=== PATIENT | male | born 1945 | race Caucasian/White ===

== ENCOUNTER 2016-11-06 11:40 | Inpatient (IN) | payer OTHER ==
[~2016-11-06] VITALS: Ht 185.4 cm; Wt 102.0 kg
[~2016-11-06 11:40] MED LIST: /IPRAINH IN; /MOXI40TA OR; /MOXI40TA PO; /QUET25TA PO; /TIOT18INH INH; /WARF25TA PO; ACET-654 PO; ACET500C PO; ALBU0.63 IN; ALBU83IN IN; ALBUTEROL INH; ASPI325T PO; ASPI81CH PO; ATEN50TA2 PO; ATIV0.5T3 PO; ATROPINE PO; ATROVENT0.02% INH; AUGM875T27 PO; BISA10SU30 PR; CILO50TA PO; DESYREL PO; DUONSOL INH; EFFEXOR PO; FLEEENE4 PR; FLON0.05; FLUC10TA PO; FLUN7IN IN; FOLI1TAB PO; GABA400C PO; GEMF600T PO; GLUC1000 PO; GLUC10TA3 PO; GUAISYP5 PO; IBUP200T2 PO; IBUP600T PO; KEFL250C6 PO; LASIX PO; LEVO500T PO; LIDO1DIS2 TD; LISI20TA5 PO; MIRT45TA PO; MUCU400T2 PO; MULTIVIT PO; NASALIDE; NEUR400C PO; NIAC500T PO; NICO21DI26 EXT; NICO21DI4 TD; NICO21PAT TOP; NORCOTAB PO; NORV5TAB OR; OMEP20TA7 PO; PERC7.5T12 PO; PERCOCET PO; PRED-454 PO; PRED10TA PO; PRED10TA2 OR; PRED1TAB32 PO; PRED50TA2 PO; PRED5TAB PO; PULMICORT; PULMICORT INH; REGULAR INSULIN SC; SENEKOT PO; SERO50TA PO; SIMV20TA2 PO; SYMB16INH INH; TAMS0.4C PO; TOPA100T PO; TOPI50TA PO; TRAZ100T PO; ULTR50TA PO; VENL100T PO; VENL25TA2 PO; VENTAER IN; VITA400T13 PO; [UNRECOGNIZED DRUG - CODE] PO; [UNRECOGNIZED DRUG - OTHER] PO
[2016-11-06] MEDS ORDERED: ACETAMINOPHEN 325 MG TAB As Ordered ONE (12:09)
[2016-11-06] MEDS ORDERED: IPRATROPIUM 0.5MG/ALBUTEROL 2.5MG INH SOL UD 3ML (DUONEB)(J7620) As Ordered ONE ×2 (12:18→16:21)
[2016-11-06] MEDS ORDERED: ALBUTEROL SULFATE 2.5 MG/0.5 ML INH NEB SOLN As Ordered ONE (12:20)
[2016-11-06 12:24] LABS: BASO % 0.6 % (0.0-1.0); EOS # 0.1 K/mm3 (0.0-0.50); EOS % 1.1 % (0.0-3.0); LARGE UNSTAINED CELL # 0.1 K/mm3 (0.0-0.4); LARGE UNSTAINED CELL % 1.3 % (0.0-4.0); LYMPH # 0.6 K/mm3 (1.5-4.5); LYMPH % 5.7 % (24.0-44.0); MEAN CORPUSCULAR HGB CONC 35.2 g/dl (32.0-36.5); MEAN CORPUSCULAR VOLUME 96.8 fl (80.0-96.0); MONO # 0.6 K/mm3 (0.0-0.8); NEUTROPHILS # 7.8 K/mm3 (1.8-7.7); NEUTROPHILS % 85.4 % (36.0-66.0); PLATELET COUNT, AUTOMATED 134 k/mm3 (150-450); RED CELL DISTRIBUTION WIDTH 13.7 % (11.5-14.5); WHITE BLOOD COUNT 9.2 K/mm3 (4.0-10.0)
[2016-11-06 12:27] LABS: ABG BASE EXCESS -4.8 (-2.0-2.0); ABG HCO3 19.5 MEQ/L (22.0-26.0); ABG PARTIAL PRESSURE CO2 34.3 mmHg (35.0-45.0); ABG PARTIAL PRESSURE O2 90.3 mmHg (75.0-100.0); ABG STANDARD HCO3 20.6 MEQ/L (22.0-26.0); ABG TOTAL CO2 20.6 MEQ/L (23.0-31.0); ABG pH (ARTERIAL) 7.373 UNITS (7.350-7.450)
[2016-11-06 12:38] LABS: ALBUMIN/GLOBULIN RATIO 1.05 (1.00-1.93); BILIRUBIN,DIRECT 0.1 MG/DL (0.0-0.2); BILIRUBIN,TOTAL 0.5 MG/DL (0.2-1.0); CALCIUM LEVEL 8.9 MG/DL (8.8-10.2); CREATININE FOR GFR 1.7 MG/DL (0.70-1.30); GLOMERULAR FILTRATION RATE 42.3 (>42); POTASSIUM SERUM 3.6 MEQ/L (3.5-5.1); TOTAL PROTEIN 7.8 GM/DL (6.4-8.2)
--- NOTE | 2016-11-06 13:23 | REP ---
Clinical: Cough and shortness of breath. Technique: PA and lateral. Comparison: 08/29/2014. Findings: Mediastinum and cardiac silhouette stable. Lung jarquin demonstrate chronic stable changes without acute consolidation, effusion, or pneumothorax. Skeletal structures intact. Degenerative changes to the thoracic spine with bridging osteophytes noted Impression: Chronic stable changes. No acute cardiopulmonary process. Signed by Alvarado Lucero MD 11/06/2016 01:13 P
[2016-11-06] MEDS ORDERED: MAGNESIUM SULFATE 1 GM/100 ML D5W BAG (10MG/ML) (J3475) As Ordered ONE (13:28)
[2016-11-06] MEDS ORDERED: methylPREDNISolone INJ 125 MG/2 ML VIAL (J2930) As Ordered ONE (13:28)
[2016-11-06] MEDS ORDERED: VITA20008 PO (14:21)
[2016-11-06] MEDS ORDERED: SYMB16INH INH (14:21)
[2016-11-06] MEDS ORDERED: ALBU17IN INH (14:21)
[2016-11-06] MEDS ORDERED: TOPI1TAB31 PO (14:21)
[2016-11-06] MEDS ORDERED: CETI10TA PO (14:21)
[2016-11-06] MEDS ORDERED: CILO50TA PO (14:21)
[2016-11-06] MEDS ORDERED: OXYC-517 PO (14:21)
[2016-11-06] MEDS ORDERED: TOPI50TA4 PO (14:21)
[2016-11-06] MEDS ORDERED: ATEN25TA PO (14:21)
[2016-11-06] MEDS ORDERED: TRAZ100T4 PO (14:21)
[2016-11-06] MEDS ORDERED: ASPI1TAB PO (14:21)
[2016-11-06] MEDS ORDERED: POTA10CA PO (14:21)
[2016-11-06] MEDS ORDERED: [UNRECOGNIZED DRUG - CODE] PO (14:21)
[2016-11-06] MEDS ORDERED: QUET1TAB10 PO (14:21)
[2016-11-06] MEDS ORDERED: SIMV20TA2 PO (14:21)
[2016-11-06] MEDS ORDERED: SPIR1CAP INH (14:21)
[2016-11-06] MEDS ORDERED: GABA-283 PO ×2 (14:25)
[2016-11-06] MEDS ORDERED: MIRT45TA PO (14:25)
[2016-11-06] MEDS ORDERED: GUAI400T6 PO (14:25)
[2016-11-06] MEDS ORDERED: FISH120012 PO (14:25)
[2016-11-06] MEDS ORDERED: OMEP20CA3 PO (14:25)
[2016-11-06] MEDS ORDERED: FLUTISP (14:25)
[2016-11-06] MEDS ORDERED: VITMTA PO (14:25)
[2016-11-06] MEDS ORDERED: IBUP60TA PO (14:25)
[2016-11-06] MEDS ORDERED: LISI-538 PO (14:25)
[2016-11-06] MEDS ORDERED: BACL10TA2 PO (14:27)
[2016-11-06] MEDS ORDERED: SERT-138 PO (14:28)
[2016-11-06] MEDS ORDERED: LevoFLOXacin/DEXTROSE 750 MG/150 ML BAG (J1956) As Ordered ONE (14:52)
[2016-11-06] MEDS ORDERED: OSELTAMIVIR PHOSPHATE 75 MG CAP (TAMIFLU) As Ordered ONE ×2 (14:53→20:16)
[2016-11-06 15:51] LABS: CALCIUM LEVEL 8.4 MG/DL (8.8-10.2); CREATININE FOR GFR 1.62 MG/DL (0.70-1.30); GLOMERULAR FILTRATION RATE 44.7 (>42); POTASSIUM SERUM 3.7 MEQ/L (3.5-5.1)
--- NOTE | 2016-11-06 17:11 | REP ---
Clinical: Bilateral pain and elevated D-dimer levels . Technique: Henry scale and color Doppler evaluation using linear high frequency transducer. Findings: Ultrasound examination of the right and left lower extremity deep venous structures from the common femoral vein to the popliteal vein demonstrates normal compressibility flow and wave patterns in response to respiration and augmentation. There is no evidence for deep venous thrombosis. Impression: No evidence for deep venous thrombosis of the right and left lower extremities . Signed by Alvarado Lucero MD 11/06/2016 05:03 P
[2016-11-06] MEDS: CILOSTAZOL 100 MG TAB (PLETAL) PO SCH (17:30)
[2016-11-06] MEDS ORDERED: guaiFENesin 200 MG TAB PO PRN (17:45)
[2016-11-06] MEDS ORDERED: PERCOCET 5MG/325MG TAB PO PRN (17:45)
[2016-11-06] MEDS ORDERED: FLUTICASONE PROP 0.05% NASAL SPRAY 16 GM (FLONASE) PRN (17:45)
[2016-11-06] MEDS ORDERED: ALBUTEROL 90 MCG/ACT 8GM HFA INHALER INH PRN (17:45)
[2016-11-06] MEDS ORDERED: BACLOFEN 10 MG TAB PO PRN (17:45)
[2016-11-06] MEDS ORDERED: ENOXAPARIN 100MG/1ML SYRINGE (J1650) SC SCH (18:00)
--- NOTE | 2016-11-06 18:13 | ECGEPIP ---
Stationary ECG Study [facility] - ED Test Date: 2016-11-06 Pat Name: MATA VERDUGO Department: Room: - Gender: M Summer Clerk: chase : 1945 Requested By: HUNTER GARCIA Order Number: [id number] Reading MD: Srinivasa Lepe Measurements Intervals [place] Rate: 122 P: CA: 0 QRS: 52 QRSD: 145 T: 34 QT: 322 QTc: 460 Interpretive Statements SINUS TACHYCARDIA WITH FIRST DEGREE AV BLOCK, OCCASIONLA PACs RAD RIGHT BUNDLE BRANCH BLOCK Electronically Signed On 11-06-2016 18:12:43 EST by Srinivasa Lepe
[2016-11-06 18:38] LABS: INR 1.02
[2016-11-06] MEDS ORDERED: HEPARIN DRIP 25,000 UNITS in APPROPRIATE DILUENT 1 EA IV SCH (19:00)
[2016-11-06] MEDS ORDERED: HEPARIN 25,000 UNITS/250 ML D5W BAG (100 UNITS/ML) As Ordered ONE (19:50)
[2016-11-06] MEDS: cefTRIAXone SOD 2 GM in D5W MINI-BAG PLUS 50 ML IV SCH (20:00)
[2016-11-06] MEDS: SYMBICORT 160/4.5MCG INHALER 6GM INH SCH (20:01)
[2016-11-06] MEDS ORDERED: cefTRIAXone SOD 1 GM VIAL (J0696) As Ordered ONE (20:15)
[2016-11-06] MEDS ORDERED: POTASSIUM CHLORIDE 10 MEQ SR TABLET As Ordered ONE (20:15)
[2016-11-06] MEDS ORDERED: OMEPRAZOLE 20 MG CAP As Ordered ONE (20:15)
[2016-11-06] MEDS ORDERED: IBUPROFEN 600 MG TAB As Ordered ONE (20:16)
[2016-11-06] MEDS ORDERED: SIMVASTATIN 20 MG TAB As Ordered ONE (20:16)
[2016-11-06] MEDS ORDERED: oxyCODONE 5MG TAB As Ordered ONE (20:16)
[2016-11-06] MEDS ORDERED: QUEtiapine FUMARATE 100 MG TAB As Ordered ONE (20:16)
[2016-11-06] MEDS ORDERED: traZODone 100 MG TAB As Ordered ONE (20:23)
[2016-11-06] MEDS ORDERED: TOPIRAMATE (TopAMAX) 100 MG TAB As Ordered ONE (20:24)
--- NOTE | 2016-11-06 20:47 | HPE ---
DATE OF ADMISSION: 11/06/2016 PRIMARY CARE PROVIDER: [facility] [place] [facility]. HISTORY OF PRESENT ILLNESS: This patient is a 71-year-old male with past medical history significant for chronic obstructive pulmonary disease (COPD), gastroesophageal reflux disease (GERD), hypercholesterolemia, hypertension, posttraumatic stress disorder (PTSD), who presented to [facility] on 11/06/2016, for acute respiratory distress. The patient stated he started having difficulty breathing for the past two days. His sputum became more yellowish. The patient has a worsening cough and temperature of 103. This morning, the patient started to have confusion observed by the family members; therefore, the patient was sent to [facility] for further evaluation. During encounter, the patient also complained about chest pain, received a dose of nitroglycerin. When patient was in the emergency room, the patient was found to have positive for influenza. Then the hospitalist team was called for admission. ALLERGIES: LIBRIUM. HOME MEDICATIONS: - Ventolin two puff inhalation every four hours as needed - aspirin 81 mg by mouth daily - atenolol 25 mg by mouth daily - baclofen 10 mg by mouth four times a day as needed for muscle spasm - Symbicort two puff inhalation twice a day - sertraline 10 mg by mouth daily - vitamin D 2000 units by mouth daily - fluticasone per nasal daily as needed for nasal congestion - gabapentin 400 mg by mouth every morning - gabapentin 800 mg by mouth at bedtime - guaifenesin 400 mg by mouth twice a day as needed for cough - ibuprofen 600 mg by mouth twice a day - lisinopril 20 mg by mouth daily - mirtazapine 45 mg by mouth at bedtime - multivitamin one tablet by mouth daily - omeprazole 20 mg by mouth twice a day - oxycodone 5 mg by mouth three times a day - potassium chloride 10 mEq by mouth three times a day - quetiapine 300 mg by mouth at bedtime - sertraline 100 mg by mouth daily - simvastatin 20 mg by mouth at bedtime - Spiriva inhalation daily - topiramate 50 mg by mouth daily - topiramate 100 mg by mouth at bedtime - trazodone 200 mg by mouth at bedtime - cilostazol 50 mg by mouth twice a day - theophylline 400 mg by mouth twice a day PAST MEDICAL HISTORY: 1. COPD. 2. GERD. 3. Hypercholesterolemia. 4. Hypertension. 5. PTSD. PAST SURGICAL HISTORY: 1. Coronary artery bypass graft (CABG). 2. Left leg vessel stents. SOCIAL HISTORY: The patient smokes two packs daily for 58 years. The patient denies alcohol use. Denies recreational drug use. The patient is full code. REVIEW OF SYSTEMS: GENERAL: Positive for fever, chills. Generalized muscle aches. HEENT: No vision changes, no auditory changes. CARDIAC: Positive chest pressure. Positive for palpitations. RESPIRATORY: Worsening shortness of breath with sputum color changes, increased cough in the past two days. GASTROINTESTINAL: No nausea, no vomiting. No abdominal pain. MUSCULOSKELETAL: Generalized muscle aches. No muscle or joint swelling. NEUROLOGIC: No numbness or tingling. OBJECTIVE: VITAL SIGNS: Blood pressure is 139/59, pulse is 114, respiratory rate is 35, temperature is 100.5. Pulse oximetry is 94% with oxygen support. Body weight is 99.79 kg. Body height is 185.4 cm. GENERAL: Moderate distress secondary to tachypnea and respiratory distress. HEENT: Normocephalic, atraumatic. Extraocular motor grossly intact. CARDIOVASCULAR: Tachycardic. Positive S1, S2. RESPIRATORY: Severe expiratory wheezes. Coarse lung sounds. No rhonchi appreciated. GASTROINTESTINAL: Morbidly obese, soft, nontender, nondistended. Bowel sounds present. No rebound, no guarding. EXTREMITIES: No lower extremity edema. No sign of cyanosis. NEUROLOGIC: Sensation to fine touch grossly intact. Muscle strength 5/5. LABORATORY DATA: WBC 9.2, hemoglobin 16.1, hematocrit 45.8, platelet count 134. Sodium 142, potassium 3.7, chloride 113, carbon dioxide 20, BUN 17, creatinine 1.62, GFR 44.7, fasting glucose 141, calcium 8.4. PH is 7.373, pCO3 is 34.3, pO2 is 90.3, HCO3 is 19.5. MICROBIOLOGY: Influenza positive. IMAGING: Chest x-ray showed chronic stable changes. No acute cardiopulmonary processes. Bilateral lower extremity ultrasound showed no evidence of DVT. ASSESSMENT AND PLAN: 1. Acute respiratory distress. The patient was admitted to the progressive care unit (PCU) under inpatient status. The patient was started on Tamiflu for positive influence AH-3. The patient did have a history of blood clot. The patient has a heart rate greater than 100, and patient noted two streaks of blood on the phlegm. The patient has a chronic smoking history. The patient also has an elevated D-dimer. We would really like to rule out pulmonary embolism. However, currently the patient is not able to tolerate a CT angiogram. Prophylactically we will start the patient on therapeutic dose Lovenox, and it will benefit for the patient to have a CT angiogram or ventilation perfusion (V/Q) scan tomorrow. At this moment, our facility does not have the capacity to perform those tests. 2. Atrial tachycardia possibly due to the patient's current severe influenza and chronic obstructive pulmonary disease (COPD) exacerbation. We are in the process to rule out pulmonary embolism (PE). The patient is on Tamiflu, COPD antibiotic regimen, and patient is on anticoagulation. 3. Chronic obstructive pulmonary disease exacerbation. 4. Gastroesophageal reflux disease. 5. Hypertension. 6. History of posttraumatic stress disorder (PTSD) on home medications. 7. Hypercholesterolemia. Continue simvastatin. 8. Chest pain. We will follow with troponins. 9. Deep venous thrombosis (DVT) prophylaxis. The patient is on heparin. 10. History of coronary artery bypass graft (CABG). The patient is on cilostazol.
[2016-11-06] MEDS: IBUPROFEN 600 MG TAB PO SCH (21:00)
[2016-11-06] MEDS: GABAPENTIN 400 MG CAP PO SCH (21:00)
[2016-11-06] MEDS: OSELTAMIVIR PHOSPHATE 75 MG CAP (TAMIFLU) PO SCH (21:00)
[2016-11-06] MEDS: POTASSIUM CHLORIDE 10 MEQ SR TABLET PO SCH (21:00)
[2016-11-06] MEDS: OMEPRAZOLE 20 MG CAP PO SCH (21:00)
[2016-11-06] MEDS: QUEtiapine FUMARATE 100 MG TAB PO SCH (21:00)
[2016-11-06] MEDS: SIMVASTATIN 20 MG TAB PO SCH (21:00)
[2016-11-06] MEDS: oxyCODONE 5MG TAB PO SCH (21:00)
[2016-11-06] MEDS: TOPIRAMATE (TopAMAX) 100 MG TAB PO SCH (21:00)
[2016-11-06] MEDS: traZODone 100 MG TAB PO SCH (21:00)
[2016-11-06] MEDS: MIRTAZAPINE 15 MG TAB PO SCH (21:00)
--- NOTE | 2016-11-06 22:15 | EDDOCDS ---
Nurse's Notes [facility] Name: Mata Gill Age: 71 yrs Sex: Male : 1945 Arrival Date: 11/06/2016 Time: 11:40 Bed 9 Private MD: [facility], [place] Diagnosis: Influenza due to identified novel influenza A virus;Shortness of breath;Tachycardia, unspecified Presentation: 11/06 11:57 Presenting complaint: Patient states: has had increasing SOB for last 2 days . loose bcj cough with thick yellow green sputum. + temp at home. becomes very SOB with any activity. not eating drinking at home. denies chest pain. Adult Sepsis Screening: The patient does not have new or worsening altered mentation. Patient has a respiratory rate of greater than or equal to 22 (1 point). Systolic blood pressure is greater than 100. Patient has a qSOFA score of 1- Negative Sepsis Screen. Suicide/Homicide risk assessment- the patient denies having any suicidal and/or homicidal ideations and does not present with any other emotional, behavioral or mental health complaints. Status: Patient is not a emergency service worker or dependent. Transition of care: patient was not received from another setting of care. Red Flag criteria, patient assessed and taken directly to a bed. 11:57 Acuity: NICOLE Level 2 [facility] 11:57 Method Of Arrival: Walkin/Carried/Asstd [facility] Triage Assessment: 12:07 General: Appears in no apparent distress, comfortable, Behavior is cooperative. Pain: bcj Denies pain. Cardiovascular: Rhythm is sinus tachycardia Chest pain is denied. Respiratory: Airway is patent Respiratory effort is labored, Respiratory pattern is tachypnea Sputum is thick, blood streaked, green yellow Breath sounds with wheezes bilaterally. Derm: Skin is dusky, pink. Historical: - Allergies: Librium; - Home Meds: 1. albuterol sulfate 90 mcg/actuation Inhl HFAA 2 puffs every 4 hours 2. aspirin 81 mg Oral chew 1 tab once daily 3. atenolol 25 mg Oral tab 1 tab once daily 4. budesonide/formoter 2 puff twice a day 5. cetirizine 10 mg oral tab 1 tab once daily 6. cholecalciferol (vitamin D3) 1,000 unit oral cap 7. cilostazol 50 mg oral tab 1 tab 2 times per day 8. Fish Oil 300-1,000 mg Oral cpDR daily 9. Flonase 50 mcg/actuation Nasal spsn 1 spray once daily 10. gabapentin 400 mg Oral cap 1 cap 1 cap in AM 2 caps in PM 11. guaifenesin 400 mg Oral tab 1 tab twice a day 12. Motrin Oral 600 mg twice a day 13. lisinopril 40 mg Oral tab 1 tab once daily 14. mirtazapine 45 mg Oral TbDL 1 tab once daily 15. multivitamin Oral cap 1 tab daily 16. omeprazole 40 mg Oral cpDR 1 cap 2 times per day 17. oxycodone 5 mg Oral tab three times a day 18. potassium chloride 10 mEq Oral cpER 1 cap 3 times per day 19. quetiapine 300 mg oral tab 1 tab nightly 20. sertraline 100 mg oral tab 1 tab once daily 21. simvastatin 20 mg Oral tab 1 tab once daily 22. theophylline 400 mg Oral TbER 1 tab twice a day 23. Spiriva with HandiHaler 18 mcg Inhl CpDv 1 cap once daily 24. topiramate 100 mg oral tab 1/2 tab in AM 1 tab in PM 25. trazodone 100 mg Oral tab 2 tabs nightly 26. nitroglycerin 0.4 mg SL subl 1 tab every 5 minutes 27. baclofen 20 mg Oral tab 1 tab daily - PMHx: Chronic Back pain; COPD; GERD; Hypercholesterolemia; Hypertension; PTSD; - PSHx: CABG; - Social history: Smoking status: Patient uses tobacco products, heavy tobacco smoker. No barriers to communication noted, The patient speaks fluent Japanese, Speaks appropriately for age. - Family history: Not pertinent. - : The pt / caregiver states he / she is not on anticoagulants. Home medication list is obtained from the patient. - Exposure Risk Screening:: None identified. Screenin:57 Screening information is obtained from the patient. Fall risk: No risks identified. jo3 Assistance ADL's: requires no assistance with activities of daily living. Abuse/DV Screen: The patient / caregiver reports he/she is: not in a situation that causes fear, pain or injury. Nutritional screening: No deficits noted. Advance Directives: There is no active DNR order. home support is adequate. Assessment: 13:20 General: Appears distressed, Behavior is appropriate for age, cooperative. Pain: Denies jo3 pain. Neurological: Level of Consciousness is awake, alert, Oriented to person, place, time. Cardiovascular: Rhythm is sinus tachycardia No ectopy. Chest pain is denied. Respiratory: Airway is patent Respiratory effort is labored, shallow. GI: No deficits noted. : No deficits noted. Derm: Skin is pink, warm & dry. 14:22 General: Appears in no apparent distress, comfortable, unkempt, well nourished, jo3 Behavior is appropriate for age, cooperative. Neurological: Level of Consciousness is awake, alert, Oriented to person, place, time. Respiratory: Airway is patent Respiratory effort is even, unlabored, Breath sounds with wheezes inspiratory expiratory bilaterally. Reports shortness of breath at rest. Derm: Skin is pink, warm & dry. 15:10 Reassessment: Patient appears in no apparent distress at this time. Patient states jo3 feeling better. Patient states symptoms have improved. Pt reports feeling improved since arrival. Family at bedside. awaiting results. Aware of plan of care . General:. 16:10 General: Appears in no apparent distress, comfortable, Behavior is appropriate for age, jo3 cooperative, pleasant. General: Resting on stretcher with family at bedside. Awaiting results for disposition. Aware of plan of care . Neurological: Level of Consciousness is awake, alert, Oriented to person, place, time. Respiratory: Airway is patent Respiratory effort is even, unlabored, audible wheezes noted. Pt appears to be moving more air. Derm: Skin is pink, warm & dry. 17:15 Reassessment: Patient appears in no apparent distress at this time. Patient states jo3 feeling better. Patient states symptoms have improved. Family remains at bedside. Pt awaiting admission at this time. reports that he feels improved since arrival. General: Appears. 18:20 General: Appears in no apparent distress, comfortable, Behavior is appropriate for age, jo3 cooperative. Neurological: Level of Consciousness is awake, alert, Oriented to person, place, time. Cardiovascular: Rhythm is sinus tachycardia No ectopy. Chest pain is denied. Respiratory: Airway is patent Respiratory effort is even, unlabored, Breath sounds with wheezes bilaterally. Derm: Skin is pink, warm & dry. 19:30 General: Appears in no apparent distress, comfortable, Behavior is appropriate for age, ko2 cooperative. Pain: Denies pain. Neurological: Level of Consciousness is awake, alert, Oriented to person, place, time. Respiratory: Airway is patent Respiratory effort is even, labored, Breath sounds with wheezes bilaterally. Derm: Skin is pale. 20:45 General: Appears in no apparent distress, comfortable, Behavior is appropriate for age, ko2 cooperative. Neurological: Level of Consciousness is awake, alert. Respiratory: Airway is patent Respiratory effort is even, labored. Derm: Skin is pale. 22:09 General: Appears in no apparent distress, comfortable, pt currently sleeping on ko2 stretcher. No concerns at this time, . Vital Signs: 11:42 BP 198 / 101; Pulse 128; Resp 35; Temp 102.5; Pulse Ox 94% ; Weight 99.79 kg; Height 6 jlm ft. 1 in. (185.42 cm); 12:29 BP 160 / 78 RA (man/); kr3 12:57 BP 167 / 87 (auto/); jo3 12:57 Pulse 126 MON; Pulse Ox 96% ; jo3 13:14 Pulse 138 MON; Pulse Ox 97% ; jo3 13:15 BP 190 / 101 (auto/); jo3 13:23 BP 188 / 85 (auto/); jo3 13:23 Pulse 156 MON; Pulse Ox 96% ; jo3 13:38 BP 162 / 81 (auto/); jo3 13:38 Pulse 142 MON; Pulse Ox 95% ; jo3 13:53 BP 158 / 72 (auto/); jo3 13:53 Pulse 128 MON; Pulse Ox 95% ; jo3 14:08 BP 166 / 72 (auto/); jo3 14:08 Pulse 130 MON; Pulse Ox 94% ; jo3 14:23 BP 175 / 84 (auto/); jo3 14:23 Pulse 136 MON; Pulse Ox 95% ; jo3 14:38 BP 122 / 70 (auto/); jo3 14:38 Pulse 138 MON; Pulse Ox 94% ; jo3 14:46 Temp 100.5; jlm 14:53 BP 151 / 101 (auto/); jo3 14:53 Pulse 128 MON; Pulse Ox 95% ; jo3 15:08 BP 149 / 75 (auto/); jo3 15:08 Pulse 116 MON; Pulse Ox 95% ; jo3 15:23 BP 132 / 68 (auto/); jo3 15:23 Pulse 116 MON; Pulse Ox 94% ; jo3 15:38 BP 138 / 74 (auto/); jo3 15:38 Pulse 122 MON; jo3 15:53 BP 131 / 68 (auto/); jo3 15:53 Pulse 114 MON; Pulse Ox 95% ; jo3 15:58 BP 139 / 59 (auto/); jo3 15:58 Pulse 114 MON; Pulse Ox 95% ; jo3 16:08 BP 143 / 72 (auto/); jo3 16:08 Pulse 112 MON; Pulse Ox 95% ; jo3 16:23 BP 145 / 75 (auto/); jo3 16:23 Pulse 108 MON; Pulse Ox 95% ; jo3 16:38 BP 154 / 79 (auto/); jo3 16:38 Pulse 124 MON; Pulse Ox 96% ; jo3 16:53 BP 141 / 66 (auto/); jo3 16:53 Pulse 118 MON; Pulse Ox 95% ; jo3 17:08 BP 129 / 62 (auto/); jo3 17:08 Pulse 112 MON; Pulse Ox 95% ; jo3 17:23 BP 142 / 69 (auto/); jo3 17:23 Pulse 112 MON; Pulse Ox 95% ; jo3 17:38 BP 135 / 63 (auto/); jo3 17:38 Pulse 112 MON; Pulse Ox 95% ; jo3 18:08 BP 108 / 67 (auto/); jo3 18:08 Pulse 106 MON; Resp 24; Pulse Ox 95% ; jo3 18:18 Temp 98.7(TE); jlm 18:23 BP 123 / 75 (auto/); jo3 18:23 Pulse 118 MON; Pulse Ox 98% ; jo3 18:38 BP 139 / 74 (auto/); jo3 18:38 Pulse 102 MON; Pulse Ox 96% ; jo3 18:53 BP 145 / 80 (auto/); jo3 18:53 Pulse 100 MON; Pulse Ox 96% ; jo3 19:08 BP 144 / 77 (auto/); jo3 19:08 Pulse 102 MON; Pulse Ox 96% ; jo3 20:08 BP 137 / 76 (auto/); ko2 20:08 Pulse 104 MON; Pulse Ox 94% ; ko2 20:22 Pulse 104 MON; Pulse Ox 95% ; ko2 20:23 BP 135 / 63 (auto/); ko2 20:38 BP 164 / 82 (auto/); ko2 20:38 Pulse 98 MON; Pulse Ox 96% ; ko2 20:53 BP 136 / 56 (auto/); ko2 20:53 Pulse 96 MON; Pulse Ox 95% ; ko2 21:07 Pulse 100 MON; Pulse Ox 96% ; ko2 21:08 BP 180 / 87 (auto/); ko2 21:23 BP 170 / 79 (auto/); ko2 21:23 Pulse 106 MON; Pulse Ox 95% ; ko2 21:38 BP 169 / 80 (auto/); ko2 21:38 Pulse 102 MON; Pulse Ox 95% ; ko2 21:52 Pulse 106 MON; Pulse Ox 94% ; ko2 21:53 BP 167 / 89 (auto/); ko2 11:42 Body Mass Index 29.03 (99.79 kg, 185.42 cm) [facility] Vitals: 11:42 Log In Time: November 06, 2016 at 11:42. RN notified that patient meets Red Flag [facility] criteria. ED Course: 11:42 Patient visited by Merced Singleton Unit Clerk. [facility] 11:42 [facility] is Private Physician. [facility] 11:42 Patient moved to Waiting jl 11:54 Patient moved to 9 ar3 11:59 Triage Initiated bcj 12:02 [facility] le 12:10 Patient visited by Pascale Soriano FNP. le 12:10 Patient visited by Pascale Soriano FNP. le 12:13 Inserted saline lock: 20 gauge in right forearm and blood collected. The patient kr3 tolerated the procedure well. 12:24 ARTERIAL BLOOD GAS Sent. lb 12:34 RESPIRATORY PANEL Sent. kr3 12:51 [facility] Payment Agreement was scanned into [employer] and attached to record. jp5 12:57 The patient / caregiver is instructed regarding the plan of care and ED course. jo3 12:57 No procedures done that require assistance. jo3 13:04 EKG done. (by ED staff). Reviewed by Pascale GARCIA. jlf 13:28 Patient visited by Joseph Floyd PCA. jlf 13:29 Patient visited by Joseph Floyd PCA. jlf 13:53 Chest, 2 View (pa\E\lat) Returned. EDMS 14:25 Patient visited by Nichole Smith,LACI. jo3 14:46 Patient visited by Merced Singleton, Saddle Stitching Machine Operator. jlm 14:50 Inserted saline lock: 20 gauge in left hand The patient tolerated the procedure well. dsf 15:52 Edna Whyte is Hospitalizing Provider. le 16:12 Patient visited by Nichole Smith RN. jo3 16:29 Patient moved to Ultrasound br3 17:02 Patient moved to 9 br3 17:49 Patient moved to Admit Hold js13 17:51 US Lower Extremities Bilateral R/O DVT Returned. EDMS 18:18 Patient visited by Merced Singleton, Saddle Stitching Machine Operator. jlm 18:33 ECG WITH READING ER PHYS Returned. EDMS 19:18 Sabina Cannon,LACI is Primary Nurse. ko2 20:53 Patient moved to 9 ml3 Administered Medications: 12:12 Drug: Acetaminophen 650 mg [acetaminophen 325 mg tablet (2 tabs)] Route: PO; js13 12:12 Drug: NS 0.9% 1000 ml [sodium chloride 0.9 % intravenous solution] Route: IV; Rate: js13 bolus; Site: right antecubital; 13:15 Follow up: IV Status: Completed infusion jo3 12:19 Drug: Albuterol-Ipratropium 3 ml [ipratropium-albuterol 0.5 mg-3 mg(2.5 mg base)/3 mL kt1 nebulization soln (3 mL)] Route: Inhalation; 12:23 Drug: Albuterol 5 mg [albuterol sulfate 2.5 mg/0.5 mL solution for nebulization (1 mL)] lb Route: Nebulizer; 13:30 Drug: Solu-MEDROL 125 mg [Solu-Medrol 500 mg intravenous solution (125 mg)] Route: IVP; kr3 Site: right forearm; 13:35 Drug: Magnesium Sulfate in D5W 2 grams [magnesium sulfate 1 gram/100 mL in dextrose 5 % kr3 intravenous piggyback] Route: IV; Rate: 2000 mg/hr; Site: right forearm; 15:45 Follow up: IV Status: Completed infusion jo3 15:08 Drug: levofloxacin 750 mg [levofloxacin 250 mg/50 mL in 5 % dextrose intravenous kc3 piggyback] Route: IVPB; Infused Over: 90 mins; Site: right hand; 16:10 Follow up: IV Status: Completed infusion jo3 15:09 Drug: Oseltamivir 75 mg [oseltamivir 75 mg capsule (1 caps)] Route: PO; kc3 15:53 Drug: NS 0.9% 1000 ml [sodium chloride 0.9 % intravenous solution] Route: IV; Rate: 250 jo3 mL/hr; Site: right antecubital; 16:30 Drug: Albuterol-Ipratropium 3 ml [ipratropium-albuterol 0.5 mg-3 mg(2.5 mg base)/3 mL lb nebulization soln (3 mL)] Route: Inhalation; 18:10 CANCELLED (Not on formulary ): Theophylline 400 mg PO once jo3 RT: 12:24 ABG's drawn from right radial artery allens test done and positive pressure held for 5 lb minutes no bleeding noted pressure bandage applied specimen sent pt. tolerated well. 12:24 Initial Med Neb Given as ordered Patient was instructed and evaluated on procedure lb Patient tolerated procedure well without adverse effect. Respiratory: Breath sounds are diminished Breath sounds with wheezes bilaterally. 16:41 Subsequent Med Neb Given as ordered Patient was reinforced on procedure Patient lb tolerated procedure well without adverse effect. Respiratory: Breath sounds with wheezes bilaterally. at expiration. Order Results: Lab Order: Theophylline Level; SPEC'M 11/06/16 12:11 Test: THEOPHYLLINE LEVEL; Value: 7.5; Range: 10.0-20.0; Abnormal: Below low normal; Units: UG/ML; Status: F Lab Order: ARTERIAL BLOOD GAS; SPEC'M 11/06/16 12:20 Test: ABG pH (ARTERIAL); Value: 7.373; Range: 7.350-7.450; Units: UNITS; Status: F Test: ABG PARTIAL PRESSURE CO2; Value: 34.3; Range: 35.0-45.0; Abnormal: Below low normal; Units: mmHg; Status: F Test: ABG PARTIAL PRESSURE O2; Value: 90.3; Range: 75.0-100.0; Units: mmHg; Status: F Test: ABG TOTAL CO2; Value: 20.6; Range: 23.0-31.0; Abnormal: Below low normal; Units: MEQ/L; Status: F Test: ABG HCO3; Value: 19.5; Range: 22.0-26.0; Abnormal: Below low normal; Units: MEQ/L; Status: F Test: ABG BASE EXCESS; Value: -4.8; Range: -2.0-2.0; Abnormal: Below low normal; Status: F Test: ABG STANDARD HCO3; Value: 20.6; Range: 22.0-26.0; Abnormal: Below low normal; Units: MEQ/L; Status: F Test: ABG O2 SATURATION; Value: 97.4; Range: 95.0-99.0; Units: %; Status: F Lab Order: C REACTIVE PROTEIN QUANTITATIV; SPEC' 11/06/16 12:11 Test: C REACTIVE PROTEIN QUANTITATIV; Value: 7.49; Range: 0.00-0.30; Abnormal: Above high normal; Units: MG/DL; Status: F Lab Order: CBC WITH DIFFERENTIAL; [facility]' 11/06/16 12:11 Test: WHITE BLOOD COUNT; Value: 9.2; Range: 4.0-10.0; Units: K/mm3; Status: F Test: RED BLOOD COUNT; Value: 4.73; Range: 4.30-6.10; Units: M/mm3; Status: F Test: HEMOGLOBIN; Value: 16.1; Range: 14.0-18.0; Units: g/dl; Status: F Test: HEMATOCRIT; Value: 45.8; Range: 42.0-52.0; Units: %; Status: F Test: MEAN CORPUSCULAR VOLUME; Value: 96.8; Range: 80.0-96.0; Abnormal: Above high normal; Units: fl; Status: F Test: MEAN CORPUSCULAR HEMOGLOBIN; Value: 34.0; Range: 27.0-33.0; Abnormal: Above high normal; Units: pg; Status: F Test: MEAN CORPUSCULAR HGB CONC; Value: 35.2; Range: 32.0-36.5; Units: g/dl; Status: F Test: RED CELL DISTRIBUTION WIDTH; Value: 13.7; Range: 11.5-14.5; Units: %; Status: F Test: PLATELET COUNT, AUTOMATED; Value: 134; Range: 150-450; Abnormal: Below low normal; Units: k/mm3; Status: F Test: NEUTROPHILS %; Value: 85.4; Range: 36.0-66.0; Abnormal: Above high normal; Units: %; Status: F Test: LYMPH %; Value: 5.7; Range: 24.0-44.0; Abnormal: Below low normal; Units: %; Status: F Test: MONO %; Value: 6.0; Range: 0.0-5.0; Abnormal: Above high normal; Units: %; Status: F Test: EOS %; Value: 1.1; Range: 0.0-3.0; Units: %; Status: F Test: BASO %; Value: 0.6; Range: 0.0-1.0; Units: %; Status: F Test: LARGE UNSTAINED CELL %; Value: 1.3; Range: 0.0-4.0; Units: %; Status: F Test: NEUTROPHILS #; Value: 7.8; Range: 1.8-7.7; Abnormal: Above high normal; Units: K/mm3; Status: F Test: LYMPH #; Value: 0.6; Range: 1.5-4.5; Abnormal: Below low normal; Units: K/mm3; Status: F Test: MONO #; Value: 0.6; Range: 0.0-0.8; Units: K/mm3; Status: F Test: EOS #; Value: 0.1; Range: 0.0-0.50; Units: K/mm3; Status: F Test: BASO #; Value: 0.0; Range: 0.0-0.2; Units: K/mm3; Status: F Test: LARGE UNSTAINED CELL #; Value: 0.1; Range: 0.0-0.4; Units: K/mm3; Status: F Lab Order: LACTIC ACID LEVEL, LACTATE; SPEC'M 11/06/16 12:11 Test: LACTIC ACID SEPSIS PROTOCOL; Value: 1.3; Range: 0.4-2.0; Units: MMOL/L; Status: F Lab Order: LIVER PROFILE; SPEC'M 11/06/16 12:11 Test: AST/SGOT; Value: 23; Range: 15-37; Units: U/L; Status: F Test: ALT/SGPT; Value: 23; Range: 12-78; Units: U/L; Status: F Test: ALKALINE PHOSPHATASE; Value: 73; Range: 45-117; Units: U/L; Status: F Test: BILIRUBIN,TOTAL; Value: 0.5; Range: 0.2-1.0; Units: MG/DL; Status: F Test: BILIRUBIN,DIRECT; Value: 0.1; Range: 0.0-0.2; Units: MG/DL; Status: F Test: TOTAL PROTEIN; Value: 7.8; Range: 6.4-8.2; Units: GM/DL; Status: F Test: ALBUMIN; Value: 4.0; Range: 3.2-5.2; Units: GM/DL; Status: F Test: ALBUMIN/GLOBULIN RATIO; Value: 1.05; Range: 1.00-1.93; Status: F Lab Order: BASIC METABOLIC PROFILE; [facility] 11/06/16 12:11 Test: GLUCOSE, FASTING; Value: 105; Range: 83-110; Units: MG/DL; Status: F Test: BLOOD UREA NITROGEN; Value: 16; Range: 7-18; Units: MG/DL; Status: F Test: CREATININE FOR GFR; Value: 1.70; Range: 0.70-1.30; Abnormal: Above high normal; Units: MG/DL; Status: F Test: GLOMERULAR FILTRATION RATE; Value: 42.3; Range: >42; Status: F Test: SODIUM LEVEL; Value: 143; Range: 136-145; Units: MEQ/L; Status: F Test: POTASSIUM SERUM; Value: 3.6; Range: 3.5-5.1; Units: MEQ/L; Status: F Test: CHLORIDE LEVEL; Value: 111; Range: 98-107; Abnormal: Above high normal; Units: MEQ/L; Status: F Test: CARBON DIOXIDE LEVEL; Value: 21; Range: 21-32; Units: MEQ/L; Status: F Test: ANION GAP; Value: 11; Range: 8-16; Units: MEQ/L; Status: F Test: CALCIUM LEVEL; Value: 8.9; Range: 8.8-10.2; Units: MG/DL; Status: F Test Note: ; Units are mL/min/1.73 m2 Chronic Kidney Disease Staging per NKF: Stage I & II GFR >=60 Normal to Mildly Decreased Stage III GFR 30-59 Moderately Decreased Stage IV GFR 15-29 Severely Decreased Stage V GFR <15 Very Little GFR Left ESRD GFR <15 on BOOK AUTHOR Lab Order: RESPIRATORY PANEL; SPEC'M 11/06/16 12:34 Test: RESPIRATORY PANEL; Value: RP PANEL RESULT POSITIVE by PCR; Abnormal: Abnormal; Status: F Test: RESPIRATORY PANEL; Value: Comments:; Status: F Test: RESPIRATORY PANEL; Value: ORGANISM 1: INFLUENZA A H3; Status: F Test: RESPIRATORY PANEL; Value: INFLUENZA A H3; Status: F Test: RESPIRATORY PANEL; Value: Influenza H3 1 Influenza causes upper respiratory tract infections; Status: F Test: RESPIRATORY PANEL; Value: Influenza H3 10 Influenza A1H3.; Status: F Test: RESPIRATORY PANEL; Value: Influenza H3 2 with rapid onset of fever. During annual Influenza; Status: F Test: RESPIRATORY PANEL; Value: Influenza H3 3 epidemics, 5-20% of the population is affected.; Status: F Test: RESPIRATORY PANEL; Value: Influenza H3 4 Complications with viral or bacterial pneumonia; Status: F Test: RESPIRATORY PANEL; Value: Influenza H3 5 increase mortality from Influenza infections. There; Status: F Test: RESPIRATORY PANEL; Value: Influenza H3 6 are currently at least four antiviral medications; Status: F Test: RESPIRATORY PANEL; Value: Influenza H3 7 available for Influenza treatment (amantadine,; Status: F Test: RESPIRATORY PANEL; Value: Influenza H3 8 rimantadine, zanamivir and oseltamivir). More severe; Status: F Test: RESPIRATORY PANEL; Value: Influenza H3 9 disease and increased mortality are associated with; Status: F Test Note: ; This respiratory PCR panel detects Influenza A H1, H3 and 2009 H1 viruses, Influenza B virus, Respiratory syncytial virus, Human metapneumovirus, Parainfluenza virus 1, 2, 3 and 4, Adenovirus, Rhinovirus/Enterovirus, Coronavirus HKU1, NL63, OC43 and 229E, Bordetella pertussis, Mycoplasma pneumoniae and Chlamydia pneumoniae. Lab Order: D-Dimer Quant; SPEC'M 11/06/16 12:11 Test: D-DIMER QUANT; Value: 1053.9; Range: <500; Abnormal: Above high normal; Units: ng/ml; Status: F Lab Order: BASIC METABOLIC PROFILE; SPEC'M 11/06/16 15:13 Test: GLUCOSE, FASTING; Value: 141; Range: 83-110; Abnormal: Above high normal; Units: MG/DL; Status: F Test: BLOOD UREA NITROGEN; Value: 17; Range: 7-18; Units: MG/DL; Status: F Test: CREATININE FOR GFR; Value: 1.62; Range: 0.70-1.30; Abnormal: Above high normal; Units: MG/DL; Status: F Test: GLOMERULAR FILTRATION RATE; Value: 44.7; Range: >42; Status: F Test: SODIUM LEVEL; Value: 142; Range: 136-145; Units: MEQ/L; Status: F Test: POTASSIUM SERUM; Value: 3.7; Range: 3.5-5.1; Units: MEQ/L; Status: F Test: CHLORIDE LEVEL; Value: 113; Range: 98-107; Abnormal: Above high normal; Units: MEQ/L; Status: F Test: CARBON DIOXIDE LEVEL; Value: 20; Range: 21-32; Abnormal: Below low normal; Units: MEQ/L; Status: F Test: ANION GAP; Value: 9; Range: 8-16; Units: MEQ/L; Status: F Test: CALCIUM LEVEL; Value: 8.4; Range: 8.8-10.2; Abnormal: Below low normal; Units: MG/DL; Status: F Test Note: ; Units are mL/min/1.73 m2 Chronic Kidney Disease Staging per NKF: Stage I & II GFR >=60 Normal to Mildly Decreased Stage III GFR 30-59 Moderately Decreased Stage IV GFR 15-29 Severely Decreased Stage V GFR <15 Very Little GFR Left ESRD GFR <15 on BOOK AUTHOR Lab Order: TROPONIN; SPEC'M 11/06/16 15:13 Test: TROPONIN I; Value: 0.14; Range: < 0.10; Abnormal: Above high normal; Units: NG/ML; Status: F Test Note: ; Troponin I Reference Interval for [employer] LOCI: 99th Percentile= 0.00-0.045 ng/ml Risk Stratification: <= 0.10 ng/ml Decreased Risk for Adverse Clinical Events. 0.10-1.50 ng/ml Increased Risk for Adverse Clinical Events. Evaluation of additional criterion and/or repeat testing in 2-6 hours is suggested to rule out myocardial damage. >= 1.50 ng/ml Indicative of Myocardial Injury. Lab Order: C REACTIVE PROTEIN QUANTITATIV; SPEC'M 11/06/16 15:13 Test: C REACTIVE PROTEIN QUANTITATIV; Value: 7.69; Range: 0.00-0.30; Abnormal: Above high normal; Units: MG/DL; Status: F Lab Order: PT & APTT; SPEC'M 11/06/16 12:11 Test: PROTHROMBIN TIME; Value: 13.5; Range: 12.3-14.5; Units: SECONDS; Status: F Test: INR; Value: 1.02; Status: F Test: PARTIAL THROMBOPLASTIN TIME; Value: 37.4; Range: 26.6-37.1; Abnormal: Above high normal; Units: SECONDS; Status: F Test Note: ; THERAPUTIC HUMAN INR VALUES INDICATIONS NORMAL RANGES PROPHYLAXIS/TREATMENT OF: VENOUS THROMBOSIS 2.0-3.0 PULMONARY EMBOLISM 2.0-3.0 PREVENTION OF SYSTEMIC EMBOLISM FROM: TISSUE HEART VALVES 2.0-3.0 ACUTE MYOCARDIAL INFARCTION 2.0-3.0 VALVULAR HEART DISEASE 2.0-3.0 ATRIAL FIBRILLATION 2.0-3.0 MECHANICAL VALVES(HIGH RISK) 2.5-3.5 RECURRENT MYOCARDIAL INFARCTION 2.5-3.5 Radiology Order: Chest, 2 View (pa\E\lat) Test: Chest, 2 View (pa\E\lat) REASON FOR EXAMINATION: Cough;Shortness of Breath; Clinical: Cough and shortness of breath.; ; Technique: PA and lateral.; ; Comparison: 08/29/2014.; ; Findings:; Mediastinum and cardiac silhouette stable. Lung jarquin demonstrate chronic; stable changes without acute consolidation, effusion, or pneumothorax. Skeletal; structures intact. Degenerative changes to the thoracic spine with bridging; osteophytes noted; ; Impression:; Chronic stable changes. 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; : 1945 Requested By: PASCALE GARCIA; Order Number: [id number] Reading MD: Srinivasa Lepe; Measurements; Intervals [place]; Rate: 122 P:; ND: 0 QRS: 52; QRSD: 145 T: 34; QT: 322; QTc: 460; Interpretive Statements; SINUS TACHYCARDIA WITH FIRST DEGREE AV BLOCK, OCCASIONLA PACs; RAD; RIGHT BUNDLE BRANCH BLOCK; ; Electronically Signed On 11-06-2016 18:12:43 EST by Srinivasa Lepe; Radiology Order: US Lower Extremities Bilateral R/O DVT Test: US Lower Extremities Bilateral R/O DVT REASON FOR EXAMINATION: elev d-dimer; Clinical: Bilateral pain and elevated D-dimer levels .; ; Technique: Henry scale and color Doppler evaluation using linear high frequency; transducer.; ; Findings:; Ultrasound examination of the right and left lower extremity deep venous; structures from the common femoral vein to the popliteal vein demonstrates normal; compressibility flow and wave patterns in response to respiration and; augmentation. There is no evidence for deep venous thrombosis.; ; Impression:; No evidence for deep venous thrombosis of the right and left lower extremities .; ; ; ; Signed by; Alvarado Lucero MD 11/06/2016 05:03 P; Outcome: 15:52 Decision to Hospitalize by Provider. le 21:59 Discharge Assessment: Patient awake, alert and oriented x 3. No cognitive and/or ko2 functional deficits noted. Patient verbalized understanding of disposition instructions. patient administered narcotics - yes. Patient was admitted to the hospital or transferred to another facility. The following High Risk Discharge criteria are identified: None. Admitted to PCU accompanied by nurse. Condition: stable. No special radiology studies were completed. Admission hand-off: Report called to [facility], ICU. Property :Personal belongings accompany Pt. 22:14 Patient left the ED. ko2 Signatures: Dispatcher [employer] EDMS Efe Coe, RN RN Monica Olmedo Kristin kt1 Mary Garner, Saddle Stitching Machine Operator Unit ml3 Joan Wilson RN RN kr3 Nichole Smith RN RN Pascale Corcoran FNP BATH STEWARD/STEWARDESS Kayla Zelaya br3 Tiffany Parker, FRUIT II FARMWORKER FRUIT II FARMWORKER ar3 Jessica Diaz,RN RN dsf Nichole Pacheco,RN RN js13 Mariel, oJseph, FRUIT II FARMWORKER FRUIT II FARMWORKER jlf Merced Singleton, Saddle Stitching Machine Operator Unit feng Sabina Cannon,RN RN yolie2 Mahin Butt jp5 Malu Cheung,RN RN kc3 RUBEN
--- NOTE | 2016-11-06 22:15 | EDDOCDS ---
Physician Documentation [facility] Name: Ji Gill Age: 71 yrs Sex: Male : 1945 Arrival Date: 11/06/2016 Time: 11:40 Bed 9 Private MD: [facility] Disposition: 11/06/16 15:52 Hospitalization ordered by Edna Whyte for Inpatient Admission. Preliminary diagnosis are Influenza due to identified novel influenza A virus, Shortness of breath, Tachycardia, unspecified. - Bed requested for M ICU. - Status is Inpatient Admission. ko2 - Condition is Stable. - Problem is new. - Symptoms are unchanged. Historical: - Allergies: Librium; - Home Meds: 1. albuterol sulfate 90 mcg/actuation Inhl HFAA 2 puffs every 4 hours 2. aspirin 81 mg Oral chew 1 tab once daily 3. atenolol 25 mg Oral tab 1 tab once daily 4. budesonide/formoter 2 puff twice a day 5. cetirizine 10 mg oral tab 1 tab once daily 6. cholecalciferol (vitamin D3) 1,000 unit oral cap 7. cilostazol 50 mg oral tab 1 tab 2 times per day 8. Fish Oil 300-1,000 mg Oral cpDR daily 9. Flonase 50 mcg/actuation Nasal spsn 1 spray once daily 10. gabapentin 400 mg Oral cap 1 cap 1 cap in AM 2 caps in PM 11. guaifenesin 400 mg Oral tab 1 tab twice a day 12. Motrin Oral 600 mg twice a day 13. lisinopril 40 mg Oral tab 1 tab once daily 14. mirtazapine 45 mg Oral TbDL 1 tab once daily 15. multivitamin Oral cap 1 tab daily 16. omeprazole 40 mg Oral cpDR 1 cap 2 times per day 17. oxycodone 5 mg Oral tab three times a day 18. potassium chloride 10 mEq Oral cpER 1 cap 3 times per day 19. quetiapine 300 mg oral tab 1 tab nightly 20. sertraline 100 mg oral tab 1 tab once daily 21. simvastatin 20 mg Oral tab 1 tab once daily 22. theophylline 400 mg Oral TbER 1 tab twice a day 23. Spiriva with HandiHaler 18 mcg Inhl CpDv 1 cap once daily 24. topiramate 100 mg oral tab 1/2 tab in AM 1 tab in PM 25. trazodone 100 mg Oral tab 2 tabs nightly 26. nitroglycerin 0.4 mg SL subl 1 tab every 5 minutes 27. baclofen 20 mg Oral tab 1 tab daily - PMHx: Chronic Back pain; COPD; GERD; Hypercholesterolemia; Hypertension; PTSD; - PSHx: CABG; - Social history: Smoking status: Patient uses tobacco products, heavy tobacco smoker. No barriers to communication noted, The patient speaks fluent Portuguese, Speaks appropriately for age. - Family history: Not pertinent. - : The pt / caregiver states he / she is not on anticoagulants. Home medication list is obtained from the patient. - Exposure Risk Screening:: None identified. Vital Signs: 11/06 11:42 BP 198 / 101; Pulse 128; Resp 35; Temp 102.5; Pulse Ox 94% ; Weight 99.79 kg / 220 lbs; jlm Height 6 ft. 1 in. (185.42 cm); 12:29 BP 160 / 78 RA (man/); kr3 12:57 BP 167 / 87 (auto/); jo3 12:57 Pulse 126 MON; Pulse Ox 96% ; jo3 13:14 Pulse 138 MON; Pulse Ox 97% ; jo3 13:15 BP 190 / 101 (auto/); jo3 13:23 BP 188 / 85 (auto/); jo3 13:23 Pulse 156 MON; Pulse Ox 96% ; jo3 13:38 BP 162 / 81 (auto/); jo3 13:38 Pulse 142 MON; Pulse Ox 95% ; jo3 13:53 BP 158 / 72 (auto/); jo3 13:53 Pulse 128 MON; Pulse Ox 95% ; jo3 14:08 BP 166 / 72 (auto/); jo3 14:08 Pulse 130 MON; Pulse Ox 94% ; jo3 14:23 BP 175 / 84 (auto/); jo3 14:23 Pulse 136 MON; Pulse Ox 95% ; jo3 14:38 BP 122 / 70 (auto/); jo3 14:38 Pulse 138 MON; Pulse Ox 94% ; jo3 14:46 Temp 100.5; jlm 14:53 BP 151 / 101 (auto/); jo3 14:53 Pulse 128 MON; Pulse Ox 95% ; jo3 15:08 BP 149 / 75 (auto/); jo3 15:08 Pulse 116 MON; Pulse Ox 95% ; jo3 15:23 BP 132 / 68 (auto/); jo3 15:23 Pulse 116 MON; Pulse Ox 94% ; jo3 15:38 BP 138 / 74 (auto/); jo3 15:38 Pulse 122 MON; jo3 15:53 BP 131 / 68 (auto/); jo3 15:53 Pulse 114 MON; Pulse Ox 95% ; jo3 15:58 BP 139 / 59 (auto/); jo3 15:58 Pulse 114 MON; Pulse Ox 95% ; jo3 16:08 BP 143 / 72 (auto/); jo3 16:08 Pulse 112 MON; Pulse Ox 95% ; jo3 16:23 BP 145 / 75 (auto/); jo3 16:23 Pulse 108 MON; Pulse Ox 95% ; jo3 16:38 BP 154 / 79 (auto/); jo3 16:38 Pulse 124 MON; Pulse Ox 96% ; jo3 16:53 BP 141 / 66 (auto/); jo3 16:53 Pulse 118 MON; Pulse Ox 95% ; jo3 17:08 BP 129 / 62 (auto/); jo3 17:08 Pulse 112 MON; Pulse Ox 95% ; jo3 17:23 BP 142 / 69 (auto/); jo3 17:23 Pulse 112 MON; Pulse Ox 95% ; jo3 17:38 BP 135 / 63 (auto/); jo3 17:38 Pulse 112 MON; Pulse Ox 95% ; jo3 18:08 BP 108 / 67 (auto/); jo3 18:08 Pulse 106 MON; Resp 24; Pulse Ox 95% ; jo3 18:18 Temp 98.7(TE); jlm 18:23 BP 123 / 75 (auto/); jo3 18:23 Pulse 118 MON; Pulse Ox 98% ; jo3 18:38 BP 139 / 74 (auto/); jo3 18:38 Pulse 102 MON; Pulse Ox 96% ; jo3 18:53 BP 145 / 80 (auto/); jo3 18:53 Pulse 100 MON; Pulse Ox 96% ; jo3 19:08 BP 144 / 77 (auto/); jo3 19:08 Pulse 102 MON; Pulse Ox 96% ; jo3 20:08 BP 137 / 76 (auto/); ko2 20:08 Pulse 104 MON; Pulse Ox 94% ; ko2 20:22 Pulse 104 MON; Pulse Ox 95% ; ko2 20:23 BP 135 / 63 (auto/); ko2 20:38 BP 164 / 82 (auto/); ko2 20:38 Pulse 98 MON; Pulse Ox 96% ; ko2 20:53 BP 136 / 56 (auto/); ko2 20:53 Pulse 96 MON; Pulse Ox 95% ; ko2 21:07 Pulse 100 MON; Pulse Ox 96% ; ko2 21:08 BP 180 / 87 (auto/); ko2 21:23 BP 170 / 79 (auto/); ko2 21:23 Pulse 106 MON; Pulse Ox 95% ; ko2 21:38 BP 169 / 80 (auto/); ko2 21:38 Pulse 102 MON; Pulse Ox 95% ; ko2 21:52 Pulse 106 MON; Pulse Ox 94% ; ko2 21:53 BP 167 / 89 (auto/); ko2 11:42 Body Mass Index 29.03 (99.79 kg, 185.42 cm) [facility] MDM: 12:04 -Blood Culture (Adults Only), peripheral from different site, or from device/port/PICC le etc. if present ordered. 12:04 Call Respiratory ordered. le 12:04 Electroplating Sales Representative/Pulse Ox/q 15 min VS ordered. le 12:04 Oxygen at 4L/Min NC or Home dosage ordered. le 12:04 Acetaminophen Tablet 650 mg PO once ordered. le 12:05 NS 0.9% 1000 ml IV at bolus once ordered. le 12:18 Call Respiratory complete. ar3 12:18 -Blood Culture (Adults Only), peripheral from different site, or from device/port/PICC ar3 etc. if present complete. 12:18 ECG WITH READING ER PHYS ordered. EDMS 12:18 ARTERIAL BLOOD GAS Ordered. EDMS 12:18 C REACTIVE PROTEIN QUANTITATIV Ordered. EDMS 12:18 CBC WITH DIFFERENTIAL Ordered. EDMS 12:18 LACTIC ACID LEVEL, LACTATE Ordered. EDMS 12:18 LIVER PROFILE Ordered. EDMS 12:18 BASIC METABOLIC PROFILE Ordered. EDMS 12:19 Albuterol 5 mg Nebulizer once ordered. le 12:19 Albuterol-Ipratropium 3 ml Inhalation once ordered. le 12:19 URINALYSIS Ordered. EDMS 12:19 BLOOD CULTURES Ordered. EDMS 12:19 URINE CULTURE Ordered. EDMS 12:21 Misc. Nursing Order ordered. le 12:24 Misc Knockdown Man Order ordered. le 12:30 RESPIRATORY PANEL Ordered. EDMS 12:34 [facility] [place] Knockdown Man Order complete. kr3 12:51 [facility] Payment Agreement was scanned into [employer] and attached to record. jp5 12:51 Financial registration complete. jp5 12:59 Theophylline Level Ordered. EDMS 13:02 Chest, 2 View (pa\E\lat) Ordered. EDMS 13:02 BED REQUEST+ADM ordered. EDMS 13:19 ARTERIAL BLOOD GAS Reviewed. le 13:19 C REACTIVE PROTEIN QUANTITATIV Reviewed. le 13:19 CBC WITH DIFFERENTIAL Reviewed. le 13:19 BASIC METABOLIC PROFILE Reviewed. le 13:19 LACTIC ACID LEVEL, LACTATE Reviewed. le 13:19 LIVER PROFILE Reviewed. le 13:21 Magnesium Sulfate in D5W 2 grams IV at 2000 mg/hr once ordered. le 13:22 D-Dimer Quant Ordered. EDMS 13:27 Solu-MEDROL 125 mg IVP once ordered. le 13:47 D-Dimer Quant Reviewed. le 13:49 CT Chest Angio R/O PE Ordered. EDMS 13:49 Theophylline Level Reviewed. le 14:32 RESPIRATORY PANEL Reviewed. le 14:33 Oseltamivir 75 mg PO once ordered. le 14:39 [facility]raw [facility] ordered. le 14:39 levofloxacin 750 mg IVPB once over 90 mins ordered. le 14:40 Repeat Temperature - Oral: Inform provider of result ordered. le 14:42 Misc. Nursing Order ordered. le 14:45 [facility] complete. ar3 14:47 BASIC METABOLIC PROFILE Ordered. EDMS 15:39 NS 0.9% 1000 ml IV at 250 mL/hr continuous ordered. le 15:50 Chest, 2 View (pa\E\lat) Reviewed. le 16:14 BASIC METABOLIC PROFILE Reviewed. le 16:17 US Lower Extremities Bilateral R/O DVT Ordered. EDMS 16:19 Albuterol-Ipratropium 3 ml Inhalation once ordered. le 16:19 Call Respiratory ordered. le 16:24 Call Respiratory complete. kc3 17:01 CONSISTENT CARBOHYDRATE+DIET ordered. EDMS 17:42 Admission / Observation Status ordered. EDMS 17:42 2 GRAM SODIUM DIET ordered. EDMS 18:28 TROPONIN Reviewed. le 18:28 BASIC METABOLIC PROFILE Reviewed. le 18:28 C REACTIVE PROTEIN QUANTITATIV Reviewed. le 18:28 US Lower Extremities Bilateral R/O DVT Reviewed. le 18:32 CARDIAC MARKER PANEL Ordered. EDMS 18:33 PT & APTT Ordered. EDMS 19:32 COMPLETE BLOOD COUNT Ordered. EDMS 19:33 BASIC METABOLIC PROFILE Ordered. EDMS 21:22 PARTIAL THROMBOPLASTIN TIME Ordered. EDMS Administered Medications: 12:12 Drug: Acetaminophen 650 mg [acetaminophen 325 mg tablet (2 tabs)] Route: PO; js13 12:12 Drug: NS 0.9% 1000 ml [sodium chloride 0.9 % intravenous solution] Route: IV; Rate: js13 bolus; Site: right antecubital; 13:15 Follow up: IV Status: Completed infusion jo3 12:19 Drug: Albuterol-Ipratropium 3 ml [ipratropium-albuterol 0.5 mg-3 mg(2.5 mg base)/3 mL kt1 nebulization soln (3 mL)] Route: Inhalation; 12:23 Drug: Albuterol 5 mg [albuterol sulfate 2.5 mg/0.5 mL solution for nebulization (1 mL)] lb Route: Nebulizer; 13:30 Drug: Solu-MEDROL 125 mg [Solu-Medrol 500 mg intravenous solution (125 mg)] Route: IVP; kr3 Site: right forearm; 13:35 Drug: Magnesium Sulfate in D5W 2 grams [magnesium sulfate 1 gram/100 mL in dextrose 5 % kr3 intravenous piggyback] Route: IV; Rate: 2000 mg/hr; Site: right forearm; 15:45 Follow up: IV Status: Completed infusion jo3 15:08 Drug: levofloxacin 750 mg [levofloxacin 250 mg/50 mL in 5 % dextrose intravenous kc3 piggyback] Route: IVPB; Infused Over: 90 mins; Site: right hand; 16:10 Follow up: IV Status: Completed infusion jo3 15:09 Drug: Oseltamivir 75 mg [oseltamivir 75 mg capsule (1 caps)] Route: PO; kc3 15:53 Drug: NS 0.9% 1000 ml [sodium chloride 0.9 % intravenous solution] Route: IV; Rate: 250 jo3 mL/hr; Site: right antecubital; 16:30 Drug: Albuterol-Ipratropium 3 ml [ipratropium-albuterol 0.5 mg-3 mg(2.5 mg base)/3 mL lb nebulization soln (3 mL)] Route: Inhalation; 18:10 CANCELLED (Not on formulary ): Theophylline 400 mg PO once jo3 Signatures: Dispatcher [employer] EDMS Efe Coe, RN RN Randall Ibrahimzabeth, Patient Service Technician Pst Unit ml3 Joan Wilson,RN RN kr3 Nichole SmithRN RN jo3 BoPascale carrasco, COLLOID MILL OPERATOR COLLOID MILL OPERATOR le Samra Parkera, METAL FABRICATION SUPERVISOR METAL FABRICATION SUPERVISOR ar3 Sabina CannonRN RN yolie2 Mahin Butt jp5 Malu Cheung RN RN cristian3 Monica Cardenas Kristin kt1 Nichole Pacheco RN js13 The chart was reviewed and I authenticate all verbal orders and agree with the evaluation and treatment provided.Corrections: (The following items were deleted from the chart) 13:19 12:59 ARTERIAL BLOOD GAS+LAB ordered. EDMS EDMS 13:22 12:19 BLOOD CULTURES ordered. EDMS EDMS 13:22 12:59 C REACTIVE PROTEIN QUANTITATIV+LAB ordered. EDMS EDMS 13:22 12:59 CBC WITH DIFFERENTIAL+LAB ordered. EDMS EDMS 13:22 12:59 LACTIC ACID LEVEL, LACTATE+LAB ordered. EDMS EDMS 13:22 12:59 LIVER PROFILE+LAB ordered. EDMS EDMS 13:22 12:59 BASIC METABOLIC PROFILE+LAB ordered. EDMS EDMS 13:22 12:59 URINALYSIS+LAB ordered. EDMS EDMS 13:22 13:00 -BLOOD CULTURES+CALEB ordered. EDMS EDMS 13:22 13:00 URINE CULTURE+CALEB ordered. EDMS EDMS 13:45 13:02 ECG WITH READING ER PHYS+CARDIAG ordered. EDMS EDMS 18:08 17:43 C REACTIVE PROTEIN QUANTITATIV ordered. EDMS EDMS 18:09 17:52 TROPONIN ordered. EDMS EDMS 18:10 16:51 Theophylline 400 mg PO once ordered. lashon [email or web address] 18:10 18:10 Theophylline 400 mg PO once ordered. jo3 jo3 18:33 18:28 PARTIAL THROMBOPLASTIN TIME+LAB ordered. EDMS EDMS 18:33 18:28 PROTHROMBIN TIME PROFILE\E\INR+LAB ordered. EDMS EDMS Attachments: 12:51 [facility] Payment Agreement jp5 MTDD
[2016-11-06 22:40] VITALS: BP 128/73
[2016-11-07] VITALS (9 sets, daily range): BP systolic 121–174; BP diastolic 57–86
[2016-11-07] MEDS: NS 1,000 ML IV SCH ×3 (00:05→22:57)
[2016-11-07] MEDS: NICOTINE 21MG/24HR 1 EA TRANSDERMAL TD SCH ×2 (00:05→08:36)
[2016-11-07 04:29] LABS: MEAN CORPUSCULAR HEMOGLOBIN 34.8 pg (27.0-33.0); MEAN CORPUSCULAR VOLUME 96.6 fl (80.0-96.0); RED CELL DISTRIBUTION WIDTH 13.7 % (11.5-14.5); WHITE BLOOD COUNT 8.7 K/mm3 (4.0-10.0)
[2016-11-07 04:48] LABS: CREATININE FOR GFR 1.5 MG/DL (0.70-1.30); GLOMERULAR FILTRATION RATE 48.8 (>42); POTASSIUM SERUM 3.9 MEQ/L (3.5-5.1)
[2016-11-07] MEDS: CILOSTAZOL 100 MG TAB (PLETAL) PO SCH ×2 (06:43→16:54)
[2016-11-07] MEDS: TIOTROPIUM INHALER/CAPSULE (SPIRIVA) INH SCH (08:26)
[2016-11-07] MEDS: SYMBICORT 160/4.5MCG INHALER 6GM INH SCH ×2 (08:26→21:24)
[2016-11-07] MEDS: cefTRIAXone SOD 2 GM in D5W MINI-BAG PLUS 50 ML IV SCH ×2 (08:36→19:53)
[2016-11-07] MEDS: GABAPENTIN 400 MG CAP PO SCH ×2 (08:36→21:05)
[2016-11-07] MEDS: VITAMIN D 1,000 INTERNATIONAL UNITS TABLET PO SCH (08:36)
[2016-11-07] MEDS: LISINOPRIL 20 MG TAB PO SCH (08:37)
[2016-11-07] MEDS: OSELTAMIVIR PHOSPHATE 75 MG CAP (TAMIFLU) PO SCH ×2 (08:37→21:03)
[2016-11-07] MEDS: oxyCODONE 5MG TAB PO SCH ×3 (08:37→21:08)
[2016-11-07] MEDS: CETIRIZINE (ZyrTEC) 10 MG TAB PO SCH (08:37)
[2016-11-07] MEDS: OMEPRAZOLE 20 MG CAP PO SCH ×2 (08:37→21:04)
[2016-11-07] MEDS: SERTRALINE 100 MG TAB PO SCH (08:38)
[2016-11-07] MEDS: TOPIRAMATE (TopAMAX) 25 MG TAB PO SCH (08:38)
[2016-11-07] MEDS: ASPIRIN 81 MG ENTERIC TAB PO SCH (08:38)
[2016-11-07] MEDS: MULTIVITAMINS/MINERALS THERAP 1 TAB PO SCH (08:38)
[2016-11-07] MEDS: POTASSIUM CHLORIDE 10 MEQ SR TABLET PO SCH ×3 (08:38→21:06)
[2016-11-07] MEDS: ATENOLOL 25 MG TAB PO SCH (08:38)
[2016-11-07] MEDS: IBUPROFEN 600 MG TAB PO SCH ×2 (08:38→21:05)
[2016-11-07] MEDS: AZITHROMYCIN INJ 500 MG, VIAL MATE ADAPTER 1 EACH in D5W 250 ML IV SCH (09:53)
[2016-11-07] MEDS: LEVALBUTEROL 1.25 MG/0.5 ML CONCENTRATE NEB INH PRN (10:30)
[2016-11-07] MEDS ORDERED: ISOVUE-370 76% 100ML VIAL (Q9967) As Ordered ONE (10:57)
--- NOTE | 2016-11-07 11:33 | REP ---
Clinical: Acute chest pain and elevated D-dimer levels. Technique: Axial contrast enhanced images from the thoracic inlet to the upper abdomen using 100 ml Isovue 370 intravenous contrast material with coronal and sagittal re-formations. Findings: Satisfactory enhancement of the pulmonary vasculature is achieved and no filling defects are identified to suggest pulmonary embolus. Lung jarquin demonstrate moderate diffuse emphysematous changes with bronchiectasis and scattered/bibasilar fibroatelectatic changes. No focal consolidation, nodule or mass lesion. No pleural effusion. No pneumothorax. Mediastinum demonstrates atherosclerotic changes to the thoracic aorta and coronary arteries without aortic aneurysm, cardiomegaly or pericardial effusion. No significant adenopathy. Musculoskeletal structures demonstrate degenerative changes without focal osseous abnormality. Impression: No evidence for pulmonary embolus. Diffuse chronic emphysematous changes with bronchiectasis and scattered fibroatelectatic changes. No significant acute mediastinal or pleuroparenchymal process appreciated. Signed by Alvarado Lucero MD 11/07/2016 11:24 A
[2016-11-07] MEDS ORDERED: SLF 3 ML SYR IV PRN (15:45)
[2016-11-07] MEDS: ACETAMINOPHEN TAB 650MG DOSE (2X325MG) PO PRN (16:55)
[2016-11-07] MEDS: HEPARIN SOD (PORCINE) 5000 UNITS/ML VIAL SQ SCH ×2 (18:29→21:17)
--- NOTE | 2016-11-07 18:50 | IPN ---
DATE: 11/07/2016 SUBJECTIVE: The patient is seen and examined in the room today. The patient stated his breathing shows significant improvement since admission. The patient is able gradually to wean off the oxygen now. The patient's respiratory symptoms show significant improvement. No temperature. No fever or chills reported. I discussed with the patient that due to his high risk for pulmonary embolism (PE), the patient will have a CT angiogram (CTA) scan today. All questions were answered. No overnight events were reported. OBJECTIVE: VITAL SIGNS: Temperature is 96.5, pulse is 74, respirations 20, blood pressure is 121/57, pulse oximetry is 95% with 2 liters nasal cannula. GENERAL: No signs of acute distress. Alert and oriented times three. HEENT: Normocephalic, atraumatic. Extraocular motor grossly intact. CARDIOVASCULAR: Positive S1, S2, regular rate. LUNGS: Still having intermittent expiratory wheezes, coarse lung sounds. ABDOMEN: Morbidly obese, soft, nontender, nondistended. Bowel sounds present. No rebound, no guarding. EXTREMITIES: No edema, no sign of cyanosis. NEUROLOGICAL: No focal deficit. LABORATORY DATA: WBC is 8.7, hemoglobin 13.5, hematocrit 37.5, platelet count is 125. Sodium is 143, potassium 3.9, chloride is 112, carbon dioxide 22, BUN 19, creatinine is 1.5, GFR is 48.8, fasting glucose 131, calcium is 8, total CK is 247, troponin I is 0.37. Sputum culture is pending. ASSESSMENT AND PLAN: 1. Acute respiratory distress secondary to influenza A H3 strain. The patient was started on Tamiflu. The patient has a high risk of pulmonary embolism and CT angiogram was performed, which came back negative. Will discontinue the heparin drip. 2. Atrial tachycardia secondary to severe respiratory distress. The patient has been on Tamiflu for influenza. The patient is also on antibiotics for his chronic obstructive pulmonary disease (COPD) exacerbation. The patient's heart rate has returned to sinus and in a regular range. 3. Elevated troponin. The patient had three sets of troponins trending; the numbers show a mild increase from 0.14 to 0.37. The patient does not have any complaints of any chest pain. No ST changes noted on the monitor. Patient has mild troponin I due to troponin leak. The patient is unlikely to have myocardial infarction ([place]). 4. Chronic obstructive pulmonary disease exacerbation. The patient is on breathing treatment and antibiotics; Rocephin and azithromycin. 5. Chronic tobacco abuse. The patient is on nicotine patch. 6. History of post-traumatic stress disorder (PTSD). Continue on home medications. 7. Hypercholesterolemia. On simvastatin. 8. History of coronary artery disease, status post coronary artery bypass graft (CABG). On cilostazol. 9. Gastroesophageal reflux disease. On omeprazole. 10. Deep vein thrombosis (DVT) prophylaxis. The patient is on heparin, initially on heparin drip due to concern for pulmonary embolism. Since the pulmonary embolism is ruled out, the patient will be on DVT prophylactic dose.
[2016-11-07] MEDS: SIMVASTATIN 20 MG TAB PO SCH (21:03)
[2016-11-07] MEDS: QUEtiapine FUMARATE 100 MG TAB PO SCH (21:04)
[2016-11-07] MEDS: MIRTAZAPINE 15 MG TAB PO SCH (21:05)
[2016-11-07] MEDS: traZODone 100 MG TAB PO SCH (21:05)
[2016-11-07] MEDS: TOPIRAMATE (TopAMAX) 100 MG TAB PO SCH (21:23)
[2016-11-07] MEDS: SLF 3 ML SYR IV SCH (22:00)
[2016-11-08] VITALS: BP 154/72
[2016-11-08 04:00] VITALS: BP 156/84
[2016-11-08] MEDS: ACETAMINOPHEN TAB 650MG DOSE (2X325MG) PO PRN (04:27)
[2016-11-08 05:11] LABS: MEAN CORPUSCULAR HEMOGLOBIN 34.3 pg (27.0-33.0); RED CELL DISTRIBUTION WIDTH 13.9 % (11.5-14.5); WHITE BLOOD COUNT 7.4 K/mm3 (4.0-10.0)
[2016-11-08] MEDS: SLF 3 ML SYR IV SCH ×3 (05:20→21:06)
[2016-11-08] MEDS: HEPARIN SOD (PORCINE) 5000 UNITS/ML VIAL SQ SCH ×3 (05:20→21:06)
[2016-11-08 05:40] LABS: CREATININE FOR GFR 1.61 MG/DL (0.70-1.30); POTASSIUM SERUM 4.3 MEQ/L (3.5-5.1)
[2016-11-08] MEDS: CILOSTAZOL 100 MG TAB (PLETAL) PO SCH ×2 (06:30→16:30)
[2016-11-08] MEDS: NS 1,000 ML IV SCH (07:07)
[2016-11-08] MEDS: cefTRIAXone SOD 2 GM in D5W MINI-BAG PLUS 50 ML IV SCH (08:16)
[2016-11-08] MEDS: SERTRALINE 100 MG TAB PO SCH (08:17)
[2016-11-08] MEDS: oxyCODONE 5MG TAB PO SCH ×3 (08:18→20:56)
[2016-11-08] MEDS: GABAPENTIN 400 MG CAP PO SCH ×2 (08:18→20:54)
[2016-11-08] MEDS: TOPIRAMATE (TopAMAX) 25 MG TAB PO SCH (08:18)
[2016-11-08] MEDS: OSELTAMIVIR PHOSPHATE 75 MG CAP (TAMIFLU) PO SCH ×2 (08:19→20:55)
[2016-11-08] MEDS: LISINOPRIL 20 MG TAB PO SCH (08:19)
[2016-11-08] MEDS: ATENOLOL 25 MG TAB PO SCH (08:19)
[2016-11-08] MEDS: POTASSIUM CHLORIDE 10 MEQ SR TABLET PO SCH ×3 (08:19→20:56)
[2016-11-08] MEDS: MULTIVITAMINS/MINERALS THERAP 1 TAB PO SCH (08:19)
[2016-11-08] MEDS: IBUPROFEN 600 MG TAB PO SCH ×2 (08:20→20:55)
[2016-11-08] MEDS: VITAMIN D 1,000 INTERNATIONAL UNITS TABLET PO SCH (08:20)
[2016-11-08] MEDS: ASPIRIN 81 MG ENTERIC TAB PO SCH (08:20)
[2016-11-08] MEDS: OMEPRAZOLE 20 MG CAP PO SCH ×2 (08:20→20:55)
[2016-11-08] MEDS: NICOTINE 21MG/24HR 1 EA TRANSDERMAL TD SCH (08:22)
[2016-11-08] MEDS: TIOTROPIUM INHALER/CAPSULE (SPIRIVA) INH SCH (08:29)
[2016-11-08] MEDS: SYMBICORT 160/4.5MCG INHALER 6GM INH SCH ×2 (08:29→20:19)
[2016-11-08] MEDS: AZITHROMYCIN INJ 500 MG, VIAL MATE ADAPTER 1 EACH in D5W 250 ML IV SCH (09:44)
[2016-11-08] MEDS: CETIRIZINE (ZyrTEC) 10 MG TAB PO SCH (09:44)
[2016-11-08] MEDS: amLODIPine 10 MG TAB PO SCH (10:58)
[2016-11-08 11:30] VITALS: BP 157/78
[2016-11-08 14:00] VITALS: BP 172/81
--- NOTE | 2016-11-08 14:28 | IPNPDOC ---
Subjective Date Seen The patient was seen on 11/08/16. Subjective Chief Complaint/HPI The patient is a 71-year-old male admitted with a reason for visit of Acute Respiratory Failure. General: Denies: Chills, Night Sweats Constitutional: Denies: Chills, Fever Eyes: Denies: Pain, Vision change ENT: Denies: Ear Pain, Head Aches Skin: Denies: Lesions, Rash Pulmonary: Reports: Cough, Dyspnea Cardiovascular: Denies: Chest Pain, Palpitations Gastrointestinal: Denies: Abdominal Pain, Nausea, Vomiting Hematologic: Denies: Bleeding Excessively, Bruising Neurological: Denies: Numbness, Weakness Objective Physical Examination General Exam: Positive: Alert, Cooperative ENT Exam: Positive: Atraumatic, Mucous membr. moist/pink Chest Exam: Positive: Wheezing (diffusely) Heart Exam: Positive: Normal S1, Normal S2, Rate Normal Abdomen Exam: Positive: Soft, Negative: Tenderness Extremity Exam: Negative: Swelling, Tenderness Assessment /Plan Plan/VTE VTE Prophylaxis Ordered?: Yes Plan 1. COPD Exacerbation to influenza A H3 strain. CTA Negative for PE On Tamiflu Antibiotics discontinued Cont Nebs On 3L of supplemental oxygen at this time 2. Atrial tachycardia secondary to severe respiratory distress. Heart Rate Better controlled at this time 3. Elevated troponin likely 2/2 Respiratory Distress, Demand Ischemia EKG with no acute ST Changes Troponin level peaked at 0.37, and has been downtrending since Cont ASA, Atenolol, Statin, SHRUTI-I 4. Chronic obstructive pulmonary disease Cont Nebs, Symbicort, Spiriva 5. Chronic tobacco abuse Nicotine patch. 6. History of post-traumatic stress disorder (PTSD). Continue on home medications. 7. Hypercholesterolemia On simvastatin. 8. History of coronary artery disease, status post coronary artery bypass graft (CABG). On cilostazol, ASA, Atenolol, Statin, SHRUTI-I 9. Gastroesophageal reflux disease On omeprazole. 10. Deep vein thrombosis (DVT) prophylaxis. Cont Heparin SC Disposition: We will continue to monitor the patient's respiratory status. Physical therapy ordered for further delineation of disposition. VS, I&O, 24H, Fishbone Vital Signs/I&O Vital Signs Date Time Temp Pulse Resp B/P Pulse Ox O2 Delivery O2 Flow Rate FiO2 11/08/16 11:30 Room Air 11/08/16 11:30 97.6 66 20 157/78 92 11/08/16 02:00 1.0 I&O- Last 24 Hours up to 6 AM 11/08/16 06:00 Intake Total 2926 ml Output Total 2225 ml Balance 701 ml Laboratory Data 24H LABS Laboratory Tests 2 11/08/16 04:44: Anion Gap 6L, C-Reactive Protein, Quantitative 6.71H, Blood Urea Nitrogen 19H, Creatinine 1.61H, Sodium Level 146H, Potassium Level 4.3, Chloride Level 117H, Carbon Dioxide Level 23, Calcium Level 8.0L, Total Creatine Kinase 241, Creatine Kinase MB 10.3H, Creatine Kinase MB Relative Index 4.27H, Glomerular Filtration Rate 45.0, Troponin I 0.29#H CBC/BMP Laboratory Tests 11/08/16 04:44 Calcium Level 8.0 L, Total Creatine Kinase 241, Red Blood Count 3.96 L, Mean Corpuscular Volume 98.0 H, Mean Corpuscular Hemoglobin 34.3 H, Mean Corpuscular Hemoglobin Concent 35.0, Red Cell Distribution Width 13.9 Microbiology Microbiology 11/06/16 Blood Culture - Preliminary, Resulted No Growth after 48 hours. All Specime... 11/07/16 Gram Stain - Final, Resulted 11/07/16 Sputum Culture, Resulted Pending 11/06/16 Respiratory Virus Panel (PCR) (CALEB) - Final, Complete Influenza A H3 11/07/16 Urine Culture, Received Pending SVITLANA BROWN MD Nov 08, 2016 14:28
[2016-11-08] MEDS: traZODone 100 MG TAB PO SCH (20:54)
[2016-11-08] MEDS: SIMVASTATIN 20 MG TAB PO SCH (20:54)
[2016-11-08] MEDS: MIRTAZAPINE 15 MG TAB PO SCH (20:54)
[2016-11-08] MEDS: TOPIRAMATE (TopAMAX) 100 MG TAB PO SCH (20:55)
[2016-11-08] MEDS: QUEtiapine FUMARATE 100 MG TAB PO SCH (20:55)
[2016-11-08 22:00] VITALS: BP 190/88
[2016-11-08 22:18] VITALS: BP 168/84
--- NOTE | 2016-11-08 23:15 | EDDOCDS ---
Physician Documentation [facility] Name: Ji Gill Age: 71 yrs Sex: Male : 1945 Arrival Date: 11/06/2016 Time: 11:40 Bed 9 Private MD: [facility] Disposition: 11/06/16 15:52 Hospitalization ordered by Edna Whyte for Inpatient Admission. Preliminary diagnosis are Influenza due to identified novel influenza A virus, Shortness of breath, Tachycardia, unspecified. - Bed requested for M ICU. - Status is Inpatient Admission. ko2 - Condition is Stable. - Problem is new. - Symptoms are unchanged. Historical: - Allergies: Librium; - Home Meds: 1. albuterol sulfate 90 mcg/actuation Inhl HFAA 2 puffs every 4 hours 2. aspirin 81 mg Oral chew 1 tab once daily 3. atenolol 25 mg Oral tab 1 tab once daily 4. budesonide/formoter 2 puff twice a day 5. cetirizine 10 mg oral tab 1 tab once daily 6. cholecalciferol (vitamin D3) 1,000 unit oral cap 7. cilostazol 50 mg oral tab 1 tab 2 times per day 8. Fish Oil 300-1,000 mg Oral cpDR daily 9. Flonase 50 mcg/actuation Nasal spsn 1 spray once daily 10. gabapentin 400 mg Oral cap 1 cap 1 cap in AM 2 caps in PM 11. guaifenesin 400 mg Oral tab 1 tab twice a day 12. Motrin Oral 600 mg twice a day 13. lisinopril 40 mg Oral tab 1 tab once daily 14. mirtazapine 45 mg Oral TbDL 1 tab once daily 15. multivitamin Oral cap 1 tab daily 16. omeprazole 40 mg Oral cpDR 1 cap 2 times per day 17. oxycodone 5 mg Oral tab three times a day 18. potassium chloride 10 mEq Oral cpER 1 cap 3 times per day 19. quetiapine 300 mg oral tab 1 tab nightly 20. sertraline 100 mg oral tab 1 tab once daily 21. simvastatin 20 mg Oral tab 1 tab once daily 22. theophylline 400 mg Oral TbER 1 tab twice a day 23. Spiriva with HandiHaler 18 mcg Inhl CpDv 1 cap once daily 24. topiramate 100 mg oral tab 1/2 tab in AM 1 tab in PM 25. trazodone 100 mg Oral tab 2 tabs nightly 26. nitroglycerin 0.4 mg SL subl 1 tab every 5 minutes 27. baclofen 20 mg Oral tab 1 tab daily - PMHx: Chronic Back pain; COPD; GERD; Hypercholesterolemia; Hypertension; PTSD; - PSHx: CABG; - Social history: Smoking status: Patient uses tobacco products, heavy tobacco smoker. No barriers to communication noted, The patient speaks fluent Sami, Speaks appropriately for age. - Family history: Not pertinent. - : The pt / caregiver states he / she is not on anticoagulants. Home medication list is obtained from the patient. - Exposure Risk Screening:: None identified. Vital Signs: 11/06 11:42 BP 198 / 101; Pulse 128; Resp 35; Temp 102.5; Pulse Ox 94% ; Weight 99.79 kg / 220 lbs; jlm Height 6 ft. 1 in. (185.42 cm); 12:29 BP 160 / 78 RA (man/); kr3 12:57 BP 167 / 87 (auto/); jo3 12:57 Pulse 126 MON; Pulse Ox 96% ; jo3 13:14 Pulse 138 MON; Pulse Ox 97% ; jo3 13:15 BP 190 / 101 (auto/); jo3 13:23 BP 188 / 85 (auto/); jo3 13:23 Pulse 156 MON; Pulse Ox 96% ; jo3 13:38 BP 162 / 81 (auto/); jo3 13:38 Pulse 142 MON; Pulse Ox 95% ; jo3 13:53 BP 158 / 72 (auto/); jo3 13:53 Pulse 128 MON; Pulse Ox 95% ; jo3 14:08 BP 166 / 72 (auto/); jo3 14:08 Pulse 130 MON; Pulse Ox 94% ; jo3 14:23 BP 175 / 84 (auto/); jo3 14:23 Pulse 136 MON; Pulse Ox 95% ; jo3 14:38 BP 122 / 70 (auto/); jo3 14:38 Pulse 138 MON; Pulse Ox 94% ; jo3 14:46 Temp 100.5; jlm 14:53 BP 151 / 101 (auto/); jo3 14:53 Pulse 128 MON; Pulse Ox 95% ; jo3 15:08 BP 149 / 75 (auto/); jo3 15:08 Pulse 116 MON; Pulse Ox 95% ; jo3 15:23 BP 132 / 68 (auto/); jo3 15:23 Pulse 116 MON; Pulse Ox 94% ; jo3 15:38 BP 138 / 74 (auto/); jo3 15:38 Pulse 122 MON; jo3 15:53 BP 131 / 68 (auto/); jo3 15:53 Pulse 114 MON; Pulse Ox 95% ; jo3 15:58 BP 139 / 59 (auto/); jo3 15:58 Pulse 114 MON; Pulse Ox 95% ; jo3 16:08 BP 143 / 72 (auto/); jo3 16:08 Pulse 112 MON; Pulse Ox 95% ; jo3 16:23 BP 145 / 75 (auto/); jo3 16:23 Pulse 108 MON; Pulse Ox 95% ; jo3 16:38 BP 154 / 79 (auto/); jo3 16:38 Pulse 124 MON; Pulse Ox 96% ; jo3 16:53 BP 141 / 66 (auto/); jo3 16:53 Pulse 118 MON; Pulse Ox 95% ; jo3 17:08 BP 129 / 62 (auto/); jo3 17:08 Pulse 112 MON; Pulse Ox 95% ; jo3 17:23 BP 142 / 69 (auto/); jo3 17:23 Pulse 112 MON; Pulse Ox 95% ; jo3 17:38 BP 135 / 63 (auto/); jo3 17:38 Pulse 112 MON; Pulse Ox 95% ; jo3 18:08 BP 108 / 67 (auto/); jo3 18:08 Pulse 106 MON; Resp 24; Pulse Ox 95% ; jo3 18:18 Temp 98.7(TE); jlm 18:23 BP 123 / 75 (auto/); jo3 18:23 Pulse 118 MON; Pulse Ox 98% ; jo3 18:38 BP 139 / 74 (auto/); jo3 18:38 Pulse 102 MON; Pulse Ox 96% ; jo3 18:53 BP 145 / 80 (auto/); jo3 18:53 Pulse 100 MON; Pulse Ox 96% ; jo3 19:08 BP 144 / 77 (auto/); jo3 19:08 Pulse 102 MON; Pulse Ox 96% ; jo3 20:08 BP 137 / 76 (auto/); ko2 20:08 Pulse 104 MON; Pulse Ox 94% ; ko2 20:22 Pulse 104 MON; Pulse Ox 95% ; ko2 20:23 BP 135 / 63 (auto/); ko2 20:38 BP 164 / 82 (auto/); ko2 20:38 Pulse 98 MON; Pulse Ox 96% ; ko2 20:53 BP 136 / 56 (auto/); ko2 20:53 Pulse 96 MON; Pulse Ox 95% ; ko2 21:07 Pulse 100 MON; Pulse Ox 96% ; ko2 21:08 BP 180 / 87 (auto/); ko2 21:23 BP 170 / 79 (auto/); ko2 21:23 Pulse 106 MON; Pulse Ox 95% ; ko2 21:38 BP 169 / 80 (auto/); ko2 21:38 Pulse 102 MON; Pulse Ox 95% ; ko2 21:52 Pulse 106 MON; Pulse Ox 94% ; ko2 21:53 BP 167 / 89 (auto/); ko2 11:42 Body Mass Index 29.03 (99.79 kg, 185.42 cm) [facility] MDM: 12:04 -Blood Culture (Adults Only), peripheral from different site, or from device/port/PICC le etc. if present ordered. 12:04 Call Respiratory ordered. le 12:04 Coil Strapper/Pulse Ox/q 15 min VS ordered. le 12:04 Oxygen at 4L/Min NC or Home dosage ordered. le 12:04 Acetaminophen Tablet 650 mg PO once ordered. le 12:05 NS 0.9% 1000 ml IV at bolus once ordered. le 12:18 Call Respiratory complete. ar3 12:18 -Blood Culture (Adults Only), peripheral from different site, or from device/port/PICC ar3 etc. if present complete. 12:18 ECG WITH READING ER PHYS ordered. EDMS 12:18 ARTERIAL BLOOD GAS Ordered. EDMS 12:18 C REACTIVE PROTEIN QUANTITATIV Ordered. EDMS 12:18 CBC WITH DIFFERENTIAL Ordered. EDMS 12:18 LACTIC ACID LEVEL, LACTATE Ordered. EDMS 12:18 LIVER PROFILE Ordered. EDMS 12:18 BASIC METABOLIC PROFILE Ordered. EDMS 12:19 Albuterol 5 mg Nebulizer once ordered. le 12:19 Albuterol-Ipratropium 3 ml Inhalation once ordered. le 12:19 URINALYSIS Ordered. EDMS 12:19 BLOOD CULTURES Ordered. EDMS 12:19 URINE CULTURE Ordered. EDMS 12:21 Misc. Nursing Order ordered. le 12:24 Misc Machine Stacker Order ordered. le 12:30 RESPIRATORY PANEL Ordered. EDMS 12:34 [facility] Machine Stacker Order complete. kr3 12:51 [facility] [place] Agreement was scanned into [employer] and attached to record. jp5 12:51 Financial registration complete. jp5 12:59 Theophylline Level Ordered. EDMS 13:02 Chest, 2 View (pa\E\lat) Ordered. EDMS 13:02 BED REQUEST+ADM ordered. EDMS 13:19 ARTERIAL BLOOD GAS Reviewed. le 13:19 C REACTIVE PROTEIN QUANTITATIV Reviewed. le 13:19 CBC WITH DIFFERENTIAL Reviewed. le 13:19 BASIC METABOLIC PROFILE Reviewed. le 13:19 LACTIC ACID LEVEL, LACTATE Reviewed. le 13:19 LIVER PROFILE Reviewed. le 13:21 Magnesium Sulfate in D5W 2 grams IV at 2000 mg/hr once ordered. le 13:22 D-Dimer Quant Ordered. EDMS 13:27 Solu-MEDROL 125 mg IVP once ordered. le 13:47 D-Dimer Quant Reviewed. le 13:49 CT Chest Angio R/O PE Ordered. EDMS 13:49 Theophylline Level Reviewed. le 14:32 RESPIRATORY PANEL Reviewed. le 14:33 Oseltamivir 75 mg PO once ordered. le 14:39 Redraw Labs ordered. le 14:39 levofloxacin 750 mg IVPB once over 90 mins ordered. le 14:40 Repeat Temperature - Oral: Inform provider of result ordered. le 14:42 Misc. Nursing Order ordered. le 14:45 Redraw Labs complete. ar3 14:47 BASIC METABOLIC PROFILE Ordered. EDMS 15:39 NS 0.9% 1000 ml IV at 250 mL/hr continuous ordered. le 15:50 Chest, 2 View (pa\E\lat) Reviewed. le 16:14 BASIC METABOLIC PROFILE Reviewed. le 16:17 US Lower Extremities Bilateral R/O DVT Ordered. EDMS 16:19 Albuterol-Ipratropium 3 ml Inhalation once ordered. le 16:19 Call Respiratory ordered. le 16:24 Call Respiratory complete. kc3 17:01 CONSISTENT CARBOHYDRATE+DIET ordered. EDMS 17:42 Admission / Observation Status ordered. EDMS 17:42 2 GRAM SODIUM DIET ordered. EDMS 18:28 TROPONIN Reviewed. le 18:28 BASIC METABOLIC PROFILE Reviewed. le 18:28 C REACTIVE PROTEIN QUANTITATIV Reviewed. le 18:28 US Lower Extremities Bilateral R/O DVT Reviewed. le 18:32 CARDIAC MARKER PANEL Ordered. EDMS 18:33 PT & APTT Ordered. EDMS 19:32 COMPLETE BLOOD COUNT Ordered. EDMS 19:33 BASIC METABOLIC PROFILE Ordered. EDMS 21:22 PARTIAL THROMBOPLASTIN TIME Ordered. EDMS 11/07 12:18 T-Sheet-- Draft Copy was scanned into [employer] and attached to record. gb 12:18 ECG/EKG was scanned into [employer] and attached to record. gb Administered Medications: 11/06 12:12 Drug: Acetaminophen 650 mg [acetaminophen 325 mg tablet (2 tabs)] Route: PO; js13 12:12 Drug: NS 0.9% 1000 ml [sodium chloride 0.9 % intravenous solution] Route: IV; Rate: js13 bolus; Site: right antecubital; 13:15 Follow up: IV Status: Completed infusion jo3 12:19 Drug: Albuterol-Ipratropium 3 ml [ipratropium-albuterol 0.5 mg-3 mg(2.5 mg base)/3 mL kt1 nebulization soln (3 mL)] Route: Inhalation; 12:23 Drug: Albuterol 5 mg [albuterol sulfate 2.5 mg/0.5 mL solution for nebulization (1 mL)] lb Route: Nebulizer; 13:30 Drug: Solu-MEDROL 125 mg [Solu-Medrol 500 mg intravenous solution (125 mg)] Route: IVP; kr3 Site: right forearm; 13:35 Drug: Magnesium Sulfate in D5W 2 grams [magnesium sulfate 1 gram/100 mL in dextrose 5 % kr3 intravenous piggyback] Route: IV; Rate: 2000 mg/hr; Site: right forearm; 15:45 Follow up: IV Status: Completed infusion jo3 15:08 Drug: levofloxacin 750 mg [levofloxacin 250 mg/50 mL in 5 % dextrose intravenous kc3 piggyback] Route: IVPB; Infused Over: 90 mins; Site: right hand; 16:10 Follow up: IV Status: Completed infusion jo3 15:09 Drug: Oseltamivir 75 mg [oseltamivir 75 mg capsule (1 caps)] Route: PO; kc3 15:53 Drug: NS 0.9% 1000 ml [sodium chloride 0.9 % intravenous solution] Route: IV; Rate: 250 jo3 mL/hr; Site: right antecubital; 16:30 Drug: Albuterol-Ipratropium 3 ml [ipratropium-albuterol 0.5 mg-3 mg(2.5 mg base)/3 mL lb nebulization soln (3 mL)] Route: Inhalation; 18:10 CANCELLED (Not on formulary ): Theophylline 400 mg PO once jo3 Signatures: Dispatcher [employer] EDMS Efe Coe, RN RN Holly Alvarado, Reg Reg gb Pascual, Mary, Boiling Off Winder Unit ml3 Joan Wilson,RN RN kr3 Nichole SmithRN LACI jo3 Pascale Soriano, SENIOR PHYSICAL THERAPIST SENIOR PHYSICAL THERAPIST Tiffany Cline, RESTORATION ECOLOGIST RESTORATION ECOLOGIST ar3 Sabina Cannon,RN RN yolie2 Mahin Butt jp5 Malu Cheung,RN RN kc3 Monica Cardenas Kristin kt1 Nichole Pacheco RN js13 The chart was reviewed and I authenticate all verbal orders and agree with the evaluation and treatment provided.Corrections: (The following items were deleted from the chart) 13:19 12:59 ARTERIAL BLOOD GAS+LAB ordered. EDMI EDMS 13:22 12:19 BLOOD CULTURES ordered. EDMI EDMS 13: 12:59 C REACTIVE PROTEIN QUANTITATIV+LAB ordered. EDMS EDMS 13:22 12:59 CBC WITH DIFFERENTIAL+LAB ordered. EDMI EDMS 13:22 12:59 LACTIC ACID LEVEL, LACTATE+LAB ordered. EDMI EDMS 13:22 12:59 LIVER PROFILE+LAB ordered. EDMI EDMS 13:22 12:59 BASIC METABOLIC PROFILE+LAB ordered. EDMI EDMS 13:22 12:59 URINALYSIS+LAB ordered. EDMI EDMS 13:22 13:00 -BLOOD CULTURES+CALEB ordered. EDMS EDMS 13:22 13:00 URINE CULTURE+CALEB ordered. EDMI EDMS 13:45 13:02 ECG WITH READING ER PHYS+CARDIAG ordered. EDMI EDMS 18:08 17:43 C REACTIVE PROTEIN QUANTITATIV ordered. EDMI EDMS 18:09 17:52 TROPONIN ordered. EDMI EDMS 18:10 16:51 Theophylline 400 mg PO once ordered. le jo3 18:10 18:10 Theophylline 400 mg PO once ordered. jo3 jo3 18:33 18:28 PARTIAL THROMBOPLASTIN TIME+LAB ordered. EDMS EDMS 18:33 18:28 PROTHROMBIN TIME PROFILE\E\INR+LAB ordered. EDMS EDMS Attachments: 12:51 [facility] Payment Agreement jp5 11/07 12:18 T-Sheet-- Draft Copy gb 12:18 ECG/EKG gb Chart Complete MTDD
--- NOTE | 2016-11-08 23:15 | EDDOCDS ---
Physician Documentation [facility] Name: Ji Gill Age: 71 yrs Sex: Male : 1945 Arrival Date: 11/06/2016 Time: 11:40 Bed 9 Private MD: [facility] Disposition: 11/06/16 15:52 Hospitalization ordered by Edna Whyte for Inpatient Admission. Preliminary diagnosis are Influenza due to identified novel influenza A virus, Shortness of breath, Tachycardia, unspecified. - Bed requested for M ICU. - Status is Inpatient Admission. ko2 - Condition is Stable. - Problem is new. - Symptoms are unchanged. Historical: - Allergies: Librium; - Home Meds: 1. albuterol sulfate 90 mcg/actuation Inhl HFAA 2 puffs every 4 hours 2. aspirin 81 mg Oral chew 1 tab once daily 3. atenolol 25 mg Oral tab 1 tab once daily 4. budesonide/formoter 2 puff twice a day 5. cetirizine 10 mg oral tab 1 tab once daily 6. cholecalciferol (vitamin D3) 1,000 unit oral cap 7. cilostazol 50 mg oral tab 1 tab 2 times per day 8. Fish Oil 300-1,000 mg Oral cpDR daily 9. Flonase 50 mcg/actuation Nasal spsn 1 spray once daily 10. gabapentin 400 mg Oral cap 1 cap 1 cap in AM 2 caps in PM 11. guaifenesin 400 mg Oral tab 1 tab twice a day 12. Motrin Oral 600 mg twice a day 13. lisinopril 40 mg Oral tab 1 tab once daily 14. mirtazapine 45 mg Oral TbDL 1 tab once daily 15. multivitamin Oral cap 1 tab daily 16. omeprazole 40 mg Oral cpDR 1 cap 2 times per day 17. oxycodone 5 mg Oral tab three times a day 18. potassium chloride 10 mEq Oral cpER 1 cap 3 times per day 19. quetiapine 300 mg oral tab 1 tab nightly 20. sertraline 100 mg oral tab 1 tab once daily 21. simvastatin 20 mg Oral tab 1 tab once daily 22. theophylline 400 mg Oral TbER 1 tab twice a day 23. Spiriva with HandiHaler 18 mcg Inhl CpDv 1 cap once daily 24. topiramate 100 mg oral tab 1/2 tab in AM 1 tab in PM 25. trazodone 100 mg Oral tab 2 tabs nightly 26. nitroglycerin 0.4 mg SL subl 1 tab every 5 minutes 27. baclofen 20 mg Oral tab 1 tab daily - PMHx: Chronic Back pain; COPD; GERD; Hypercholesterolemia; Hypertension; PTSD; - PSHx: CABG; - Social history: Smoking status: Patient uses tobacco products, heavy tobacco smoker. No barriers to communication noted, The patient speaks fluent Frisian, Speaks appropriately for age. - Family history: Not pertinent. - : The pt / caregiver states he / she is not on anticoagulants. Home medication list is obtained from the patient. - Exposure Risk Screening:: None identified. Vital Signs: 11/06 11:42 BP 198 / 101; Pulse 128; Resp 35; Temp 102.5; Pulse Ox 94% ; Weight 99.79 kg / 220 lbs; jlm Height 6 ft. 1 in. (185.42 cm); 12:29 BP 160 / 78 RA (man/); kr3 12:57 BP 167 / 87 (auto/); jo3 12:57 Pulse 126 MON; Pulse Ox 96% ; jo3 13:14 Pulse 138 MON; Pulse Ox 97% ; jo3 13:15 BP 190 / 101 (auto/); jo3 13:23 BP 188 / 85 (auto/); jo3 13:23 Pulse 156 MON; Pulse Ox 96% ; jo3 13:38 BP 162 / 81 (auto/); jo3 13:38 Pulse 142 MON; Pulse Ox 95% ; jo3 13:53 BP 158 / 72 (auto/); jo3 13:53 Pulse 128 MON; Pulse Ox 95% ; jo3 14:08 BP 166 / 72 (auto/); jo3 14:08 Pulse 130 MON; Pulse Ox 94% ; jo3 14:23 BP 175 / 84 (auto/); jo3 14:23 Pulse 136 MON; Pulse Ox 95% ; jo3 14:38 BP 122 / 70 (auto/); jo3 14:38 Pulse 138 MON; Pulse Ox 94% ; jo3 14:46 Temp 100.5; jlm 14:53 BP 151 / 101 (auto/); jo3 14:53 Pulse 128 MON; Pulse Ox 95% ; jo3 15:08 BP 149 / 75 (auto/); jo3 15:08 Pulse 116 MON; Pulse Ox 95% ; jo3 15:23 BP 132 / 68 (auto/); jo3 15:23 Pulse 116 MON; Pulse Ox 94% ; jo3 15:38 BP 138 / 74 (auto/); jo3 15:38 Pulse 122 MON; jo3 15:53 BP 131 / 68 (auto/); jo3 15:53 Pulse 114 MON; Pulse Ox 95% ; jo3 15:58 BP 139 / 59 (auto/); jo3 15:58 Pulse 114 MON; Pulse Ox 95% ; jo3 16:08 BP 143 / 72 (auto/); jo3 16:08 Pulse 112 MON; Pulse Ox 95% ; jo3 16:23 BP 145 / 75 (auto/); jo3 16:23 Pulse 108 MON; Pulse Ox 95% ; jo3 16:38 BP 154 / 79 (auto/); jo3 16:38 Pulse 124 MON; Pulse Ox 96% ; jo3 16:53 BP 141 / 66 (auto/); jo3 16:53 Pulse 118 MON; Pulse Ox 95% ; jo3 17:08 BP 129 / 62 (auto/); jo3 17:08 Pulse 112 MON; Pulse Ox 95% ; jo3 17:23 BP 142 / 69 (auto/); jo3 17:23 Pulse 112 MON; Pulse Ox 95% ; jo3 17:38 BP 135 / 63 (auto/); jo3 17:38 Pulse 112 MON; Pulse Ox 95% ; jo3 18:08 BP 108 / 67 (auto/); jo3 18:08 Pulse 106 MON; Resp 24; Pulse Ox 95% ; jo3 18:18 Temp 98.7(TE); jlm 18:23 BP 123 / 75 (auto/); jo3 18:23 Pulse 118 MON; Pulse Ox 98% ; jo3 18:38 BP 139 / 74 (auto/); jo3 18:38 Pulse 102 MON; Pulse Ox 96% ; jo3 18:53 BP 145 / 80 (auto/); jo3 18:53 Pulse 100 MON; Pulse Ox 96% ; jo3 19:08 BP 144 / 77 (auto/); jo3 19:08 Pulse 102 MON; Pulse Ox 96% ; jo3 20:08 BP 137 / 76 (auto/); ko2 20:08 Pulse 104 MON; Pulse Ox 94% ; ko2 20:22 Pulse 104 MON; Pulse Ox 95% ; ko2 20:23 BP 135 / 63 (auto/); ko2 20:38 BP 164 / 82 (auto/); ko2 20:38 Pulse 98 MON; Pulse Ox 96% ; ko2 20:53 BP 136 / 56 (auto/); ko2 20:53 Pulse 96 MON; Pulse Ox 95% ; ko2 21:07 Pulse 100 MON; Pulse Ox 96% ; ko2 21:08 BP 180 / 87 (auto/); ko2 21:23 BP 170 / 79 (auto/); ko2 21:23 Pulse 106 MON; Pulse Ox 95% ; ko2 21:38 BP 169 / 80 (auto/); ko2 21:38 Pulse 102 MON; Pulse Ox 95% ; ko2 21:52 Pulse 106 MON; Pulse Ox 94% ; ko2 21:53 BP 167 / 89 (auto/); ko2 11:42 Body Mass Index 29.03 (99.79 kg, 185.42 cm) [facility] MDM: 12:04 -Blood Culture (Adults Only), peripheral from different site, or from device/port/PICC le etc. if present ordered. 12:04 Call Respiratory ordered. le 12:04 Gear Tooth Lapping Machine Operator/Pulse Ox/q 15 min VS ordered. le 12:04 Oxygen at 4L/Min NC or Home dosage ordered. le 12:04 Acetaminophen Tablet 650 mg PO once ordered. le 12:05 NS 0.9% 1000 ml IV at bolus once ordered. le 12:18 Call Respiratory complete. ar3 12:18 -Blood Culture (Adults Only), peripheral from different site, or from device/port/PICC ar3 etc. if present complete. 12:18 ECG WITH READING ER PHYS ordered. EDMS 12:18 ARTERIAL BLOOD GAS Ordered. EDMS 12:18 C REACTIVE PROTEIN QUANTITATIV Ordered. EDMS 12:18 CBC WITH DIFFERENTIAL Ordered. EDMS 12:18 LACTIC ACID LEVEL, LACTATE Ordered. EDMS 12:18 LIVER PROFILE Ordered. EDMS 12:18 BASIC METABOLIC PROFILE Ordered. EDMS 12:19 Albuterol 5 mg Nebulizer once ordered. le 12:19 Albuterol-Ipratropium 3 ml Inhalation once ordered. le 12:19 URINALYSIS Ordered. EDMS 12:19 BLOOD CULTURES Ordered. EDMS 12:19 URINE CULTURE Ordered. EDMS 12:21 Misc. Nursing Order ordered. le 12:24 Misc Transportation Planning Engineer Order ordered. le 12:30 RESPIRATORY PANEL Ordered. EDMS 12:34 [facility] Transportation Planning Engineer Order complete. kr3 12:51 [facility] Payment Agreement was scanned into [employer] and attached to record. jp5 12:51 Financial registration complete. jp5 12:59 Theophylline Level Ordered. EDMS 13:02 Chest, 2 View (pa\E\lat) Ordered. EDMS 13:02 BED REQUEST+ADM ordered. EDMS 13:19 ARTERIAL BLOOD GAS Reviewed. le 13:19 C REACTIVE PROTEIN QUANTITATIV Reviewed. le 13:19 CBC WITH DIFFERENTIAL Reviewed. le 13:19 BASIC METABOLIC PROFILE Reviewed. le 13:19 LACTIC ACID LEVEL, LACTATE Reviewed. le 13:19 LIVER PROFILE Reviewed. le 13:21 Magnesium Sulfate in D5W 2 grams IV at 2000 mg/hr once ordered. le 13:22 D-Dimer Quant Ordered. EDMS 13:27 Solu-MEDROL 125 mg IVP once ordered. le 13:47 D-Dimer Quant Reviewed. le 13:49 CT Chest Angio R/O PE Ordered. EDMS 13:49 Theophylline Level Reviewed. le 14:32 RESPIRATORY PANEL Reviewed. le 14:33 Oseltamivir 75 mg PO once ordered. le 14:39 Redraw Labs ordered. le 14:39 levofloxacin 750 mg IVPB once over 90 mins ordered. le 14:40 Repeat Temperature - Oral: Inform provider of result ordered. le 14:42 Misc. Nursing Order ordered. le 14:45 Redraw Labs complete. ar3 14:47 BASIC METABOLIC PROFILE Ordered. EDMS 15:39 NS 0.9% 1000 ml IV at 250 mL/hr continuous ordered. le 15:50 Chest, 2 View (pa\E\lat) Reviewed. le 16:14 BASIC METABOLIC PROFILE Reviewed. le 16:17 US Lower Extremities Bilateral R/O DVT Ordered. EDMS 16:19 Albuterol-Ipratropium 3 ml Inhalation once ordered. le 16:19 Call Respiratory ordered. le 16:24 Call Respiratory complete. kc3 17:01 CONSISTENT CARBOHYDRATE+DIET ordered. EDMS 17:42 Admission / Observation Status ordered. EDMS 17:42 2 GRAM SODIUM DIET ordered. EDMS 18:28 TROPONIN Reviewed. le 18:28 BASIC METABOLIC PROFILE Reviewed. le 18:28 C REACTIVE PROTEIN QUANTITATIV Reviewed. le 18:28 US Lower Extremities Bilateral R/O DVT Reviewed. le 18:32 CARDIAC MARKER PANEL Ordered. EDMS 18:33 PT & APTT Ordered. EDMS 19:32 COMPLETE BLOOD COUNT Ordered. EDMS 19:33 BASIC METABOLIC PROFILE Ordered. EDMS 21:22 PARTIAL THROMBOPLASTIN TIME Ordered. EDMS 11/07 12:18 T-Sheet-- Draft Copy was scanned into [employer] and attached to record. gb 12:18 ECG/EKG was scanned into [employer] and attached to record. gb Administered Medications: 11/06 12:12 Drug: Acetaminophen 650 mg [acetaminophen 325 mg tablet (2 tabs)] Route: PO; js13 12:12 Drug: NS 0.9% 1000 ml [sodium chloride 0.9 % intravenous solution] Route: IV; Rate: js13 bolus; Site: right antecubital; 13:15 Follow up: IV Status: Completed infusion jo3 12:19 Drug: Albuterol-Ipratropium 3 ml [ipratropium-albuterol 0.5 mg-3 mg(2.5 mg base)/3 mL kt1 nebulization soln (3 mL)] Route: Inhalation; 12:23 Drug: Albuterol 5 mg [albuterol sulfate 2.5 mg/0.5 mL solution for nebulization (1 mL)] lb Route: Nebulizer; 13:30 Drug: Solu-MEDROL 125 mg [Solu-Medrol 500 mg intravenous solution (125 mg)] Route: IVP; kr3 Site: right forearm; 13:35 Drug: Magnesium Sulfate in D5W 2 grams [magnesium sulfate 1 gram/100 mL in dextrose 5 % kr3 intravenous piggyback] Route: IV; Rate: 2000 mg/hr; Site: right forearm; 15:45 Follow up: IV Status: Completed infusion jo3 15:08 Drug: levofloxacin 750 mg [levofloxacin 250 mg/50 mL in 5 % dextrose intravenous kc3 piggyback] Route: IVPB; Infused Over: 90 mins; Site: right hand; 16:10 Follow up: IV Status: Completed infusion jo3 15:09 Drug: Oseltamivir 75 mg [oseltamivir 75 mg capsule (1 caps)] Route: PO; kc3 15:53 Drug: NS 0.9% 1000 ml [sodium chloride 0.9 % intravenous solution] Route: IV; Rate: 250 jo3 mL/hr; Site: right antecubital; 16:30 Drug: Albuterol-Ipratropium 3 ml [ipratropium-albuterol 0.5 mg-3 mg(2.5 mg base)/3 mL lb nebulization soln (3 mL)] Route: Inhalation; 18:10 CANCELLED (Not on formulary ): Theophylline 400 mg PO once jo3 Signatures: Dispatcher [employer] EDMS Efe Coe, RN RN Holly Alvarado, Reg Reg gb Pascual, Mary, Animal Shelter Supervisor Unit ml3 Joan Wilson,RN RN kr3 Nichole SmithRN LACI jo3 Pascale Soriano, SUPERVISOR TRUST ACCOUNTS SUPERVISOR TRUST ACCOUNTS Tiffany Cline, RESTAURANT ATTENDANT RESTAURANT ATTENDANT ar3 Sabina Cannon,RN RN yolie2 Mahin Butt jp5 Malu Cheung,RN RN kc3 Monica Cardenas Kristin kt1 Nichole Pacheco RN js13 The chart was reviewed and I authenticate all verbal orders and agree with the evaluation and treatment provided.Corrections: (The following items were deleted from the chart) 13:19 12:59 ARTERIAL BLOOD GAS+LAB ordered. EDPA EDMS 13:22 12:19 BLOOD CULTURES ordered. EDPA EDMS 13: 12:59 C REACTIVE PROTEIN QUANTITATIV+LAB ordered. EDMS EDMS 13:22 12:59 CBC WITH DIFFERENTIAL+LAB ordered. EDPA EDMS 13:22 12:59 LACTIC ACID LEVEL, LACTATE+LAB ordered. EDPA EDMS 13:22 12:59 LIVER PROFILE+LAB ordered. EDPA EDMS 13:22 12:59 BASIC METABOLIC PROFILE+LAB ordered. EDPA EDMS 13:22 12:59 URINALYSIS+LAB ordered. EDPA EDMS 13:22 13:00 -BLOOD CULTURES+CALEB ordered. EDMS EDMS 13:22 13:00 URINE CULTURE+CALEB ordered. EDPA EDMS 13:45 13:02 ECG WITH READING ER PHYS+CARDIAG ordered. EDPA EDMS 18:08 17:43 C REACTIVE PROTEIN QUANTITATIV ordered. EDPA EDMS 18:09 17:52 TROPONIN ordered. EDPA EDMS 18:10 16:51 Theophylline 400 mg PO once ordered. le jo3 18:10 18:10 Theophylline 400 mg PO once ordered. jo3 jo3 18:33 18:28 PARTIAL THROMBOPLASTIN TIME+LAB ordered. EDMS EDMS 18:33 18:28 PROTHROMBIN TIME PROFILE\E\INR+LAB ordered. EDMS EDMS Attachments: 12:51 [facility] Payment Agreement jp5 11/07 12:18 T-Sheet-- Draft Copy gb 12:18 ECG/EKG gb Chart Complete MTDD
--- NOTE | 2016-11-08 23:15 | EDDOCDS ---
Nurse's Notes [facility] Name: Mata Gill Age: 71 yrs Sex: Male : 1945 Arrival Date: 11/06/2016 Time: 11:40 Bed 9 Private MD: [facility], [place] Diagnosis: Influenza due to identified novel influenza A virus;Shortness of breath;Tachycardia, unspecified Presentation: 11/06 11:57 Presenting complaint: Patient states: has had increasing SOB for last 2 days . loose bcj cough with thick yellow green sputum. + temp at home. becomes very SOB with any activity. not eating drinking at home. denies chest pain. Adult Sepsis Screening: The patient does not have new or worsening altered mentation. Patient has a respiratory rate of greater than or equal to 22 (1 point). Systolic blood pressure is greater than 100. Patient has a qSOFA score of 1- Negative Sepsis Screen. Suicide/Homicide risk assessment- the patient denies having any suicidal and/or homicidal ideations and does not present with any other emotional, behavioral or mental health complaints. Status: Patient is not a room service server or dependent. Transition of care: patient was not received from another setting of care. Red Flag criteria, patient assessed and taken directly to a bed. 11:57 Acuity: NICOLE Level 2 [facility] 11:57 Method Of Arrival: Walkin/Carried/Asstd [facility] Triage Assessment: 12:07 General: Appears in no apparent distress, comfortable, Behavior is cooperative. Pain: bcj Denies pain. Cardiovascular: Rhythm is sinus tachycardia Chest pain is denied. Respiratory: Airway is patent Respiratory effort is labored, Respiratory pattern is tachypnea Sputum is thick, blood streaked, green yellow Breath sounds with wheezes bilaterally. Derm: Skin is dusky, pink. Historical: - Allergies: Librium; - Home Meds: 1. albuterol sulfate 90 mcg/actuation Inhl HFAA 2 puffs every 4 hours 2. aspirin 81 mg Oral chew 1 tab once daily 3. atenolol 25 mg Oral tab 1 tab once daily 4. budesonide/formoter 2 puff twice a day 5. cetirizine 10 mg oral tab 1 tab once daily 6. cholecalciferol (vitamin D3) 1,000 unit oral cap 7. cilostazol 50 mg oral tab 1 tab 2 times per day 8. Fish Oil 300-1,000 mg Oral cpDR daily 9. Flonase 50 mcg/actuation Nasal spsn 1 spray once daily 10. gabapentin 400 mg Oral cap 1 cap 1 cap in AM 2 caps in PM 11. guaifenesin 400 mg Oral tab 1 tab twice a day 12. Motrin Oral 600 mg twice a day 13. lisinopril 40 mg Oral tab 1 tab once daily 14. mirtazapine 45 mg Oral TbDL 1 tab once daily 15. multivitamin Oral cap 1 tab daily 16. omeprazole 40 mg Oral cpDR 1 cap 2 times per day 17. oxycodone 5 mg Oral tab three times a day 18. potassium chloride 10 mEq Oral cpER 1 cap 3 times per day 19. quetiapine 300 mg oral tab 1 tab nightly 20. sertraline 100 mg oral tab 1 tab once daily 21. simvastatin 20 mg Oral tab 1 tab once daily 22. theophylline 400 mg Oral TbER 1 tab twice a day 23. Spiriva with HandiHaler 18 mcg Inhl CpDv 1 cap once daily 24. topiramate 100 mg oral tab 1/2 tab in AM 1 tab in PM 25. trazodone 100 mg Oral tab 2 tabs nightly 26. nitroglycerin 0.4 mg SL subl 1 tab every 5 minutes 27. baclofen 20 mg Oral tab 1 tab daily - PMHx: Chronic Back pain; COPD; GERD; Hypercholesterolemia; Hypertension; PTSD; - PSHx: CABG; - Social history: Smoking status: Patient uses tobacco products, heavy tobacco smoker. No barriers to communication noted, The patient speaks fluent Sami, Speaks appropriately for age. - Family history: Not pertinent. - : The pt / caregiver states he / she is not on anticoagulants. Home medication list is obtained from the patient. - Exposure Risk Screening:: None identified. Screenin:57 Screening information is obtained from the patient. Fall risk: No risks identified. jo3 Assistance ADL's: requires no assistance with activities of daily living. Abuse/DV Screen: The patient / caregiver reports he/she is: not in a situation that causes fear, pain or injury. Nutritional screening: No deficits noted. Advance Directives: There is no active DNR order. home support is adequate. Assessment: 13:20 General: Appears distressed, Behavior is appropriate for age, cooperative. Pain: Denies jo3 pain. Neurological: Level of Consciousness is awake, alert, Oriented to person, place, time. Cardiovascular: Rhythm is sinus tachycardia No ectopy. Chest pain is denied. Respiratory: Airway is patent Respiratory effort is labored, shallow. GI: No deficits noted. : No deficits noted. Derm: Skin is pink, warm & dry. 14:22 General: Appears in no apparent distress, comfortable, unkempt, well nourished, jo3 Behavior is appropriate for age, cooperative. Neurological: Level of Consciousness is awake, alert, Oriented to person, place, time. Respiratory: Airway is patent Respiratory effort is even, unlabored, Breath sounds with wheezes inspiratory expiratory bilaterally. Reports shortness of breath at rest. Derm: Skin is pink, warm & dry. 15:10 Reassessment: Patient appears in no apparent distress at this time. Patient states jo3 feeling better. Patient states symptoms have improved. Pt reports feeling improved since arrival. Family at bedside. awaiting results. Aware of plan of care . General:. 16:10 General: Appears in no apparent distress, comfortable, Behavior is appropriate for age, jo3 cooperative, pleasant. General: Resting on stretcher with family at bedside. Awaiting results for disposition. Aware of plan of care . Neurological: Level of Consciousness is awake, alert, Oriented to person, place, time. Respiratory: Airway is patent Respiratory effort is even, unlabored, audible wheezes noted. Pt appears to be moving more air. Derm: Skin is pink, warm & dry. 17:15 Reassessment: Patient appears in no apparent distress at this time. Patient states jo3 feeling better. Patient states symptoms have improved. Family remains at bedside. Pt awaiting admission at this time. reports that he feels improved since arrival. General: Appears. 18:20 General: Appears in no apparent distress, comfortable, Behavior is appropriate for age, jo3 cooperative. Neurological: Level of Consciousness is awake, alert, Oriented to person, place, time. Cardiovascular: Rhythm is sinus tachycardia No ectopy. Chest pain is denied. Respiratory: Airway is patent Respiratory effort is even, unlabored, Breath sounds with wheezes bilaterally. Derm: Skin is pink, warm & dry. 19:30 General: Appears in no apparent distress, comfortable, Behavior is appropriate for age, ko2 cooperative. Pain: Denies pain. Neurological: Level of Consciousness is awake, alert, Oriented to person, place, time. Respiratory: Airway is patent Respiratory effort is even, labored, Breath sounds with wheezes bilaterally. Derm: Skin is pale. 20:45 General: Appears in no apparent distress, comfortable, Behavior is appropriate for age, ko2 cooperative. Neurological: Level of Consciousness is awake, alert. Respiratory: Airway is patent Respiratory effort is even, labored. Derm: Skin is pale. 22:09 General: Appears in no apparent distress, comfortable, pt currently sleeping on ko2 stretcher. No concerns at this time, . Vital Signs: 11:42 BP 198 / 101; Pulse 128; Resp 35; Temp 102.5; Pulse Ox 94% ; Weight 99.79 kg; Height 6 jlm ft. 1 in. (185.42 cm); 12:29 BP 160 / 78 RA (man/); kr3 12:57 BP 167 / 87 (auto/); jo3 12:57 Pulse 126 MON; Pulse Ox 96% ; jo3 13:14 Pulse 138 MON; Pulse Ox 97% ; jo3 13:15 BP 190 / 101 (auto/); jo3 13:23 BP 188 / 85 (auto/); jo3 13:23 Pulse 156 MON; Pulse Ox 96% ; jo3 13:38 BP 162 / 81 (auto/); jo3 13:38 Pulse 142 MON; Pulse Ox 95% ; jo3 13:53 BP 158 / 72 (auto/); jo3 13:53 Pulse 128 MON; Pulse Ox 95% ; jo3 14:08 BP 166 / 72 (auto/); jo3 14:08 Pulse 130 MON; Pulse Ox 94% ; jo3 14:23 BP 175 / 84 (auto/); jo3 14:23 Pulse 136 MON; Pulse Ox 95% ; jo3 14:38 BP 122 / 70 (auto/); jo3 14:38 Pulse 138 MON; Pulse Ox 94% ; jo3 14:46 Temp 100.5; jlm 14:53 BP 151 / 101 (auto/); jo3 14:53 Pulse 128 MON; Pulse Ox 95% ; jo3 15:08 BP 149 / 75 (auto/); jo3 15:08 Pulse 116 MON; Pulse Ox 95% ; jo3 15:23 BP 132 / 68 (auto/); jo3 15:23 Pulse 116 MON; Pulse Ox 94% ; jo3 15:38 BP 138 / 74 (auto/); jo3 15:38 Pulse 122 MON; jo3 15:53 BP 131 / 68 (auto/); jo3 15:53 Pulse 114 MON; Pulse Ox 95% ; jo3 15:58 BP 139 / 59 (auto/); jo3 15:58 Pulse 114 MON; Pulse Ox 95% ; jo3 16:08 BP 143 / 72 (auto/); jo3 16:08 Pulse 112 MON; Pulse Ox 95% ; jo3 16:23 BP 145 / 75 (auto/); jo3 16:23 Pulse 108 MON; Pulse Ox 95% ; jo3 16:38 BP 154 / 79 (auto/); jo3 16:38 Pulse 124 MON; Pulse Ox 96% ; jo3 16:53 BP 141 / 66 (auto/); jo3 16:53 Pulse 118 MON; Pulse Ox 95% ; jo3 17:08 BP 129 / 62 (auto/); jo3 17:08 Pulse 112 MON; Pulse Ox 95% ; jo3 17:23 BP 142 / 69 (auto/); jo3 17:23 Pulse 112 MON; Pulse Ox 95% ; jo3 17:38 BP 135 / 63 (auto/); jo3 17:38 Pulse 112 MON; Pulse Ox 95% ; jo3 18:08 BP 108 / 67 (auto/); jo3 18:08 Pulse 106 MON; Resp 24; Pulse Ox 95% ; jo3 18:18 Temp 98.7(TE); jlm 18:23 BP 123 / 75 (auto/); jo3 18:23 Pulse 118 MON; Pulse Ox 98% ; jo3 18:38 BP 139 / 74 (auto/); jo3 18:38 Pulse 102 MON; Pulse Ox 96% ; jo3 18:53 BP 145 / 80 (auto/); jo3 18:53 Pulse 100 MON; Pulse Ox 96% ; jo3 19:08 BP 144 / 77 (auto/); jo3 19:08 Pulse 102 MON; Pulse Ox 96% ; jo3 20:08 BP 137 / 76 (auto/); ko2 20:08 Pulse 104 MON; Pulse Ox 94% ; ko2 20:22 Pulse 104 MON; Pulse Ox 95% ; ko2 20:23 BP 135 / 63 (auto/); ko2 20:38 BP 164 / 82 (auto/); ko2 20:38 Pulse 98 MON; Pulse Ox 96% ; ko2 20:53 BP 136 / 56 (auto/); ko2 20:53 Pulse 96 MON; Pulse Ox 95% ; ko2 21:07 Pulse 100 MON; Pulse Ox 96% ; ko2 21:08 BP 180 / 87 (auto/); ko2 21:23 BP 170 / 79 (auto/); ko2 21:23 Pulse 106 MON; Pulse Ox 95% ; ko2 21:38 BP 169 / 80 (auto/); ko2 21:38 Pulse 102 MON; Pulse Ox 95% ; ko2 21:52 Pulse 106 MON; Pulse Ox 94% ; ko2 21:53 BP 167 / 89 (auto/); ko2 11:42 Body Mass Index 29.03 (99.79 kg, 185.42 cm) [facility] Vitals: 11:42 Log In Time: November 06, 2016 at 11:42. RN notified that patient meets Red Flag [facility] criteria. ED Course: 11:42 Patient visited by Merced Singleton Unit Clerk. [facility] 11:42 [facility] is Private Physician. [facility] 11:42 Patient moved to Waiting jl 11:54 Patient moved to 9 ar3 11:59 Triage Initiated bcj 12:02 [facility] le 12:10 Patient visited by Pascale Soriano FNP. le 12:10 Patient visited by Pascale Soriano FNP. le 12:13 Inserted saline lock: 20 gauge in right forearm and blood collected. The patient kr3 tolerated the procedure well. 12:24 ARTERIAL BLOOD GAS Sent. lb 12:34 RESPIRATORY PANEL Sent. kr3 12:51 [facility] Payment Agreement was scanned into [employer] and attached to record. jp5 12:57 The patient / caregiver is instructed regarding the plan of care and ED course. jo3 12:57 No procedures done that require assistance. jo3 13:04 EKG done. (by ED staff). Reviewed by Pascale GARCIA. jlf 13:28 Patient visited by Joseph Floyd PCA. jlf 13:29 Patient visited by Joseph Floyd PCA. jlf 13:53 Chest, 2 View (pa\E\lat) Returned. EDMS 14:25 Patient visited by Nichole Smith,LACI. jo3 14:46 Patient visited by Merced Singleton, Planer Tailer. jlm 14:50 Inserted saline lock: 20 gauge in left hand The patient tolerated the procedure well. dsf 15:52 Edna Whyte is Hospitalizing Provider. le 16:12 Patient visited by Nichole Smith,LACI. jo3 16:29 Patient moved to Ultrasound br3 17:02 Patient moved to 9 br3 17:49 Patient moved to Admit Hold js13 17:51 US Lower Extremities Bilateral R/O DVT Returned. EDMS 18:18 Patient visited by Merced Singleton, Planer Tailer. jlm 18:33 ECG WITH READING ER PHYS Returned. EDMS 19:18 Sabina Cannon,LACI is Primary Nurse. ko2 20:53 Patient moved to 9 ml3 11/07 12:18 T-Sheet-- Draft Copy was scanned into [employer] and attached to record. gb 12:18 ECG/EKG was scanned into [employer] and attached to record. gb Administered Medications: 11/06 12:12 Drug: Acetaminophen 650 mg [acetaminophen 325 mg tablet (2 tabs)] Route: PO; js13 12:12 Drug: NS 0.9% 1000 ml [sodium chloride 0.9 % intravenous solution] Route: IV; Rate: js13 bolus; Site: right antecubital; 13:15 Follow up: IV Status: Completed infusion jo3 12:19 Drug: Albuterol-Ipratropium 3 ml [ipratropium-albuterol 0.5 mg-3 mg(2.5 mg base)/3 mL kt1 nebulization soln (3 mL)] Route: Inhalation; 12:23 Drug: Albuterol 5 mg [albuterol sulfate 2.5 mg/0.5 mL solution for nebulization (1 mL)] lb Route: Nebulizer; 13:30 Drug: Solu-MEDROL 125 mg [Solu-Medrol 500 mg intravenous solution (125 mg)] Route: IVP; kr3 Site: right forearm; 13:35 Drug: Magnesium Sulfate in D5W 2 grams [magnesium sulfate 1 gram/100 mL in dextrose 5 % kr3 intravenous piggyback] Route: IV; Rate: 2000 mg/hr; Site: right forearm; 15:45 Follow up: IV Status: Completed infusion jo3 15:08 Drug: levofloxacin 750 mg [levofloxacin 250 mg/50 mL in 5 % dextrose intravenous kc3 piggyback] Route: IVPB; Infused Over: 90 mins; Site: right hand; 16:10 Follow up: IV Status: Completed infusion jo3 15:09 Drug: Oseltamivir 75 mg [oseltamivir 75 mg capsule (1 caps)] Route: PO; kc3 15:53 Drug: NS 0.9% 1000 ml [sodium chloride 0.9 % intravenous solution] Route: IV; Rate: 250 jo3 mL/hr; Site: right antecubital; 16:30 Drug: Albuterol-Ipratropium 3 ml [ipratropium-albuterol 0.5 mg-3 mg(2.5 mg base)/3 mL lb nebulization soln (3 mL)] Route: Inhalation; 18:10 CANCELLED (Not on formulary ): Theophylline 400 mg PO once jo3 RT: 12:24 ABG's drawn from right radial artery allens test done and positive pressure held for 5 lb minutes no bleeding noted pressure bandage applied specimen sent pt. tolerated well. 12:24 Initial Med Neb Given as ordered Patient was instructed and evaluated on procedure lb Patient tolerated procedure well without adverse effect. Respiratory: Breath sounds are diminished Breath sounds with wheezes bilaterally. 16:41 Subsequent Med Neb Given as ordered Patient was reinforced on procedure Patient lb tolerated procedure well without adverse effect. Respiratory: Breath sounds with wheezes bilaterally. at expiration. Order Results: Lab Order: Theophylline Level; SPEC'M 11/06/16 12:11 Test: THEOPHYLLINE LEVEL; Value: 7.5; Range: 10.0-20.0; Abnormal: Below low normal; Units: UG/ML; Status: F Lab Order: ARTERIAL BLOOD GAS; SPEC'M 11/06/16 12:20 Test: ABG pH (ARTERIAL); Value: 7.373; Range: 7.350-7.450; Units: UNITS; Status: F Test: ABG PARTIAL PRESSURE CO2; Value: 34.3; Range: 35.0-45.0; Abnormal: Below low normal; Units: mmHg; Status: F Test: ABG PARTIAL PRESSURE O2; Value: 90.3; Range: 75.0-100.0; Units: mmHg; Status: F Test: ABG TOTAL CO2; Value: 20.6; Range: 23.0-31.0; Abnormal: Below low normal; Units: MEQ/L; Status: F Test: ABG HCO3; Value: 19.5; Range: 22.0-26.0; Abnormal: Below low normal; Units: MEQ/L; Status: F Test: ABG BASE EXCESS; Value: -4.8; Range: -2.0-2.0; Abnormal: Below low normal; Status: F Test: ABG STANDARD HCO3; Value: 20.6; Range: 22.0-26.0; Abnormal: Below low normal; Units: MEQ/L; Status: F Test: ABG O2 SATURATION; Value: 97.4; Range: 95.0-99.0; Units: %; Status: F Lab Order: C REACTIVE PROTEIN QUANTITATIV; [facility] 11/06/16 12:11 Test: C REACTIVE PROTEIN QUANTITATIV; Value: 7.49; Range: 0.00-0.30; Abnormal: Above high normal; Units: MG/DL; Status: F Lab Order: CBC WITH DIFFERENTIAL; [facility] 11/06/16 12:11 Test: WHITE BLOOD COUNT; Value: 9.2; Range: 4.0-10.0; Units: K/mm3; Status: F Test: RED BLOOD COUNT; Value: 4.73; Range: 4.30-6.10; Units: M/mm3; Status: F Test: HEMOGLOBIN; Value: 16.1; Range: 14.0-18.0; Units: g/dl; Status: F Test: HEMATOCRIT; Value: 45.8; Range: 42.0-52.0; Units: %; Status: F Test: MEAN CORPUSCULAR VOLUME; Value: 96.8; Range: 80.0-96.0; Abnormal: Above high normal; Units: fl; Status: F Test: MEAN CORPUSCULAR HEMOGLOBIN; Value: 34.0; Range: 27.0-33.0; Abnormal: Above high normal; Units: pg; Status: F Test: MEAN CORPUSCULAR HGB CONC; Value: 35.2; Range: 32.0-36.5; Units: g/dl; Status: F Test: RED CELL DISTRIBUTION WIDTH; Value: 13.7; Range: 11.5-14.5; Units: %; Status: F Test: PLATELET COUNT, AUTOMATED; Value: 134; Range: 150-450; Abnormal: Below low normal; Units: k/mm3; Status: F Test: NEUTROPHILS %; Value: 85.4; Range: 36.0-66.0; Abnormal: Above high normal; Units: %; Status: F Test: LYMPH %; Value: 5.7; Range: 24.0-44.0; Abnormal: Below low normal; Units: %; Status: F Test: MONO %; Value: 6.0; Range: 0.0-5.0; Abnormal: Above high normal; Units: %; Status: F Test: EOS %; Value: 1.1; Range: 0.0-3.0; Units: %; Status: F Test: BASO %; Value: 0.6; Range: 0.0-1.0; Units: %; Status: F Test: LARGE UNSTAINED CELL %; Value: 1.3; Range: 0.0-4.0; Units: %; Status: F Test: NEUTROPHILS #; Value: 7.8; Range: 1.8-7.7; Abnormal: Above high normal; Units: K/mm3; Status: F Test: LYMPH #; Value: 0.6; Range: 1.5-4.5; Abnormal: Below low normal; Units: K/mm3; Status: F Test: MONO #; Value: 0.6; Range: 0.0-0.8; Units: K/mm3; Status: F Test: EOS #; Value: 0.1; Range: 0.0-0.50; Units: K/mm3; Status: F Test: BASO #; Value: 0.0; Range: 0.0-0.2; Units: K/mm3; Status: F Test: LARGE UNSTAINED CELL #; Value: 0.1; Range: 0.0-0.4; Units: K/mm3; Status: F Lab Order: LACTIC ACID LEVEL, LACTATE; SPEC'M 11/06/16 12:11 Test: LACTIC ACID SEPSIS PROTOCOL; Value: 1.3; Range: 0.4-2.0; Units: MMOL/L; Status: F Lab Order: LIVER PROFILE; SPEC'M 11/06/16 12:11 Test: AST/SGOT; Value: 23; Range: 15-37; Units: U/L; Status: F Test: ALT/SGPT; Value: 23; Range: 12-78; Units: U/L; Status: F Test: ALKALINE PHOSPHATASE; Value: 73; Range: 45-117; Units: U/L; Status: F Test: BILIRUBIN,TOTAL; Value: 0.5; Range: 0.2-1.0; Units: MG/DL; Status: F Test: BILIRUBIN,DIRECT; Value: 0.1; Range: 0.0-0.2; Units: MG/DL; Status: F Test: TOTAL PROTEIN; Value: 7.8; Range: 6.4-8.2; Units: GM/DL; Status: F Test: ALBUMIN; Value: 4.0; Range: 3.2-5.2; Units: GM/DL; Status: F Test: ALBUMIN/GLOBULIN RATIO; Value: 1.05; Range: 1.00-1.93; Status: F Lab Order: BASIC METABOLIC PROFILE; [facility] 11/06/16 12:11 Test: GLUCOSE, FASTING; Value: 105; Range: 83-110; Units: MG/DL; Status: F Test: BLOOD UREA NITROGEN; Value: 16; Range: 7-18; Units: MG/DL; Status: F Test: CREATININE FOR GFR; Value: 1.70; Range: 0.70-1.30; Abnormal: Above high normal; Units: MG/DL; Status: F Test: GLOMERULAR FILTRATION RATE; Value: 42.3; Range: >42; Status: F Test: SODIUM LEVEL; Value: 143; Range: 136-145; Units: MEQ/L; Status: F Test: POTASSIUM SERUM; Value: 3.6; Range: 3.5-5.1; Units: MEQ/L; Status: F Test: CHLORIDE LEVEL; Value: 111; Range: 98-107; Abnormal: Above high normal; Units: MEQ/L; Status: F Test: CARBON DIOXIDE LEVEL; Value: 21; Range: 21-32; Units: MEQ/L; Status: F Test: ANION GAP; Value: 11; Range: 8-16; Units: MEQ/L; Status: F Test: CALCIUM LEVEL; Value: 8.9; Range: 8.8-10.2; Units: MG/DL; Status: F Test Note: ; Units are mL/min/1.73 m2 Chronic Kidney Disease Staging per NKF: Stage I & II GFR >=60 Normal to Mildly Decreased Stage III GFR 30-59 Moderately Decreased Stage IV GFR 15-29 Severely Decreased Stage V GFR <15 Very Little GFR Left ESRD GFR <15 on COUNT ROOM CLERK Lab Order: RESPIRATORY PANEL; SPEC'M 11/06/16 12:34 Test: RESPIRATORY PANEL; Value: RP PANEL RESULT POSITIVE by PCR; Abnormal: Abnormal; Status: F Test: RESPIRATORY PANEL; Value: Comments:; Status: F Test: RESPIRATORY PANEL; Value: ORGANISM 1: INFLUENZA A H3; Status: F Test: RESPIRATORY PANEL; Value: INFLUENZA A H3; Status: F Test: RESPIRATORY PANEL; Value: Influenza H3 1 Influenza causes upper respiratory tract infections; Status: F Test: RESPIRATORY PANEL; Value: Influenza H3 10 Influenza A1H3.; Status: F Test: RESPIRATORY PANEL; Value: Influenza H3 2 with rapid onset of fever. During annual Influenza; Status: F Test: RESPIRATORY PANEL; Value: Influenza H3 3 epidemics, 5-20% of the population is affected.; Status: F Test: RESPIRATORY PANEL; Value: Influenza H3 4 Complications with viral or bacterial pneumonia; Status: F Test: RESPIRATORY PANEL; Value: Influenza H3 5 increase mortality from Influenza infections. There; Status: F Test: RESPIRATORY PANEL; Value: Influenza H3 6 are currently at least four antiviral medications; Status: F Test: RESPIRATORY PANEL; Value: Influenza H3 7 available for Influenza treatment (amantadine,; Status: F Test: RESPIRATORY PANEL; Value: Influenza H3 8 rimantadine, zanamivir and oseltamivir). More severe; Status: F Test: RESPIRATORY PANEL; Value: Influenza H3 9 disease and increased mortality are associated with; Status: F Test Note: ; This respiratory PCR panel detects Influenza A H1, H3 and 2009 H1 viruses, Influenza B virus, Respiratory syncytial virus, Human metapneumovirus, Parainfluenza virus 1, 2, 3 and 4, Adenovirus, Rhinovirus/Enterovirus, Coronavirus HKU1, NL63, OC43 and 229E, Bordetella pertussis, Mycoplasma pneumoniae and Chlamydia pneumoniae. Lab Order: D-Dimer Quant; SPEC'M 11/06/16 12:11 Test: D-DIMER QUANT; Value: 1053.9; Range: <500; Abnormal: Above high normal; Units: ng/ml; Status: F Lab Order: BASIC METABOLIC PROFILE; SPEC'M 11/06/16 15:13 Test: GLUCOSE, FASTING; Value: 141; Range: 83-110; Abnormal: Above high normal; Units: MG/DL; Status: F Test: BLOOD UREA NITROGEN; Value: 17; Range: 7-18; Units: MG/DL; Status: F Test: CREATININE FOR GFR; Value: 1.62; Range: 0.70-1.30; Abnormal: Above high normal; Units: MG/DL; Status: F Test: GLOMERULAR FILTRATION RATE; Value: 44.7; Range: >42; Status: F Test: SODIUM LEVEL; Value: 142; Range: 136-145; Units: MEQ/L; Status: F Test: POTASSIUM SERUM; Value: 3.7; Range: 3.5-5.1; Units: MEQ/L; Status: F Test: CHLORIDE LEVEL; Value: 113; Range: 98-107; Abnormal: Above high normal; Units: MEQ/L; Status: F Test: CARBON DIOXIDE LEVEL; Value: 20; Range: 21-32; Abnormal: Below low normal; Units: MEQ/L; Status: F Test: ANION GAP; Value: 9; Range: 8-16; Units: MEQ/L; Status: F Test: CALCIUM LEVEL; Value: 8.4; Range: 8.8-10.2; Abnormal: Below low normal; Units: MG/DL; Status: F Test Note: ; Units are mL/min/1.73 m2 Chronic Kidney Disease Staging per NKF: Stage I & II GFR >=60 Normal to Mildly Decreased Stage III GFR 30-59 Moderately Decreased Stage IV GFR 15-29 Severely Decreased Stage V GFR <15 Very Little GFR Left ESRD GFR <15 on COUNT ROOM CLERK Lab Order: TROPONIN; SPEC'11/06/16 15:13 Test: TROPONIN I; Value: 0.14; Range: < 0.10; Abnormal: Above high normal; Units: NG/ML; Status: F Test Note: ; Troponin I Reference Interval for gamigo LOCI: 99th Percentile= 0.00-0.045 ng/ml Risk Stratification: <= 0.10 ng/ml Decreased Risk for Adverse Clinical Events. 0.10-1.50 ng/ml Increased Risk for Adverse Clinical Events. Evaluation of additional criterion and/or repeat testing in 2-6 hours is suggested to rule out myocardial damage. >= 1.50 ng/ml Indicative of Myocardial Injury. Lab Order: C REACTIVE PROTEIN QUANTITATIV; SPEC'M 11/06/16 15:13 Test: C REACTIVE PROTEIN QUANTITATIV; Value: 7.69; Range: 0.00-0.30; Abnormal: Above high normal; Units: MG/DL; Status: F Lab Order: PT & APTT; SPEC'M 11/06/16 12:11 Test: PROTHROMBIN TIME; Value: 13.5; Range: 12.3-14.5; Units: SECONDS; Status: F Test: INR; Value: 1.02; Status: F Test: PARTIAL THROMBOPLASTIN TIME; Value: 37.4; Range: 26.6-37.1; Abnormal: Above high normal; Units: SECONDS; Status: F Test Note: ; THERAPUTIC HUMAN INR VALUES INDICATIONS NORMAL RANGES PROPHYLAXIS/TREATMENT OF: VENOUS THROMBOSIS 2.0-3.0 PULMONARY EMBOLISM 2.0-3.0 PREVENTION OF SYSTEMIC EMBOLISM FROM: TISSUE HEART VALVES 2.0-3.0 ACUTE MYOCARDIAL INFARCTION 2.0-3.0 VALVULAR HEART DISEASE 2.0-3.0 ATRIAL FIBRILLATION 2.0-3.0 MECHANICAL VALVES(HIGH RISK) 2.5-3.5 RECURRENT MYOCARDIAL INFARCTION 2.5-3.5 Radiology Order: Chest, 2 View (pa\E\lat) Test: Chest, 2 View (pa\E\lat) REASON FOR EXAMINATION: Cough;Shortness of Breath; Clinical: Cough and shortness of breath.; ; Technique: PA and lateral.; ; Comparison: 08/29/2014.; ; Findings:; Mediastinum and cardiac silhouette stable. Lung jarquin demonstrate chronic; stable changes without acute consolidation, effusion, or pneumothorax. Skeletal; structures intact. Degenerative changes to the thoracic spine with bridging; osteophytes noted; ; Impression:; Chronic stable changes. 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: chase; : 1945 Requested By: PASCALE GARCIA; Order Number: [id number] Reading MD: Srinivasa Lepe; Measurements; Intervals [place]; Rate: 122 P:; RI: 0 QRS: 52; QRSD: 145 T: 34; QT: 322; QTc: 460; Interpretive Statements; SINUS TACHYCARDIA WITH FIRST DEGREE AV BLOCK, OCCASIONLA PACs; RAD; RIGHT BUNDLE BRANCH BLOCK; ; Electronically Signed On 11-06-2016 18:12:43 EST by Srinivasa Lepe; Radiology Order: US Lower Extremities Bilateral R/O DVT Test: US Lower Extremities Bilateral R/O DVT REASON FOR EXAMINATION: elev d-dimer; Clinical: Bilateral pain and elevated D-dimer levels .; ; Technique: Henry scale and color Doppler evaluation using linear high frequency; transducer.; ; Findings:; Ultrasound examination of the right and left lower extremity deep venous; structures from the common femoral vein to the popliteal vein demonstrates normal; compressibility flow and wave patterns in response to respiration and; augmentation. There is no evidence for deep venous thrombosis.; ; Impression:; No evidence for deep venous thrombosis of the right and left lower extremities .; ; ; ; Signed by; Alvarado Lucero MD 11/06/2016 05:03 P; Outcome: 15:52 Decision to Hospitalize by Provider. le 21:59 Discharge Assessment: Patient awake, alert and oriented x 3. No cognitive and/or ko2 functional deficits noted. Patient verbalized understanding of disposition instructions. patient administered narcotics - yes. Patient was admitted to the hospital or transferred to another facility. The following High Risk Discharge criteria are identified: None. Admitted to PCU accompanied by nurse. Condition: stable. No special radiology studies were completed. Admission hand-off: Report called to PAT Galvez. Property :Personal belongings accompany Pt. 22:14 Patient left the ED. ko2 Signatures: Dispatcher [employer] EDMS Efe Coe, LACI RN Holly Alvarado, Reg Reg gb Monica Cardenas Kristin kt1 Mary Garner, Planer Tailer Unit ml3 Joan Wilson,RN RN kr3 Nichole Smith,RN RN jo3 Pascale Soriano, COLOR REPAIRER COLOR REPAIRER Kayla Zelaya br3 Tiffany Parker, TRANSVERSE ABDOMINAL MUSCLE NURSE TRANSVERSE ABDOMINAL MUSCLE NURSE ar3 Jessica Diaz,RN RN dsf Nichole Pacheco,RN RN js13 Mariel, Joseph, TRANSVERSE ABDOMINAL MUSCLE NURSE TRANSVERSE ABDOMINAL MUSCLE NURSE jlf Merced Singleton, Planer Tailer Unit jlm Sabina Cannon,RN RN yolie2 Mahin Butt jp5 Malu Cheung,RN RN kc3 Chart Complete MTDD
[2016-11-09 02:00] VITALS: BP 155/73
[2016-11-09] MEDS: HEPARIN SOD (PORCINE) 5000 UNITS/ML VIAL SQ SCH ×3 (06:00→23:31)
[2016-11-09] MEDS: SLF 3 ML SYR IV SCH ×3 (06:00→23:32)
[2016-11-09 06:51] LABS: MEAN CORPUSCULAR HEMOGLOBIN 34.3 pg (27.0-33.0); MEAN CORPUSCULAR HGB CONC 35.2 g/dl (32.0-36.5); MEAN CORPUSCULAR VOLUME 97.4 fl (80.0-96.0); RED CELL DISTRIBUTION WIDTH 13.7 % (11.5-14.5); WHITE BLOOD COUNT 5.8 K/mm3 (4.0-10.0)
[2016-11-09 07:09] LABS: CALCIUM LEVEL 8.5 MG/DL (8.8-10.2); CREATININE FOR GFR 1.39 MG/DL (0.70-1.30); GLOMERULAR FILTRATION RATE 53.3 (>42)
[2016-11-09] MEDS: TIOTROPIUM INHALER/CAPSULE (SPIRIVA) INH SCH (07:32)
[2016-11-09] MEDS: SYMBICORT 160/4.5MCG INHALER 6GM INH SCH ×2 (07:32→21:50)
[2016-11-09 08:00] VITALS: BP 156/74
[2016-11-09] MEDS: POTASSIUM CHLORIDE 10 MEQ SR TABLET PO SCH ×3 (09:00→20:47)
[2016-11-09] MEDS: oxyCODONE 5MG TAB PO SCH ×3 (09:11→20:49)
[2016-11-09] MEDS: OSELTAMIVIR PHOSPHATE 75 MG CAP (TAMIFLU) PO SCH ×2 (09:12→20:50)
[2016-11-09] MEDS: OMEPRAZOLE 20 MG CAP PO SCH ×2 (09:12→20:48)
[2016-11-09] MEDS: GABAPENTIN 400 MG CAP PO SCH ×2 (09:13→20:48)
[2016-11-09] MEDS: IBUPROFEN 600 MG TAB PO SCH ×2 (09:13→20:46)
[2016-11-09] MEDS: ASPIRIN 81 MG ENTERIC TAB PO SCH (09:13)
[2016-11-09] MEDS: MULTIVITAMINS/MINERALS THERAP 1 TAB PO SCH (09:13)
[2016-11-09] MEDS: CILOSTAZOL 100 MG TAB (PLETAL) PO SCH ×2 (09:14→16:58)
[2016-11-09] MEDS: VITAMIN D 1,000 INTERNATIONAL UNITS TABLET PO SCH (09:14)
[2016-11-09] MEDS: amLODIPine 10 MG TAB PO SCH (09:19)
[2016-11-09] MEDS: LISINOPRIL 20 MG TAB PO SCH (09:20)
[2016-11-09] MEDS: ATENOLOL 25 MG TAB PO SCH (09:20)
[2016-11-09] MEDS: NICOTINE 21MG/24HR 1 EA TRANSDERMAL TD SCH (09:23)
[2016-11-09] MEDS: SERTRALINE 100 MG TAB PO SCH (09:23)
[2016-11-09] MEDS: CETIRIZINE (ZyrTEC) 10 MG TAB PO SCH (09:35)
[2016-11-09] MEDS: TOPIRAMATE (TopAMAX) 25 MG TAB PO SCH ×2 (09:36→20:51)
[2016-11-09] MEDS: LEVALBUTEROL 1.25 MG/0.5 ML CONCENTRATE NEB INH PRN (11:41)
[2016-11-09 12:00] VITALS: BP 145/67
[2016-11-09] MEDS: predniSONE 20 MG TAB PO SCH (12:52)
[2016-11-09 16:00] VITALS: BP 141/70
--- NOTE | 2016-11-09 16:55 | IPNPDOC ---
Subjective Date Seen The patient was seen on 11/09/16. Subjective Chief Complaint/HPI The patient is a 71-year-old male admitted with a reason for visit of Acute Respiratory Failure. General: Denies: Chills, Night Sweats Constitutional: Denies: Chills, Fever Eyes: Denies: Pain, Vision change ENT: Denies: Ear Pain, Head Aches Skin: Denies: Lesions, Rash Pulmonary: Reports: Cough, Dyspnea Cardiovascular: Denies: Chest Pain, Palpitations Gastrointestinal: Denies: Nausea, Vomiting Genitourinary: Denies: Dysuria, Frequency Hematologic: Denies: Bleeding Excessively, Bruising Objective Physical Examination General Exam: Positive: Alert, Cooperative ENT Exam: Positive: Atraumatic, Mucous membr. moist/pink Chest Exam: Positive: Diminished, Wheezing (diffusely) Heart Exam: Positive: Normal S1, Normal S2, Rate Normal Abdomen Exam: Positive: Soft, Negative: Tenderness Extremity Exam: Negative: Swelling, Tenderness Assessment /Plan Plan/VTE VTE Prophylaxis Ordered?: Yes Plan 1. COPD Exacerbation 2/2 Influenza A H3 strain. CTA Negative for PE On Tamiflu Antibiotics discontinued Patient currently requiring 3L of supplemental oxygen He is still wheezing moderately on his physican exam We will cont with nebs and steroids at this time 2. Atrial tachycardia secondary to severe respiratory distress. Heart Rate Better controlled at this time 3. Elevated troponin likely 2/2 Respiratory Distress, Demand Ischemia EKG with no acute ST Changes Troponin level peaked at 0.37, and has been downtrending since Cont ASA, Atenolol, Statin, SHRUTI-I 4. Chronic obstructive pulmonary disease Cont Nebs, Symbicort, Spiriva 5. Chronic tobacco abuse Nicotine patch. 6. History of post-traumatic stress disorder (PTSD). Continue on home medications. 7. Hypercholesterolemia On simvastatin. 8. History of coronary artery disease, status post coronary artery bypass graft (CABG). On cilostazol, ASA, Atenolol, Statin, SHRUTI-I 9. Gastroesophageal reflux disease On omeprazole. 10. Deep vein thrombosis (DVT) prophylaxis. Cont Heparin SC Disposition: Patient has been cleared by PT. Anticipated D/C in 24-48 hrs pending clinical improvement VS, I&O, 24H, Fishbone Vital Signs/I&O Vital Signs Date Time Temp Pulse Resp B/P Pulse Ox O2 Delivery O2 Flow Rate FiO2 11/09/16 16:00 99.3 68 20 141/70 92 Nasal Cannula 3.0 I&O- Last 24 Hours up to 6 AM 11/09/16 06:00 Intake Total 2400 ml Output Total 2275 ml Balance 125 ml Laboratory Data 24H LABS Laboratory Tests 2 11/09/16 06:22: Anion Gap 7L, Blood Urea Nitrogen 19H, Creatinine 1.39H, Sodium Level 145, Potassium Level 4.0, Chloride Level 113H, Carbon Dioxide Level 25, Calcium Level 8.5L, Glomerular Filtration Rate 53.3 CBC/BMP Laboratory Tests 11/09/16 06:22 Calcium Level 8.5 L, Red Blood Count 3.88 L, Mean Corpuscular Volume 97.4 H, Mean Corpuscular Hemoglobin 34.3 H, Mean Corpuscular Hemoglobin Concent 35.2, Red Cell Distribution Width 13.7 Microbiology Microbiology 11/06/16 Blood Culture - Preliminary, Resulted No Growth after 72 hours. All specime... 11/07/16 Gram Stain - Final, Resulted 11/07/16 Sputum Culture - Preliminary, Resulted Staphylococcus Aureus Yeast Like Organism 11/06/16 Respiratory Virus Panel (PCR) ([facility]) - Final, Complete Influenza A H3 11/07/16 Urine Culture - Final, Complete SVITLANA BROWN MD Nov 09, 2016 16:55
[2016-11-09 20:15] VITALS: BP 168/76
[2016-11-09] MEDS: traZODone 100 MG TAB PO SCH (20:47)
[2016-11-09] MEDS: MIRTAZAPINE 15 MG TAB PO SCH (20:49)
[2016-11-09] MEDS: QUEtiapine FUMARATE 100 MG TAB PO SCH (20:50)
[2016-11-09] MEDS: SIMVASTATIN 20 MG TAB PO SCH (20:53)
[2016-11-09] MEDS: TOPIRAMATE (TopAMAX) 100 MG TAB PO SCH (21:06)
[2016-11-10] VITALS: BP 174/83
[2016-11-10 04:00] VITALS: BP 179/69
[2016-11-10] MEDS: HEPARIN SOD (PORCINE) 5000 UNITS/ML VIAL SQ SCH ×3 (06:52→22:20)
[2016-11-10] MEDS: CILOSTAZOL 100 MG TAB (PLETAL) PO SCH ×2 (06:53→18:58)
[2016-11-10] MEDS: SLF 3 ML SYR IV SCH ×3 (06:53→22:20)
[2016-11-10 07:03] LABS: MEAN CORPUSCULAR HEMOGLOBIN 34.2 pg (27.0-33.0); MEAN CORPUSCULAR VOLUME 97.8 fl (80.0-96.0); RED CELL DISTRIBUTION WIDTH 13.3 % (11.5-14.5); WHITE BLOOD COUNT 6.8 K/mm3 (4.0-10.0)
[2016-11-10 07:19] LABS: CALCIUM LEVEL 9.2 MG/DL (8.8-10.2); CREATININE FOR GFR 1.3 MG/DL (0.70-1.30); GLOMERULAR FILTRATION RATE 57.6 (>42); POTASSIUM SERUM 4.1 MEQ/L (3.5-5.1)
[2016-11-10] MEDS: TIOTROPIUM INHALER/CAPSULE (SPIRIVA) INH SCH (07:54)
[2016-11-10] MEDS: SYMBICORT 160/4.5MCG INHALER 6GM INH SCH ×2 (07:54→20:27)
[2016-11-10 08:09] VITALS: BP 179/95
[2016-11-10] MEDS: IBUPROFEN 600 MG TAB PO SCH ×2 (08:11→21:55)
[2016-11-10] MEDS: predniSONE 20 MG TAB PO SCH (08:11)
[2016-11-10] MEDS: ASPIRIN 81 MG ENTERIC TAB PO SCH (08:11)
[2016-11-10] MEDS: GABAPENTIN 400 MG CAP PO SCH ×2 (08:12→21:56)
[2016-11-10] MEDS: POTASSIUM CHLORIDE 10 MEQ SR TABLET PO SCH ×3 (08:12→21:56)
[2016-11-10] MEDS: OMEPRAZOLE 20 MG CAP PO SCH ×2 (08:13→21:56)
[2016-11-10] MEDS: LISINOPRIL 20 MG TAB PO SCH (08:13)
[2016-11-10] MEDS: amLODIPine 10 MG TAB PO SCH (08:13)
[2016-11-10] MEDS: MULTIVITAMINS/MINERALS THERAP 1 TAB PO SCH (08:14)
[2016-11-10] MEDS: OSELTAMIVIR PHOSPHATE 75 MG CAP (TAMIFLU) PO SCH ×2 (08:14→21:58)
[2016-11-10] MEDS: oxyCODONE 5MG TAB PO SCH ×3 (08:14→21:57)
[2016-11-10] MEDS: CETIRIZINE (ZyrTEC) 10 MG TAB PO SCH (08:15)
[2016-11-10] MEDS: SERTRALINE 100 MG TAB PO SCH (08:15)
[2016-11-10] MEDS: TOPIRAMATE (TopAMAX) 25 MG TAB PO SCH (08:15)
[2016-11-10] MEDS: VITAMIN D 1,000 INTERNATIONAL UNITS TABLET PO SCH (08:15)
[2016-11-10] MEDS: ATENOLOL 25 MG TAB PO SCH (08:16)
[2016-11-10] MEDS: NICOTINE 21MG/24HR 1 EA TRANSDERMAL TD SCH (08:17)
--- NOTE | 2016-11-10 10:56 | IPNPDOC ---
Subjective Date Seen The patient was seen on 11/10/16. Subjective Chief Complaint/HPI The patient is a 71-year-old male admitted with a reason for visit of Acute Respiratory Failure. General: Denies: Chills, Night Sweats Constitutional: Denies: Chills, Fever Eyes: Denies: Pain, Vision change ENT: Denies: Ear Pain, Head Aches Skin: Denies: Lesions, Rash Pulmonary: Reports: Cough, Dyspnea Cardiovascular: Denies: Chest Pain, Palpitations Gastrointestinal: Denies: Abdominal Pain, Nausea, Vomiting Genitourinary: Denies: Dysuria, Frequency, Incontinence Hematologic: Denies: Bleeding Excessively, Bruising Objective Physical Examination General Exam: Positive: Alert, Cooperative ENT Exam: Positive: Atraumatic, Mucous membr. moist/pink Chest Exam: Positive: Wheezing (Improving compared to yesterday), Negative: Rales, Rhonchi Heart Exam: Positive: Normal S1, Normal S2, Rate Normal Abdomen Exam: Positive: Soft, Negative: Tenderness Extremity Exam: Negative: Swelling, Tenderness Assessment /Plan Plan/VTE VTE Prophylaxis Ordered?: Yes Plan 1. COPD Exacerbation 2/2 Influenza A H3 strain. CTA Negative for PE On Tamiflu Antibiotics discontinued Patient currently downtitrated to 1.5L of Oxygen--does not use oxygen at baseline We will continue to down-titrate supplemental oxygen Wheezing improved on PE We will cont with symbicort, nebs and steroids Cont to monitor respiratory status 2. Atrial tachycardia secondary to severe respiratory distress. Heart Rate Better controlled at this time 3. Elevated troponin likely 2/2 Respiratory Distress, Demand Ischemia EKG with no acute ST Changes Troponin level peaked at 0.37, and has been downtrending since Cont ASA, Atenolol, Statin, SHRUTI-I 4. Chronic obstructive pulmonary disease Cont Nebs, Symbicort, Spiriva 5. Chronic tobacco abuse Nicotine patch. 6. History of post-traumatic stress disorder (PTSD). Continue on home medications. 7. Hypercholesterolemia On simvastatin. 8. History of coronary artery disease, status post coronary artery bypass graft (CABG). On cilostazol, ASA, Atenolol, Statin, SHRUTI-I 9. Gastroesophageal reflux disease On omeprazole. 10. Deep vein thrombosis (DVT) prophylaxis. Cont Heparin SC Disposition: Patient has been cleared by PT. Anticipate D/C in 24 pending continued clinical improvement VS, I&O, 24H, Fishbone Vital Signs/I&O Vital Signs Date Time Temp Pulse Resp B/P Pulse Ox O2 Delivery O2 Flow Rate FiO2 11/10/16 09:00 18 11/10/16 08:16 79 179/95 11/10/16 08:09 97.2 90 Nasal Cannula 1.5 I&O- Last 24 Hours up to 6 AM 11/10/16 06:00 Intake Total 2160 ml Output Total 3400 ml Balance -1240 ml Laboratory Data 24H LABS Laboratory Tests 2 11/10/16 06:31: Anion Gap 9, Blood Urea Nitrogen 20H, Creatinine 1.30, Sodium Level 145, Potassium Level 4.1, Chloride Level 112H, Carbon Dioxide Level 24, Calcium Level 9.2, Glomerular Filtration Rate 57.6 CBC/BMP Laboratory Tests 11/10/16 06:31 Calcium Level 9.2, Red Blood Count 3.92 L, Mean Corpuscular Volume 97.8 H, Mean Corpuscular Hemoglobin 34.2 H, Mean Corpuscular Hemoglobin Concent 35.0, Red Cell Distribution Width 13.3 Microbiology Microbiology 11/06/16 Blood Culture - Preliminary, Resulted No Growth after 72 hours. All specime... 11/07/16 Gram Stain - Final, Resulted 11/07/16 Sputum Culture - Preliminary, Resulted Staphylococcus Aureus Yeast Like Organism 11/06/16 Respiratory Virus Panel (PCR) ([facility]) - Final, Complete Influenza A H3 11/07/16 Urine Culture - Final, Complete SVITLANA BROWN MD Nov 10, 2016 10:56
[2016-11-10 11:41] VITALS: BP 178/80
[2016-11-10 15:40] VITALS: BP 169/72
[2016-11-10 20:18] VITALS: BP 173/81
[2016-11-10] MEDS: traZODone 100 MG TAB PO SCH (21:55)
[2016-11-10] MEDS: MIRTAZAPINE 15 MG TAB PO SCH (21:56)
[2016-11-10] MEDS: QUEtiapine FUMARATE 100 MG TAB PO SCH (21:57)
[2016-11-10] MEDS: TOPIRAMATE (TopAMAX) 100 MG TAB PO SCH (21:58)
[2016-11-10] MEDS: SIMVASTATIN 20 MG TAB PO SCH (21:58)
[2016-11-11] VITALS: BP 169/77
[2016-11-11] MEDS: SLF 3 ML SYR IV SCH (06:00)
[2016-11-11] MEDS: HEPARIN SOD (PORCINE) 5000 UNITS/ML VIAL SQ SCH (06:37)
[2016-11-11] MEDS: SYMBICORT 160/4.5MCG INHALER 6GM INH SCH (07:25)
[2016-11-11] MEDS: TIOTROPIUM INHALER/CAPSULE (SPIRIVA) INH SCH (07:25)
[2016-11-11 07:36] LABS: MEAN CORPUSCULAR HEMOGLOBIN 32.9 pg (27.0-33.0); MEAN CORPUSCULAR HGB CONC 34.6 g/dl (32.0-36.5); MEAN CORPUSCULAR VOLUME 95.1 fl (80.0-96.0); WHITE BLOOD COUNT 11.5 K/mm3 (4.0-10.0)
[2016-11-11 07:52] LABS: CREATININE FOR GFR 1.38 MG/DL (0.70-1.30); GLOMERULAR FILTRATION RATE 53.8 (>42); POTASSIUM SERUM 3.7 MEQ/L (3.5-5.1)
[2016-11-11] MEDS: CILOSTAZOL 100 MG TAB (PLETAL) PO SCH (07:57)
[2016-11-11 08:00] VITALS: BP 165/79
[2016-11-11] MEDS: predniSONE 20 MG TAB PO SCH (10:18)
[2016-11-11] MEDS: ASPIRIN 81 MG ENTERIC TAB PO SCH (10:18)
[2016-11-11] MEDS: IBUPROFEN 600 MG TAB PO SCH (10:18)
[2016-11-11] MEDS: POTASSIUM CHLORIDE 10 MEQ SR TABLET PO SCH (10:19)
[2016-11-11] MEDS: amLODIPine 10 MG TAB PO SCH (10:19)
[2016-11-11] MEDS: GABAPENTIN 400 MG CAP PO SCH (10:19)
[2016-11-11] MEDS: oxyCODONE 5MG TAB PO SCH (10:20)
[2016-11-11] MEDS: OMEPRAZOLE 20 MG CAP PO SCH (10:20)
[2016-11-11] MEDS: LISINOPRIL 20 MG TAB PO SCH (10:20)
[2016-11-11 10:21] VITALS: BP 165/79
[2016-11-11] MEDS: ATENOLOL 25 MG TAB PO SCH (10:21)
[2016-11-11] MEDS: OSELTAMIVIR PHOSPHATE 75 MG CAP (TAMIFLU) PO SCH (10:21)
[2016-11-11] MEDS: CETIRIZINE (ZyrTEC) 10 MG TAB PO SCH (10:22)
[2016-11-11] MEDS: VITAMIN D 1,000 INTERNATIONAL UNITS TABLET PO SCH (10:22)
[2016-11-11] MEDS: MULTIVITAMINS/MINERALS THERAP 1 TAB PO SCH (10:22)
[2016-11-11] MEDS: SERTRALINE 100 MG TAB PO SCH (10:22)
[2016-11-11] MEDS: TOPIRAMATE (TopAMAX) 25 MG TAB PO SCH (10:22)
[2016-11-11] MEDS: NICOTINE 21MG/24HR 1 EA TRANSDERMAL TD SCH (10:22)
[2016-11-11] MEDS ORDERED: OSEL75CA2 PO (10:29)
[2016-11-11] MEDS ORDERED: PRED10TA PO (10:29)
--- NOTE | 2016-11-11 17:00 | DS.PDOC ---
Discharge Summary General Date of Admission Nov 06, 2016 at 17:37 Date of Discharge Nov 11, 2016 at 14:30 Discharge Summary PROCEDURES PERFORMED DURING STAY: None. COMPLICATIONS/CHIEF COMPLAINT: Acute Respiratory Failure ADMISSION DIAGNOSES: 1. .Influenza Positive 2. .COPD Exacerbation 3. . DISCHARGE DIAGNOSES: 1. .Influenza Positive 2. .COPD Exacerbation 3. . HISTORY OF PRESENT ILLNESS: 71-year-old male with past medical history significant for COPD, GERD, dyslipidemia, hypertension, PTSD presented to [facility] on 2016 for respiratory distress. The patient states that he started to have difficulty breathing with a cough productive of some yellowish sputum, and fevers of 103 over the past few days prior to him proceeding to the ER. In the ER, the patient was found to be influenza positive. The patient was noted to be hypoxic requiring 3 L of oxygen via nasal cannula. He does not require any oxygen at baseline. The hospitalist team was called for admission for further evaluation and management of the same. During the patient's stay in the hospital here he was started on Tamiflu, and steroids as well as [id number] nebulizer treatments. During this time, the patient's respiratory status markedly improved. He has been weaned off all supplemental oxygen therapy. In addition, the patient has cleared physical therapy. At this time, the patient states that he's feeling well, and he is ready to go home. He will be discharged on 1 more day of Tamiflu therapy, and by mouth steroids to be tapered off over the next few days. DISCHARGE MEDICATIONS: Please see below. ALLERGIES: Please see below. PHYSICAL EXAMINATION ON DISCHARGE: VITAL SIGNS: Please see below. General Exam: Positive: Alert, Cooperative ENT Exam: Positive: Atraumatic, Mucous membr. moist/pink Chest Exam: Wheezing cleared Negative: Rales, Rhonchi Heart Exam: Positive: Normal S1, Normal S2, Rate Normal Abdomen Exam: Positive: Soft, Negative: Tenderness Extremity Exam: Negative: Swelling, Tenderness LABORATORY DATA: Please see below. IMAGING: Clinical: Acute chest pain and elevated D-dimer levels. Technique: Axial contrast enhanced images from the thoracic inlet to the upper abdomen using 100 ml Isovue 370 intravenous contrast material with coronal and sagittal re-formations. Findings: Satisfactory enhancement of the pulmonary vasculature is achieved and no filling defects are identified to suggest pulmonary embolus. Lung jarquin demonstrate moderate diffuse emphysematous changes with bronchiectasis and scattered/bibasilar fibroatelectatic changes. No focal consolidation, nodule or mass lesion. No pleural effusion. No pneumothorax. Mediastinum demonstrates atherosclerotic changes to the thoracic aorta and coronary arteries without aortic aneurysm, cardiomegaly or pericardial effusion. No significant adenopathy. Musculoskeletal structures demonstrate degenerative changes without focal osseous abnormality. Impression: No evidence for pulmonary embolus. Diffuse chronic emphysematous changes with bronchiectasis and scattered fibroatelectatic changes. No significant acute mediastinal or pleuroparenchymal process appreciated. VTE Prophylaxis ordered?: Yes DISCHARGE CONDITION: Stable. DISPOSITION: .Home ACTIVITY: .As Tolerated DIET: . 2 g low sodium diet DISCHARGE PLAN AND INSTRUCTIONS: 1. . Follow-up with primary care physician within one to 2 weeks 2. . 3. . TIME SPENT ON DISCHARGE: Greater than 30 minutes. Vital Signs/I&Os Vital Signs Date Time Temp Pulse Resp B/P Pulse Ox O2 Delivery O2 Flow Rate FiO2 11/11/16 11:20 18 11/11/16 10:21 69 165/79 11/11/16 08:04 Room Air 11/11/16 08:00 98.0 90 11/10/16 11:41 1.0 I&O- Last 24 Hours up to 6 AM 11/11/16 06:00 Intake Total 1920 ml Output Total 4475 ml Balance -2555 ml Laboratory Data Labs 24H Laboratory Tests 2 11/11/16 07:06: Anion Gap 8, Blood Urea Nitrogen 20H, Creatinine 1.38H, Sodium Level 147H, Potassium Level 3.7, Chloride Level 115H, Carbon Dioxide Level 24, Calcium Level 9.0, Glomerular Filtration Rate 53.8 CBC/BMP Laboratory Tests 11/11/16 07:06 Calcium Level 9.0, Red Blood Count 4.04 L, Mean Corpuscular Volume 95.1, Mean Corpuscular Hemoglobin 32.9, Mean Corpuscular Hemoglobin Concent 34.6, Red Cell Distribution Width 13.0 Microbiology Microbiology 11/06/16 Blood Culture - Final, Complete NO GROWTH AFTER 5 DAYS 11/07/16 Gram Stain - Final, Complete 11/07/16 Sputum Culture - Final, Complete Staphylococcus Aureus Yeast Like Organism 11/06/16 Respiratory Virus Panel (PCR) ([facility]) - Final, Complete Influenza A H3 11/07/16 Urine Culture - Final, Complete Medications Scheduled Aspirin (Aspirin 81) 81 Mg Tab 81 MG PO DAILY (Reported) Atenolol (Atenolol) 25 Mg Tab 25 MG PO DAILY (Reported) Budesonide/Formoterol (Symbicort 160-4.5 Mcg/Act) 60 Puff/Inhaler Aers 2 PUFF INH BID (Reported) Cetirizine HCl (Cetirizine HCl) 10 Mg Tab 10 MG PO DAILY (Reported) Cholecalciferol (Vitamin D3) 2,000 Unit Tab 2,000 UNIT PO DAILY (Reported) Cilostazol (Cilostazol) 50 Mg Tab 50 MG PO BID (Reported) Fish Oil (Fish Oil) 1,200 Mg Cap 1,200 MG PO DAILY (Reported) Gabapentin (Gabapentin) 400 Mg Cap 400 MG PO DAILY (Reported) Gabapentin (Gabapentin) 400 Mg Cap 800 MG PO QHS (Reported) Ibuprofen (Ibuprofen) 600 Mg Tab 600 MG PO BID (Reported) Lisinopril (Lisinopril) 20 Mg Tab 20 MG PO DAILY (Reported) Mirtazapine (Mirtazapine) 45 Mg Tab 45 MG PO QHS (Reported) Multivitamins *[facility] STOCKED* (Thera M Plus *[facility] STOCKED*) 1 Tab Tab 1 TAB PO DAILY (Reported) Omeprazole (Omeprazole) 20 Mg Cap 20 MG PO BID (Reported) Oseltamivir Phosphate (Oseltamivir Phosphate) 75 Mg Cap 75 MG PO BID Oxycodone HCl (Oxycodone HCl) 5 Mg Tab 5 MG PO TID (Reported) Potassium Chloride (Klor-Con M10) 10 Meq Tabcr 10 MEQ PO TID (Reported) Prednisone (Prednisone) 10 Mg Tab 10 MG PO ASDIRECTED Quetiapine Fumerate (Quetiapine Fumarate) 300 Mg Tab 200 MG PO QHS (Reported) Sertraline HCl (Sertraline HCl) 100 Mg Tab 100 MG PO DAILY (Reported) Simvastatin (Simvastatin) 20 Mg Tab 20 MG PO QHS (Reported) Theophylline (Theophylline ER) 400 Mg Tabcr 400 MG PO BID (Reported) Tiotropium [place] Monohydrate (Spiriva Handihaler) 18 Mcg Cap 1 INHALATION INH DAILY (Reported) Topiramate (Topiramate) 50 Mg Tab 50 MG PO DAILY (Reported) Topiramate (Topiramate) 100 Mg Tab 100 MG PO QHS (Reported) Trazodone HCl (Trazodone HCl) 100 Mg Tab 200 MG PO QHS (Reported) Scheduled PRN Albuterol Sulfate (Ventolin Hfa) 200 Puff/8 Gm Aers 2 PUFF INH Q4H PRN PRN SHORTNESS OF BREATH (Reported) Baclofen (Baclofen) 10 Mg Tab 10 MG PO QID PRN PRN MUSCLE SPASMS (Reported) Fluticasone Propionate (Fluticasone Propionate) 50 Mcg/Act Spr 2 SPRAY NA DAILY PRN PRN CONGESTION (Reported) Guaifenesin (Guaifenesin) 400 Mg Tab 400 MG PO BID PRN PRN COUGH (Reported) Allergies Coded Allergies: Chlordiazepoxide (Unverified Allergy, Unknown, 11/06/16) SVITLANA BROWN MD Nov 11, 2016 17:00
== END 2016-11-11 14:30 | disposition home or self-care (01) | DRG 191 ==
LOC: M ED 11:40 → M ED INP 17:37 → M ICU 22:21 → M MSPAV 11-08 11:20 → M PED 11-09 00:45
PROVIDERS: ADMIT Internal Medicine; ATTEND Internal Medicine
DX: J44.1 Chronic obstructive pulmonary disease with (acute) exacerbation (principal); I47.1 Supraventricular tachycardia; J11.1 Influenza due to unidentified influenza virus with other respiratory manifestations; R06.00 Dyspnea, unspecified; K21.9 Gastro-esophageal reflux disease without esophagitis; E78.5 Hyperlipidemia, unspecified; F17.210 Nicotine dependence, cigarettes, uncomplicated; R09.02 Hypoxemia; R79.89 Other specified abnormal findings of blood chemistry; I10 Essential (primary) hypertension; E78.00 Pure hypercholesterolemia, unspecified; F43.10 Post-traumatic stress disorder, unspecified; Z79.82 Long term (current) use of aspirin; Z79.899 Other long term (current) drug therapy; Z79.52 Long term (current) use of systemic steroids; Z88.8 Allergy status to other drugs, medicaments and biological substances; Z98.61 Coronary angioplasty status; Z95.9 Presence of cardiac and vascular implant and graft, unspecified

== ENCOUNTER 2017-04-02 00:10 | Emergency (ER) | payer OTHER ==
[~2017-04-02] VITALS: Ht 188 cm; Wt 114.0 kg
[~2017-04-02 00:10] MED LIST changes: +ALBU17IN INH; +ASPI1TAB PO; +ATEN25TA PO; +BACL10TA2 PO; +CETI10TA PO; +FISH120012 PO; +FLUTISP; +GABA-283 PO; +GUAI400T6 PO; +IBUP1TAB6 PO; +LISI-538 PO; +OMEP20CA3 PO; +OSEL75CA2 PO; +OXYC-517 PO; +POTA10CA PO; +PRED10TA2 PO; +QUET1TAB10 PO; +SERT-138 PO; +SPIR1CAP INH; +THEO400T4 PO; +TOPI100T9 PO; +TOPI50TA9 PO; +TRAZ-136 PO; +VITA20008 PO; +VITMTA PO
[2017-04-02] MEDS ORDERED: ASPIRIN 325 MG TAB As Ordered ONE (00:52)
[2017-04-02] MEDS ORDERED: HEPARIN SOD (PORCINE) 5000 UNITS/ML VIAL IV ONE (01:00)
[2017-04-02] MEDS ORDERED: NS 500 ML IV ONE (01:00)
[2017-04-02] MEDS ORDERED: TENECTEPLASE 50 MG KIT (TNKase)(J3101) IV ONE (01:00)
[2017-04-02 01:06] LABS: BASO % 0.6 % (0.0-1.0); EOS # 0.5 K/mm3 (0.0-0.50); EOS % 5.5 % (0.0-3.0); LARGE UNSTAINED CELL # 0.2 K/mm3 (0.0-0.4); LARGE UNSTAINED CELL % 2.1 % (0.0-4.0); LYMPH # 1.8 K/mm3 (1.5-4.5); LYMPH % 21.2 % (24.0-44.0); MEAN CORPUSCULAR HEMOGLOBIN 34.5 pg (27.0-33.0); MEAN CORPUSCULAR HGB CONC 35.3 g/dl (32.0-36.5); MEAN CORPUSCULAR VOLUME 97.5 fl (80.0-96.0); MONO # 0.7 K/mm3 (0.0-0.8); MONO % 7.6 % (0.0-5.0); NEUTROPHILS # 5.5 K/mm3 (1.8-7.7); NEUTROPHILS % 63.1 % (36.0-66.0); PLATELET COUNT, AUTOMATED 169 k/mm3 (150-450); RED CELL DISTRIBUTION WIDTH 13.5 % (11.5-14.5); WHITE BLOOD COUNT 8.7 K/mm3 (4.0-10.0)
[2017-04-02 01:13] LABS: INR 1.02
[2017-04-02 01:18] LABS: CALCIUM LEVEL 8.8 MG/DL (8.8-10.2); CREATININE FOR GFR 1.65 MG/DL (0.70-1.30); GLOMERULAR FILTRATION RATE 43.8 (>42); POTASSIUM SERUM 3.8 MEQ/L (3.5-5.1)
[2017-04-02] MEDS ORDERED: CLOPIDOGREL 300 MG TAB (PLAVIX) PO ONE (02:00)
[2017-04-02] MEDS ORDERED: HEPARIN DRIP 25,000 UNITS in APPROPRIATE DILUENT 1 EA IV SCH (02:00)
[2017-04-02 02:41] VITALS: BP 130/68
--- NOTE | 2017-04-02 06:48 | ECGEPIP ---
Stationary ECG Study [facility] - ED Test Date: 2017-04-02 Pat Name: MATA VERDUGO Department: Room: - Gender: M Hide Shaker: amauri : 1945 Requested By: KRISHNA YOUNG Order Number: [id number] Reading MD: Bianka Corona Measurements Intervals [place] Rate: 62 P: -38 OK: 191 QRS: 88 QRSD: 161 T: -21 QT: 428 QTc: 437 Interpretive Statements SINUS RHYTHM RBBB MARKED ST ELEVATION, CONSIDER INFERIOR INJURY ACUTE VA CLINICALLY CORRELATE 11/06/16 - RATE DECREASED NEW ACUTE INFERIOR MYOCARDIAL INFARCTION Electronically Signed On 04-02-2017 6:48:42 EDT by Bianka Corona
--- NOTE | 2017-04-02 07:40 | REP ---
Portable chest, single AP view, 04/02/2017, 01:09 a.m.: Comparison is 2016. The lung jarquin are clear. Cardiac size is borderline enlarged. There are sternotomy wires, unchanged. The jv, mediastinum, bony thorax are otherwise unremarkable. Impression: There are no acute cardiopulmonary findings. Signed by Baldev Parr MD 04/02/2017 07:31 A
== END 2017-04-02 02:52 | disposition short-term general hospital (02) ==
LOC: M ED 00:10
DX: I21.3 ST elevation (STEMI) myocardial infarction of unspecified site (principal); I10 Essential (primary) hypertension; E78.5 Hyperlipidemia, unspecified; J44.9 Chronic obstructive pulmonary disease, unspecified; K21.9 Gastro-esophageal reflux disease without esophagitis; F17.200 Nicotine dependence, unspecified, uncomplicated; Z79.82 Long term (current) use of aspirin; Z79.899 Other long term (current) drug therapy; Z88.8 Allergy status to other drugs, medicaments and biological substances
CPT/HCPCS: 71010; 80048; 82550; 82553; 84484; 85025; 85610; 85730; 93005; 96374; 96375; 99284; J3101

== ENCOUNTER 2018-04-03 19:02 | Emergency (ER) | payer OTHER, MEDICARE ==
[2018-04-03 19:37] LABS: BASO # 0.1 10^3/uL (0.0-0.2); BASO % 0.8 % (0.0-1.0); EOS # 0.4 10^3/uL (0.0-0.50); EOS % 5.4 % (0.0-3.0); HEMATOCRIT 41.1 % (42.0-52.0); HEMOGLOBIN 14.8 g/dl (13.5-17.5); IMMATURE GRANULOCYTE % 0.8 % (0-3.0); LYMPH % 24.6 % (24.0-44.0); MEAN CORPUSCULAR HEMOGLOBIN 33.9 pg (27.0-33.0); MEAN CORPUSCULAR VOLUME 94.3 fl (80.0-96.0); MONO # 0.9 10^3/uL (0.0-0.8); NEUTROPHILS # 4.6 10^3/uL (1.8-7.7); NEUTROPHILS % 57.4 % (36.0-66.0); PLATELET COUNT, AUTOMATED 153 10^3/uL (150-450); RED BLOOD COUNT 4.36 10^6/uL (4.30-6.10); WHITE BLOOD COUNT 7.9 10^3/uL (4.0-10.0)
[2018-04-03 19:48] LABS: INR 1.07; PROTHROMBIN TIME 14.1 SECONDS (12.1-14.4)
[2018-04-03 19:49] LABS: PARTIAL THROMBOPLASTIN TIME 36.7 SECONDS (25.4-37.6)
[2018-04-03 20:07] LABS: ANION GAP 9 MEQ/L (8-16); BLOOD UREA NITROGEN 15 MG/DL (7-18); CALCIUM LEVEL 8.4 MG/DL (8.8-10.2); CARBON DIOXIDE LEVEL 23 MEQ/L (21-32); CHLORIDE LEVEL 111 MEQ/L (98-107); CPK CREATINE PHOSPHOKINASE 75 U/L (39-308); GLOMERULAR FILTRATION RATE 39.5 (>42); GLUCOSE, FASTING 79 MG/DL (70-100); MB/CK RELATIVE INDEX 2.66 (< OR =4); POTASSIUM SERUM 3.7 MEQ/L (3.5-5.1); SODIUM LEVEL 143 MEQ/L (136-145); TROPONIN I < 0.02 NG/ML (< 0.10)
[2018-04-04 00:31] LABS: CK-MB VALUE MASS 2.1 NG/ML (<3.6); CPK CREATINE PHOSPHOKINASE 80 U/L (39-308); MB/CK RELATIVE INDEX 2.62 (< OR =4); TROPONIN I 0.02 NG/ML (< 0.10)
== END 2018-04-04 03:36 | disposition home or self-care (01) ==
LOC: M ED 04-04 03:36
DX: R07.89 Other chest pain (principal); I25.10 Atherosclerotic heart disease of native coronary artery without angina pectoris; I11.9 Hypertensive heart disease without heart failure; I25.2 Old myocardial infarction; F44.9 Dissociative and conversion disorder, unspecified; K21.9 Gastro-esophageal reflux disease without esophagitis; F43.10 Post-traumatic stress disorder, unspecified; Z79.899 Other long term (current) drug therapy; Z79.82 Long term (current) use of aspirin; Z79.02 Long term (current) use of antithrombotics/antiplatelets; Z79.891 Long term (current) use of opiate analgesic; Z79.51 Long term (current) use of inhaled steroids; F17.210 Nicotine dependence, cigarettes, uncomplicated
CPT/HCPCS: 71046

== ENCOUNTER 2018-04-25 09:21 | Day surgery (SDC) | payer OTHER ==
[2018-04-25] MEDS ORDERED: NS 1,000 ML IV (09:30)
[2018-04-25] MEDS ORDERED: LEVALBUTEROL 1.25 MG/0.5 ML CONCENTRATE NEB As Ordered (10:04)
[2018-04-25] MEDS ORDERED: PROPOFOL 500 MG/50 ML VIAL As Ordered (10:28)
[2018-04-25] MEDS ORDERED: LIDOCAINE 2% INJ 100 MG/5 ML SDV (FOR ANES.) As Ordered (10:28)
[2018-04-25] MEDS ORDERED: LEVALBUTEROL 1.25 MG/0.5 ML CONCENTRATE NEB INH (10:30)
== END 2018-04-25 11:18 | disposition home or self-care (01) ==
LOC: M OPP 09:21
DX: R19.7 Diarrhea, unspecified (principal); R19.4 Change in bowel habit; R10.31 Right lower quadrant pain; K62.1 Rectal polyp; D12.5 Benign neoplasm of sigmoid colon; D12.3 Benign neoplasm of transverse colon; D12.0 Benign neoplasm of cecum; K64.1 Second degree hemorrhoids; I10 Essential (primary) hypertension; I25.10 Atherosclerotic heart disease of native coronary artery without angina pectoris; I25.2 Old myocardial infarction; Z95.5 Presence of coronary angioplasty implant and graft; Z95.1 Presence of aortocoronary bypass graft; E78.5 Hyperlipidemia, unspecified; E11.9 Type 2 diabetes mellitus without complications; K21.9 Gastro-esophageal reflux disease without esophagitis; R12 Heartburn; R06.02 Shortness of breath; M19.90 Unspecified osteoarthritis, unspecified site; M54.9 Dorsalgia, unspecified; F41.9 Anxiety disorder, unspecified; F03.90 Unspecified dementia, unspecified severity, without behavioral disturbance, psychotic disturbance, mood disturbance, and anxiety; F32.9 Major depressive disorder, single episode, unspecified; F43.10 Post-traumatic stress disorder, unspecified; Z86.69 Personal history of other diseases of the nervous system and sense organs; J44.9 Chronic obstructive pulmonary disease, unspecified; R06.83 Snoring; F17.210 Nicotine dependence, cigarettes, uncomplicated; Z88.8 Allergy status to other drugs, medicaments and biological substances; Z79.82 Long term (current) use of aspirin; Z79.899 Other long term (current) drug therapy; Z80.0 Family history of malignant neoplasm of digestive organs; Z80.8 Family history of malignant neoplasm of other organs or systems
CPT/HCPCS: 45380

== ENCOUNTER 2018-08-10 12:18 | Inpatient (IN) | payer OTHER ==
[2018-08-10 12:54] LABS: BASO # 0.1 10^3/uL (0.0-0.2); BASO % 0.6 % (0.0-1.0); EOS # 0.6 10^3/uL (0.0-0.50); EOS % 6.5 % (0.0-3.0); HEMATOCRIT 43.7 % (42.0-52.0); HEMOGLOBIN 15.4 g/dl (13.5-17.5); IMMATURE GRANULOCYTE % 0.6 % (0-3.0); LYMPH # 2.1 10^3/uL (1.5-4.5); MEAN CORPUSCULAR HEMOGLOBIN 33.8 pg (27.0-33.0); MEAN CORPUSCULAR HGB CONC 35.2 g/dl (32.0-36.5); MONO # 0.6 10^3/uL (0.0-0.8); MONO % 7.4 % (0.0-5.0); NEUTROPHILS # 5.1 10^3/uL (1.8-7.7); NEUTROPHILS % 59.9 % (36.0-66.0); PLATELET COUNT, AUTOMATED 156 10^3/uL (150-450); RED BLOOD COUNT 4.55 10^6/uL (4.30-6.10); RED CELL DISTRIBUTION WIDTH 14.3 % (11.5-14.5); WHITE BLOOD COUNT 8.5 10^3/uL (4.0-10.0)
[2018-08-10] MEDS: methylPREDNISolone INJ 125 MG/2 ML VIAL (J2930) IV (12:56)
[2018-08-10] MEDS: IPRATROPIUM 0.5MG/ALBUTEROL 2.5MG INH SOL UD 3ML (DUONEB)(J7620) NEB (13:05)
[2018-08-10] MEDS: ALBUTEROL SULFATE 2.5 MG/0.5 ML INH NEB SOLN INH (13:05)
[2018-08-10 13:08] LABS: INR 1.02; PROTHROMBIN TIME 13.5 SECONDS (12.1-14.4)
[2018-08-10 13:22] LABS: LACTIC ACID SEPSIS PROTOCOL 1.9 MMOL/L (0.4-2.0)
[2018-08-10 13:28] LABS: ALBUMIN 3.3 GM/DL (3.2-5.2); ALBUMIN/GLOBULIN RATIO 1.03 (1.00-1.93); ALKALINE PHOSPHATASE 71 U/L (45-117); ALT/SGPT 20 U/L (12-78); ANION GAP 8 MEQ/L (8-16); AST/SGOT 16 U/L (7-37); BILIRUBIN,DIRECT 0.1 MG/DL (0.0-0.2); BILIRUBIN,TOTAL 0.5 MG/DL (0.2-1.0); BLOOD UREA NITROGEN 16 MG/DL (7-18); CALCIUM LEVEL 8.3 MG/DL (8.8-10.2); CARBON DIOXIDE LEVEL 23 MEQ/L (21-32); CHLORIDE LEVEL 113 MEQ/L (98-107); CPK CREATINE PHOSPHOKINASE 57 U/L (39-308); CREATININE FOR GFR 2.02 MG/DL (0.70-1.30); GLOMERULAR FILTRATION RATE 34.5 (>42); GLUCOSE, FASTING 102 MG/DL (70-100); LIPASE 1180 U/L (73-393); MB/CK RELATIVE INDEX 2.81 (< OR =4); NT-PRO BNP 266 PG/ML (<125); POTASSIUM SERUM 3.7 MEQ/L (3.5-5.1); SODIUM LEVEL 144 MEQ/L (136-145); THYROXINE (T4) 3.7 UG/DL (4.5-12.0); TOTAL PROTEIN 6.5 GM/DL (6.4-8.2); TROPONIN I < 0.02 NG/ML (< 0.10)
[2018-08-10 13:35] LABS: INFLUENZA A AMPLIFICATION NEGATIVE (NEGATIVE); INFLUENZA B AMPLIFICATION NEGATIVE (NEGATIVE)
[2018-08-10 14:00] LABS: KETONE, URINE AUTO RFX NEGATIVE (NEGATIVE); LEUKOCYTE ESTERASE UR AUTO RFX NEGATIVE (NEGATIVE); NITRITE, URINE AUTO RFX NEGATIVE (NEGATIVE); RBC, URINE AUTO RFX 37 /HPF (0-3); SQUAM EPITHELIAL CELL UR AURFX 0 /HPF (0-6); WBC, URINE AUTO RFX 5 /HPF (0-3)
[2018-08-10] MEDS: NS 1,000 ML IV ×2 (14:42→18:30)
[2018-08-10 14:45] LABS: D-DIMER QUANT 689.89 ng/ml (<500)
[2018-08-10] MEDS ORDERED: MORPHINE 4 MG/ML 1ML VIAL/SYRINGE (J2270) IV (16:30)
[2018-08-10] MEDS ORDERED: ONDANSETRON 4MG/2ML VIAL (J2405) IV (16:30)
[2018-08-10 19:45] LABS: CHOLESTEROL LEVEL 99 MG/DL (<200); CHOLESTEROL RISK RATIO 3.193 (<5); HDL CHOLESTEROL 31 MG/DL (>40); LDL CHOLESTEROL 31 MG/DL (<100); NON-HDL-C 68 MG/DL; TRIGLYCERIDES LEVEL 186 MG/DL (<150)
[2018-08-10 20:20] LABS: BEDSIDE GLUCOSE 140 MG/DL (83-110)
[2018-08-10] MEDS: ATORVASTATIN 20 MG TAB PO (21:18)
[2018-08-10] MEDS: ATENOLOL 25 MG TAB PO (21:18)
[2018-08-10] MEDS: TOPIRAMATE (TopAMAX) 100 MG TAB PO (21:18)
[2018-08-10] MEDS: MIRTAZAPINE 15 MG TAB PO (21:18)
[2018-08-10] MEDS: QUEtiapine FUMARATE 50 MG TAB PO (21:19)
[2018-08-10] MEDS: GABAPENTIN 400 MG CAP PO (21:19)
[2018-08-10] MEDS: TAMSULOSIN 0.4 MG CAP PO (21:22)
[2018-08-10] MEDS: PANTOPRAZOLE 40MG TAB (PROTONIX) PO (21:23)
[2018-08-11] MEDS: NS 1,000 ML IV ×2 (02:24→12:31)
[2018-08-11 06:35] LABS: HEMATOCRIT 40.4 % (42.0-52.0); HEMOGLOBIN 14.6 g/dl (13.5-17.5); MEAN CORPUSCULAR HEMOGLOBIN 34.1 pg (27.0-33.0); MEAN CORPUSCULAR HGB CONC 36.1 g/dl (32.0-36.5); MEAN CORPUSCULAR VOLUME 94.4 fl (80.0-96.0); PLATELET COUNT, AUTOMATED 152 10^3/uL (150-450); RED BLOOD COUNT 4.28 10^6/uL (4.30-6.10); RED CELL DISTRIBUTION WIDTH 13.9 % (11.5-14.5); WHITE BLOOD COUNT 12.7 10^3/uL (4.0-10.0)
[2018-08-11 06:52] LABS: ANION GAP 6 MEQ/L (8-16); BLOOD UREA NITROGEN 15 MG/DL (7-18); CALCIUM LEVEL 8.1 MG/DL (8.8-10.2); CARBON DIOXIDE LEVEL 22 MEQ/L (21-32); CHLORIDE LEVEL 117 MEQ/L (98-107); CREATININE FOR GFR 1.58 MG/DL (0.70-1.30); GLOMERULAR FILTRATION RATE 45.9 (>42); GLUCOSE, FASTING 100 MG/DL (70-100); POTASSIUM SERUM 3.8 MEQ/L (3.5-5.1); SODIUM LEVEL 145 MEQ/L (136-145)
[2018-08-11 07:44] LABS: LIPASE 277 U/L (73-393)
[2018-08-11] MEDS: TOPIRAMATE (TopAMAX) 25 MG TAB PO (07:53)
[2018-08-11] MEDS: CLOPIDOGREL 75 MG TAB PO (07:53)
[2018-08-11] MEDS: SERTRALINE 100 MG TAB PO (07:54)
[2018-08-11] MEDS: VITAMIN D 1,000 INTERNATIONAL UNITS TABLET PO (07:54)
[2018-08-11] MEDS: LISINOPRIL 40 MG TAB PO (07:54)
[2018-08-11] MEDS: ASPIRIN 81 MG ENTERIC TAB PO (07:54)
[2018-08-11] MEDS: OMEGA-3 1000MG CAPSULE PO (07:54)
[2018-08-11] MEDS: TAMSULOSIN 0.4 MG CAP PO (07:54)
[2018-08-11] MEDS: PANTOPRAZOLE 40MG TAB (PROTONIX) PO (07:54)
[2018-08-11] MEDS: ACETAMINOPHEN TAB 650MG DOSE (2X325MG) PO (08:10)
[2018-08-11] MEDS: IPRATROPIUM 0.5MG/ALBUTEROL 2.5MG INH SOL UD 3ML (DUONEB)(J7620) NEB (08:12)
[2018-08-11 11:06] LABS: REASON FOR REVIEW WBC/LEUKEMIA/BLAST; SLIDE REVIEW Report; SOURCE PERIPHERAL SMEAR
[2018-08-11 11:42] LABS: ESTIMATED AVERAGE GLUCOSE 97 MG/DL (60-110)
[2018-08-11 11:47] LABS: BEDSIDE GLUCOSE 151 MG/DL (83-110)
[2018-08-11 11:50] LABS: C REACTIVE PROTEIN QUANTITATIV < 0.30 MG/DL (0.00-0.30)
[2018-08-11 11:56] LABS: ERYTHROCYTE SEDIMENTATION RATE 12 mm/hr (0-20)
== END 2018-08-11 15:06 | disposition home or self-care (01) | DRG 439 ==
LOC: M ED 12:18 → M ED INP 16:20 → M MSPAV 17:56
DX: K85.90 Acute pancreatitis without necrosis or infection, unspecified (principal); N17.9 Acute kidney failure, unspecified; E78.5 Hyperlipidemia, unspecified; I25.10 Atherosclerotic heart disease of native coronary artery without angina pectoris; Z95.2 Presence of prosthetic heart valve; Z95.1 Presence of aortocoronary bypass graft; E11.9 Type 2 diabetes mellitus without complications; F41.9 Anxiety disorder, unspecified; F32.9 Major depressive disorder, single episode, unspecified; F43.10 Post-traumatic stress disorder, unspecified; Z79.899 Other long term (current) drug therapy; Z79.82 Long term (current) use of aspirin; Z88.8 Allergy status to other drugs, medicaments and biological substances

== ENCOUNTER 2018-09-09 11:48 | Emergency (ER) | payer MEDICARE, OTHER ==
[~2018-09-09] VITALS: Ht 188 cm; Wt 96.4 kg
[~2018-09-09 11:48] MED LIST changes: +ACET1TAB55 PO; +ALB2.5NEB INH; +ARTI99.0 OU; +ASPI81TA24 PO; +ATOR80TA59 PO; +BACL1TAB8 PO; +CLOP75TA2 PO; +FISH7.5C PO; -GABA-283 PO; +GABA-845 PO; -GUAI400T6 PO; +GUAI400T9 PO; +ISOS20TA PO; +ISOS30TA4 PO; +KLOR10TA76 PO; +LISI40TAB PO; +MIRT45TA4 PO; +NITR0.4S14 SL; +NITR4TASL SL; -POTA10CA PO; +POTA10TA16 PO; +TAMS1CAP17 PO; +THEO400T PO; +TIOT18INH INH; -TRAZ-136 PO; +TRAZ-163 PO; +VENTAER INH; +VITA200038 PO
[2018-09-09] MEDS ORDERED: hydrALAZINE INJ 20 MG/ML VIAL IV STA (12:07)
--- NOTE | 2018-09-09 12:13 | REP ---
Clinical: Altered mental status. Technique: Axial noncontrast images from the skull base to the vertex. Findings: There is a 15 mm hemorrhagic focus in the left occipital lobe with surrounding vasogenic edema most compatible with acute hemorrhagic infarction. Remainder examination appears relatively normal for age. No extra-axial fluid collection. Henry white differentiation maintained. Ventricles are symmetric and normal. Calvarium is intact. Sinuses are clear. Impression: Hemorrhagic infarction in the left occipital lobe. Less likely underlying mass lesion. Electronically Signed by Alvarado Lucero MD 09/09/2018 12:04 P
--- NOTE | 2018-09-09 12:28 | REP ---
Clinical: Acute cerebrovascular accident . Comparison: 08/10/2018 . Findings: The mediastinum and cardiac silhouette are stable and within normal limits for portable technique. Evidence of prior sternotomy and CABG noted. The lung jarquin demonstrate chronic interstitial changes including subtle opacity at the left base. No effusion. No pneumothorax. Skeletal structures are intact. Impression: No acute cardiopulmonary process appreciated. Electronically Signed by Alvarado Lucero MD 09/09/2018 12:19 P
[2018-09-09] MEDS ORDERED: hydrALAZINE INJ 20 MG/ML VIAL IV ONE (12:30)
[2018-09-09] MEDS ORDERED: niCARdipine IV 40 MG in APPROPRIATE DILUENT 1 EA IV SCH (12:30)
[2018-09-09 12:35] LABS: BASO # 0.1 10^3/uL (0.0-0.2); BASO % 0.9 % (0.0-1.0); EOS # 0.7 10^3/uL (0.0-0.50); EOS % 6.5 % (0.0-3.0); HEMATOCRIT 45.3 % (42.0-52.0); LYMPH # 2.3 10^3/uL (1.5-4.5); LYMPH % 21.4 % (24.0-44.0); MEAN CORPUSCULAR HGB CONC 35.3 g/dl (32.0-36.5); MEAN CORPUSCULAR VOLUME 96.2 fl (80.0-96.0); MONO # 0.7 10^3/uL (0.0-0.8); MONO % 6.6 % (0.0-5.0); NEUTROPHILS # 6.8 10^3/uL (1.8-7.7); NEUTROPHILS % 64.2 % (36.0-66.0); PLATELET COUNT, AUTOMATED 158 10^3/uL (150-450); RED BLOOD COUNT 4.71 10^6/uL (4.30-6.10); WHITE BLOOD COUNT 10.5 10^3/uL (4.0-10.0)
[2018-09-09 12:50] LABS: INR 1.03; PROTHROMBIN TIME 13.7 SECONDS (12.1-14.4)
[2018-09-09 12:51] LABS: PARTIAL THROMBOPLASTIN TIME 37.1 SECONDS (25.4-37.6)
[2018-09-09 13:05] LABS: BLOOD UREA NITROGEN 20 MG/DL (7-18); CALCIUM LEVEL 8.5 MG/DL (8.8-10.2); CARBON DIOXIDE LEVEL 26 MEQ/L (21-32); CHLORIDE LEVEL 111 MEQ/L (98-107); CPK CREATINE PHOSPHOKINASE 68 U/L (39-308); CREATININE FOR GFR 1.74 MG/DL (0.70-1.30); GLOMERULAR FILTRATION RATE 40.9 (>42); GLUCOSE, FASTING 125 MG/DL (70-100); MB/CK RELATIVE INDEX 2.79 (< OR =4); POTASSIUM SERUM 3.9 MEQ/L (3.5-5.1); SODIUM LEVEL 143 MEQ/L (136-145); TROPONIN I < 0.02 NG/ML (< 0.10)
[2018-09-09 13:10] VITALS: BP 144/70
--- NOTE | 2018-09-09 19:32 | ECGEPIP ---
Stationary ECG Study [facility] - ED Test Date: 2018-09-09 Pat Name: MATA VERDUGO Department: Room: - Gender: M Hemmer Chainstitch: cesilia : 1945 Requested By: Bianka Corona Order Number: [id number] Reading MD: Bianka Corona Measurements Intervals [place] Rate: 58 P: 30 LA: 226 QRS: -6 QRSD: 158 T: -1 QT: 446 QTc: 438 Interpretive Statements SINUS BRADYCARDIA WITH FIRST DEGREE AV BLOCK RIGHT BUNDLE BRANCH BLOCK CW 08/10/[address] T WAVE CHANGES Electronically Signed On 09-09-2018 19:31:38 EST by Bianka Corona
== END 2018-09-09 13:15 | disposition short-term general hospital (02) ==
LOC: M ED 11:48
DX: I61.9 Nontraumatic intracerebral hemorrhage, unspecified (principal); I11.0 Hypertensive heart disease with heart failure; E11.9 Type 2 diabetes mellitus without complications; I50.9 Heart failure, unspecified; K21.9 Gastro-esophageal reflux disease without esophagitis; F33.9 Major depressive disorder, recurrent, unspecified; F41.9 Anxiety disorder, unspecified; F10.11 Alcohol abuse, in remission; Z95.1 Presence of aortocoronary bypass graft; Z95.5 Presence of coronary angioplasty implant and graft; Z79.899 Other long term (current) drug therapy; Z79.82 Long term (current) use of aspirin; Z79.02 Long term (current) use of antithrombotics/antiplatelets; Z88.8 Allergy status to other drugs, medicaments and biological substances; F17.210 Nicotine dependence, cigarettes, uncomplicated

== ENCOUNTER 2018-09-14 13:08 | Inpatient (IN) | payer MEDICARE, OTHER ==
[~2018-09-14] VITALS: Ht 182.9 cm; Wt 90.8 kg
[~2018-09-14 13:08] MED LIST changes: +LISI40TA PO; -LISI40TAB PO
[2018-09-14 15:26] VITALS: BP 141/73
[2018-09-14] MEDS ORDERED: BACLOFEN 5MG PER 1/2 TABLET PO PRN (15:30)
[2018-09-14] MEDS ORDERED: NITROGLYCERIN 0.4 MG SUBL TABLET SL PRN ×2 (15:30→18:00)
[2018-09-14] MEDS ORDERED: oxyCODONE 5MG TAB PO PRN (15:30)
[2018-09-14] MEDS ORDERED: POLYVINYL ALCOHOL OPHTH SOLN 15 ML(LIQUITEARS) OU PRN ×2 (15:30→18:00)
[2018-09-14] MEDS ORDERED: ALBUTEROL 90 MCG/ACT 8GM HFA INHALER INH PRN ×2 (15:30→18:00)
[2018-09-14] MEDS ORDERED: DOXA1TAB67 PO (17:15)
[2018-09-14] MEDS ORDERED: ATOR40TA75 PO (17:15)
[2018-09-14] MEDS ORDERED: COLA100C5 PO (17:15)
[2018-09-14] MEDS ORDERED: INDA125TA PO (17:17)
[2018-09-14] MEDS ORDERED: KETO0.02 OU (17:21)
[2018-09-14] MEDS ORDERED: NICO7PA TOP (17:21)
[2018-09-14] MEDS ORDERED: MIRA3350 PO (17:21)
[2018-09-14] MEDS ORDERED: GABA-845 PO (17:36)
[2018-09-14] MEDS ORDERED: HEPA10004 SC (17:36)
[2018-09-14] MEDS ORDERED: POTA10TA67 PO (17:36)
[2018-09-14] MEDS ORDERED: SOTA80TA2 PO (17:36)
[2018-09-14] MEDS ORDERED: TOPA50TA8 PO (17:46)
[2018-09-14] MEDS ORDERED: SOTALOL HCL 80 MG TAB PO SCH (18:00)
[2018-09-14] MEDS ORDERED: ACETAMINOPHEN 325 MG TAB PO PRN (18:00)
[2018-09-14] MEDS ORDERED: ALBUTEROL SULFATE 2.5 MG/0.5 ML INH NEB SOLN INH PRN (18:00)
[2018-09-14] MEDS ORDERED: BACLOFEN 10 MG TAB PO PRN (18:00)
--- NOTE | 2018-09-14 18:32 | CR ---
DATE OF CONSULTATION: 09/14/2018 73-year-old male with a past medical history of hypertension, diabetes, hyperlipidemia, history of coronary artery disease status post coronary artery bypass graft (CABG) in 1994, history of stent placement in 2016, presents to the rehabilitation center at [facility] after sustaining a left POLICE AIDE hemorrhagic stroke. REASON FOR MEDICAL CONSULTATION: Medical management. At this time, the patient is doing well. He is awake, alert, oriented times three. He does have temporal headache. Otherwise, he has no chest pain, shortness of breath, abdominal pain, nausea, vomiting, or vertigo. He was initially heliported out to [facility], after sustaining a left occipital lobe hemorrhagic stroke on 09/09/2018 where he sustained a new onset atrial fibrillation in the stroke unit. He was switched from atenolol to Sotalol and of course he was not given any anticoagulation for his atrial fibrillation and his rate has been controlled. No neurosurgical intervention was necessary and the patient was transported back to [facility] rehabilitation center for rehabilitation. PAST MEDICAL HISTORY: 1. Coronary artery disease, status post CABG in 1994. 2. History of stent placement in 2016. 3. History of atrial fibrillation. 4. Diabetes. 5. Hypertension. 6. Hyperlipidemia. 7. Non oxygen dependent chronic obstructive pulmonary disease (COPD). ALLERGIES: CHLORDIAZEPOXIDE. FAMILY HISTORY: Noncontributory. SOCIAL HISTORY: The patient is a two pack a day smoker for many years, quit about 2 weeks ago. Denies alcohol or illicit drugs. MEDICATIONS: - Tylenol 650 mg by mouth every 6 hours as needed - albuterol as needed - artificial tears one drop to both eyes as needed - aspirin 81 mg orally daily - atorvastatin 40 mg orally in the evening - Baclofen 10 mg orally four times a day as needed - Symbicort 160/4.5 mg two puffs twice a day - cetirizine 10 mg orally daily - cholecalciferol 2000 units orally daily - cephoxazole 50 mg orally twice a day - Colace 100 mg orally twice a day - doxazosin 4 mg orally daily - gabapentin 400 mg orally twice a day - indapamide 1.25 mg orally daily - Lisinopril 40 mg by mouth daily - mirtazapine 45 mg orally at bedtime - multivitamin one tablet orally daily - nicotine patch one patch applied to the left arm daily at 7 mg - nitroglycerin 0.4 mg sublingually every 5 minutes times three as needed - omeprazole 20 mg orally twice a day - oxycodone 5 mg orally three times a day as needed - potassium chloride 10 mEq orally three times a day - Seroquel 150 mg orally at bedtime - sertraline 200 mg orally daily - sotalol 40 mg orally every 12 hours - tamsulosin 0.4 mg orally daily - theophylline 400 mg orally twice a day - tiotropium one inhalation daily - topiramate 100 mg orally at bedtime and 50 mg orally in the morning REVIEW OF SYSTEMS: Negative for all 10 major systems other than what is mentioned in the history of present illness. VITAL SIGNS: Blood pressure 141/73, heart rate 71 and regular, respiratory rate is 21, temperature is 96.1, oxygen saturation 92% on room air. HEAD: Atraumatic, normocephalic. NECK: Supple with no jugular venous distention (JVD). LUNGS: Clear to auscultation. CARDIAC: S1, S2 audible. No murmurs appreciated. ABDOMEN: Soft. Positive bowel sounds. EXTREMITIES: No pedal edema. SKIN: Intact. NEUROLOGIC: No focal deficits noted. He is awake, alert and oriented times three. LABORATORIES: Have not been ordered yet. IMPRESSION: 1. Left POLICE AIDE hemorrhagic stroke. 2. Atrial fibrillation. 3. Coronary artery disease. 4. Diabetes. PLAN: The patient at this time should resume all of his transferred medications. Recommend complete blood count (CBC) and basic metabolic panel (BMP) in the morning. Rehabilitation will be deferred to the rehab physician, superintendent drilling. At this time, the patient is clinically stable and we will continue following his care alongside physiatry. RUBEN
[2018-09-14] MEDS ORDERED: PILL CRUSHER/CUTTER 1 EACH XX PRN (19:00)
[2018-09-14 20:00] VITALS: BP 122/62
[2018-09-14] MEDS ORDERED: SYMBICORT 160/4.5MCG INHALER 6GM INH SCH (21:00)
[2018-09-14] MEDS ORDERED: guaiFENesin 200 MG TAB PO SCH (21:00)
[2018-09-14] MEDS ORDERED: POTASSIUM CHLORIDE 10 MEQ SR TABLET PO SCH (21:00)
[2018-09-14] MEDS ORDERED: DOCUSATE SODIUM 100 MG CAP PO SCH (21:00)
[2018-09-14] MEDS ORDERED: OMEPRAZOLE 20 MG CAP PO SCH (21:00)
[2018-09-14] MEDS ORDERED: TOPIRAMATE (TopAMAX) 100 MG TAB PO SCH (21:00)
[2018-09-14] MEDS ORDERED: MIRTAZAPINE 15 MG TAB PO SCH (21:00)
[2018-09-14] MEDS ORDERED: QUEtiapine FUMARATE 100 MG TAB PO SCH (21:00)
[2018-09-14] MEDS ORDERED: ATORVASTATIN 20 MG TAB PO SCH (21:00)
[2018-09-14] MEDS ORDERED: GABAPENTIN 400 MG CAP PO SCH (21:00)
[2018-09-14] MEDS: DOCUSATE SODIUM 100 MG CAP PO SCH (21:00)
[2018-09-14] MEDS: THEOPHYLLINE (THEO-24) 100MG SR **CAPSULE PO SCH (21:53)
[2018-09-14] MEDS: QUEtiapine FUMARATE 50 MG TAB PO SCH (21:54)
[2018-09-14] MEDS: OMEPRAZOLE 20 MG CAP PO SCH (21:54)
[2018-09-14] MEDS: TOPIRAMATE (TopAMAX) 100 MG TAB PO SCH (21:54)
[2018-09-14] MEDS: SOTALOL HCL 80 MG TAB PO SCH (21:55)
[2018-09-14] MEDS: MIRTAZAPINE 15 MG TAB PO SCH (21:56)
[2018-09-14] MEDS: guaiFENesin ER 600 MG TAB PO SCH (21:56)
[2018-09-14] MEDS: POTASSIUM CHLORIDE 10 MEQ SR TABLET PO SCH (21:57)
[2018-09-14] MEDS: ATORVASTATIN 20 MG TAB PO SCH (21:57)
[2018-09-14] MEDS: GABAPENTIN 400 MG CAP PO SCH (21:57)
[2018-09-14] MEDS: CILOSTAZOL 100 MG TAB (PLETAL) PO SCH (22:12)
[2018-09-14] MEDS: SYMBICORT 160/4.5MCG INHALER 6GM INH SCH (23:28)
[2018-09-15 06:00] VITALS: BP 114/65
[2018-09-15 06:53] LABS: BASO % 0.3 % (0.0-1.0); EOS # 0.5 10^3/uL (0.0-0.50); EOS % 5.5 % (0.0-3.0); HEMATOCRIT 36.8 % (42.0-52.0); HEMOGLOBIN 13.3 g/dl (13.5-17.5); LYMPH # 1.5 10^3/uL (1.5-4.5); LYMPH % 17.3 % (24.0-44.0); MEAN CORPUSCULAR HEMOGLOBIN 33.6 pg (27.0-33.0); MEAN CORPUSCULAR HGB CONC 36.1 g/dl (32.0-36.5); MEAN CORPUSCULAR VOLUME 92.9 fl (80.0-96.0); MONO % 11.5 % (0.0-5.0); NEUTROPHILS # 5.8 10^3/uL (1.8-7.7); NEUTROPHILS % 65.1 % (36.0-66.0); PLATELET COUNT, AUTOMATED 148 10^3/uL (150-450); RED BLOOD COUNT 3.96 10^6/uL (4.30-6.10); WHITE BLOOD COUNT 8.9 10^3/uL (4.0-10.0)
[2018-09-15 07:14] LABS: CALCIUM LEVEL 8.8 MG/DL (8.8-10.2); CREATININE FOR GFR 1.58 MG/DL (0.70-1.30); GLOMERULAR FILTRATION RATE 45.7 (>42); POTASSIUM SERUM 3.1 MEQ/L (3.5-5.1); TOTAL PROTEIN 6.7 GM/DL (6.4-8.2)
[2018-09-15] MEDS ORDERED: CILOSTAZOL 100 MG TAB (PLETAL) PO SCH (07:30)
[2018-09-15] MEDS: MIRALAX *UNIT DOSE* 17GM PACKET PO SCH (07:46)
[2018-09-15] MEDS: SOTALOL HCL 80 MG TAB PO SCH ×2 (07:46→21:00)
[2018-09-15] MEDS: OMEGA-3 1000MG CAPSULE PO SCH (07:46)
[2018-09-15] MEDS: DOCUSATE SODIUM 100 MG CAP PO SCH ×2 (07:47→21:00)
[2018-09-15] MEDS: TOPIRAMATE (TopAMAX) 100 MG TAB PO SCH (07:47)
[2018-09-15] MEDS: INDAPAMIDE 1.25MG TABLET PO SCH (07:47)
[2018-09-15] MEDS: SERTRALINE 100 MG TAB PO SCH (07:47)
[2018-09-15] MEDS: THEOPHYLLINE (THEO-24) 100MG SR **CAPSULE PO SCH ×2 (07:47→21:33)
[2018-09-15] MEDS: MULTIVITAMINS/MINERALS THERAP 1 TAB PO SCH (07:47)
[2018-09-15] MEDS: OMEPRAZOLE 20 MG CAP PO SCH ×2 (07:48→21:33)
[2018-09-15] MEDS: LISINOPRIL 40 MG TAB PO SCH (07:48)
[2018-09-15] MEDS: POTASSIUM CHLORIDE 10 MEQ SR TABLET PO SCH ×3 (07:48→21:32)
[2018-09-15] MEDS: CILOSTAZOL 100 MG TAB (PLETAL) PO SCH ×2 (07:48→16:46)
[2018-09-15] MEDS: VITAMIN D 1,000 INTERNATIONAL UNITS TABLET PO SCH (07:48)
[2018-09-15] MEDS: guaiFENesin ER 600 MG TAB PO SCH ×2 (07:48→21:32)
[2018-09-15] MEDS: NICOTINE 7 MG/24 HR TRANSDERMAL TD SCH (07:49)
[2018-09-15] MEDS: DOXAZOSIN MESYLATE 4 MG TAB PO SCH (07:49)
[2018-09-15] MEDS: ASPIRIN 81 MG ENTERIC TAB PO SCH (07:49)
[2018-09-15] MEDS: TAMSULOSIN 0.4 MG CAP PO SCH (07:49)
[2018-09-15] MEDS: CETIRIZINE (ZyrTEC) 10 MG TAB PO SCH (07:49)
[2018-09-15] MEDS: GABAPENTIN 400 MG CAP PO SCH ×2 (07:49→21:31)
[2018-09-15] MEDS: SYMBICORT 160/4.5MCG INHALER 6GM INH SCH ×2 (08:02→18:29)
[2018-09-15] MEDS: TIOTROPIUM INHALER/CAPSULE (SPIRIVA) INH SCH (08:02)
[2018-09-15] MEDS ORDERED: INDAPAMIDE 1.25MG TABLET PO SCH (09:00)
[2018-09-15] MEDS ORDERED: OMEGA-3 1000MG CAPSULE PO SCH (09:00)
[2018-09-15] MEDS ORDERED: TIOTROPIUM INHALER/CAPSULE (SPIRIVA) INH SCH (09:00)
[2018-09-15] MEDS ORDERED: CETIRIZINE (ZyrTEC) 10 MG TAB PO SCH (09:00)
[2018-09-15] MEDS ORDERED: ASPIRIN 81 MG ENTERIC TAB PO SCH (09:00)
[2018-09-15] MEDS ORDERED: TAMSULOSIN 0.4 MG CAP PO SCH (09:00)
[2018-09-15] MEDS ORDERED: SERTRALINE 100 MG TAB PO SCH (09:00)
[2018-09-15] MEDS ORDERED: TOPIRAMATE (TopAMAX) 25 MG TAB PO SCH (09:00)
[2018-09-15] MEDS ORDERED: NICOTINE 7 MG/24 HR TRANSDERMAL TOP SCH (09:00)
[2018-09-15] MEDS ORDERED: ISOSORBIDE MON. (IMDUR) 30 MG XR TAB PO SCH (09:00)
[2018-09-15] MEDS ORDERED: LISINOPRIL 40 MG TAB PO SCH (09:00)
[2018-09-15] MEDS ORDERED: VITAMIN D 1,000 INTERNATIONAL UNITS TABLET PO SCH (09:00)
[2018-09-15] MEDS ORDERED: DOXAZOSIN MESYLATE 4 MG TAB PO SCH (09:00)
[2018-09-15 09:45] VITALS: BP 120/60
[2018-09-15] MEDS: ISOSORBIDE MON. (IMDUR) 30 MG XR TAB PO SCH (09:46)
[2018-09-15] MEDS: ACETAMINOPHEN TAB 650MG DOSE (2X325MG) PO PRN ×2 (09:46→16:07)
[2018-09-15] MEDS: TOPIRAMATE (TopAMAX) 25 MG TAB PO SCH (09:46)
[2018-09-15] MEDS ORDERED: POTASSIUM CHLORIDE 10 MEQ SR TABLET PO ONE (11:00)
--- NOTE | 2018-09-15 11:38 | NUR ---
Bedside dypshagia eval completed. Resident edentulous, causing prolonged mastication with solids; however, no overt s/s of aspiration/penetration. Adequate ROM/strength/coordination of oral motor structures. Strong volitional cough/throat clear. Very rare wet cough noted, with past notes attributing this to significant hx of smoking. Recommend mechanical soft diet with thin liquids with further trials of more advanced solids to ensure max safety and tolerance. Recommend upright position for all PO intake, oral care 3x day, and informing pt of location of times on tray table to ensure attention to all items in R visual field. Addendum: 09/15/18 at 1141 by DC WICK SSV SP Amended: Links added.
--- NOTE | 2018-09-15 11:48 | NUR ---
Speech/language assessment completed. Delayed response time noted, need for increased wait time when following commands/answering questions. Follows functional 2 step commands. 3 step commands difficult to follow in accurate order and in timely manner. Oriented to self, location, situation, and month. However, unable to express where he lives. Anomias and paraphasias noted with object naming and in functional conversation. Adequate verbal repetition and sentence completion. Difficulty fully expressing self, so recommend support to ensure wants/needs are being met. Addendum: 09/15/18 at 1153 by DC PEARSON SP SSV SP Amended: Links added.
[2018-09-15 14:00] VITALS: BP 92/53
[2018-09-15 16:05] VITALS: BP 133/64
--- NOTE | 2018-09-15 16:26 | HPEPDOC ---
[employer] Technician Note DATE OF ADMISSION: Sep 14, 2018 at 14:45 SOURCE OF ADMISSION INFORMATION: patient and [facility] records CHIEF COMPLAINT: stroke HISTORY OF PRESENT ILLNESS: 73M pmh Dementia, CAD s/p CABG on dual-antiplatelet therapy, HTN, seizures, COPD, DM who presented to OSH on 09-09-18 with headache and visual changes. CT at the time revealed a 15mm hemorrhagic lesion in the left occipital lobe so both his Asa and Plvaix were held and he was transferred to in [place] for neuro ICU monitoring. He was found to be emergently hypertensive with sBP>200 and was started on IV antihypertensive. EKG showed 1st degree AV block and sinus bradycardia with a right bundle branch block. MR brain on 09-10-18 showed, acute left DUTY OFFICER distribution infarct with hemorrhagic transformation and CTA head and neck showed the left DUTY OFFICER territory stroke without significant stenosis in the major cervical or intracranial arteries. No aneurysms or AVMs. ECHO on 09-12-18 showed an LVEF of 55-60% with no interatrial shunt visualized by color Doppler and bubble CTH on 09-11-18 showed, no significant interval change in the previously noted left occipital hemorrhagic infarct with surrounding vasogenic edema and mass effect on the adjacent structuresno new intracranial hemorrhage. On 09-12-18 he was restarted on Aspirin. He was found to have right homonymous hemianopsia and significant dysphagia. He was started on Sotalol by [facility] for Afib with RVR captured on telemetry during his hospital course. He was deemed to be medically appropriate for discharge to ARU on 09-14-18. REVIEW OF SYSTEMS: The following is a completed review of systems and has been reviewed. Review of systems otherwise unremarkable. PAIN: [Patient self reports no pain]. EYES: [Negative]. EARS, NOSE, & THROAT: . CARDIOVASCULAR: . PULMONARY: [Negative. Denies shortness of breath]. GASTROINTESTINAL: [Negative]. GENITOURINARY: [Negative]. MUSCULOSKELETAL: . NEUROLOGICAL: . HEMATOLOGICAL: [Negative]. SKIN: . PSYCHIATRIC: [Unremarkable]. All other review of systems found to be negative. PAST MEDICAL HISTORY: Dementia, CAD s/p CABG on dual-antiplatelet therapy, HTN, ETOH abuse, seizures, COPD, DM PAST SURGICAL HISTORY: CABG with stents ALLERGIES: Please see below. MEDICATIONS: Please see below. FAMILY HISTORY: Positive for DM and HTN SOCIAL HISTORY: Smokes 2ppd, no ETOH or drug abuse, lives with granddaughter DIET: mechanical soft and thins PHYSICAL EXAMINATION: VITAL SIGNS: Please see below. GENERAL: Pleasant and cooperative. No acute distress. HEENT: PERRL. Extraocular movements intact. Clear conjunctiva. +right side visual field cut CARDIOVASCULAR: Regular rate and rhythm. No murmurs, rubs, or gallops. LUNGS: Mostly clear to auscultation +expiratory wheezes at bases. No rhonchi. ABDOMEN: Soft, nontender, nondistended. Positive bowel sounds. Normal active bowel sounds NEUROLOGICAL: Alert and oriented to self, not time or place. Cranial nerves II through XII grossly intact. Sensation grossly intact EXTREMITIES: 5\5 strength bilateral upper extremities. 5\5 strength right lower extremity. 5/5 strength in left lower extremity. SKIN: intact IMAGING: Imaging documentation personally reviewed by record FUNCTIONAL STATUS: Premorbid: Prior: Independent with RW needs with assistance with ADLs On Admission: Total assist for functional transfers, GOALS: Modified Independent with RW, Supervision with dressing, bathing, toileting, advance diet, medical optimization, assess for DME needs, family training. ASSESSMENT:73-year-old M with past medical history of HTN, CAD, Seizures who presents status post hemorrhagic Left DUTY OFFICER stroke. PLAN: 1. 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 Cardio: CAD s/p CABG and stents, newly diagnosed Paroxysmal Afib with RVR- Plavix on hold, continue ASA 81 until 09-23-18, will need AC per Vascular surgery recs- start COumadin on 09-23-17 and d/c all ASA, continue Sotalol -pmh HTN continue Doxazosin, Indapamide, Isosorbide mononitrate, lisinopril- will monitor and adjust prn, medicine consulted -pmh PAD continue Cilostazol 4.Resp: pmh COPD, monitor for signs of pneumonia, Duonebs, Spiriva, and Symbicort, Incentive Spirometry 5. Psych: pmh PTSD/Depression: continue Remeron, Seroquel 6. : pmh BPH continue Flomax and f/u admission UA and Ucx, monitor PVRs 7. GI ppx: start Protonix 8. DVT ppx: TEDs and dopplers to r/o DVT 9. Pain: Tylenol prn 10. Dispo: TBD POST ADMISSION PHYSICIAN EVALUATION: Medical and functional status: Description of medical status, medical assessment: As above. Rehabilitation diagnosis and current and prior cold morbid medical conditions as above. Risk of complications and plans to mitigate them as above. Description of functional status current status is as above. Prior status as above. Status compared to preadmission: There are no clinically significant differences between the patient's current status and the information described on the preadmission screening document. Treatment plan anticipated: Treatment plan is as described above. Required disciplines including physical therapy, occupational therapy, others as noted above. Intensity of services: 3 hours a day, 6 days a week. Special considerations: There are no specific special or safety considerations that would likely preclude immediate implementation of an intensive rehabilit ation program or subsequently influence the plan of care. ATTESTATION: Considering all the information above, it is my best judgment that this patient requires intensive rehabilitation therapy as described above and an inpatient hospital environment due to the complexity of nursing, medical, and rehabilitation needs required by the patient. Furthermore, this patient can reasonably be expected to participate in an benefit from an inpatient rehabilitation stay with an interdisciplinary team approach to the delivery of rehabilitation care under the direction and supervision of rehabilitation physician PROGNOSIS: Excellent ESTIMATED LENGTH OF STAY:18-21 days days. PROJECTED DISCHARGE DESTINATION: Home with family support and any durable medical equipment required to increase functional safety and mobility TIME SPENT COUNSELING AND COORDINATING INITIAL CARE: Greater than 70 minutes. Vital Signs Vital Signs Date Time Temp Pulse Resp B/P (MAP) Pulse Ox O2 Delivery O2 Flow Rate FiO2 09/14/18 15:26 96.1 71 21 141/73 (95) 93 Room Air Home Medications Scheduled (Tamsulosin Hydrochloride) 0.4 Mg Cap, 0.4 MG PO DAILY, (Reported) (Ketotifen Fumarate) 0.025 % Brad, 1 DROP OU QAM, (Reported) (Sotalol HCl) 80 Mg Tab, 40 MG PO Q12H, (Reported) Aspirin (Aspirin EC) 81 Mg Tab, 81 MG PO DAILY, (Reported) Atorvastatin Calcium (Atorvastatin Calcium) 40 Mg Tab, 40 MG PO QPM, (Reported) Budesonide/Formoterol (Symbicort 160-4.5 Mcg/Act) 60 Puff/Inhaler Aers, 2 PUFF INH BID, (Reported) Cetirizine HCl (Cetirizine HCl) 10 Mg Tab, 10 MG PO DAILY, (Reported) Cholecalciferol (Vitamin D-3) 2,000 Unit Tab, 2,000 UNIT PO DAILY, (Reported) Cilostazol (Cilostazol) 50 Mg Tab, 50 MG PO BID, (Reported) Docusate Sodium (Colace) 100 Mg Cap, 100 MG PO BID, (Reported) Doxazosin Mesylate (Doxazosin) 4 Mg Tab, 4 MG PO DAILY, (Reported) Gabapentin (Gabapentin) 400 Mg Cap, 400 MG PO BID, (Reported) Guaifenesin (Guaifenesin) 400 Mg Tab, 400 MG PO BID, (Reported) Heparin Sodium (Porcine) (Heparin Sodium) 5,000 Unit/0.5 Ml Inj, 5,000 UNIT SC BID, (Reported) Indapamide (Indapamide) 1.25 Mg Tab, 1.25 MG PO DAILY, (Reported) Isosorbide Mononitrate (Isosorbide Mononitrate ER) 30 Mg Tab, 30 MG PO DAILY, (Reported) Lisinopril (Lisinopril) 40 Mg Tab, 40 MG PO DAILY, (Reported) Mirtazapine (Mirtazapine) 45 Mg Tab, 45 MG PO QHS, (Reported) Multivitamins *[facility] STOCKED* (Thera M Plus *[facility] STOCKED*) 1 Tab Tab, 1 TAB PO DAILY, (Reported) Nicotine (Nicotine Transdermal Syst) 7 Mg/24 Hr Dis, 1 PATCH TOP DAILY, (Reported) APPLY TO LEFT ARM. [place] 3 Polyunsat Fatty Acids (Fish Oil 1000 mg) 1 Cap Cap, 1 CAP PO DAILY, ( Reported) Omeprazole (Omeprazole) 20 Mg Cap, 20 MG PO BID, (Reported) Polyethylene Glycol (Miralax) 1 Pow Pow, 17 GM PO DAILY, (Reported) Potassium Chloride (Potassium Chloride Cr) 10 Meq Tab, 10 MEQ PO TID, (Reported) Quetiapine Fumerate (Quetiapine Fumarate) 300 Mg Tab, 150 MG PO QHS, (Reported) Sertraline HCl (Sertraline HCl) 100 Mg Tab, 200 MG PO DAILY, (Reported) Theophylline (Theophylline ER) 400 Mg Tab, 400 MG PO BID, (Reported) Tiotropium [place] Monohydrate (Spiriva Handihaler) 5 Inhalation/Inhaler Powd, 1 INHALATION INH DAILY, (Reported) Topiramate (Topiramate) 100 Mg Tab, 100 MG PO QHS, (Reported) Topiramate (Topamax) 50 Mg Tab, 50 MG PO QAM, (Reported) Scheduled PRN Acetaminophen (Acetaminophen) 325 Mg Tab, 650 MG PO Q6H PRN for PAIN, (Reported) Albuterol Sulfate (Ventolin Hfa) 108 Mcg/Act Aer, 2 PUFFS INH Q4H PRN for SHORTNESS OF BREATH, (Reported) Albuterol Sulfate (Albuterol Sulfate) 2.5 Mg/0.5 Ml Neb, 2.5 MG INH Q4H PRN for SHORTNESS OF BREATH, (Reported) Artificial Tears (Artificial Tears) 1.4 % Shamika, 1 DROP OU Q1H PRN for DRY EYES, (Reported) Baclofen (Baclofen) 10 Mg Tab, 10 MG PO QID PRN for MUSCLE SPASMS, (Reported) Nitroglycerin (Nitrostat) 0.4 Mg Subl, 0.4 MG SL Q5MP PRN for CHEST PAIN, (Reported) Oxycodone HCl (Oxycodone HCl) 5 Mg Tab, 5 MG PO TID PRN for PAIN, (Reported) Allergies Coded Allergies: Chlordiazepoxide (Unverified Allergy, Unknown, 08/10/18) SEIZURES DOROTA PACHECO MD Sep 14, 2018 15:18
[2018-09-15 20:00] VITALS: BP 106/51
[2018-09-15] MEDS: MIRTAZAPINE 15 MG TAB PO SCH (21:31)
[2018-09-15] MEDS: ATORVASTATIN 20 MG TAB PO SCH (21:33)
[2018-09-15] MEDS: QUEtiapine FUMARATE 50 MG TAB PO SCH (21:33)
[2018-09-16] MEDS: ACETAMINOPHEN TAB 650MG DOSE (2X325MG) PO PRN ×2 (01:55→10:18)
[2018-09-16 06:00] VITALS: BP 135/60
[2018-09-16 06:18] LABS: AMORPHOUS SEDIMENT SMALL (NEGATIVE); APPEARANCE, URINE CLEAR (CLEAR); BACTERIA, URINE AUTO NEGATIVE (NEGATIVE); BILIRUBIN, URINE AUTO NEGATIVE (NEGATIVE); BLOOD, URINE BLOOD NEGATIVE (NEGATIVE); COLOR, URINE YELLOW (YELLOW); GLUCOSE, URINE (UA) AUTO NEGATIVE (NEGATIVE); KETONE, URINE AUTO NEGATIVE (NEGATIVE); LEUKOCYTE ESTERASE, URINE AUTO NEGATIVE (NEGATIVE); MUCUS, URINE SMALL (NEGATIVE); NITRITE, URINE AUTO NEGATIVE (NEGATIVE); PROTEIN, URINE AUTO NEGATIVE (NEGATIVE); RBC, URINE AUTO 1 /HPF (0-3); SPECIFIC GRAVITY URINE AUTO 1.011 (1.002-1.035); SQUAMOUS EPITHELIAL CELL UR AU 0 /HPF (0-6); UROBILINOGEN, URINE AUTO 0.2 mg/dL (0.0-2.0); WBC, URINE AUTO 1 /HPF (0-3)
[2018-09-16 06:19] LABS: HEMATOCRIT 36.3 % (42.0-52.0); HEMOGLOBIN 12.8 g/dl (13.5-17.5); MEAN CORPUSCULAR HGB CONC 35.3 g/dl (32.0-36.5); MEAN CORPUSCULAR VOLUME 96.5 fl (80.0-96.0); PLATELET COUNT, AUTOMATED 162 10^3/uL (150-450); RED BLOOD COUNT 3.76 10^6/uL (4.30-6.10); WHITE BLOOD COUNT 8.8 10^3/uL (4.0-10.0)
[2018-09-16 06:45] LABS: CALCIUM LEVEL 9.3 MG/DL (8.8-10.2); CREATININE FOR GFR 1.97 MG/DL (0.70-1.30); GLOMERULAR FILTRATION RATE 35.5 (>42); POTASSIUM SERUM 3.6 MEQ/L (3.5-5.1)
[2018-09-16] MEDS: SYMBICORT 160/4.5MCG INHALER 6GM INH SCH ×2 (07:11→21:00)
[2018-09-16] MEDS: TIOTROPIUM INHALER/CAPSULE (SPIRIVA) INH SCH (07:11)
[2018-09-16] MEDS: CETIRIZINE (ZyrTEC) 10 MG TAB PO SCH (08:09)
[2018-09-16] MEDS: CILOSTAZOL 100 MG TAB (PLETAL) PO SCH ×2 (08:09→16:54)
[2018-09-16] MEDS: INDAPAMIDE 1.25MG TABLET PO SCH (08:09)
[2018-09-16] MEDS: THEOPHYLLINE (THEO-24) 100MG SR **CAPSULE PO SCH ×2 (08:09→20:20)
[2018-09-16] MEDS: guaiFENesin ER 600 MG TAB PO SCH ×2 (08:09→20:19)
[2018-09-16] MEDS: ASPIRIN 81 MG ENTERIC TAB PO SCH (08:09)
[2018-09-16] MEDS: DOXAZOSIN MESYLATE 4 MG TAB PO SCH (08:09)
[2018-09-16] MEDS: TAMSULOSIN 0.4 MG CAP PO SCH (08:10)
[2018-09-16] MEDS: MULTIVITAMINS/MINERALS THERAP 1 TAB PO SCH (08:10)
[2018-09-16] MEDS: GABAPENTIN 400 MG CAP PO SCH ×2 (08:10→20:19)
[2018-09-16] MEDS: VITAMIN D 1,000 INTERNATIONAL UNITS TABLET PO SCH (08:10)
[2018-09-16] MEDS: OMEGA-3 1000MG CAPSULE PO SCH (08:10)
[2018-09-16] MEDS: SERTRALINE 100 MG TAB PO SCH (08:10)
[2018-09-16] MEDS: OMEPRAZOLE 20 MG CAP PO SCH ×2 (08:10→20:19)
[2018-09-16] MEDS: SOTALOL HCL 80 MG TAB PO SCH ×2 (08:10→20:18)
[2018-09-16] MEDS: POTASSIUM CHLORIDE 10 MEQ SR TABLET PO SCH ×3 (08:10→20:19)
[2018-09-16] MEDS: TOPIRAMATE (TopAMAX) 25 MG TAB PO SCH (08:10)
[2018-09-16] MEDS: DOCUSATE SODIUM 100 MG CAP PO SCH ×2 (08:11→20:18)
[2018-09-16] MEDS: LISINOPRIL 40 MG TAB PO SCH (08:11)
[2018-09-16] MEDS: NICOTINE 7 MG/24 HR TRANSDERMAL TD SCH (08:11)
[2018-09-16] MEDS: MIRALAX *UNIT DOSE* 17GM PACKET PO SCH (08:11)
[2018-09-16 09:45] VITALS: BP 118/62
[2018-09-16] MEDS: ISOSORBIDE MON. (IMDUR) 30 MG XR TAB PO SCH (09:46)
--- NOTE | 2018-09-16 10:08 | NUR ---
Cognitive linguistic eval completed. Reduced temporal orientation, oriented only to self and situation. Adequate immediate verbal recall but very poor delayed and short term recall. Great difficulty with alternating and divided attention, with pt commenting "I guess I wasn't pay attention" and "It's hard to do two things at once". Adequate abstraction, but difficulty with problem solving, likely due to factors of poor recall and comprehension when provided with more than simple units of info. Adequate safety and judgement in regards to functional scenarios and dangers. Reduced initiation of functional tasks and sequencing at start of task. Also, greatly distracted by too many items in visual field. Requires extended response and processing time. Vague explanations noted due to language deficits. Addendum: 09/16/18 at 1012 by DC WICK SSV SP Amended: Links added.
[2018-09-16 14:00] VITALS: BP 113/53
[2018-09-16 20:00] VITALS: BP 147/78
[2018-09-16] MEDS: ATORVASTATIN 20 MG TAB PO SCH (20:19)
[2018-09-16] MEDS: MIRTAZAPINE 15 MG TAB PO SCH (20:20)
[2018-09-16] MEDS: TOPIRAMATE (TopAMAX) 100 MG TAB PO SCH (20:20)
[2018-09-16] MEDS: QUEtiapine FUMARATE 50 MG TAB PO SCH (20:20)
[2018-09-17 06:00] VITALS: BP 140/71
[2018-09-17] MEDS: ACETAMINOPHEN TAB 650MG DOSE (2X325MG) PO PRN (06:24)
[2018-09-17 07:22] LABS: CALCIUM LEVEL 9.5 MG/DL (8.8-10.2); CREATININE FOR GFR 1.77 MG/DL (0.70-1.30); GLOMERULAR FILTRATION RATE 40.1 (>42); POTASSIUM SERUM 3.9 MEQ/L (3.5-5.1)
[2018-09-17] MEDS: NICOTINE 7 MG/24 HR TRANSDERMAL TD SCH (08:59)
[2018-09-17] MEDS: guaiFENesin ER 600 MG TAB PO SCH ×2 (08:59→20:28)
[2018-09-17] MEDS: GABAPENTIN 400 MG CAP PO SCH ×2 (08:59→20:28)
[2018-09-17] MEDS: OMEPRAZOLE 20 MG CAP PO SCH ×2 (08:59→20:28)
[2018-09-17] MEDS: THEOPHYLLINE (THEO-24) 100MG SR **CAPSULE PO SCH ×2 (09:00→20:26)
[2018-09-17] MEDS: LISINOPRIL 40 MG TAB PO SCH (09:00)
[2018-09-17] MEDS: DOXAZOSIN MESYLATE 4 MG TAB PO SCH (09:00)
[2018-09-17] MEDS: VITAMIN D 1,000 INTERNATIONAL UNITS TABLET PO SCH (09:00)
[2018-09-17] MEDS: CETIRIZINE (ZyrTEC) 10 MG TAB PO SCH (09:00)
[2018-09-17] MEDS: POTASSIUM CHLORIDE 10 MEQ SR TABLET PO SCH ×3 (09:01→20:27)
[2018-09-17] MEDS: ASPIRIN 81 MG ENTERIC TAB PO SCH (09:01)
[2018-09-17] MEDS: OMEGA-3 1000MG CAPSULE PO SCH (09:01)
[2018-09-17] MEDS: INDAPAMIDE 1.25MG TABLET PO SCH (09:01)
[2018-09-17] MEDS: MULTIVITAMINS/MINERALS THERAP 1 TAB PO SCH (09:01)
[2018-09-17] MEDS: TAMSULOSIN 0.4 MG CAP PO SCH (09:01)
[2018-09-17] MEDS: SOTALOL HCL 80 MG TAB PO SCH ×2 (09:01→20:27)
[2018-09-17] MEDS: TOPIRAMATE (TopAMAX) 25 MG TAB PO SCH (09:02)
[2018-09-17] MEDS: CILOSTAZOL 100 MG TAB (PLETAL) PO SCH ×2 (09:02→16:33)
[2018-09-17] MEDS: DOCUSATE SODIUM 100 MG CAP PO SCH ×2 (09:02→21:00)
[2018-09-17] MEDS: SERTRALINE 100 MG TAB PO SCH (09:02)
[2018-09-17] MEDS: MIRALAX *UNIT DOSE* 17GM PACKET PO SCH (09:03)
[2018-09-17] MEDS: ISOSORBIDE MON. (IMDUR) 30 MG XR TAB PO SCH (09:53)
[2018-09-17] MEDS: TIOTROPIUM INHALER/CAPSULE (SPIRIVA) INH SCH (11:31)
[2018-09-17] MEDS: SYMBICORT 160/4.5MCG INHALER 6GM INH SCH ×2 (11:31→21:00)
[2018-09-17 14:00] VITALS: BP 153/58
[2018-09-17 20:00] VITALS: BP 160/73
[2018-09-17] MEDS: MIRTAZAPINE 15 MG TAB PO SCH (20:26)
[2018-09-17] MEDS: QUEtiapine FUMARATE 50 MG TAB PO SCH (20:27)
[2018-09-17] MEDS: ATORVASTATIN 20 MG TAB PO SCH (20:28)
[2018-09-17] MEDS: TOPIRAMATE (TopAMAX) 100 MG TAB PO SCH (20:28)
[2018-09-18 06:00] VITALS: BP 136/72
[2018-09-18] MEDS: SYMBICORT 160/4.5MCG INHALER 6GM INH SCH ×2 (07:33→21:00)
[2018-09-18] MEDS: TIOTROPIUM INHALER/CAPSULE (SPIRIVA) INH SCH (07:33)
[2018-09-18] MEDS: DOXAZOSIN MESYLATE 4 MG TAB PO SCH (08:37)
[2018-09-18] MEDS: CETIRIZINE (ZyrTEC) 10 MG TAB PO SCH (08:37)
[2018-09-18] MEDS: GABAPENTIN 400 MG CAP PO SCH ×2 (08:37→20:21)
[2018-09-18] MEDS: THEOPHYLLINE (THEO-24) 100MG SR **CAPSULE PO SCH ×2 (08:37→20:20)
[2018-09-18] MEDS: NICOTINE 7 MG/24 HR TRANSDERMAL TD SCH (08:37)
[2018-09-18] MEDS: SERTRALINE 100 MG TAB PO SCH (08:38)
[2018-09-18] MEDS: INDAPAMIDE 1.25MG TABLET PO SCH (08:38)
[2018-09-18] MEDS: ASPIRIN 81 MG ENTERIC TAB PO SCH (08:38)
[2018-09-18] MEDS: SOTALOL HCL 80 MG TAB PO SCH ×2 (08:38→20:22)
[2018-09-18] MEDS: CILOSTAZOL 100 MG TAB (PLETAL) PO SCH ×2 (08:38→17:07)
[2018-09-18] MEDS: guaiFENesin ER 600 MG TAB PO SCH ×2 (08:39→20:21)
[2018-09-18] MEDS: TOPIRAMATE (TopAMAX) 25 MG TAB PO SCH (08:39)
[2018-09-18] MEDS: TAMSULOSIN 0.4 MG CAP PO SCH (08:39)
[2018-09-18] MEDS: MULTIVITAMINS/MINERALS THERAP 1 TAB PO SCH (08:39)
[2018-09-18] MEDS: OMEGA-3 1000MG CAPSULE PO SCH (08:39)
[2018-09-18] MEDS: OMEPRAZOLE 20 MG CAP PO SCH ×2 (08:39→20:21)
[2018-09-18] MEDS: LISINOPRIL 40 MG TAB PO SCH (08:39)
[2018-09-18] MEDS: POTASSIUM CHLORIDE 10 MEQ SR TABLET PO SCH ×3 (08:39→20:21)
[2018-09-18] MEDS: DOCUSATE SODIUM 100 MG CAP PO SCH ×2 (08:40→20:20)
[2018-09-18] MEDS: MIRALAX *UNIT DOSE* 17GM PACKET PO SCH (08:40)
[2018-09-18] MEDS: VITAMIN D 1,000 INTERNATIONAL UNITS TABLET PO SCH (08:40)
[2018-09-18] MEDS: ISOSORBIDE MON. (IMDUR) 30 MG XR TAB PO SCH (10:11)
[2018-09-18 14:00] VITALS: BP 115/62
--- NOTE | 2018-09-18 18:51 | IPNPDOC ---
PM&R Progress Note DATE OF SERVICE: Sep 17, 2018 Data Engineer Progress Note Subjective: Patient report walking well in therapy but has difficulty seeing the right side and wants to know if this will improve. REVIEW OF SYSTEMS: The following is a completed review of systems and has been reviewed. Review of systems otherwise unremarkable. PAIN: Patient self reports no pain EYES: right visual field cut EARS, NOSE, & THROAT:denies dysarthria or rhinorrhea or dysphagia CARDIOVASCULAR: denies chest pain or palpitations PULMONARY: Negative. Denies shortness of breath GASTROINTESTINAL: Negative for diarrhea/constipation GENITOURINARY: Negative for dysuria NEUROLOGICAL: +left IT INTEGRATION ARCHITECT stroke PSYCHIATRIC: confused All other review of systems found to be negative. PHYSICAL EXAMINATION: VITAL SIGNS: Please see below. GENERAL: Pleasant and cooperative. No acute distress. HEENT: PERRL. Extraocular movements intact. Clear conjunctiva. +right side visual field cut CARDIOVASCULAR: Regular rate and rhythm. No murmurs, rubs, or gallops. LUNGS: Mostly clear to auscultation +expiratory wheezes at bases. No rhonchi. ABDOMEN: Soft, nontender, nondistended. Positive bowel sounds. Normal active bowel sounds NEUROLOGICAL: Alert and oriented to self, not time or place. Cranial nerves II through XII grossly intact. Sensation grossly intact EXTREMITIES: 5\5 strength bilateral upper extremities. 5\5 strength right lower extremity. 5/5 strength in left lower extremity. SKIN: intact ASSESSMENT:73-year-old M with past medical history of HTN, CAD, Seizures who presents status post hemorrhagic Left IT INTEGRATION ARCHITECT stroke. PLAN: 1. 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 Neuro: recent left IT INTEGRATION ARCHITECT hemorrhagic stroke in setting of PAVR with RVR- continue ASA 81mg daily until 09-23-18 then will need to switch to full AC for his Afib- decision to be made by Vascular Surgery at [facility], Plavix currently on hold, however has pmh of coronary and leg stents, per [facility] cardiology will start Coumadin on 09-23-17 and d/c all antiplatelet therapy at that time -monitor and manage BPs, continue secondary statin therapy -has stroke clinic f/u 10-12-18 for genetic testing, family Hx of Factor V Leiden -pmh Seizure disorder, continue Topomax, Gabapentin -start Prozac for possible pseudodementia and obtain thyroid studies 3. Cardio: CAD s/p CABG and stents, newly diagnosed Paroxysmal Afib with RVR- Plavix on hold, continue ASA 81 until 09-23-18, will need AC per Vascular surgery recs- start COumadin on 09-23-17 and d/c all ASA, continue Sotalol -pmh HTN continue Doxazosin, Indapamide, Isosorbide mononitrate, lisinopril- will monitor and adjust prn, medicine consulted -pmh PAD continue Cilostazol 4.Resp: pmh COPD, monitor for signs of pneumonia, Duonebs, Spiriva, and Symbicort, Incentive Spirometry 5. Psych: pmh PTSD/Depression: continue Remeron, Seroquel 6. : pmh BPH continue Flomax and f/u admission UA and Ucx, monitor PVRs 7. GI ppx: start Protonix 8. DVT ppx: TEDs and dopplers to r/o DVT 9. Pain: Tylenol prn 10. Dispo: TBD Allergies Coded Allergies: Chlordiazepoxide (Unverified Allergy, Unknown, 08/10/18) SEIZURES Vital Signs Vital Signs Date Time Temp Pulse Resp B/P (MAP) Pulse Ox O2 Delivery O2 Flow Rate FiO2 09/18/18 14:00 98.1 71 20 115/62 (79) 95 Room Air Microbiology Microbiology 09/14/18 Urine Culture - Final, Complete Current Medications Current Medications Current Medications Acetaminophen (Tylenol Tab) 650 mg Q4HP PRN PO MILD PAIN (PS 1-4) Last administered on 09/17/18at 06:24; Start 09/14/18 at 15:30 Acetaminophen (Tylenol Tab) 650 mg Q6H PRN PO PAIN; Start 09/14/18 at 18:00; Status UNV Albuterol Sulfate (Proventil Neb) 2.5 mg Q4H PRN INH SHORTNESS OF BREATH; Start 09/14/18 at 18:00; Status UNV Albuterol Sulfate (Proventil, Ventolin Hfa) 2 puff Q4H PRN INH SHORTNESS OF BREATH; Start 09/14/18 at 18:00; Status UNV Albuterol Sulfate (Proventil, Ventolin Hfa) 2 puff Q4HP PRN INH SHORTNESS OF BREATH; Start 09/14/18 at 15:30 Artificial Tears (Akwa Tears) 1 drop Q1H PRN OU DRY EYES; Start 09/14/18 at 18:00; Status UNV Artificial Tears (Akwa Tears) 2 drop QIDP PRN OU DRY EYES; Start 09/14/18 at 15:30 Aspirin (Ecotrin) 81 mg DAILY PO Last administered on 09/18/18 08:38; Start 09/15/18 at 09:00; Stop 09/23/18 at 08:59 Aspirin (Ecotrin) 81 mg DAILY PO ; Start 09/15/18 at 09:00; Status UNV Atorvastatin Calcium (Lipitor) 40 mg QHS PO Last administered on 09/17/18at 20:28; Start 09/14/18 at 21:00 Atorvastatin Calcium (Lipitor) 40 mg QPM PO ; Start 09/14/18 at 21:00; Status UNV Baclofen (Lioresal) 5 mg TID PRN PO spasm; Start 09/14/18 at 15:30 Baclofen (Lioresal) 10 mg QID PRN PO MUSCLE SPASMS; Start 09/14/18 at 18:00; Status UNV Budesonide/ Formoterol Fumarate (Symbicort 160/ 4.5mcg) 2 puff BID INH Last administered on 09/18/18 07:33; Start 09/14/18 at 21:00 Budesonide/ Formoterol Fumarate (Symbicort 160/ 4.5mcg) 2 puff BID INH ; Start 09/14/18 at 21:00; Status UNV Cetirizine HCl (ZyrTEC) 10 mg DAILY PO Last administered on 09/18/18 08:37; Start 09/15/18 at 09:00 Cetirizine HCl (ZyrTEC) 10 mg DAILY PO ; Start 09/15/18 at 09:00; Status UNV Cilostazol (Pletal) 50 mg BID@0730,1730 PO Last administered on 09/18/18at 17:07; Start 09/14/18 at 17:30 Cilostazol (Pletal) 50 mg BID@0730,1730 PO ; Start 09/15/18 at 07:30; Status UNV Docusate Sodium (Colace) 100 mg BID PO Last administered on 09/15/18at 07:47; Start 09/14/18 at 21:00 Docusate Sodium (Colace) 100 mg BID PO ; Start 09/14/18 at 21:00; Status UNV Doxazosin Mesylate (Cardura) 4 mg DAILY PO Last administered on 09/18/18 08:37; Start 09/15/18 at 09:00 Doxazosin Mesylate (Cardura) 4 mg DAILY PO ; Start 09/15/18 at 09:00; Status UNV Fish Oil (Ruby-3 (1000mg)) 1 cap DAILY PO Last administered on 09/18/18 08:39; Start 09/15/18 at 09:00 Fish Oil (Ruby-3 (1000mg)) 1 cap DAILY PO ; Start 09/15/18 at 09:00; Status UNV Gabapentin (Neurontin) 400 mg BID PO Last administered on 09/18/18 08:37; Start 09/14/18 at 21:00 Gabapentin (Neurontin) 400 mg BID PO ; Start 09/14/18 at 21:00; Status UNV Guaifenesin (Mucinex Tab Er) 600 mg BID PO Last administered on 09/18/18 08:39; Start 09/14/18 at 21:00 Guaifenesin (Robitussin Tab) 400 mg BID PO ; Start 09/14/18 at 21:00; Status UNV Home Med (Med Rec Complete!) ASDIRECTED XX ; Start 09/14/18 at 18:00; Stop 09/14/18 at 18:18; Status DC Indapamide (Lozol) 1.25 mg DAILY PO Last administered on 09/18/18 08:38; Start 09/15/18 at 09:00 Indapamide (Lozol) 1.25 mg DAILY PO ; Start 09/15/18 at 09:00; Status UNV Isosorbide Mononitrate (Imdur) 30 mg DAILY PO ; Start 09/15/18 at 09:00; Status UNV Isosorbide Mononitrate (Imdur) 30 mg DAILY@1000 PO Last administered on 09/18/18 10:11; Start 09/15/18 at 10:00 Lisinopril (Prinivil) 40 mg DAILY PO Last administered on 09/18/18 08:39; Start 09/15/18 at 09:00 Lisinopril (Prinivil) 40 mg DAILY PO ; Start 09/15/18 at 09:00; Status UNV Mirtazapine (Remeron) 45 mg QHS PO Last administered on 09/17/18at 20:26; Start 09/14/18 at 21:00 Mirtazapine (Remeron) 45 mg QHS PO ; Start 09/14/18 at 21:00; Status UNV Miscellaneous (Unresolved Patient Own Med Order) SEE LABEL COMMENTS DAILY XX ; Start 09/14/18 at 09:00 Multivitamins (Theragram-M) 1 tab DAILY PO Last administered on 09/18/18 08:39; Start 09/15/18 at 09:00 Nicotine (Nicoderm Cq 7 Mg) 1 patch DAILY TD Last administered on 09/18/18 08:37; Start 09/15/18 at 09:00 Nicotine (Nicoderm Cq 7 Mg) 1 patch DAILY TOP ; Start 09/15/18 at 09:00; Status UNV Nitroglycerin (Nitrostat (1/ 150)) 0.4 mg Q5MP PRN SL CHEST PAIN; Start 09/14/18 at 15:30 Nitroglycerin (Nitrostat (1/ 150)) 0.4 mg Q5MP PRN SL CHEST PAIN; Start 09/14/18 at 18:00; Status UNV Omeprazole (PriLOSEC) 20 mg BID PO Last administered on 09/18/18 08:39; Start 09/14/18 at 21:00 Omeprazole (PriLOSEC) 20 mg BID PO ; Start 09/14/18 at 21:00; Status UNV Oxycodone HCl (Roxicodone, Oxyir) 5 mg Q8H PRN PO PAIN 7-10 Last administered on 09/14/18at 17:59; Start 09/14/18 at 15:30 Patient Own Medication (Patient'S Own Med) Ketotifen 0.025% (Zadit... DAILY OU ; Start 09/15/18 at 09:00; Status UNV Polyethylene Glycol (Miralax) 1 pkt DAILY PO Last administered on 09/15/18at 07:46; Start 09/15/18 at 09:00 Potassium Chloride (Micro-K Extencaps) 10 meq TID PO Last administered on 09/15/18at 07:48; Start 09/14/18 at 21:00; Stop 09/15/18 at 10:09; Status DC Potassium Chloride (Micro-K Extencaps) 10 meq TID PO ; Start 09/14/18 at 21:00; Status UNV Potassium Chloride (Micro-K Extencaps) 20 meq TID PO Last administered on 09/18/18 17:07; Start 09/15/18 at 16:00 Quetiapine Fumarate (SEROquel) 150 mg QHS PO Last administered on 09/17/18at 20:27; Start 09/14/18 at 21:00 Quetiapine Fumarate (SEROquel) 150 mg QHS PO ; Start 09/14/18 at 21:00; Status UNV Sertraline HCl (Zoloft) 200 mg DAILY PO Last administered on 09/18/18 08:38; Start 09/15/18 at 09:00 Sertraline HCl (Zoloft) 200 mg DAILY PO ; Start 09/15/18 at 09:00; Status UNV Sotalol HCl (Betapace) 40 mg BID PO Last administered on 09/18/18 08:38; Start 09/14/18 at 21:00 Sotalol HCl (Betapace) 80 mg Q12H PO ; Start 09/14/18 at 18:00; Status UNV Tamsulosin HCl (Flomax) 0.4 mg DAILY PO Last administered on 09/18/18 08:39; Start 09/15/18 at 09:00 Tamsulosin HCl (Flomax) 0.4 mg DAILY PO ; Start 09/15/18 at 09:00; Status UNV Theophylline (Henrik-24) 400 mg BID PO Last administered on 09/18/18 08:37; Start 09/14/18 at 21:00 Tiotropium [place] (Spiriva Handihaler) 1 inhalation DAILY INH ; Start 09/15/18 at 09:00; Status UNV Tiotropium [place] (Spiriva Handihaler) 1 inhalation DAILY@08 INH Last administered on 09/18/18 07:33; Start 09/15/18 at 08:00 Topiramate (TopAMAX) 50 mg DAILY PO Last administered on 1/1/19at 08:39; Start 09/15/18 at 09:00 Topiramate (TopAMAX) 50 mg QAM PO ; Start 09/15/18 at 09:00; Status UNV Topiramate (TopAMAX) 100 mg QHS PO Last administered on 09/17/18at 20:28; Start 09/14/18 at 21:00 Topiramate (TopAMAX) 100 mg QHS PO ; Start 09/14/18 at 21:00; Status UNV Vitamin D (Vitamin D) 2,000 units DAILY PO Last administered on 09/18/18at 08:40; Start 09/15/18 at 09:00 Vitamin D (Vitamin D) 2,000 units DAILY PO ; Start 09/15/18 at 09:00; Status UNV Warfarin Sodium (Coumadin) 2.5 mg DAILY@17 PO ; Start 09/23/18 at 17:00 DOROTA PACHECO MD Sep 18, 2018 18:51
[2018-09-18 20:00] VITALS: BP 104/55
[2018-09-18] MEDS: ATORVASTATIN 20 MG TAB PO SCH (20:21)
[2018-09-18] MEDS: QUEtiapine FUMARATE 50 MG TAB PO SCH (20:21)
[2018-09-18] MEDS: TOPIRAMATE (TopAMAX) 100 MG TAB PO SCH (20:21)
[2018-09-18] MEDS: MIRTAZAPINE 15 MG TAB PO SCH (20:21)
[2018-09-19 06:00] VITALS: BP 131/68
[2018-09-19] MEDS: MIRALAX *UNIT DOSE* 17GM PACKET PO SCH (08:55)
[2018-09-19] MEDS: SERTRALINE 100 MG TAB PO SCH (08:56)
[2018-09-19] MEDS: OMEPRAZOLE 20 MG CAP PO SCH ×2 (08:56→20:42)
[2018-09-19] MEDS: VITAMIN D 1,000 INTERNATIONAL UNITS TABLET PO SCH (08:56)
[2018-09-19] MEDS: DOXAZOSIN MESYLATE 4 MG TAB PO SCH (08:57)
[2018-09-19] MEDS: THEOPHYLLINE (THEO-24) 100MG SR **CAPSULE PO SCH ×2 (08:57→20:48)
[2018-09-19] MEDS: GABAPENTIN 400 MG CAP PO SCH (08:57)
[2018-09-19] MEDS: TOPIRAMATE (TopAMAX) 25 MG TAB PO SCH (08:57)
[2018-09-19] MEDS: DOCUSATE SODIUM 100 MG CAP PO SCH ×2 (08:57→21:00)
[2018-09-19] MEDS: ASPIRIN 81 MG ENTERIC TAB PO SCH (08:58)
[2018-09-19] MEDS: DONEPEZIL 5 MG TAB PO SCH (08:58)
[2018-09-19] MEDS: LISINOPRIL 40 MG TAB PO SCH (08:58)
[2018-09-19] MEDS: TAMSULOSIN 0.4 MG CAP PO SCH (08:58)
[2018-09-19] MEDS: INDAPAMIDE 1.25MG TABLET PO SCH (08:58)
[2018-09-19] MEDS: CETIRIZINE (ZyrTEC) 10 MG TAB PO SCH (08:58)
[2018-09-19] MEDS: POTASSIUM CHLORIDE 10 MEQ SR TABLET PO SCH ×3 (08:58→20:43)
[2018-09-19] MEDS: FLUoxetine 20 MG CAP PO SCH (08:58)
[2018-09-19] MEDS: OMEGA-3 1000MG CAPSULE PO SCH (08:58)
[2018-09-19] MEDS: NICOTINE 7 MG/24 HR TRANSDERMAL TD SCH (08:59)
[2018-09-19] MEDS: SOTALOL HCL 80 MG TAB PO SCH ×2 (08:59→21:00)
[2018-09-19] MEDS ORDERED: KETOTIFEN 0.025% OU SCH (09:00)
[2018-09-19] MEDS: CILOSTAZOL 100 MG TAB (PLETAL) PO SCH ×2 (09:00→17:11)
[2018-09-19] MEDS: MULTIVITAMINS/MINERALS THERAP 1 TAB PO SCH (09:00)
[2018-09-19] MEDS: guaiFENesin ER 600 MG TAB PO SCH ×2 (09:00→20:44)
[2018-09-19] MEDS: ISOSORBIDE MON. (IMDUR) 30 MG XR TAB PO SCH (10:46)
[2018-09-19 14:00] VITALS: BP 134/72
[2018-09-19] MEDS: TIOTROPIUM INHALER/CAPSULE (SPIRIVA) INH SCH (14:51)
[2018-09-19] MEDS: SYMBICORT 160/4.5MCG INHALER 6GM INH SCH (14:51)
--- NOTE | 2018-09-19 15:08 | IPNPDOC ---
PM&R Progress Note DATE OF SERVICE: Sep 19, 2018 Neonatal Surgeon Progress Note Subjective: Patient reports he is feeling well overall and would like ot go home with his granddaughter when he is ready for discharge. REVIEW OF SYSTEMS: The following is a completed review of systems and has been reviewed. Review of systems otherwise unremarkable. PAIN: Patient self reports no pain EYES: right visual field cut EARS, NOSE, & THROAT:denies dysarthria or rhinorrhea or dysphagia CARDIOVASCULAR: denies chest pain or palpitations PULMONARY: Negative. 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 PHYSICAL EXAMINATION: VITAL SIGNS: Please see below. GENERAL: Pleasant and cooperative. No acute distress. HEENT: PERRL. Extraocular movements intact. Clear conjunctiva. +right side visual field cut CARDIOVASCULAR: Regular rate and rhythm. No murmurs, rubs, or gallops. LUNGS: Mostly clear to auscultation +expiratory wheezes at bases. No rhonchi. ABDOMEN: Soft, nontender, nondistended. Positive bowel sounds. Normal active bowel sounds NEUROLOGICAL: Alert and oriented to self, not time or place. Cranial nerves II through XII grossly intact. Sensation grossly intact EXTREMITIES: 5\5 strength bilateral upper extremities. 5\5 strength right lower extremity. 5/5 strength in left lower extremity. 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 PLAN: 1. 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- continue ASA 81mg daily until 09-23-18 then will need to switch to full AC for his Afib- decision to be made by Vascular Surgery at [facility], Plavix currently on hold, however has pmh of coronary and leg stents, per [facility] cardiology will start Coumadin on 09-23-17 and d/c all antiplatelet therapy at that time -monitor and manage BPs, continue secondary statin therapy -has stroke clinic f/u 10-12-18 for genetic testing, family Hx of Factor V Leiden -pmh Seizure disorder, continue Topomax, Gabapentin -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 Cardio: CAD s/p CABG and stents, newly diagnosed Paroxysmal Afib with RVR- Plavix on hold, continue ASA 81 until 09-23-18, will need AC per Vascular surgery recs- start COumadin on 09-23-17 and d/c all ASA, continue Sotalol -pmh HTN continue Doxazosin, Indapamide, Isosorbide mononitrate, lisinopril- will monitor and adjust prn, medicine consulted -pmh PAD continue Cilostazol 4.Resp: pmh COPD, monitor for signs of pneumonia, Duonebs, Spiriva, and Symbicort, Incentive Spirometry 5. Psych: pmh PTSD/Depression: continue Remeron, Seroquel 6. : pmh BPH continue Flomax and f/u admission UA and Ucx, monitor PVRs 7. GI ppx: start Protonix 8. DVT ppx: TEDs and dopplers to r/o DVT 9. Pain: Tylenol prn 10. Dispo: TBD Allergies Coded Allergies: Chlordiazepoxide (Unverified Allergy, Unknown, 08/10/18) SEIZURES Vital Signs Vital Signs Date Time Temp Pulse Resp B/P (MAP) Pulse Ox O2 Delivery O2 Flow Rate FiO2 09/19/18 10:46 138/68 09/19/18 08:59 70 09/19/18 06:00 97.4 18 93 Room Air Laboratory Data Labs 24H Laboratory Tests 2 09/18/18 19:01: Thyroid Stimulating Hormone (TSH) 1.880 Microbiology Microbiology 09/14/18 Urine Culture - Final, Complete Current Medications Current Medications Current Medications Acetaminophen (Tylenol Tab) 650 mg Q4HP PRN PO MILD PAIN (PS 1-4) Last administered on 09/17/18at 06:24; Start 09/14/18 at 15:30 Acetaminophen (Tylenol Tab) 650 mg Q6H PRN PO PAIN; Start 09/14/18 at 18:00; Status UNV Albuterol Sulfate (Proventil Neb) 2.5 mg Q4H PRN INH SHORTNESS OF BREATH; Start 09/14/18 at 18:00; Status UNV Albuterol Sulfate (Proventil, Ventolin Hfa) 2 puff Q4H PRN INH SHORTNESS OF BREATH; Start 09/14/18 at 18:00; Status UNV Albuterol Sulfate (Proventil, Ventolin Hfa) 2 puff Q4HP PRN INH SHORTNESS OF BREATH; Start 09/14/18 at 15:30 Artificial Tears (Akwa Tears) 1 drop Q1H PRN OU DRY EYES; Start 09/14/18 at 18:00; Status UNV Artificial Tears (Akwa Tears) 2 drop QIDP PRN OU DRY EYES; Start 09/14/18 at 15:30 Aspirin (Ecotrin) 81 mg DAILY PO Last administered on 09/19/18 08:58; Start 09/15/18 at 09:00; Stop 09/23/18 at 08:59 Aspirin (Ecotrin) 81 mg DAILY PO ; Start 09/15/18 at 09:00; Status UNV Atorvastatin Calcium (Lipitor) 40 mg QHS PO Last administered on 09/18/18 20:21; Start 09/14/18 at 21:00 Atorvastatin Calcium (Lipitor) 40 mg QPM PO ; Start 09/14/18 at 21:00; Status UNV Baclofen (Lioresal) 5 mg TID PRN PO spasm; Start 09/14/18 at 15:30 Baclofen (Lioresal) 10 mg QID PRN PO MUSCLE SPASMS; Start 09/14/18 at 18:00; Status UNV Budesonide/ Formoterol Fumarate (Symbicort 160/ 4.5mcg) 2 puff BID INH Last administered on 09/18/18 07:33; Start 09/14/18 at 21:00 Budesonide/ Formoterol Fumarate (Symbicort 160/ 4.5mcg) 2 puff BID INH ; Start 09/14/18 at 21:00; Status UNV Cetirizine HCl (ZyrTEC) 10 mg DAILY PO Last administered on 09/19/18 08:58; Start 09/15/18 at 09:00 Cetirizine HCl (ZyrTEC) 10 mg DAILY PO ; Start 09/15/18 at 09:00; Status UNV Cilostazol (Pletal) 50 mg BID@0730,0190 PO Last administered on 09/19/18 09:00; Start 09/14/18 at 17:30 Cilostazol (Pletal) 50 mg BID@0730,1730 PO ; Start 09/15/18 at 07:30; Status UNV Docusate Sodium (Colace) 100 mg BID PO Last administered on 09/19/18 08:57; Start 09/14/18 at 21:00 Docusate Sodium (Colace) 100 mg BID PO ; Start 09/14/18 at 21:00; Status UNV Donepezil HCl (AriCEPT) 5 mg DAILY PO Last administered on 09/19/18 08:58; Start 09/19/18 at 09:00 Doxazosin Mesylate (Cardura) 4 mg DAILY PO Last administered on 09/19/18 08:57; Start 09/15/18 at 09:00 Doxazosin Mesylate (Cardura) 4 mg DAILY PO ; Start 09/15/18 at 09:00; Status UNV Fish Oil (Buras-3 (1000mg)) 1 cap DAILY PO Last administered on 09/19/18 08:58; Start 09/15/18 at 09:00 Fish Oil (Buras-3 (1000mg)) 1 cap DAILY PO ; Start 09/15/18 at 09:00; Status UNV Fluoxetine HCl (PROzac) 20 mg DAILY PO Last administered on 09/19/18 08:58; Start 09/19/18 at 09:00 Gabapentin (Neurontin) 400 mg BID PO Last administered on 09/19/18 08:57; Start 09/14/18 at 21:00 Gabapentin (Neurontin) 400 mg BID PO ; Start 09/14/18 at 21:00; Status UNV Guaifenesin (Mucinex Tab Er) 600 mg BID PO Last administered on 09/19/18 09:00; Start 09/14/18 at 21:00 Guaifenesin (Robitussin Tab) 400 mg BID PO ; Start 09/14/18 at 21:00; Status UNV Home Med (Med Rec Complete!) ASDIRECTED XX ; Start 09/14/18 at 18:00; Stop 09/14/18 at 18:18; Status DC Indapamide (Lozol) 1.25 mg DAILY PO Last administered on 09/19/18 08:58; Start 09/15/18 at 09:00 Indapamide (Lozol) 1.25 mg DAILY PO ; Start 09/15/18 at 09:00; Status UNV Isosorbide Mononitrate (Imdur) 30 mg DAILY PO ; Start 09/15/18 at 09:00; Status UNV Isosorbide Mononitrate (Imdur) 30 mg DAILY@1000 PO Last administered on 09/19/18 10:46; Start 09/15/18 at 10:00 Lisinopril (Prinivil) 40 mg DAILY PO Last administered on 09/19/18 08:58; Start 09/15/18 at 09:00 Lisinopril (Prinivil) 40 mg DAILY PO ; Start 09/15/18 at 09:00; Status UNV Mirtazapine (Remeron) 45 mg QHS PO Last administered on 09/18/18 20:21; Start 09/14/18 at 21:00 Mirtazapine (Remeron) 45 mg QHS PO ; Start 09/14/18 at 21:00; Status UNV Miscellaneous (Unresolved Patient Own Med Order) SEE LABEL COMMENTS DAILY XX ; Start 09/14/18 at 09:00 Multivitamins (Theragram-M) 1 tab DAILY PO Last administered on 09/19/18 09:00; Start 09/15/18 at 09:00 Nicotine (Nicoderm Cq 7 Mg) 1 patch DAILY TD Last administered on 09/19/18 08:59; Start 09/15/18 at 09:00 Nicotine (Nicoderm Cq 7 Mg) 1 patch DAILY TOP ; Start 09/15/18 at 09:00; Status UNV Nitroglycerin (Nitrostat (1/ 150)) 0.4 mg Q5MP PRN SL CHEST PAIN; Start 09/14/18 at 15:30 Nitroglycerin (Nitrostat (1/ 150)) 0.4 mg Q5MP PRN SL CHEST PAIN; Start 09/14/18 at 18:00; Status UNV Omeprazole (PriLOSEC) 20 mg BID PO Last administered on 09/19/18 08:56; Start 09/14/18 at 21:00 Omeprazole (PriLOSEC) 20 mg BID PO ; Start 09/14/18 at 21:00; Status UNV Oxycodone HCl (Roxicodone, Oxyir) 5 mg Q8H PRN PO PAIN 7-10 Last administered on 09/14/18at 17:59; Start 09/14/18 at 15:30 Patient Own Medication (Patient'S Own Med) Ketotifen 0.025% (Zadit... DAILY OU ; Start 09/19/18 at 09:00; Status Future Hold Polyethylene Glycol (Miralax) 1 pkt DAILY PO Last administered on 09/19/18 08:55; Start 09/15/18 at 09:00 Potassium Chloride (Micro-K Extencaps) 10 meq TID PO Last administered on 09/15/18at 07:48; Start 09/14/18 at 21:00; Stop 09/15/18 at 10:09; Status DC Potassium Chloride (Micro-K Extencaps) 10 meq TID PO ; Start 09/14/18 at 21:00; Status UNV Potassium Chloride (Micro-K Extencaps) 20 meq TID PO Last administered on 09/19/18 08:58; Start 09/15/18 at 16:00 Quetiapine Fumarate (SEROquel) 150 mg QHS PO Last administered on 09/18/18 20:21; Start 09/14/18 at 21:00 Quetiapine Fumarate (SEROquel) 150 mg QHS PO ; Start 09/14/18 at 21:00; Status UNV Sertraline HCl (Zoloft) 200 mg DAILY PO Last administered on 09/19/18 08:56; Start 09/15/18 at 09:00 Sertraline HCl (Zoloft) 200 mg DAILY PO ; Start 09/15/18 at 09:00; Status UNV Sotalol HCl (Betapace) 40 mg BID PO Last administered on 09/19/18 08:59; Start 09/14/18 at 21:00 Sotalol HCl (Betapace) 80 mg Q12H PO ; Start 09/14/18 at 18:00; Status UNV Tamsulosin HCl (Flomax) 0.4 mg DAILY PO Last administered on 09/19/18 08:58; Start 09/15/18 at 09:00 Tamsulosin HCl (Flomax) 0.4 mg DAILY PO ; Start 09/15/18 at 09:00; Status UNV Theophylline (Henrik-24) 400 mg BID PO Last administered on 09/19/18 08:57; Start 09/14/18 at 21:00 Tiotropium [place] (Spiriva Handihaler) 1 inhalation DAILY INH ; Start 09/15/18 at 09:00; Status UNV Tiotropium [place] (Spiriva Handihaler) 1 inhalation DAILY@08 INH Last administered on 09/18/18 07:33; Start 09/15/18 at 08:00 Topiramate (TopAMAX) 50 mg DAILY PO Last administered on 09/19/18 08:57; Start 09/15/18 at 09:00 Topiramate (TopAMAX) 50 mg QAM PO ; Start 09/15/18 at 09:00; Status UNV Topiramate (TopAMAX) 100 mg QHS PO Last administered on 09/18/18 20:21; Start 09/14/18 at 21:00 Topiramate (TopAMAX) 100 mg QHS PO ; Start 09/14/18 at 21:00; Status UNV Vitamin D (Vitamin D) 2,000 units DAILY PO Last administered on 09/19/18 08:56; Start 09/15/18 at 09:00 Vitamin D (Vitamin D) 2,000 units DAILY PO ; Start 09/15/18 at 09:00; Status UNV Warfarin Sodium (Coumadin) 2.5 mg DAILY@17 PO ; Start 09/23/18 at 17:00 DOROTA PACHECO MD Sep 19, 2018 15:08
--- NOTE | 2018-09-19 15:45 | IPNPDOC ---
Date Seen The patient was seen on 09/19/18. Progress Note HPI: 73-year-old male with a past medical history of hypertension, diabetes, hyperlipidemia, history of coronary artery disease, CABG in 1994, history of stent placement in 2016, transferred from 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 He was switched from atenolol to Sotalol related to episode of Afib. No neurosurgical intervention was necessary and the patient was transported back to [facility] for rehabilitation. The pt has no complaints at this time today. he is OOB to chair. Denies chest pain, shortness of breath, abdominal pain, nausea, vomiting, or vertigo. PAST MEDICAL HISTORY: 1. Coronary artery disease, status post CABG in 1994. 2. History of stent placement in 2016. 3. History of atrial fibrillation. 4. Diabetes. 5. Hypertension. 6. Hyperlipidemia. 7. Non oxygen dependent chronic obstructive pulmonary disease (COPD). PE: GEN: 73yoM, appears stated age. No acute distress. HEENT: Normocephalic, atraumatic. Sclera are nonicteric. Conjunctiva without injection. Moist mucous membranes. CHEST: Regular rate and rhythm, +S1, +S2 LUNGS: Clear to auscultation bilaterally. No wheezes, rales, or rhonchi. Breathing appears symmetric and easy. ABD: Round, soft, non-tender, non-distended. +Bowel sounds throughout. No rebound or guarding. No costovertebral angle tenderness. EXT: No lower extremity edema appreciated. SKIN: Cyrus, dry, warm. No rashes. NEURO: Alert and oriented x 3. Rt visual field deficits noted. A&P: 73-year-old male with a past medical history of hypertension, diabetes, hyperlipidemia, history of coronary artery disease, CABG in 1994, history of stent placement in 2017, transferred from 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 He was switched from atenolol to Sotalol related to episode of Afib. No neurosurgical intervention was necessary and the patient was transported back to [facility] for rehabilitation. 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 PT/OT/ST as per ARU. Plan as per Vascular surgery, continue ASA 81mg daily until 09-23-18 then will need to switch to full AC for his Afib. decision to be made by Vascular Surgery at [facility], Plavix currently on hold, however has pmh of coronary and leg stents, per [facility] cardiology will start Coumadin on 09-23-17 and d/c all antiplatelet therapy at that time. Dr Thornton D/W [facility] re plan. Stroke clinic f/u 10-12-18 for genetic testing, family Hx of Factor V Leiden. DVT px SCD/TEDS. Seizure disorder, Continue Topomax, Gabapentin. CAD s/p CABG and stents. ASA. Paroxysmal Afib with RVR- Plavix on hold. Continue ASA 81 until 09-23-18, will need AC per Vascular surgery recs- start Coumadin on 09-23-17 and d/c ASA,Plavix Continue Sotalol HTN continue Doxazosin, Indapamide, Isosorbide mononitrate, lisinopril. Monitor BP trend. PAD continue Cilostazol COPD Duonebs, Spiriva, and Symbicort, Incentive Spirometry PTSD/Depression: continue Remeron, Seroquel BPH Continue Flomax UC 09/14 neg. VS, I&O, 24H, Fishbone Vital Signs/I&O Vital Signs Date Time Temp Pulse Resp B/P (MAP) Pulse Ox O2 Delivery O2 Flow Rate FiO2 09/19/18 14:00 97.7 73 18 134/72 (92) 95 Room Air I&O- Last 24 Hours up to 6 AM 09/19/18 06:00 Intake Total 1660 ml Output Total 0 ml Balance 1660 ml Laboratory Data 24H LABS Laboratory Tests 2 09/18/18 19:01: Thyroid Stimulating Hormone (TSH) 1.880 Microbiology Microbiology 09/14/18 Urine Culture - Final, Complete Shivani Carney Sep 19, 2018 15:45
[2018-09-19 20:00] VITALS: BP 105/55
[2018-09-19] MEDS: TOPIRAMATE (TopAMAX) 100 MG TAB PO SCH (20:42)
[2018-09-19] MEDS: ATORVASTATIN 20 MG TAB PO SCH (20:43)
[2018-09-19] MEDS: QUEtiapine FUMARATE 50 MG TAB PO SCH (20:43)
[2018-09-19] MEDS: MIRTAZAPINE 15 MG TAB PO SCH (20:44)
[2018-09-19] MEDS: GABAPENTIN 100 MG CAP PO SCH (20:44)
[2018-09-20 06:00] VITALS: BP 136/60
[2018-09-20] MEDS: CILOSTAZOL 100 MG TAB (PLETAL) PO SCH ×2 (07:31→16:54)
[2018-09-20] MEDS: SYMBICORT 160/4.5MCG INHALER 6GM INH SCH ×2 (08:02→18:59)
[2018-09-20] MEDS: TIOTROPIUM INHALER/CAPSULE (SPIRIVA) INH SCH (08:02)
[2018-09-20] MEDS: VITAMIN D 1,000 INTERNATIONAL UNITS TABLET PO SCH (08:50)
[2018-09-20] MEDS: SERTRALINE 100 MG TAB PO SCH (08:50)
[2018-09-20] MEDS: THEOPHYLLINE (THEO-24) 100MG SR **CAPSULE PO SCH ×2 (08:50→21:34)
[2018-09-20] MEDS: LISINOPRIL 40 MG TAB PO SCH (08:50)
[2018-09-20] MEDS: TAMSULOSIN 0.4 MG CAP PO SCH (08:51)
[2018-09-20] MEDS: DONEPEZIL 5 MG TAB PO SCH (08:51)
[2018-09-20] MEDS: INDAPAMIDE 1.25MG TABLET PO SCH (08:51)
[2018-09-20] MEDS: POTASSIUM CHLORIDE 10 MEQ SR TABLET PO SCH ×3 (08:51→21:35)
[2018-09-20] MEDS: OMEGA-3 1000MG CAPSULE PO SCH (08:51)
[2018-09-20] MEDS: OMEPRAZOLE 20 MG CAP PO SCH ×2 (08:51→21:35)
[2018-09-20] MEDS: GABAPENTIN 100 MG CAP PO SCH ×2 (08:51→21:35)
[2018-09-20] MEDS: ASPIRIN 81 MG ENTERIC TAB PO SCH (08:51)
[2018-09-20] MEDS: SOTALOL HCL 80 MG TAB PO SCH ×2 (08:52→21:00)
[2018-09-20] MEDS: DOCUSATE SODIUM 100 MG CAP PO SCH ×2 (08:53→21:00)
[2018-09-20] MEDS: MULTIVITAMINS/MINERALS THERAP 1 TAB PO SCH (08:53)
[2018-09-20] MEDS: FLUoxetine 20 MG CAP PO SCH (08:53)
[2018-09-20] MEDS: NICOTINE 7 MG/24 HR TRANSDERMAL TD SCH (08:53)
[2018-09-20] MEDS: TOPIRAMATE (TopAMAX) 25 MG TAB PO SCH (09:02)
[2018-09-20] MEDS: MIRALAX *UNIT DOSE* 17GM PACKET PO SCH (09:02)
[2018-09-20] MEDS: guaiFENesin ER 600 MG TAB PO SCH ×2 (09:03→21:34)
--- NOTE | 2018-09-20 11:57 | IPNPDOC ---
Date Seen The patient was seen on 09/20/18. 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 He was switched from atenolol to Sotalol related to episode of Afib. No neurosurgical intervention was necessary and the patient was transported back to [facility] for rehabilitation. The pt has no complaints at this time today. he is in bed and states he is tired. Denies chest pain, shortness of breath, abdominal pain, nausea, vomiting, or vertigo. PAST MEDICAL HISTORY: 1. Coronary artery disease, status post CABG in 1994. 2. History of stent placement in 2017. 3. History of atrial fibrillation. 4. Diabetes. 5. Hypertension. 6. Hyperlipidemia. 7. Non oxygen dependent chronic obstructive pulmonary disease (COPD). PE: GEN: 73yoM, appears stated age. No acute distress. HEENT: Normocephalic, atraumatic. Sclera are nonicteric. Conjunctiva without injection. Moist mucous membranes. CHEST: Regular rate and rhythm, +S1, +S2 LUNGS: Clear to auscultation bilaterally. No wheezes, rales, or rhonchi. Breathing appears symmetric and easy. ABD: Round, soft, non-tender, non-distended. +Bowel sounds throughout. No rebound or guarding. No costovertebral angle tenderness. EXT: No lower extremity edema appreciated. SKIN: Donna, dry, warm. No rashes. NEURO: Alert and oriented x 3. Rt visual field deficits, no change. 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 He was switched from atenolol to Sotalol related to episode of Afib. No neurosurgical intervention was necessary and the patient was transported back to [facility] for rehabilitation. 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 PT/OT/ST as per ARU. Plan as per Vascular surgery, continue ASA 81mg daily until 09-23-18 then will need to switch to full AC for his Afib. decision to be made by Vascular Surgery at [facility], Plavix currently on hold, however has pmh of coronary and leg stents, per [facility] Cardiology will start Coumadin on 09-23-17 and d/c all antiplatelet therapy at that time. Dr Thornton D/W [facility] re plan. Stroke clinic f/u 10-12-18 for genetic testing, family Hx of Factor V Leiden. DVT px SCD/TEDS. Seizure disorder, Continue Topamax, Gabapentin. CAD s/p CABG and stents. ASA. Paroxysmal Afib with RVR. Plavix on hold. Continue ASA 81 until 09-23-18, will need AC per Vascular surgery recs- start Coumadin on 09-23-17 and d/c ASA,Plavix. Plan discussed as per Dr Thornton with [facility]. Continue Sotalol HTN continue Doxazosin, Indapamide, Isosorbide mononitrate, lisinopril. Monitor BP trend. PAD continue Cilostazol COPD Duonebs, Spiriva, and Symbicort, Incentive Spirometry PTSD/Depression: continue Remeron, Seroquel BPH Continue Flomax UC 09/14 neg. VS, I&O, 24H, Fishbone Vital Signs/I&O Vital Signs Date Time Temp Pulse Resp B/P (MAP) Pulse Ox O2 Delivery O2 Flow Rate FiO2 09/20/18 08:52 73 136/60 09/20/18 06:00 98.1 20 91 Room Air I&O- Last 24 Hours up to 6 AM 09/20/18 06:00 Intake Total 1680 ml Balance 1680 ml Laboratory Data Microbiology Microbiology 09/14/18 Urine Culture - Final, Complete Shivani Carney Sep 20, 2018 11:57
[2018-09-20 14:00] VITALS: BP 120/62
[2018-09-20] MEDS: THIAMINE HCL 200 MG/2 ML VIAL (J3411) IM SCH (16:53)
[2018-09-20 20:00] VITALS: BP 120/66
--- NOTE | 2018-09-20 20:26 | IPNPDOC ---
PM&R Progress Note DATE OF SERVICE: Sep 20, 2018 [employer] Progress Note Subjective: Patient reports he is feeling well and does not have any specific complaints today. He reports he has a history of ETOH heavy use. REVIEW OF SYSTEMS: The following is a completed review of systems and has been reviewed. Review of systems otherwise unremarkable. PAIN: Patient self reports no pain EYES: right visual field cut EARS, NOSE, & THROAT:denies dysarthria or rhinorrhea or dysphagia CARDIOVASCULAR: denies chest pain or palpitations PULMONARY: Negative. 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 PHYSICAL EXAMINATION: VITAL SIGNS: Please see below. GENERAL: Pleasant and cooperative. No acute distress. HEENT: PERRL. Extraocular movements intact. Clear conjunctiva. +right side visual field cut CARDIOVASCULAR: Regular rate and rhythm. No murmurs, rubs, or gallops. LUNGS: Mostly clear to auscultation +expiratory wheezes at bases. No rhonchi. ABDOMEN: Soft, nontender, nondistended. Positive bowel sounds. Normal active bowel sounds NEUROLOGICAL: Alert and oriented to self, not time or place. + ANomia, Cranial nerves II through XII grossly intact. Sensation grossly intact EXTREMITIES: 5\5 strength bilateral upper extremities. 5\5 strength right lower extremity. 5/5 strength in left lower extremity. 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- continue ASA 81mg daily until 09-23-18 then will need to switch to full AC for his Afib- decision to be made by Vascular Surgery at [facility], Plavix currently on hold, however has pmh of coronary and leg stents, per [facility] cardiology will start Coumadin on 09-23-17 and d/c all antiplatelet therapy at that time -monitor and manage BPs, continue secondary statin therapy -has stroke clinic f/u 10-12-18 for genetic testing, family Hx of Factor V Leiden -pmh Seizure disorder, continue Topomax, Gabapentin -already on Sertraline, will d/c additional SSRI, TSH within normal limits -contine donepezil for dementia 3. Cardio: CAD s/p CABG and stents, newly diagnosed Paroxysmal Afib with RVR- Plavix on hold, continue ASA 81 until 09-23-18, will need AC per Vascular surgery recs- start COumadin on 09-23-17 and d/c all ASA, continue Sotalol -pmh HTN continue home meds, will monitor off Doxazosin and Isosorbide mononitrate as polypharmacy can be contributing to dementia, continue Indapamide and lisinopril- will monitor and adjust prn, medicine consulted -pmh PAD continue Cilostazol 4.Resp: pmh COPD, monitor for signs of pneumonia, Duonebs, Spiriva, and Symbicort, Incentive Spirometry 5. Psych: pmh PTSD/Depression: continue Remeron, decrease Seroquel, continue ZOloft -will start IM thiamine for hx of ETOH abuse 6. : pmh BPH continue Flomax , admission UA and Ucx negative, monitor PVRs 7. GI ppx: start Protonix 8. DVT ppx: TEDs and Dopplers to r/o DVT 9. Pain: Tylenol prn 10. Dispo: TBD, progressing towards goals Allergies Coded Allergies: Chlordiazepoxide (Unverified Allergy, Unknown, 08/10/18) SEIZURES Vital Signs Vital Signs Date Time Temp Pulse Resp B/P (MAP) Pulse Ox O2 Delivery O2 Flow Rate FiO2 09/20/18 14:00 98.8 70 20 120/62 (81) 93 Room Air Microbiology Microbiology 09/14/18 Urine Culture - Final, Complete Current Medications Current Medications Current Medications Acetaminophen (Tylenol Tab) 650 mg Q4HP PRN PO MILD PAIN (PS 1-4) Last administered on 09/17/18at 06:24; Start 09/14/18 at 15:30 Acetaminophen (Tylenol Tab) 650 mg Q6H PRN PO PAIN; Start 09/14/18 at 18:00; Status UNV Albuterol Sulfate (Proventil Neb) 2.5 mg Q4H PRN INH SHORTNESS OF BREATH; Start 09/14/18 at 18:00; Status UNV Albuterol Sulfate (Proventil, Ventolin Hfa) 2 puff Q4H PRN INH SHORTNESS OF BREATH; Start 09/14/18 at 18:00; Status UNV Albuterol Sulfate (Proventil, Ventolin Hfa) 2 puff Q4HP PRN INH SHORTNESS OF BREATH; Start 09/14/18 at 15:30 Artificial Tears (Akwa Tears) 1 drop Q1H PRN OU DRY EYES; Start 09/14/18 at 18:00; Status UNV Artificial Tears (Akwa Tears) 2 drop QIDP PRN OU DRY EYES; Start 09/14/18 at 15:30 Aspirin (Ecotrin) 81 mg DAILY PO Last administered on 09/20/18 08:51; Start 09/15/18 at 09:00; Stop 09/23/18 at 08:59 Aspirin (Ecotrin) 81 mg DAILY PO ; Start 09/15/18 at 09:00; Status UNV Atorvastatin Calcium (Lipitor) 40 mg QHS PO Last administered on 09/19/18at 20:43; Start 09/14/18 at 21:00 Atorvastatin Calcium (Lipitor) 40 mg QPM PO ; Start 09/14/18 at 21:00; Status UNV Baclofen (Lioresal) 5 mg TID PRN PO spasm; Start 09/14/18 at 15:30; Stop 09/19/18 at 17:18; Status DC Baclofen (Lioresal) 10 mg QID PRN PO MUSCLE SPASMS; Start 09/14/18 at 18:00; Status UNV Budesonide/ Formoterol Fumarate (Symbicort 160/ 4.5mcg) 2 puff BID INH Last administered on 09/20/18 18:59; Start 09/14/18 at 21:00 Budesonide/ Formoterol Fumarate (Symbicort 160/ 4.5mcg) 2 puff BID INH ; Start 09/14/18 at 21:00; Status UNV Cetirizine HCl (ZyrTEC) 10 mg DAILY PO Last administered on 09/19/18 08:58; Start 09/15/18 at 09:00; Stop 09/19/18 at 17:18; Status DC Cetirizine HCl (ZyrTEC) 10 mg DAILY PO ; Start 09/15/18 at 09:00; Status UNV Cilostazol (Pletal) 50 mg BID@0730,1730 PO Last administered on 09/20/18 16:54; Start 09/14/18 at 17:30 Cilostazol (Pletal) 50 mg BID@0730,1730 PO ; Start 09/15/18 at 07:30; Status UNV Docusate Sodium (Colace) 100 mg BID PO Last administered on 09/20/18 08:53; Start 09/14/18 at 21:00 Docusate Sodium (Colace) 100 mg BID PO ; Start 09/14/18 at 21:00; Status UNV Donepezil HCl (AriCEPT) 5 mg DAILY PO Last administered on 09/20/18 08:51; Start 09/19/18 at 09:00 Doxazosin Mesylate (Cardura) 4 mg DAILY PO Last administered on 09/19/18 08:57; Start 09/15/18 at 09:00; Stop 09/19/18 at 17:18; Status DC Doxazosin Mesylate (Cardura) 4 mg DAILY PO ; Start 09/15/18 at 09:00; Status UNV Fish Oil ([place]-3 (1000mg)) 1 cap DAILY PO Last administered on 09/20/18 08:51; Start 09/15/18 at 09:00 Fish Oil ([place]-3 (1000mg)) 1 cap DAILY PO ; Start 09/15/18 at 09:00; Status UNV Fluoxetine HCl (PROzac) 20 mg DAILY PO Last administered on 09/20/18 08:53; Start 09/19/18 at 09:00; Stop 09/20/18 at 10:28; Status DC Gabapentin (Neurontin) 200 mg BID PO Last administered on 09/20/18 08:51; Start 09/19/18 at 21:00 Gabapentin (Neurontin) 400 mg BID PO Last administered on 09/19/18 08:57; Start 09/14/18 at 21:00; Stop 09/19/18 at 17:18; Status DC Gabapentin (Neurontin) 400 mg BID PO ; Start 09/14/18 at 21:00; Status UNV Guaifenesin (Mucinex Tab Er) 600 mg BID PO Last administered on 09/20/18 09:03; Start 09/14/18 at 21:00 Guaifenesin (Robitussin Tab) 400 mg BID PO ; Start 09/14/18 at 21:00; Status UNV Home Med (Med Rec Complete!) ASDIRECTED XX ; Start 09/14/18 at 18:00; Stop 09/14/18 at 18:18; Status DC Indapamide (Lozol) 1.25 mg DAILY PO Last administered on 09/20/18 08:51; Start 09/15/18 at 09:00 Indapamide (Lozol) 1.25 mg DAILY PO ; Start 09/15/18 at 09:00; Status UNV Isosorbide Mononitrate (Imdur) 30 mg DAILY PO ; Start 09/15/18 at 09:00; Status UNV Isosorbide Mononitrate (Imdur) 30 mg DAILY@1000 PO Last administered on 09/19/18 10:46; Start 09/15/18 at 10:00; Stop 09/20/18 at 10:28; Status DC Lisinopril (Prinivil) 40 mg DAILY PO Last administered on 09/20/18 08:50; Start 09/15/18 at 09:00 Lisinopril (Prinivil) 40 mg DAILY PO ; Start 09/15/18 at 09:00; Status UNV Mirtazapine (Remeron) 45 mg QHS PO Last administered on 09/19/18 20:44; Start 09/14/18 at 21:00 Mirtazapine (Remeron) 45 mg QHS PO ; Start 09/14/18 at 21:00; Status UNV Miscellaneous (Unresolved Patient Own Med Order) SEE LABEL COMMENTS DAILY XX ; Start 09/14/18 at 09:00; Stop 09/20/18 at 10:31; Status DC Multivitamins (Theragram-M) 1 tab DAILY PO Last administered on 09/20/18 08:53; Start 09/15/18 at 09:00 Nicotine (Nicoderm Cq 7 Mg) 1 patch DAILY TD Last administered on 09/20/18 08:53; Start 09/15/18 at 09:00 Nicotine (Nicoderm Cq 7 Mg) 1 patch DAILY TOP ; Start 09/15/18 at 09:00; Status UNV Nitroglycerin (Nitrostat (1/ 150)) 0.4 mg Q5MP PRN SL CHEST PAIN; Start 09/14/18 at 15:30 Nitroglycerin (Nitrostat (1/ 150)) 0.4 mg Q5MP PRN SL CHEST PAIN; Start 09/14/18 at 18:00; Status UNV Omeprazole (PriLOSEC) 20 mg BID PO Last administered on 09/20/18at 08:51; Start 09/14/18 at 21:00 Omeprazole (PriLOSEC) 20 mg BID PO ; Start 09/14/18 at 21:00; Status UNV Oxycodone HCl (Roxicodone, Oxyir) 5 mg Q8H PRN PO PAIN 7-10 Last administered on 09/14/18at 17:59; Start 09/14/18 at 15:30; Stop 09/19/18 at 17:18; Status DC Patient Own Medication (Patient'S Own Med) Ketotifen 0.025% (Zadit... DAILY OU ; Start 09/19/18 at 09:00; Stop 09/20/18 at 10:31; Status DC Polyethylene Glycol (Miralax) 1 pkt DAILY PO Last administered on 09/20/18at 09:02; Start 09/15/18 at 09:00 Potassium Chloride (Micro-K Extencaps) 10 meq TID PO Last administered on 09/15/18at 07:48; Start 09/14/18 at 21:00; Stop 09/15/18 at 10:09; Status DC Potassium Chloride (Micro-K Extencaps) 10 meq TID PO ; Start 09/14/18 at 21:00; Status UNV Potassium Chloride (Micro-K Extencaps) 20 meq TID PO Last administered on 09/20/18at 16:54; Start 09/15/18 at 16:00 Quetiapine Fumarate (SEROquel) 100 mg QHS PO Last administered on 09/19/18at 20:43; Start 09/19/18 at 21:00 Quetiapine Fumarate (SEROquel) 150 mg QHS PO Last administered on 09/18/18at 20:21; Start 09/14/18 at 21:00; Stop 09/19/18 at 17:20; Status DC Quetiapine Fumarate (SEROquel) 150 mg QHS PO ; Start 09/14/18 at 21:00; Status UNV Sertraline HCl (Zoloft) 200 mg DAILY PO Last administered on 09/20/18 08:50; Start 09/15/18 at 09:00 Sertraline HCl (Zoloft) 200 mg DAILY PO ; Start 09/15/18 at 09:00; Status UNV Sotalol HCl (Betapace) 40 mg BID PO Last administered on 09/20/18 08:52; Start 09/14/18 at 21:00 Sotalol HCl (Betapace) 80 mg Q12H PO ; Start 09/14/18 at 18:00; Status UNV Tamsulosin HCl (Flomax) 0.4 mg DAILY PO Last administered on 09/20/18 08:51; Start 09/15/18 at 09:00 Tamsulosin HCl (Flomax) 0.4 mg DAILY PO ; Start 09/15/18 at 09:00; Status UNV Theophylline (Henrik-24) 400 mg BID PO Last administered on 09/20/18 08:50; Start 09/14/18 at 21:00 Thiamine HCl (VITAMIN B1 INJection) 100 mg DAILY IM Last administered on 09/20/18 16:53; Start 09/20/18 at 15:45 Tiotropium [place] (Spiriva Handihaler) 1 inhalation DAILY INH ; Start 09/15/18 at 09:00; Status UNV Tiotropium [place] (Spiriva Handihaler) 1 inhalation DAILY@08 INH Last administered on 09/20/18 08:02; Start 09/15/18 at 08:00 Topiramate (TopAMAX) 50 mg DAILY PO Last administered on 09/20/18 09:02; Start 09/15/18 at 09:00 Topiramate (TopAMAX) 50 mg QAM PO ; Start 09/15/18 at 09:00; Status UNV Topiramate (TopAMAX) 100 mg QHS PO Last administered on 09/19/18 20:42; Start 09/14/18 at 21:00 Topiramate (TopAMAX) 100 mg QHS PO ; Start 09/14/18 at 21:00; Status UNV Vitamin D (Vitamin D) 2,000 units DAILY PO Last administered on 09/20/18at 08:50; Start 09/15/18 at 09:00 Vitamin D (Vitamin D) 2,000 units DAILY PO ; Start 09/15/18 at 09:00; Status UNV Warfarin Sodium (Coumadin) 2.5 mg DAILY@17 PO ; Start 09/23/18 at 17:00 DOROTA PACHECO MD Sep 20, 2018 20:26
[2018-09-20] MEDS: ATORVASTATIN 20 MG TAB PO SCH (21:35)
[2018-09-20] MEDS: QUEtiapine FUMARATE 50 MG TAB PO SCH (21:35)
[2018-09-20] MEDS: TOPIRAMATE (TopAMAX) 100 MG TAB PO SCH (21:35)
[2018-09-20] MEDS: MIRTAZAPINE 15 MG TAB PO SCH (21:36)
[2018-09-21 06:00] VITALS: BP 135/73
[2018-09-21 06:29] LABS: HEMATOCRIT 37.6 % (42.0-52.0); HEMOGLOBIN 13.1 g/dl (13.5-17.5); MEAN CORPUSCULAR HEMOGLOBIN 33.9 pg (27.0-33.0); MEAN CORPUSCULAR HGB CONC 34.8 g/dl (32.0-36.5); MEAN CORPUSCULAR VOLUME 97.2 fl (80.0-96.0); PLATELET COUNT, AUTOMATED 230 10^3/uL (150-450); RED BLOOD COUNT 3.87 10^6/uL (4.30-6.10); WHITE BLOOD COUNT 9.4 10^3/uL (4.0-10.0)
[2018-09-21 06:49] LABS: CALCIUM LEVEL 8.8 MG/DL (8.8-10.2); CREATININE FOR GFR 1.83 MG/DL (0.70-1.30); GLOMERULAR FILTRATION RATE 38.6 (>42); POTASSIUM SERUM 3.9 MEQ/L (3.5-5.1)
[2018-09-21] MEDS: TIOTROPIUM INHALER/CAPSULE (SPIRIVA) INH SCH (08:17)
[2018-09-21] MEDS: SYMBICORT 160/4.5MCG INHALER 6GM INH SCH ×2 (08:17→20:03)
[2018-09-21] MEDS: guaiFENesin ER 600 MG TAB PO SCH ×2 (08:42→20:36)
[2018-09-21] MEDS: ASPIRIN 81 MG ENTERIC TAB PO SCH (08:42)
[2018-09-21] MEDS: POTASSIUM CHLORIDE 10 MEQ SR TABLET PO SCH ×3 (08:43→20:34)
[2018-09-21] MEDS: THIAMINE HCL 200 MG/2 ML VIAL (J3411) IM SCH (08:43)
[2018-09-21] MEDS: THEOPHYLLINE (THEO-24) 100MG SR **CAPSULE PO SCH ×2 (08:43→20:34)
[2018-09-21] MEDS: OMEPRAZOLE 20 MG CAP PO SCH ×2 (08:44→20:36)
[2018-09-21] MEDS: DOCUSATE SODIUM 100 MG CAP PO SCH ×2 (08:44→20:34)
[2018-09-21] MEDS: DONEPEZIL 5 MG TAB PO SCH (08:44)
[2018-09-21] MEDS: MULTIVITAMINS/MINERALS THERAP 1 TAB PO SCH (08:44)
[2018-09-21] MEDS: OMEGA-3 1000MG CAPSULE PO SCH (08:44)
[2018-09-21] MEDS: TAMSULOSIN 0.4 MG CAP PO SCH (08:44)
[2018-09-21] MEDS: CILOSTAZOL 100 MG TAB (PLETAL) PO SCH ×2 (08:44→17:11)
[2018-09-21] MEDS: INDAPAMIDE 1.25MG TABLET PO SCH (08:45)
[2018-09-21] MEDS: SERTRALINE 100 MG TAB PO SCH (08:46)
[2018-09-21] MEDS: TOPIRAMATE (TopAMAX) 25 MG TAB PO SCH (08:46)
[2018-09-21] MEDS: SOTALOL HCL 80 MG TAB PO SCH ×2 (08:46→20:36)
[2018-09-21] MEDS: GABAPENTIN 100 MG CAP PO SCH ×2 (08:46→20:35)
[2018-09-21] MEDS: VITAMIN D 1,000 INTERNATIONAL UNITS TABLET PO SCH (08:46)
[2018-09-21] MEDS: NICOTINE 7 MG/24 HR TRANSDERMAL TD SCH (08:47)
[2018-09-21] MEDS: MIRALAX *UNIT DOSE* 17GM PACKET PO SCH (09:00)
[2018-09-21] MEDS ORDERED: amLODIPine 5 MG TAB PO SCH (09:00)
[2018-09-21 14:00] VITALS: BP 148/67
--- NOTE | 2018-09-21 15:27 | IPNPDOC ---
PM&R Progress Note DATE OF SERVICE: Sep 21, 2018 [employer] Progress Note Subjective: Patient seen in gym, still having difficult with word finding and reasoning, however appeared to be enjoying therapy and had no complaints or concerns. REVIEW OF SYSTEMS: The following is a completed review of systems and has been reviewed. Review of systems otherwise unremarkable. PAIN: Patient self reports no pain EYES: right visual field cut EARS, NOSE, & THROAT:denies dysarthria or rhinorrhea or dysphagia CARDIOVASCULAR: denies chest pain or palpitations PULMONARY: Negative. 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 PHYSICAL EXAMINATION: VITAL SIGNS: Please see below. GENERAL: Pleasant and cooperative. No acute distress. HEENT: PERRL. Extraocular movements intact. Clear conjunctiva. +right side visual field cut CARDIOVASCULAR: Regular rate and rhythm. No murmurs, rubs, or gallops. LUNGS: Mostly clear to auscultation +expiratory wheezes at bases. No rhonchi. ABDOMEN: Soft, nontender, nondistended. Positive bowel sounds. Normal active bowel sounds NEUROLOGICAL: Alert and oriented to self, not time or place. + ANomia, Cranial nerves II through XII grossly intact. Sensation grossly intact EXTREMITIES: 5\5 strength bilateral upper extremities. 5\5 strength right lower extremity. 5/5 strength in left lower extremity. 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- continue ASA 81mg daily until 09-23-18 then will need to switch to full AC for his Afib- decision to be made by Vascular Surgery at [facility], Plavix currently on hold, however has pmh of coronary and leg stents, per [facility] cardiology will start Coumadin on 09-23-17 and d/c all antiplatelet therapy at that time -monitor and manage BPs, continue secondary statin therapy -has stroke clinic f/u 10-12-18 for genetic testing, family Hx of Factor V Leiden -pmh Seizure disorder, continue Topomax, Gabapentin -already on Sertraline, will d/c additional SSRI, TSH within normal limits -contine donepezil for dementia 3. Cardio: CAD s/p CABG and stents, newly diagnosed Paroxysmal Afib with RVR- Plavix on hold, continue ASA 81 until 09-23-18, will need AC per Vascular surgery recs- start COumadin on 09-23-17 and d/c all ASA, continue Sotalol -pmh HTN continue home meds, will monitor off Doxazosin and Isosorbide mononitrate as polypharmacy can be contributing to dementia, continue Indapam donald and lisinopril- will monitor and adjust prn, medicine consulted -pmh PAD continue Cilostazol 4.Resp: pmh COPD, monitor for signs of pneumonia, Duonebs, Spiriva, and Symbicort, Incentive Spirometry 5. Psych: pmh PTSD/Depression: continue Remeron, contineu to decrease Seroquel, continue ZOloft -will start IM thiamine for hx of ETOH abuse 6. : pmh BPH continue Flomax , admission UA and Ucx negative, monitor PVRs 7. GI ppx: start Protonix 8. DVT ppx: TEDs and Dopplers to r/o DVT 9. Pain: Tylenol prn 10. Dispo: TBD, progressing towards goals Allergies Coded Allergies: Chlordiazepoxide (Unverified Allergy, Unknown, 08/10/18) SEIZURES Vital Signs Vital Signs Date Time Temp Pulse Resp B/P (MAP) Pulse Ox O2 Delivery O2 Flow Rate FiO2 09/21/18 08:45 75 145/79 09/21/18 06:00 98.2 18 90 Room Air Laboratory Data CBC/BMP Laboratory Tests 09/21/18 06:03 Red Blood Count 3.87 L, Mean Corpuscular Volume 97.2 H, Mean Corpuscular Hemoglobin 33.9 H, Mean Corpuscular Hemoglobin Concent 34.8, Red Cell Distribution Width 13.2, Calcium Level 8.8 Labs 24H Laboratory Tests 2 09/21/18 06:03: Nucleated Red Blood Cells % (auto) 0.0, Anion Gap 7L, Glomerular Filtration Rate 38.6L, Blood Urea Nitrogen 26H, Creatinine 1.83H, Sodium Level 143, Potassium Level 3.9, Chloride Level 111H, Carbon Dioxide Level 25, Calcium Level 8.8, Magnesium Level 2.0 Microbiology Microbiology 09/14/18 Urine Culture - Final, Complete Current Medications Current Medications Current Medications Acetaminophen (Tylenol Tab) 650 mg Q4HP PRN PO MILD PAIN (PS 1-4) Last administered on 09/17/18at 06:24; Start 09/14/18 at 15:30 Acetaminophen (Tylenol Tab) 650 mg Q6H PRN PO PAIN; Start 09/14/18 at 18:00; Status UNV Albuterol Sulfate (Proventil Neb) 2.5 mg Q4H PRN INH SHORTNESS OF BREATH; Start 09/14/18 at 18:00; Status UNV Albuterol Sulfate (Proventil, Ventolin Hfa) 2 puff Q4H PRN INH SHORTNESS OF BREATH; Start 09/14/18 at 18:00; Status UNV Albuterol Sulfate (Proventil, Ventolin Hfa) 2 puff Q4HP PRN INH SHORTNESS OF BREATH; Start 09/14/18 at 15:30 Amlodipine Besylate (Norvasc) 5 mg DAILY PO Last administered on 09/21/18at 08:45; Start 09/21/18 at 09:00 Artificial Tears (Akwa Tears) 1 drop Q1H PRN OU DRY EYES; Start 09/14/18 at 1 8:00; Status UNV Artificial Tears (Akwa Tears) 2 drop QIDP PRN OU DRY EYES; Start 09/14/18 at 15:30 Aspirin (Ecotrin) 81 mg DAILY PO Last administered on 09/21/18at 08:42; Start 09/15/18 at 09:00; Stop 09/23/18 at 08:59 Aspirin (Ecotrin) 81 mg DAILY PO ; Start 09/15/18 at 09:00; Status UNV Atorvastatin Calcium (Lipitor) 40 mg QHS PO Last administered on 09/20/18at 21:35; Start 09/14/18 at 21:00 Atorvastatin Calcium (Lipitor) 40 mg QPM PO ; Start 09/14/18 at 21:00; Status UNV Baclofen (Lioresal) 5 mg TID PRN PO spasm; Start 09/14/18 at 15:30; Stop 09/19/18 at 17:18; Status DC Baclofen (Lioresal) 10 mg QID PRN PO MUSCLE SPASMS; Start 09/14/18 at 18:00; Status UNV Budesonide/ Formoterol Fumarate (Symbicort 160/ 4.5mcg) 2 puff BID INH Last administered on 09/21/18 08:17; Start 09/14/18 at 21:00 Budesonide/ Formoterol Fumarate (Symbicort 160/ 4.5mcg) 2 puff BID INH ; Start 09/14/18 at 21:00; Status UNV Cetirizine HCl (ZyrTEC) 10 mg DAILY PO Last administered on 09/19/18 08:58; Start 09/15/18 at 09:00; Stop 09/19/18 at 17:18; Status DC Cetirizine HCl (ZyrTEC) 10 mg DAILY PO ; Start 09/15/18 at 09:00; Status UNV Cilostazol (Pletal) 50 mg BID@0730,1730 PO Last administered on 09/21/18 08:44; Start 09/14/18 at 17:30 Cilostazol (Pletal) 50 mg BID@0730,1730 PO ; Start 09/15/18 at 07:30; Status UNV Docusate Sodium (Colace) 100 mg BID PO Last administered on 09/21/18 08:44; Start 09/14/18 at 21:00 Docusate Sodium (Colace) 100 mg BID PO ; Start 09/14/18 at 21:00; Status UNV Donepezil HCl (AriCEPT) 5 mg DAILY PO Last administered on 09/21/18 08:44; Start 09/19/18 at 09:00 Doxazosin Mesylate (Cardura) 4 mg DAILY PO Last administered on 09/19/18 08:57; Start 09/15/18 at 09:00; Stop 09/19/18 at 17:18; Status DC Doxazosin Mesylate (Cardura) 4 mg DAILY PO ; Start 09/15/18 at 09:00; Status UNV Fish Oil ([place]-3 (1000mg)) 1 cap DAILY PO Last administered on 09/21/18 08:44; Start 09/15/18 at 09:00 Fish Oil ([place]-3 (1000mg)) 1 cap DAILY PO ; Start 09/15/18 at 09:00; Status UNV Fluoxetine HCl (PROzac) 20 mg DAILY PO Last administered on 09/20/18 08:53; Start 09/19/18 at 09:00; Stop 09/20/18 at 10:28; Status DC Gabapentin (Neurontin) 200 mg BID PO Last administered on 09/21/18 08:46; Start 09/19/18 at 21:00 Gabapentin (Neurontin) 400 mg BID PO Last administered on 09/19/18 08:57; Start 09/14/18 at 21:00; Stop 09/19/18 at 17:18; Status DC Gabapentin (Neurontin) 400 mg BID PO ; Start 09/14/18 at 21:00; Status UNV Guaifenesin (Mucinex Tab Er) 600 mg BID PO Last administered on 09/21/18 08:42; Start 09/14/18 at 21:00 Guaifenesin (Robitussin Tab) 400 mg BID PO ; Start 09/14/18 at 21:00; Status UNV Home Med (Med Rec Complete!) ASDIRECTED XX ; Start 09/14/18 at 18:00; Stop 09/14/18 at 18:18; Status DC Indapamide (Lozol) 1.25 mg DAILY PO Last administered on 09/21/18 08:45; Start 09/15/18 at 09:00 Indapamide (Lozol) 1.25 mg DAILY PO ; Start 09/15/18 at 09:00; Status UNV Isosorbide Mononitrate (Imdur) 30 mg DAILY PO ; Start 09/15/18 at 09:00; Status UNV Isosorbide Mononitrate (Imdur) 30 mg DAILY@1000 PO Last administered on 09/19/18 10:46; Start 09/15/18 at 10:00; Stop 09/20/18 at 10:28; Status DC Lisinopril (Prinivil) 40 mg DAILY PO Last administered on 09/20/18 08:50; Start 09/15/18 at 09:00; Stop 09/21/18 at 07:12; Status DC Lisinopril (Prinivil) 40 mg DAILY PO ; Start 09/15/18 at 09:00; Status UNV Mirtazapine (Remeron) 45 mg QHS PO Last administered on 09/20/18 21:36; Start 09/14/18 at 21:00 Mirtazapine (Remeron) 45 mg QHS PO ; Start 09/14/18 at 21:00; Status UNV Miscellaneous (Unresolved Patient Own Med Order) SEE LABEL COMMENTS DAILY XX ; Start 09/14/18 at 09:00; Stop 09/20/18 at 10:31; Status DC Multivitamins (Theragram-M) 1 tab DAILY PO Last administered on 09/21/18 08:44; Start 09/15/18 at 09:00 Nicotine (Nicoderm Cq 7 Mg) 1 patch DAILY TD Last administered on 09/21/18 08:47; Start 09/15/18 at 09:00 Nicotine (Nicoderm Cq 7 Mg) 1 patch DAILY TOP ; Start 09/15/18 at 09:00; Status UNV Nitroglycerin (Nitrostat (1/ 150)) 0.4 mg Q5MP PRN SL CHEST PAIN; Start 09/14/18 at 15:30 Nitroglycerin (Nitrostat (1/ 150)) 0.4 mg Q5MP PRN SL CHEST PAIN; Start 09/14/18 at 18:00; Status UNV Omeprazole (PriLOSEC) 20 mg BID PO Last administered on 09/21/18 08:44; Start 09/14/18 at 21:00 Omeprazole (PriLOSEC) 20 mg BID PO ; Start 09/14/18 at 21:00; Status UNV Oxycodone HCl (Roxicodone, Oxyir) 5 mg Q8H PRN PO PAIN 7-10 Last administered on 09/14/18at 17:59; Start 09/14/18 at 15:30; Stop 09/19/18 at 17:18; Status DC Patient Own Medication (Patient'S Own Med) Ketotifen 0.025% (Zadit... DAILY OU ; Start 09/19/18 at 09:00; Stop 09/20/18 at 10:31; Status DC Polyethylene Glycol (Miralax) 1 pkt DAILY PO Last administered on 09/20/18 09:02; Start 09/15/18 at 09:00 Potassium Chloride (Micro-K Extencaps) 10 meq TID PO Last administered on 09/15/18at 07:48; Start 09/14/18 at 21:00; Stop 09/15/18 at 10:09; Status DC Potassium Chloride (Micro-K Extencaps) 10 meq TID PO ; Start 09/14/18 at 21:00; Status UNV Potassium Chloride (Micro-K Extencaps) 20 meq TID PO Last administered on 09/21/18 08:43; Start 09/15/18 at 16:00 Quetiapine Fumarate (SEROquel) 100 mg QHS PO Last administered on 09/20/18 21:35; Start 09/19/18 at 21:00 Quetiapine Fumarate (SEROquel) 150 mg QHS PO Last administered on 09/18/18 20:21; Start 09/14/18 at 21:00; Stop 09/19/18 at 17:20; Status DC Quetiapine Fumarate (SEROquel) 150 mg QHS PO ; Start 09/14/18 at 21:00; Status UNV Sertraline HCl (Zoloft) 200 mg DAILY PO Last administered on 09/21/18 08:46; Start 09/15/18 at 09:00 Sertraline HCl (Zoloft) 200 mg DAILY PO ; Start 09/15/18 at 09:00; Status UNV Sotalol HCl (Betapace) 40 mg BID PO Last administered on 09/21/18 08:46; Start 09/14/18 at 21:00 Sotalol HCl (Betapace) 80 mg Q12H PO ; Start 09/14/18 at 18:00; Status UNV Tamsulosin HCl (Flomax) 0.4 mg DAILY PO Last administered on 09/21/18 08:44; Start 09/15/18 at 09:00 Tamsulosin HCl (Flomax) 0.4 mg DAILY PO ; Start 09/15/18 at 09:00; Status UNV Theophylline (Henrik-24) 400 mg BID PO Last administered on 09/21/18 08:43; Start 09/14/18 at 21:00 Thiamine HCl (VITAMIN B1 INJection) 100 mg DAILY IM Last administered on 09/21/18 08:43; Start 09/20/18 at 15:45 Tiotropium [place] (Spiriva Handihaler) 1 inhalation DAILY INH ; Start 09/15/18 at 09:00; Status UNV Tiotropium [place] (Spiriva Handihaler) 1 inhalation DAILY@08 INH Last administered on 09/21/18 08:17; Start 09/15/18 at 08:00 Topiramate (TopAMAX) 50 mg DAILY PO Last administered on 09/21/18 08:46; Start 09/15/18 at 09:00 Topiramate (TopAMAX) 50 mg QAM PO ; Start 09/15/18 at 09:00; Status UNV Topiramate (TopAMAX) 100 mg QHS PO Last administered on 09/20/18 21:35; Start 09/14/18 at 21:00 Topiramate (TopAMAX) 100 mg QHS PO ; Start 09/14/18 at 21:00; Status UNV Vitamin D (Vitamin D) 2,000 units DAILY PO Last administered on 09/21/18 08:46; Start 09/15/18 at 09:00 Vitamin D (Vitamin D) 2,000 units DAILY PO ; Start 09/15/18 at 09:00; Status UNV Warfarin Sodium (Coumadin) 2.5 mg DAILY@17 PO ; Start 09/23/18 at 17:00 DOROTA PACHECO MD Sep 21, 2018 15:27
--- NOTE | 2018-09-21 19:03 | IPN ---
DATE: 09/21/2018 Patient seen and examined. No acute events overnight. Is trying to get out of chair. Is slightly unsteady. Denies any chest pain, pressure, or discomfort. VITAL SIGNS: Temperature 97.5, pulse 71, respirations 18, blood pressure 148/67, pulse oximetry 97% on room air. LABORATORY DATA: WBC 9.4, hemoglobin and hematocrit 13.1/37.6, platelets 230. Chemistry: Sodium 143, potassium 3.9, chloride 111, bicarbonate 25, BUN 26, creatinine 1.83. PHYSICAL EXAMINATION: GENERAL: Patient alert, comfortable in no acute distress. HEENT: Normocephalic, atraumatic. CARDIAC: Regular, S1, S2. PULMONARY: Bilaterally clear. ABDOMEN: Soft, nontender. Positive bowel sounds. EXTREMITIES: No clubbing, cyanosis, or edema. NEUROLOGIC: Alert and oriented times three. Right-sided visual field deficit. ASSESSMENT AND PLAN: This is a 73-year-old male patient with underlying medical history of hypertension, diabetes, dyslipidemia, history of coronary artery disease with coronary artery bypass graft (CABG) in 1994, history of stent placement in 2016, transferred to [facility] after sustaining left-sided occipital lobe hemorrhagic stroke 09/09/2018. Patient was brought to acute rehabilitation for further care. 1. Left-sided posterior cerebral artery hemorrhage stroke. Management is as per acute rehabilitation provider. Physical therapy (PT)/occupational therapy (OT), speech and swallow. Patient was managed by vascular surgery at [facility]. Patient is on 81 of aspirin daily until 09/23/2018, then will switch to Coumadin for atrial fibrillation, as per vascular surgery at [facility]. Plavix currently on hold. 2. History of coronary artery disease. Per [facility] parachute mender, will start Coumadin on 09/23/2018 and discontinue all antiplatelet agents at that time. Followup with stroke clinic at [facility] 10/12/2018 for genetic testing and family history of factor V Leiden deficiency. 3. Deep vein thrombosis (DVT) prophylaxis. Currently on thromboembolic deterrents (TEDs) and sequentials. Will be starting Coumadin for atrial fibrillation. Further management as per vascular and parachute mender at [facility] and as per acute rehabilitation provider. 4. Seizure disorder. Continue Topamax and gabapentin. 5. Coronary artery disease, status post CABG and stents. Currently on aspirin. Will be switched to full-dose Coumadin as per [facility] vascular surgery and cardiology recommendations. 6. Paroxysmal atrial fibrillation with rapid ventricular response. Holding Plavix. On 81 of aspirin until 09/23/2018and then will be switching to anticoagulation with Coumadin on 09/23/2018. Followup INR. Continue sotalol. Further recommendations as per Dr. Perez and also vascular surgery at [facility]. 7. Hypertension. Continue sotalol and indapamide. Continue statin. Lisinopril on hold given elevated creatinine. Norvasc started. Monitor blood pressure. 8. Coronary artery disease, currently on aspirin 81 and statin. Continue beta sendy. Angiotensin-converting enzyme (SHRUTI) on hold. Continue Norvasc. Continue indapamide. Monitor blood pressure. Aspirin will be discontinued, and patient will be started on Coumadin as per vascular surgery and cardiology at [facility]. 9. Posttraumatic stress disorder and depression. Continue current medication. 10. Chronic obstructive pulmonary disease (COPD). Spiriva, Symbicort, nebulizer treatment, incentive spirometry. 11. Peripheral arterial disease. Continue current medication. 12. BPH. Continue current medication. 13. Deep vein thrombosis (DVT) prophylaxis. TEDs and sequentials until 09/23/2018, when patient started on Coumadin. Will monitor patient closely.
[2018-09-21 20:00] VITALS: BP 123/60
[2018-09-21] MEDS: ATORVASTATIN 20 MG TAB PO SCH (20:34)
[2018-09-21] MEDS: QUEtiapine FUMARATE 50 MG TAB PO SCH (20:35)
[2018-09-21] MEDS: MIRTAZAPINE 15 MG TAB PO SCH (20:35)
[2018-09-21] MEDS: TOPIRAMATE (TopAMAX) 100 MG TAB PO SCH (20:35)
[2018-09-22 06:00] VITALS: BP 134/63
[2018-09-22] MEDS: SOTALOL HCL 80 MG TAB PO SCH ×2 (08:04→21:38)
[2018-09-22] MEDS: SYMBICORT 160/4.5MCG INHALER 6GM INH SCH ×2 (08:15→21:00)
[2018-09-22] MEDS: TIOTROPIUM INHALER/CAPSULE (SPIRIVA) INH SCH (08:16)
[2018-09-22] MEDS: TOPIRAMATE (TopAMAX) 25 MG TAB PO SCH (09:00)
[2018-09-22] MEDS: MIRALAX *UNIT DOSE* 17GM PACKET PO SCH (09:00)
[2018-09-22] MEDS: amLODIPine 10 MG TAB PO SCH (09:32)
[2018-09-22] MEDS: THIAMINE HCL 200 MG/2 ML VIAL (J3411) IM SCH (09:33)
[2018-09-22] MEDS: NICOTINE 7 MG/24 HR TRANSDERMAL TD SCH (09:33)
[2018-09-22] MEDS: DOCUSATE SODIUM 100 MG CAP PO SCH ×2 (09:33→21:38)
[2018-09-22] MEDS: CILOSTAZOL 100 MG TAB (PLETAL) PO SCH ×2 (09:34→17:06)
[2018-09-22] MEDS: VITAMIN D 1,000 INTERNATIONAL UNITS TABLET PO SCH (09:34)
[2018-09-22] MEDS: OMEGA-3 1000MG CAPSULE PO SCH (09:34)
[2018-09-22] MEDS: MULTIVITAMINS/MINERALS THERAP 1 TAB PO SCH (09:34)
[2018-09-22] MEDS: OMEPRAZOLE 20 MG CAP PO SCH ×2 (09:34→21:38)
[2018-09-22] MEDS: guaiFENesin ER 600 MG TAB PO SCH ×2 (09:34→21:38)
[2018-09-22] MEDS: DONEPEZIL 5 MG TAB PO SCH (09:34)
[2018-09-22] MEDS: ASPIRIN 81 MG ENTERIC TAB PO SCH (09:34)
[2018-09-22] MEDS: GABAPENTIN 100 MG CAP PO SCH ×2 (09:35→21:37)
[2018-09-22] MEDS: INDAPAMIDE 1.25MG TABLET PO SCH (09:35)
[2018-09-22] MEDS: SERTRALINE 100 MG TAB PO SCH (09:35)
[2018-09-22] MEDS: THEOPHYLLINE (THEO-24) 100MG SR **CAPSULE PO SCH ×2 (09:35→21:37)
[2018-09-22] MEDS: TAMSULOSIN 0.4 MG CAP PO SCH (09:36)
[2018-09-22] MEDS: POTASSIUM CHLORIDE 10 MEQ SR TABLET PO SCH ×3 (09:36→21:37)
[2018-09-22 14:00] VITALS: BP 160/75
--- NOTE | 2018-09-22 16:21 | IPNPDOC ---
Text Note Date of Service The patient was seen on 09/22/18. NOTE Patient seen and examined. No acute events overnight. working with PT. Denies any chest pain, pressure, or discomfort. PHYSICAL EXAMINATION: GENERAL: Patient alert, comfortable in no acute distress. HEENT: Normocephalic, atraumatic. CARDIAC: Regular, S1, S2. PULMONARY: Bilaterally clear. ABDOMEN: Soft, nontender. Positive bowel sounds. EXTREMITIES: No clubbing, cyanosis, or edema. NEUROLOGIC: Alert and oriented times three. Right-sided visual field deficit. ASSESSMENT AND PLAN: This is a 73-year-old male patient with underlying medical history of hypertension, diabetes, dyslipidemia, history of coronary artery disease with coronary artery bypass graft (CABG) in 1994, history of stent placement in 2016, transferred to [facility] after sustaining left-sided occipital lobe hemorrhagic stroke 09/09/2018. Patient was brought to acute rehabilitation for further care. 1. Left-sided posterior cerebral artery hemorrhage stroke. Management is as per acute rehabilitation provider. Physical therapy (PT)/occupational therapy (OT), speech and swallow. Patient was managed by vascular surgery at [facility]. Patient is on 81 of aspirin daily until 09/23/2018, then will switch to Coumadin for atrial fibrillation, as per vascular surgery at [facility]. Plavix currently on hold. 2. History of coronary artery disease. Per [facility] international coordinator, will start Coumadin on 09/23/2018 and discontinue all antiplatelet agents at that time. Followup with stroke clinic at [facility] 10/12/2018 for genetic testing and family history of factor V Leiden deficiency. 3. Deep vein thrombosis (DVT) prophylaxis. Currently on thromboembolic deterrents (TEDs) and sequentials. Will be starting Coumadin for atrial fibrillation. Further management as per vascular and international coordinator at [facility] and as per acute rehabilitation provider. 4. Seizure disorder. Continue Topamax and gabapentin. 5. Coronary artery disease, status post CABG and stents. Currently on aspirin. Will be switched to full-dose Coumadin as per [facility] vascular surgery and cardiology recommendations. 6. Paroxysmal atrial fibrillation with rapid ventricular response. Holding Plavix. On 81 of aspirin until 09/23/2018and then will be switching to anticoagulation with Coumadin on 09/23/2018. Followup INR. Continue sotalol. Further recommendations as per Dr. Perez and also vascular surgery at [facility]. 7. Hypertension. Continue sotalol and indapamide. Continue statin. Lisinopril on hold given elevated creatinine. Norvasc started, dose imcreased. Monitor blood pressure. 8. Coronary artery disease, currently on aspirin 81 and statin. Continue beta sendy. Angiotensin-converting enzyme (SHRUTI) on hold. Continue Norvasc. Continue indapamide. Monitor blood pressure. Aspirin will be discontinued, and patient will be started on Coumadin as per vascular surgery and cardiology at [facility]. 9. Posttraumatic stress disorder and depression. Continue current medication. 10. Chronic obstructive pulmonary disease (COPD). Spiriva, Symbicort, nebulizer treatment, incentive spirometry. 11. Peripheral arterial disease. Continue current medication. 12. BPH. Continue current medication. 13. Deep vein thrombosis (DVT) prophylaxis. TEDs and sequentials until 09/23/2018, when patient started on Coumadin. Will monitor patient closely. VS,Fishbone, I+O VS, Fishbone, I+O Vital Signs Date Time Temp Pulse Resp B/P (MAP) Pulse Ox O2 Delivery O2 Flow Rate FiO2 09/22/18 14:00 97.5 70 17 160/75 (103) 96 Room Air I&O- Last 24 Hours up to 6 AM 09/22/18 06:00 Intake Total 1320 ml Balance 1320 ml OH KEY MD Sep 22, 2018 16:21
[2018-09-22 20:00] VITALS: BP 143/65
[2018-09-22] MEDS: ATORVASTATIN 20 MG TAB PO SCH (21:37)
[2018-09-22] MEDS: TOPIRAMATE (TopAMAX) 100 MG TAB PO SCH (21:38)
[2018-09-22] MEDS: QUEtiapine FUMARATE 50 MG TAB PO SCH (21:38)
[2018-09-22] MEDS: MIRTAZAPINE 15 MG TAB PO SCH (21:38)
[2018-09-23 06:00] VITALS: BP 131/77
[2018-09-23 06:44] LABS: HEMATOCRIT 41.3 % (42.0-52.0); HEMOGLOBIN 14.4 g/dl (13.5-17.5); MEAN CORPUSCULAR HEMOGLOBIN 33.9 pg (27.0-33.0); MEAN CORPUSCULAR HGB CONC 34.9 g/dl (32.0-36.5); MEAN CORPUSCULAR VOLUME 97.2 fl (80.0-96.0); PLATELET COUNT, AUTOMATED 276 10^3/uL (150-450); RED BLOOD COUNT 4.25 10^6/uL (4.30-6.10); WHITE BLOOD COUNT 9.9 10^3/uL (4.0-10.0)
[2018-09-23 06:56] LABS: INR 1.02; PROTHROMBIN TIME 13.6 SECONDS (12.1-14.4)
[2018-09-23 07:12] LABS: CALCIUM LEVEL 9.3 MG/DL (8.8-10.2); CREATININE FOR GFR 1.73 MG/DL (0.70-1.30); GLOMERULAR FILTRATION RATE 41.2 (>42); MAGNESIUM LEVEL 2.1 MG/DL (1.8-2.4); POTASSIUM SERUM 4.1 MEQ/L (3.5-5.1)
[2018-09-23] MEDS: SYMBICORT 160/4.5MCG INHALER 6GM INH SCH ×2 (08:31→20:53)
[2018-09-23] MEDS: TIOTROPIUM INHALER/CAPSULE (SPIRIVA) INH SCH (08:31)
[2018-09-23] MEDS: DOCUSATE SODIUM 100 MG CAP PO SCH ×2 (08:34→20:39)
[2018-09-23] MEDS: MIRALAX *UNIT DOSE* 17GM PACKET PO SCH (08:35)
[2018-09-23] MEDS: TAMSULOSIN 0.4 MG CAP PO SCH (10:07)
[2018-09-23] MEDS: POTASSIUM CHLORIDE 10 MEQ SR TABLET PO SCH ×3 (10:07→20:40)
[2018-09-23] MEDS: MULTIVITAMINS/MINERALS THERAP 1 TAB PO SCH (10:07)
[2018-09-23] MEDS: OMEGA-3 1000MG CAPSULE PO SCH (10:07)
[2018-09-23] MEDS: TOPIRAMATE (TopAMAX) 25 MG TAB PO SCH (10:08)
[2018-09-23] MEDS: SERTRALINE 100 MG TAB PO SCH (10:08)
[2018-09-23] MEDS: amLODIPine 10 MG TAB PO SCH (10:08)
[2018-09-23] MEDS: CILOSTAZOL 100 MG TAB (PLETAL) PO SCH ×2 (10:08→17:36)
[2018-09-23] MEDS: guaiFENesin ER 600 MG TAB PO SCH ×2 (10:08→20:40)
[2018-09-23] MEDS: THEOPHYLLINE (THEO-24) 100MG SR **CAPSULE PO SCH ×2 (10:09→20:39)
[2018-09-23] MEDS: DONEPEZIL 5 MG TAB PO SCH (10:09)
[2018-09-23] MEDS: SOTALOL HCL 80 MG TAB PO SCH ×2 (10:09→21:00)
[2018-09-23] MEDS: GABAPENTIN 100 MG CAP PO SCH ×2 (10:09→20:40)
[2018-09-23] MEDS: OMEPRAZOLE 20 MG CAP PO SCH ×2 (10:09→20:39)
[2018-09-23] MEDS: VITAMIN D 1,000 INTERNATIONAL UNITS TABLET PO SCH (10:09)
[2018-09-23] MEDS: THIAMINE HCL 200 MG/2 ML VIAL (J3411) IM SCH (10:10)
[2018-09-23] MEDS: NICOTINE 7 MG/24 HR TRANSDERMAL TD SCH (10:10)
[2018-09-23] MEDS: INDAPAMIDE 1.25MG TABLET PO SCH (10:11)
[2018-09-23 14:00] VITALS: BP 131/73
[2018-09-23] MEDS ORDERED: WARFARIN SOD 2.5 MG TAB PO SCH (17:00)
--- NOTE | 2018-09-23 19:14 | IPNPDOC ---
Text Note Date of Service The patient was seen on 09/23/18. NOTE Patient seen and examined. No acute events overnight. working with PT. Denies any chest pain, pressure, or discomfort. PHYSICAL EXAMINATION: GENERAL: Patient alert, comfortable in no acute distress. HEENT: Normocephalic, atraumatic. CARDIAC: Regular, S1, S2. PULMONARY: Bilaterally clear. ABDOMEN: Soft, nontender. Positive bowel sounds. EXTREMITIES: No clubbing, cyanosis, or edema. NEUROLOGIC: Alert and oriented times three. Right-sided visual field deficit. ASSESSMENT AND PLAN: This is a 73-year-old male patient with underlying medical history of hypertension, diabetes, dyslipidemia, history of coronary artery disease with coronary artery bypass graft (CABG) in 1994, history of stent placement in 2016, transferred to [facility] after sustaining left-sided occipital lobe hemorrhagic stroke 09/09/2018. Patient was brought to acute rehabilitation for further care. 1. Left-sided posterior cerebral artery hemorrhage stroke. Management is as per acute rehabilitation provider. Physical therapy (PT)/occupational therapy (OT), speech and swallow. Patient was managed by vascular surgery at [facility]. Patient is on 81 of aspirin daily until 09/23/2018, then will switch to Coumadin for atrial fibrillation, as per vascular surgery at [facility]. Plavix currently on hold. 2. History of coronary artery disease. Per [facility] scientific informatics analyst, will start Coumadin on 09/23/2018 and discontinue all antiplatelet agents at that time. Followup with stroke clinic at [facility] 10/12/2018 for genetic testing and family history of factor V Leiden deficiency. 3. Seizure disorder. Continue Topamax and gabapentin. 4. Coronary artery disease, status post CABG and stents. ASA switched to full-dose Coumadin as per [facility] vascular surgery and cardiology recommendations. 5. Paroxysmal atrial fibrillation with rapid ventricular response. Holding Plavix. On 81 of aspirin until 09/23/2018and then will be switching to anticoagulation with Coumadin on 09/23/2018. Followup INR. Continue sotalol. Further recommendations as per Dr. Perez and also vascular surgery at [facility]. 6. Hypertension. Continue sotalol and indapamide. Continue statin. Lisinopril on hold given elevated creatinine. Norvasc added. Monitor blood pressure. 7. Coronary artery disease, currently on aspirin 81 and statin. Continue beta sendy. Angiotensin-converting enzyme (SHRUTI) on hold. Continue Norvasc. Continue indapamide. Monitor blood pressure. Aspirin will be discontinued, and patient will be started on Coumadin as per vascular surgery and cardiology at [facility]. 8. Posttraumatic stress disorder and depression. Continue current medication. 9. Chronic obstructive pulmonary disease (COPD). Spiriva, Symbicort, nebulizer treatment, incentive spirometry. 10. Peripheral arterial disease. Continue current medication. 11. BPH. Continue current medication. 12. Deep vein thrombosis (DVT) prophylaxis. TEDs and sequentials until 09/23/2018, when patient started on Coumadin. Will monitor patient closely. VS,Fishbone, I+O VS, Fishbone, I+O Laboratory Tests 09/23/18 06:13 Red Blood Count 4.25 L, Mean Corpuscular Volume 97.2 H, Mean Corpuscular Hemoglobin 33.9 H, Mean Corpuscular Hemoglobin Concent 34.9, Red Cell Distribution Width 13.2, Calcium Level 9.3 Vital Signs Date Time Temp Pulse Resp B/P (MAP) Pulse Ox O2 Delivery O2 Flow Rate FiO2 09/23/18 14:00 98.1 67 15 131/73 (92) 94 Room Air I&O- Last 24 Hours up to 6 AM 09/23/18 05:59 Intake Total 1640 ml Output Total 0 ml Balance 1640 ml OH KEY MD Sep 23, 2018 19:14
[2018-09-23 20:00] VITALS: BP 113/56
[2018-09-23] MEDS: MIRTAZAPINE 15 MG TAB PO SCH (20:39)
[2018-09-23] MEDS: QUEtiapine FUMARATE 50 MG TAB PO SCH (20:40)
[2018-09-23] MEDS: ATORVASTATIN 20 MG TAB PO SCH (20:40)
[2018-09-23] MEDS: ACETAMINOPHEN TAB 650MG DOSE (2X325MG) PO PRN (20:41)
[2018-09-23] MEDS: TOPIRAMATE (TopAMAX) 100 MG TAB PO SCH (21:28)
[2018-09-24 06:35] VITALS: BP 116/82
[2018-09-24 07:01] LABS: INR 1.08; PROTHROMBIN TIME 14.2 SECONDS (12.1-14.4)
[2018-09-24] MEDS: CILOSTAZOL 100 MG TAB (PLETAL) PO SCH ×2 (07:26→17:00)
[2018-09-24 07:55] VITALS: BP 122/88
[2018-09-24] MEDS: THIAMINE HCL 200 MG/2 ML VIAL (J3411) IM SCH (08:58)
[2018-09-24] MEDS: TOPIRAMATE (TopAMAX) 25 MG TAB PO SCH (08:59)
[2018-09-24] MEDS: MIRALAX *UNIT DOSE* 17GM PACKET PO SCH (08:59)
[2018-09-24] MEDS: OMEGA-3 1000MG CAPSULE PO SCH (08:59)
[2018-09-24 09:00] VITALS: BP 131/80
[2018-09-24] MEDS: DONEPEZIL 5 MG TAB PO SCH (09:00)
[2018-09-24] MEDS: amLODIPine 10 MG TAB PO SCH (09:00)
[2018-09-24] MEDS: POTASSIUM CHLORIDE 10 MEQ SR TABLET PO SCH ×3 (09:00→21:40)
[2018-09-24] MEDS: DOCUSATE SODIUM 100 MG CAP PO SCH ×2 (09:00→21:00)
[2018-09-24] MEDS: TAMSULOSIN 0.4 MG CAP PO SCH (09:00)
[2018-09-24] MEDS: INDAPAMIDE 1.25MG TABLET PO SCH (09:01)
[2018-09-24] MEDS: VITAMIN D 1,000 INTERNATIONAL UNITS TABLET PO SCH (09:01)
[2018-09-24] MEDS: SERTRALINE 100 MG TAB PO SCH (09:02)
[2018-09-24] MEDS: SOTALOL HCL 80 MG TAB PO SCH ×2 (09:02→21:00)
[2018-09-24] MEDS: GABAPENTIN 100 MG CAP PO SCH (09:03)
[2018-09-24] MEDS: OMEPRAZOLE 20 MG CAP PO SCH ×2 (09:03→21:40)
[2018-09-24] MEDS: MULTIVITAMINS/MINERALS THERAP 1 TAB PO SCH (09:03)
[2018-09-24] MEDS: NICOTINE 7 MG/24 HR TRANSDERMAL TD SCH (09:03)
[2018-09-24] MEDS: guaiFENesin ER 600 MG TAB PO SCH ×2 (09:03→21:40)
--- NOTE | 2018-09-24 12:37 | IPNPDOC ---
Date Seen The patient was seen on 09/24/18. Progress Note HPI: 73-year-old male with a past medical history of hypertension, diabetes, hyperlipidemia, history of coronary artery disease, CABG in 1994, history of stent placement in 2016, transferred from [facility], after sustaining a left occipital lobe hemorrhagic stroke on 09/09/[address] [facility], Dr Thornton, after sustaining a left QUANTITATIVE MANAGER hemorrhagic stroke. He was switched from atenolol to Sotalol related to episode of Afib. No neurosurgical intervention was necessary and the patient was transported back to [facility] [place] for rehabilitation. The pt has no complaints at this time today. The pt is in bed with family at bedside. Denies chest pain, shortness of breath, abdominal pain, nausea, vomiting, or vertigo. PAST MEDICAL HISTORY: 1. Coronary artery disease, status post CABG in 1994. 2. History of stent placement in 2016. 3. History of atrial fibrillation. 4. Diabetes. 5. Hypertension. 6. Hyperlipidemia. 7. Non oxygen dependent chronic obstructive pulmonary disease (COPD). PE: GEN: 73yoM, appears stated age. No acute distress. HEENT: Normocephalic, atraumatic. Sclera are nonicteric. Conjunctiva without injection. Moist mucous membranes. CHEST: Regular rate and rhythm, +S1, +S2 LUNGS: Clear to auscultation bilaterally. No wheezes, rales, or rhonchi. Breathing appears symmetric and easy. ABD: Round, soft, non-tender, non-distended. +Bowel sounds throughout. No rebound or guarding. No costovertebral angle tenderness. EXT: No lower extremity edema appreciated. SKIN: [place], dry, warm. No rashes. NEURO: Alert and oriented x 3. Rt visual field deficits, no change. ASSESSMENT AND PLAN: This is a 73-year-old male patient with underlying medical history of hypertension, diabetes, dyslipidemia, history of coronary artery disease with coronary artery bypass graft (CABG) in 1994, history of stent placement in 2016, transferred to [facility] after sustaining left-sided occipital lobe hemorrhagic stroke 09/09/2018. Patient was brought to acute rehabilitation for further care. 1. Left-sided posterior cerebral artery hemorrhage stroke. Management is as per acute rehabilitation provider. Physical therapy (PT)/occupational therapy (OT), speech and swallow. Patient was managed by vascular surgery at [facility]. Patient is on 81 of aspirin daily until 09/23/2018, then will switch to Coumadin for atrial fibrillation, as per vascular surgery at [facility]. Plavix currently on hold. 2. History of coronary artery disease. Per [facility] azure developer, will start Coumadin on 09/23/2018 and discontinue all antiplatelet agents at that time. Followup with stroke clinic at [facility] 10/12/2018 for genetic testing and family history of factor V Leiden deficiency. 3. Seizure disorder. Continue Topamax and gabapentin. 4. Coronary artery disease, status post CABG and stents. ASA switched to full-dose Coumadin as per [facility] vascular surgery and cardiology recommendations. 5. Paroxysmal atrial fibrillation with rapid ventricular response. Holding Plavix. On 81 of aspirin until 09/23/2018and then will be switching to anticoagulation with Coumadin on 09/23/2018. Followup INR. Continue sotalol. Further recommendations as per Dr. Thornton and also vascular surgery at [facility]. 6. Hypertension. Continue sotalol and indapamide. Continue statin. Lisinopril on hold given elevated creatinine. Norvasc added. Monitor blood pressure. 7. Coronary artery disease, currently on aspirin 81 and statin. Continue beta sendy. Angiotensin-converting enzyme (SHRUTI) on hold. Continue Norvasc. Continue indapamide. Monitor blood pressure. Aspirin will be discontinued, and patient will be started on Coumadin as per vascular surgery and cardiology at [facility]. 8. Posttraumatic stress disorder and depression. Continue current medication. 9. Chronic obstructive pulmonary disease (COPD). Spiriva, Symbicort, nebulizer treatment, incentive spirometry. 10. Peripheral arterial disease. Continue current medication. 11. BPH. Continue current medication. 12. Deep vein thrombosis (DVT) prophylaxis. TEDs and sequentials until 09/23/2018, when patient started on Coumadin. Will monitor patient closely. VS, I&O, 24H, Fishbone Vital Signs/I&O Vital Signs Date Time Temp Pulse Resp B/P (MAP) Pulse Ox O2 Delivery O2 Flow Rate FiO2 09/24/18 09:02 75 131/80 09/24/18 09:00 98.3 18 96 Room Air I&O- Last 24 Hours up to 6 AM 09/24/18 06:00 Intake Total 960 ml Balance 960 ml Laboratory Data 24H LABS Laboratory Tests 2 09/24/18 06:28: Prothrombin Time 14.2, Prothromb Time International Ratio 1.08 Microbiology Microbiology 09/14/18 Urine Culture - Final, Complete Shivani Carney Sep 24, 2018 12:37
[2018-09-24] MEDS: THEOPHYLLINE (THEO-24) 100MG SR **CAPSULE PO SCH ×2 (13:02→21:41)
[2018-09-24 14:00] VITALS: BP 141/82
[2018-09-24] MEDS: TIOTROPIUM INHALER/CAPSULE (SPIRIVA) INH SCH (14:18)
[2018-09-24] MEDS: SYMBICORT 160/4.5MCG INHALER 6GM INH SCH (14:18)
[2018-09-24] MEDS ORDERED: WARFARIN SOD 5 MG TAB PO SCH (17:00)
[2018-09-24] MEDS ORDERED: WARFARIN SOD 2 MG TAB PO SCH (17:00)
--- NOTE | 2018-09-24 17:04 | IPNPDOC ---
PM&R Progress Note DATE OF SERVICE: Sep 24, 2018 [employer] Progress Note Subjective: Patient seen in his room with his daughter Maureen and reported wanting to go home with his granddaughter and was open to his other families coming by to help. REVIEW OF SYSTEMS: The following is a completed review of systems and has been reviewed. Review of systems otherwise unremarkable. PAIN: Patient self reports no pain EYES: right visual field cut EARS, NOSE, & THROAT:denies dysarthria or rhinorrhea or dysphagia CARDIOVASCULAR: denies chest pain or palpitations PULMONARY: Negative. 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 PHYSICAL EXAMINATION: VITAL SIGNS: Please see below. GENERAL: Pleasant and cooperative. No acute distress. HEENT: PERRL. Extraocular movements intact. Clear conjunctiva. +right side visual field cut CARDIOVASCULAR: Regular rate and rhythm. No murmurs, rubs, or gallops. LUNGS: Mostly clear to auscultation +expiratory wheezes at bases. No rhonchi. ABDOMEN: Soft, nontender, nondistended. Positive bowel sounds. Normal active bowel sounds NEUROLOGICAL: Alert and oriented to self, not time or place. + ANomia, Cranial nerves II through XII grossly intact. Sensation grossly intact EXTREMITIES: 5\5 strength bilateral upper extremities. 5\5 strength right lower extremity. 5/5 strength in left lower extremity. 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 PLAN: 1. 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- continue ASA 81mg daily until 09-23-18 then will need to switch to full AC for his Afib- decision to be made by Vascular Surgery at [facility], Plavix currently on hold, however has pmh of coronary and leg stents, per [facility] cardiology will started Coumadin on 09-23-17 goal 2-3, will stop antiplatelets -monitor and manage BPs, continue secondary statin therapy -has stroke clinic f/u 10-12-18 for genetic testing, family Hx of Factor V Leiden -pmh Seizure disorder, continue Topomax, Gabapentin -already on Sertraline, will d/c additional SSRI, TSH within normal limits -increase donepezil for dementia 3. Cardio: CAD s/p CABG and stents, newly diagnosed Paroxysmal Afib with RVR- Plavix on hold, continue ASA 81 until 09-23-18, will need AC per Vascular surgery recs- started COumadin on 09-23-17 and d/c all ASA, continue Sotalol -pmh HTN continue home meds, will monitor off Doxazosin and Isosorbide mononitrate as polypharmacy can be contributing to dementia, continue Indapamide and lisinopril- will monitor and adjust prn, medicine consulted -pmh PAD continue Cilostazol 4.Resp: pmh COPD, monitor for signs of pneumonia, Duonebs, Spiriva, and Symbicort, Incentive Spirometry 5. Psych: pmh PTSD/Depression: continue Remeron, tapered off Seroquel, continue Zoloft -will start IM thiamine for hx of ETOH abuse 6. : pmh BPH continue Flomax , admission UA and Ucx negative, monitor PVRs 7. GI ppx: start Protonix 8. DVT ppx: TEDs and Dopplers to r/o DVT 9. Pain: Tylenol prn 10. Dispo: 09-27-18 to home with granddaughter Carla, abdias Reddy his other children will be able to check on him daily, progressing towards goals Allergies Coded Allergies: Chlordiazepoxide (Unverified Allergy, Unknown, 08/10/18) SEIZURES Vital Signs Vital Signs Date Time Temp Pulse Resp B/P (MAP) Pulse Ox O2 Delivery O2 Flow Rate FiO2 09/24/18 14:00 97.3 89 21 141/82 (101) 97 Room Air Laboratory Data Labs 24H Laboratory Tests 2 09/24/18 06:28: Prothrombin Time 14.2, Prothromb Time International Ratio 1.08 Microbiology Microbiology 09/14/18 Urine Culture - Final, Complete Current Medications Current Medications Current Medications Acetaminophen (Tylenol Tab) 650 mg Q4HP PRN PO MILD PAIN (PS 1-4) Last administered on 09/23/18at 20:41; Start 09/14/18 at 15:30 Acetaminophen (Tylenol Tab) 650 mg Q6H PRN PO PAIN; Start 09/14/18 at 18:00; Status UNV Albuterol Sulfate (Proventil Neb) 2.5 mg Q4H PRN INH SHORTNESS OF BREATH; Start 09/14/18 at 18:00; Status UNV Albuterol Sulfate (Proventil, Ventolin Hfa) 2 puff Q4H PRN INH SHORTNESS OF BREATH; Start 09/14/18 at 18:00; Status UNV Albuterol Sulfate (Proventil, Ventolin Hfa) 2 puff Q4HP PRN INH SHORTNESS OF BREATH; Start 09/14/18 at 15:30 Amlodipine Besylate (Norvasc) 5 mg DAILY PO Last administered on 09/21/18at 08:45; Start 09/21/18 at 09:00; Stop 09/21/18 at 18:34; Status DC Amlodipine Besylate (Norvasc) 10 mg DAILY PO Last administered on 09/24/18at 09:00; Start 09/22/18 at 09:00 Artificial Tears (Akwa Tears) 1 drop Q1H PRN OU DRY EYES; Start 09/14/18 at 18:00; Status UNV Artificial Tears (Akwa Tears) 2 drop QIDP PRN OU DRY EYES; Start 09/14/18 at 15:30 Aspirin (Ecotrin) 81 mg DAILY PO Last administered on 09/22/18at 09:34; Start 09/15/18 at 09:00; Stop 09/23/18 at 08:59; Status DC Aspirin (Ecotrin) 81 mg DAILY PO ; Start 09/15/18 at 09:00; Status UNV Atorvastatin Calcium (Lipitor) 40 mg QHS PO Last administered on 09/23/18at 20:40; Start 09/14/18 at 21:00 Atorvastatin Calcium (Lipitor) 40 mg QPM PO ; Start 09/14/18 at 21:00; Status UNV Baclofen (Lioresal) 5 mg TID PRN PO spasm; Start 09/14/18 at 15:30; Stop 09/19/18 at 17:18; Status DC Baclofen (Lioresal) 10 mg QID PRN PO MUSCLE SPASMS; Start 09/14/18 at 18:00; Status UNV Budesonide/ Formoterol Fumarate (Symbicort 160/ 4.5mcg) 2 puff BID INH Last administered on 09/23/18at 20:53; Start 09/14/18 at 21:00 Budesonide/ Formoterol Fumarate (Symbicort 160/ 4.5mcg) 2 puff BID INH ; Start 09/14/18 at 21:00; Status UNV Cetirizine HCl (ZyrTEC) 10 mg DAILY PO Last administered on 09/19/18 08:58; Start 09/15/18 at 09:00; Stop 09/19/18 at 17:18; Status DC Cetirizine HCl (ZyrTEC) 10 mg DAILY PO ; Start 09/15/18 at 09:00; Status UNV Cilostazol (Pletal) 50 mg BID@0730,1730 PO Last administered on 09/24/18 07:26; Start 09/14/18 at 17:30 Cilostazol (Pletal) 50 mg BID@0730,1730 PO ; Start 09/15/18 at 07:30; Status U NV Docusate Sodium (Colace) 100 mg BID PO Last administered on 09/24/18 09:00; Start 09/14/18 at 21:00 Docusate Sodium (Colace) 100 mg BID PO ; Start 09/14/18 at 21:00; Status UNV Donepezil HCl (AriCEPT) 5 mg DAILY PO Last administered on 09/24/18 09:00; Start 09/19/18 at 09:00 Doxazosin Mesylate (Cardura) 4 mg DAILY PO Last administered on 09/19/18 08:57; Start 09/15/18 at 09:00; Stop 09/19/18 at 17:18; Status DC Doxazosin Mesylate (Cardura) 4 mg DAILY PO ; Start 09/15/18 at 09:00; Status UNV Fish Oil ([place]-3 (1000mg)) 1 cap DAILY PO Last administered on 09/24/18 08:59; Start 09/15/18 at 09:00 Fish Oil ([place]-3 (1000mg)) 1 cap DAILY PO ; Start 09/15/18 at 09:00; Status UNV Fluoxetine HCl (PROzac) 20 mg DAILY PO Last administered on 09/20/18 08:53; Start 09/19/18 at 09:00; Stop 09/20/18 at 10:28; Status DC Gabapentin (Neurontin) 200 mg BID PO Last administered on 09/24/18 09:03; Start 09/19/18 at 21:00 Gabapentin (Neurontin) 400 mg BID PO Last administered on 09/19/18 08:57; Start 09/14/18 at 21:00; Stop 09/19/18 at 17:18; Status DC Gabapentin (Neurontin) 400 mg BID PO ; Start 09/14/18 at 21:00; Status UNV Guaifenesin (Mucinex Tab Er) 600 mg BID PO Last administered on 09/24/18 09:03; Start 09/14/18 at 21:00 Guaifenesin (Robitussin Tab) 400 mg BID PO ; Start 09/14/18 at 21:00; Status UNV Home Med (Med Rec Complete!) ASDIRECTED XX ; Start 09/14/18 at 18:00; Stop 09/14/18 at 18:18; Status DC Indapamide (Lozol) 1.25 mg DAILY PO Last administered on 09/24/18 09:01; Start 09/15/18 at 09:00 Indapamide (Lozol) 1.25 mg DAILY PO ; Start 09/15/18 at 09:00; Status UNV Isosorbide Mononitrate (Imdur) 30 mg DAILY PO ; Start 09/15/18 at 09:00; Status UNV Isosorbide Mononitrate (Imdur) 30 mg DAILY@1000 PO Last administered on 09/19/18 10:46; Start 09/15/18 at 10:00; Stop 09/20/18 at 10:28; Status DC Lisinopril (Prinivil) 40 mg DAILY PO Last administered on 09/20/18 08:50; Start 09/15/18 at 09:00; Stop 09/21/18 at 07:12; Status DC Lisinopril (Prinivil) 40 mg DAILY PO ; Start 09/15/18 at 09:00; Status UNV Mirtazapine (Remeron) 45 mg QHS PO Last administered on 09/23/18 20:39; Start 09/14/18 at 21:00 Mirtazapine (Remeron) 45 mg QHS PO ; Start 09/14/18 at 21:00; Status UNV Miscellaneous (Unresolved Patient Own Med Order) SEE LABEL COMMENTS DAILY XX ; Start 09/14/18 at 09:00; Stop 09/20/18 at 10:31; Status DC Multivitamins (Theragram-M) 1 tab DAILY PO Last administered on 09/24/18 09:03; Start 09/15/18 at 09:00 Nicotine (Nicoderm Cq 7 Mg) 1 patch DAILY TD Last administered on 09/24/18 09:03; Start 09/15/18 at 09:00 Nicotine (Nicoderm Cq 7 Mg) 1 patch DAILY TOP ; Start 09/15/18 at 09:00; Status UNV Nitroglycerin (Nitrostat (1/ 150)) 0.4 mg Q5MP PRN SL CHEST PAIN; Start 09/14/18 at 15:30 Nitroglycerin (Nitrostat (1/ 150)) 0.4 mg Q5MP PRN SL CHEST PAIN; Start 09/14/18 at 18:00; Status UNV Omeprazole (PriLOSEC) 20 mg BID PO Last administered on 09/24/18 09:03; Start 09/14/18 at 21:00 Omeprazole (PriLOSEC) 20 mg BID PO ; Start 09/14/18 at 21:00; Status UNV Oxycodone HCl (Roxicodone, Oxyir) 5 mg Q8H PRN PO PAIN 7-10 Last administered on 09/14/18at 17:59; Start 09/14/18 at 15:30; Stop 09/19/18 at 17:18; Status DC Patient Own Medication (Patient'S Own Med) Ketotifen 0.025% (Zadit... DAILY OU ; Start 09/19/18 at 09:00; Stop 09/20/18 at 10:31; Status DC Polyethylene Glycol (Miralax) 1 pkt DAILY PO Last administered on 09/24/18 08:59; Start 09/15/18 at 09:00 Potassium Chloride (Micro-K Extencaps) 10 meq TID PO Last administered on 09/15/18at 07:48; Start 09/14/18 at 21:00; Stop 09/15/18 at 10:09; Status DC Potassium Chloride (Micro-K Extencaps) 10 meq TID PO ; Start 09/14/18 at 21:00; Status UNV Potassium Chloride (Micro-K Extencaps) 20 meq TID PO Last administered on 09/24/18 15:51; Start 09/15/18 at 16:00 Quetiapine Fumarate (SEROquel) 50 mg QHS PO Last administered on 09/23/18 20:40; Start 09/21/18 at 21:00 Quetiapine Fumarate (SEROquel) 100 mg QHS PO Last administered on 09/20/18 21:35; Start 09/19/18 at 21:00; Stop 09/21/18 at 15:28; Status DC Quetiapine Fumarate (SEROquel) 150 mg QHS PO Last administered on 09/18/18 20:21; Start 09/14/18 at 21:00; Stop 09/19/18 at 17:20; Status DC Quetiapine Fumarate (SEROquel) 150 mg QHS PO ; Start 09/14/18 at 21:00; Status UNV Sertraline HCl (Zoloft) 200 mg DAILY PO Last administered on 09/24/18 09:02; Start 09/15/18 at 09:00 Sertraline HCl (Zoloft) 200 mg DAILY PO ; Start 09/15/18 at 09:00; Status UNV Sotalol HCl (Betapace) 40 mg BID PO Last administered on 09/24/18 09:02; Start 09/14/18 at 21:00 Sotalol HCl (Betapace) 80 mg Q12H PO ; Start 09/14/18 at 18:00; Status UNV Tamsulosin HCl (Flomax) 0.4 mg DAILY PO Last administered on 09/24/18 09:00; Start 09/15/18 at 09:00 Tamsulosin HCl (Flomax) 0.4 mg DAILY PO ; Start 09/15/18 at 09:00; Status UNV Theophylline (Henrik-24) 400 mg BID PO Last administered on 09/24/18 13:02; Start 09/14/18 at 21:00 Thiamine HCl (VITAMIN B1 INJection) 100 mg DAILY IM Last administered on 09/24/18 08:58; Start 09/20/18 at 15:45 Tiotropium [place] (Spiriva Handihaler) 1 inhalation DAILY INH ; Start 09/15/18 at 09:00; Status UNV Tiotropium [place] (Spiriva Handihaler) 1 inhalation DAILY@08 INH Last administered on 09/23/18 08:31; Start 09/15/18 at 08:00 Topiramate (TopAMAX) 50 mg DAILY PO Last administered on 09/24/18 08:59; Start 09/15/18 at 09:00 Topiramate (TopAMAX) 50 mg QAM PO ; Start 09/15/18 at 09:00; Status UNV Topiramate (TopAMAX) 100 mg QHS PO Last administered on 09/23/18 21:28; Start 09/14/18 at 21:00 Topiramate (TopAMAX) 100 mg QHS PO ; Start 09/14/18 at 21:00; Status UNV Vitamin D (Vitamin D) 2,000 units DAILY PO Last administered on 09/24/18 09:01; Start 09/15/18 at 09:00 Vitamin D (Vitamin D) 2,000 units DAILY PO ; Start 09/15/18 at 09:00; Status UNV Warfarin Sodium (Coumadin) 2.5 mg DAILY@17 PO Last administered on 09/23/18 17 :36; Start 09/23/18 at 17:00 DOROTA PACHECO MD Sep 24, 2018 17:01
[2018-09-24 20:00] VITALS: BP 155/68
[2018-09-24] MEDS ORDERED: TOPIRAMATE (TopAMAX) 100 MG TAB PO SCH (21:00)
[2018-09-24] MEDS: MIRTAZAPINE 15 MG TAB PO SCH (21:40)
[2018-09-24] MEDS: ATORVASTATIN 20 MG TAB PO SCH (21:40)
[2018-09-24] MEDS: TOPIRAMATE (TopAMAX) 100 MG TAB PO SCH (21:41)
[2018-09-25] MEDS: SYMBICORT 160/4.5MCG INHALER 6GM INH SCH ×2 (00:36→07:38)
[2018-09-25 06:00] VITALS: BP 124/75
[2018-09-25 07:11] LABS: HEMATOCRIT 43.1 % (42.0-52.0); MEAN CORPUSCULAR HEMOGLOBIN 33.7 pg (27.0-33.0); MEAN CORPUSCULAR HGB CONC 34.8 g/dl (32.0-36.5); MEAN CORPUSCULAR VOLUME 96.9 fl (80.0-96.0); PLATELET COUNT, AUTOMATED 291 10^3/uL (150-450); RED BLOOD COUNT 4.45 10^6/uL (4.30-6.10)
[2018-09-25 07:21] LABS: INR 1.1; PROTHROMBIN TIME 14.3 SECONDS (12.1-14.4)
[2018-09-25 07:31] LABS: CALCIUM LEVEL 9.4 MG/DL (8.8-10.2); CREATININE FOR GFR 1.78 MG/DL (0.70-1.30); GLOMERULAR FILTRATION RATE 39.9 (>42); MAGNESIUM LEVEL 2.2 MG/DL (1.8-2.4)
[2018-09-25] MEDS: TIOTROPIUM INHALER/CAPSULE (SPIRIVA) INH SCH (07:38)
[2018-09-25] MEDS: CILOSTAZOL 100 MG TAB (PLETAL) PO SCH ×2 (07:49→16:35)
[2018-09-25] MEDS: THEOPHYLLINE (THEO-24) 100MG SR **CAPSULE PO SCH ×2 (08:51→22:06)
[2018-09-25] MEDS: DONEPEZIL 5 MG TAB PO SCH (08:51)
[2018-09-25] MEDS: TOPIRAMATE (TopAMAX) 25 MG TAB PO SCH (08:51)
[2018-09-25] MEDS: VITAMIN D 1,000 INTERNATIONAL UNITS TABLET PO SCH (08:51)
[2018-09-25] MEDS: INDAPAMIDE 1.25MG TABLET PO SCH (08:52)
[2018-09-25] MEDS: OMEGA-3 1000MG CAPSULE PO SCH (08:52)
[2018-09-25] MEDS: SERTRALINE 100 MG TAB PO SCH (08:52)
[2018-09-25] MEDS: guaiFENesin ER 600 MG TAB PO SCH ×2 (08:52→22:07)
[2018-09-25] MEDS: TAMSULOSIN 0.4 MG CAP PO SCH (08:53)
[2018-09-25] MEDS: SOTALOL HCL 80 MG TAB PO SCH ×2 (08:53→22:08)
[2018-09-25] MEDS: POTASSIUM CHLORIDE 10 MEQ SR TABLET PO SCH ×3 (08:54→22:07)
[2018-09-25] MEDS: DOCUSATE SODIUM 100 MG CAP PO SCH ×2 (08:55→21:00)
[2018-09-25] MEDS: NICOTINE 7 MG/24 HR TRANSDERMAL TD SCH (08:55)
[2018-09-25] MEDS: amLODIPine 10 MG TAB PO SCH (08:55)
[2018-09-25] MEDS: OMEPRAZOLE 20 MG CAP PO SCH ×2 (08:55→22:09)
[2018-09-25] MEDS: MULTIVITAMINS/MINERALS THERAP 1 TAB PO SCH (08:55)
[2018-09-25] MEDS: THIAMINE HCL 200 MG/2 ML VIAL (J3411) IM SCH (08:56)
[2018-09-25] MEDS: MIRALAX *UNIT DOSE* 17GM PACKET PO SCH (08:56)
[2018-09-25 14:00] VITALS: BP 129/66
[2018-09-25] MEDS ORDERED: WARFARIN SOD 5 MG TAB PO ONE (17:00)
--- NOTE | 2018-09-25 17:07 | IPNPDOC ---
PM&R Progress Note DATE OF SERVICE: Sep 25, 2018 Facilities Planner Progress Note Subjective: Patient seen in his room reporting he is feeling well and does not have any complaints. REVIEW OF SYSTEMS: The following is a completed review of systems and has been reviewed. Review of systems otherwise unremarkable. PAIN: Patient self reports no pain EYES: right visual field cut EARS, NOSE, & THROAT:denies dysarthria or rhinorrhea or dysphagia CARDIOVASCULAR: denies chest pain or palpitations PULMONARY: Negative. Denies shortness of breath GASTROINTESTINAL: Negative for diarrhea/constipation GENITOURINARY: Negative for dysuria NEUROLOGICAL: +left [place] PULP stroke, + dementia PSYCHIATRIC: confused All other review of systems found to be negative. PHYSICAL EXAMINATION: VITAL SIGNS: Please see below. GENERAL: Pleasant and cooperative. No acute distress. HEENT: PERRL. Extraocular movements intact. Clear conjunctiva. +right side visual field cut CARDIOVASCULAR: Regular rate and rhythm. No murmurs, rubs, or gallops. LUNGS: Mostly clear to auscultation, no wheeze. No rhonchi. ABDOMEN: Soft, nontender, nondistended. Positive bowel sounds. Normal active bowel sounds NEUROLOGICAL: Alert and oriented to self, not time or place. + ANomia, Cranial nerves II through XII grossly intact. Sensation grossly intact EXTREMITIES: 5\5 strength bilateral upper extremities. 5\5 strength right lower extremity. 5/5 strength in left lower extremity. SKIN: intact ASSESSMENT:73-year-old M with past medical history of HTN, CAD, Seizures who presents status post hemorrhagic Left [place] PULP stroke. PLAN: 1. 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- continue ASA 81mg daily until 09-23-18 then will need to switch to full AC for his Afib- decision to be made by Vascular Surgery at [facility], Plavix currently on hold, however has pmh of coronary and leg stents, per [facility] cardiology will started Coumadin on 09-23-17 goal 2-3, stopped antiplatelets -monitor and manage BPs, continue secondary statin therapy -has stroke clinic f/u 10-12-18 for genetic testing, family Hx of Factor V Leiden -pmh Seizure disorder, continue Topomax, Gabapentin -already on Sertraline, will d/c additional SSRI, TSH within normal limits -increase donepezil for dementia 3. Cardio: CAD s/p CABG and stents, newly diagnosed Paroxysmal Afib with RVR- Plavix on hold, continue ASA 81 until 09-23-18, will need AC per Vascular surgery recs- started COumadin on 09-23-17 and d/c all ASA, continue Sotalol -pmh HTN continue home meds, will monitor off Doxazosin and Isosorbide mononitrate as polypharmacy can be contributing to dementia, continue Indapamide and lisinopril- will monitor and adjust prn, medicine consulted -pmh PAD continue Cilostazol 4.Resp: pmh COPD, monitor for signs of pneumonia, Duonebs, Spiriva, and Sym bicort, Incentive Spirometry 5. Psych: pmh PTSD/Depression: continue Remeron, tapered off Seroquel, continue Zoloft -will start IM thiamine for hx of ETOH abuse 6. : pmh BPH continue Flomax , admission UA and Ucx negative, monitor PVRs 7. GI ppx: start Protonix 8. DVT ppx: TEDs and Dopplers to r/o DVT 9. Pain: Tylenol prn 10. Dispo: 09-27-18 to home with granddaughter abdias Aguirre his other children will be able to check on him daily, progressing towards goals Allergies Coded Allergies: Chlordiazepoxide (Unverified Allergy, Unknown, 08/10/18) SEIZURES Vital Signs Vital Signs Date Time Temp Pulse Resp B/P (MAP) Pulse Ox O2 Delivery O2 Flow Rate FiO2 09/25/18 14:00 97.8 66 17 129/66 (87) 95 Room Air Laboratory Data CBC/BMP Laboratory Tests 09/25/18 06:47 Red Blood Count 4.45, Mean Corpuscular Volume 96.9 H, Mean Corpuscular Hemoglobin 33.7 H, Mean Corpuscular Hemoglobin Concent 34.8, Red Cell Distribution Width 13.5, Calcium Level 9.4 Labs 24H Laboratory Tests 2 09/25/18 06:47: Nucleated Red Blood Cells % (auto) 0.0, Prothrombin Time 14.3, Prothromb Time International Ratio 1.10, Anion Gap 7L, Glomerular Filtration Rate 39.9L, Blood Urea Nitrogen 21H, Creatinine 1.78H, Sodium Level 144, Potassium Level 4.0, Chloride Level 110H, Carbon Dioxide Level 27, Calcium Level 9.4, Magnesium Level 2.2 Current Medications Current Medications Current Medications Acetaminophen (Tylenol Tab) 650 mg Q4HP PRN PO MILD PAIN (PS 1-4) Last administered on 09/23/18at 20:41; Start 09/14/18 at 15:30 Acetaminophen (Tylenol Tab) 650 mg Q6H PRN PO PAIN; Start 09/14/18 at 18:00; Status UNV Albuterol Sulfate (Proventil Neb) 2.5 mg Q4H PRN INH SHORTNESS OF BREATH; Start 09/14/18 at 18:00; Status UNV Albuterol Sulfate (Proventil, Ventolin Hfa) 2 puff Q4H PRN INH SHORTNESS OF BREATH; Start 09/14/18 at 18:00; Status UNV Albuterol Sulfate (Proventil, Ventolin Hfa) 2 puff Q4HP PRN INH SHORTNESS OF BREATH; Start 09/14/18 at 15:30 Amlodipine Besylate (Norvasc) 5 mg DAILY PO Last administered on 09/21/18 08:45; Start 09/21/18 at 09:00; Stop 09/21/18 at 18:34; Status DC Amlodipine Besylate (Norvasc) 10 mg DAILY PO Last administered on 09/25/18 08:55; Start 09/22/18 at 09:00 Artificial Tears (Akwa Tears) 1 drop Q1H PRN OU DRY EYES; Start 09/14/18 at 18:00; Status UNV Artificial Tears (Akwa Tears) 2 drop QIDP PRN OU DRY EYES; Start 09/14/18 at 15:30 Aspirin (Ecotrin) 81 mg DAILY PO Last administered on 09/22/18 09:34; Start 09/15/18 at 09:00; Stop 09/23/18 at 08:59; Status DC Aspirin (Ecotrin) 81 mg DAILY PO ; Start 09/15/18 at 09:00; Status UNV Atorvastatin Calcium (Lipitor) 40 mg QHS PO Last administered on 09/24/18 21:40; Start 09/14/18 at 21:00 Atorvastatin Calcium (Lipitor) 40 mg QPM PO ; Start 09/14/18 at 21:00; Status UNV Baclofen (Lioresal) 5 mg TID PRN PO spasm; Start 09/14/18 at 15:30; Stop 09/19/18 at 17:18; Status DC Baclofen (Lioresal) 10 mg QID PRN PO MUSCLE SPASMS; Start 09/14/18 at 18:00; Status UNV Budesonide/ Formoterol Fumarate (Symbicort 160/ 4.5mcg) 2 puff BID INH Last administered on 09/25/18 07:38; Start 09/14/18 at 21:00 Budesonide/ Formoterol Fumarate (Symbicort 160/ 4.5mcg) 2 puff BID INH ; Start 09/14/18 at 21:00; Status UNV Cetirizine HCl (ZyrTEC) 10 mg DAILY PO Last administered on 09/19/18at 08:58; Start 09/15/18 at 09:00; Stop 09/19/18 at 17:18; Status DC Cetirizine HCl (ZyrTEC) 10 mg DAILY PO ; Start 09/15/18 at 09:00; Status UNV Cilostazol (Pletal) 50 mg BID@0730,1730 PO Last administered on 09/25/18at 16:35; Start 09/14/18 at 17:30 Cilostazol (Pletal) 50 mg BID@0730,1730 PO ; Start 09/15/18 at 07:30; Status UNV Docusate Sodium (Colace) 100 mg BID PO Last administered on 09/25/18at 08:55; Start 09/14/18 at 21:00 Docusate Sodium (Colace) 100 mg BID PO ; Start 09/14/18 at 21:00; Status UNV Donepezil HCl (AriCEPT) 5 mg DAILY PO Last administered on 09/24/18at 09:00; Sta rt 09/19/18 at 09:00; Stop 09/24/18 at 17:00; Status DC Donepezil HCl (AriCEPT) 10 mg DAILY PO Last administered on 09/25/18at 08:51; Start 09/25/18 at 09:00 Doxazosin Mesylate (Cardura) 4 mg DAILY PO Last administered on 09/19/18 08:57; Start 09/15/18 at 09:00; Stop 09/19/18 at 17:18; Status DC Doxazosin Mesylate (Cardura) 4 mg DAILY PO ; Start 09/15/18 at 09:00; Status UNV Fish Oil (Sterling-3 (1000mg)) 1 cap DAILY PO Last administered on 09/25/18 08:52; Start 09/15/18 at 09:00 Fish Oil (Sterling-3 (1000mg)) 1 cap DAILY PO ; Start 09/15/18 at 09:00; Status UNV Fluoxetine HCl (PROzac) 20 mg DAILY PO Last administered on 09/20/18 08:53; Start 09/19/18 at 09:00; Stop 09/20/18 at 10:28; Status DC Gabapentin (Neurontin) 200 mg BID PO Last administered on 09/24/18 09:03; Start 09/19/18 at 21:00; Stop 09/24/18 at 17:00; Status DC Gabapentin (Neurontin) 400 mg BID PO Last administered on 09/19/18 08:57; Start 09/14/18 at 21:00; Stop 09/19/18 at 17:18; Status DC Gabapentin (Neurontin) 400 mg BID PO ; Start 09/14/18 at 21:00; Status UNV Guaifenesin (Mucinex Tab Er) 600 mg BID PO Last administered on 09/25/18 08:52; Start 09/14/18 at 21:00 Guaifenesin (Robitussin Tab) 400 mg BID PO ; Start 09/14/18 at 21:00; Status UNV Home Med (Med Rec Complete!) ASDIRECTED XX ; Start 09/14/18 at 18:00; Stop 09/14/18 at 18:18; Status DC Indapamide (Lozol) 1.25 mg DAILY PO Last administered on 09/25/18 08:52; Start 09/15/18 at 09:00 Indapamide (Lozol) 1.25 mg DAILY PO ; Start 09/15/18 at 09:00; Status UNV Isosorbide Mononitrate (Imdur) 30 mg DAILY PO ; Start 09/15/18 at 09:00; Status UNV Isosorbide Mononitrate (Imdur) 30 mg DAILY@1000 PO Last administered on 09/19/18 10:46; Start 09/15/18 at 10:00; Stop 09/20/18 at 10:28; Status DC Lisinopril (Prinivil) 40 mg DAILY PO Last administered on 09/20/18 08:50; Start 09/15/18 at 09:00; Stop 09/21/18 at 07:12; Status DC Lisinopril (Prinivil) 40 mg DAILY PO ; Start 09/15/18 at 09:00; Status UNV Mirtazapine (Remeron) 45 mg QHS PO Last administered on 09/24/18 21:40; Start 09/14/18 at 21:00 Mirtazapine (Remeron) 45 mg QHS PO ; Start 09/14/18 at 21:00; Status UNV Miscellaneous (Unresolved Patient Own Med Order) SEE LABEL COMMENTS DAILY XX ; Start 09/14/18 at 09:00; Stop 09/20/18 at 10:31; Status DC Multivitamins (Theragram-M) 1 tab DAILY PO Last administered on 09/25/18 08:55; Start 09/15/18 at 09:00 Nicotine (Nicoderm Cq 7 Mg) 1 patch DAILY TD Last administered on 09/25/18 08:55; Start 09/15/18 at 09:00 Nicotine (Nicoderm Cq 7 Mg) 1 patch DAILY TOP ; Start 09/15/18 at 09:00; Status UNV Nitroglycerin (Nitrostat (1/ 150)) 0.4 mg Q5MP PRN SL CHEST PAIN; Start 09/14/18 at 15:30 Nitroglycerin (Nitrostat (1/ 150)) 0.4 mg Q5MP PRN SL CHEST PAIN; Start 09/14/18 at 18:00; Status UNV Omeprazole (PriLOSEC) 20 mg BID PO Last administered on 09/25/18 08:55; Start 09/14/18 at 21:00 Omeprazole (PriLOSEC) 20 mg BID PO ; Start 09/14/18 at 21:00; Status UNV Oxycodone HCl (Roxicodone, Oxyir) 5 mg Q8H PRN PO PAIN 7-10 Last administered on 09/14/18at 17:59; Start 09/14/18 at 15:30; Stop 09/19/18 at 17:18; Status DC Patient Own Medication (Patient'S Own Med) Ketotifen 0.025% (Zadit... DAILY OU ; Start 09/19/18 at 09:00; Stop 09/20/18 at 10:31; Status DC Polyethylene Glycol (Miralax) 1 pkt DAILY PO Last administered on 09/25/18at 08:56; Start 09/15/18 at 09:00 Potassium Chloride (Micro-K Extencaps) 10 meq TID PO Last administered on 09/15/18at 07:48; Start 09/14/18 at 21:00; Stop 09/15/18 at 10:09; Status DC Potassium Chloride (Micro-K Extencaps) 10 meq TID PO ; Start 09/14/18 at 21:00; Status UNV Potassium Chloride (Micro-K Extencaps) 20 meq TID PO Last administered on 09/25/18at 16:36; Start 09/15/18 at 16:00 Quetiapine Fumarate (SEROquel) 50 mg QHS PO Last administered on 09/23/18at 20:40; Start 09/21/18 at 21:00; Stop 09/24/18 at 17:00; Status DC Quetiapine Fumarate (SEROquel) 100 mg QHS PO Last administered on 09/20/18at 21:35; Start 09/19/18 at 21:00; Stop 09/21/18 at 15:28; Status DC Quetiapine Fumarate (SEROquel) 150 mg QHS PO Last administered on 09/18/18 20:21; Start 09/14/18 at 21:00; Stop 09/19/18 at 17:20; Status DC Quetiapine Fumarate (SEROquel) 150 mg QHS PO ; Start 09/14/18 at 21:00; Status UNV Sertraline HCl (Zoloft) 200 mg DAILY PO Last administered on 09/25/18at 08:52; Start 09/15/18 at 09:00 Sertraline HCl (Zoloft) 200 mg DAILY PO ; Start 09/15/18 at 09:00; Status UNV Sotalol HCl (Betapace) 40 mg BID PO Last administered on 09/25/18 08:53; Start 09/14/18 at 21:00 Sotalol HCl (Betapace) 80 mg Q12H PO ; Start 09/14/18 at 18:00; Status UNV Tamsulosin HCl (Flomax) 0.4 mg DAILY PO Last administered on 09/25/18 08:53; Start 09/15/18 at 09:00 Tamsulosin HCl (Flomax) 0.4 mg DAILY PO ; Start 09/15/18 at 09:00; Status UNV Theophylline (Henrik-24) 400 mg BID PO Last administered on 09/25/18 08:51; Start 09/14/18 at 21:00 Thiamine HCl (VITAMIN B1 INJection) 100 mg DAILY IM Last administered on 09/25/18 08:56; Start 09/20/18 at 15:45 Tiotropium [place] (Spiriva Handihaler) 1 inhalation DAILY INH ; Start 09/15/18 at 09:00; Status UNV Tiotropium [place] (Spiriva Handihaler) 1 inhalation DAILY@08 INH Last administered on 09/25/18 07:38; Start 09/15/18 at 08:00 Topiramate (TopAMAX) 50 mg DAILY PO Last administered on 09/25/18 08:51; Start 09/15/18 at 09:00 Topiramate (TopAMAX) 50 mg QAM PO ; Start 09/15/18 at 09:00; Status UNV Topiramate (TopAMAX) 50 mg QHS PO ; Start 09/24/18 at 21:00; Stop 09/24/18 at 21:00; Status DC Topiramate (TopAMAX) 100 mg QHS PO Last administered on 09/24/18 21:41; Start 09/24/18 at 21:00 Topiramate (TopAMAX) 100 mg QHS PO Last administered on 09/23/18 21:28; Start 09/14/18 at 21:00; Stop 09/24/18 at 17:00; Status DC Topiramate (TopAMAX) 100 mg QHS PO ; Start 09/14/18 at 21:00; Status UNV Vitamin D (Vitamin D) 2,000 units DAILY PO Last administered on 09/25/18at 08:51; Start 09/15/18 at 09:00 Vitamin D (Vitamin D) 2,000 units DAILY PO ; Start 09/15/18 at 09:00; Status UNV Warfarin Sodium (Coumadin) 2 mg DAILY@17 PO Last administered on 09/24/18at 17:40; Start 09/24/18 at 17:00; Stop 09/25/18 at 10:39; Status DC Warfarin Sodium (Coumadin) 2.5 mg DAILY@17 PO Last administered on 09/23/18at 17:36; Start 09/23/18 at 17:00; Stop 09/24/18 at 17:00; Status DC Warfarin Sodium (Coumadin) 5 mg DAILY@17 PO Last administered on 09/24/18at 17:39; Start 09/24/18 at 17:00; Stop 09/25/18 at 10:39; Status DC DOROTA PACHECO MD Sep 25, 2018 17:07
[2018-09-25 20:00] VITALS: BP 130/91
[2018-09-25] MEDS: MIRTAZAPINE 15 MG TAB PO SCH (22:06)
[2018-09-25] MEDS: ATORVASTATIN 20 MG TAB PO SCH (22:07)
[2018-09-25] MEDS: TOPIRAMATE (TopAMAX) 100 MG TAB PO SCH (22:07)
[2018-09-26] MEDS: SYMBICORT 160/4.5MCG INHALER 6GM INH SCH ×3 (03:49→20:49)
[2018-09-26 06:10] VITALS: BP 144/80
[2018-09-26 07:17] LABS: INR 1.28; PROTHROMBIN TIME 16.2 SECONDS (12.1-14.4)
[2018-09-26] MEDS: TIOTROPIUM INHALER/CAPSULE (SPIRIVA) INH SCH (07:26)
[2018-09-26] MEDS: MIRALAX *UNIT DOSE* 17GM PACKET PO SCH (09:00)
[2018-09-26] MEDS: NICOTINE 7 MG/24 HR TRANSDERMAL TD SCH (09:56)
[2018-09-26] MEDS: THEOPHYLLINE (THEO-24) 100MG SR **CAPSULE PO SCH ×2 (09:57→20:21)
[2018-09-26] MEDS: guaiFENesin ER 600 MG TAB PO SCH ×2 (09:57→20:21)
[2018-09-26] MEDS: MULTIVITAMINS/MINERALS THERAP 1 TAB PO SCH (09:57)
[2018-09-26] MEDS: DOCUSATE SODIUM 100 MG CAP PO SCH ×2 (09:57→20:21)
[2018-09-26] MEDS: OMEPRAZOLE 20 MG CAP PO SCH ×2 (09:57→20:21)
[2018-09-26] MEDS: amLODIPine 10 MG TAB PO SCH (09:58)
[2018-09-26] MEDS: CILOSTAZOL 100 MG TAB (PLETAL) PO SCH ×2 (09:58→17:08)
[2018-09-26] MEDS: INDAPAMIDE 1.25MG TABLET PO SCH (09:58)
[2018-09-26] MEDS: OMEGA-3 1000MG CAPSULE PO SCH (09:59)
[2018-09-26] MEDS: POTASSIUM CHLORIDE 10 MEQ SR TABLET PO SCH ×3 (09:59→20:21)
[2018-09-26] MEDS: TOPIRAMATE (TopAMAX) 25 MG TAB PO SCH (09:59)
[2018-09-26] MEDS: DONEPEZIL 5 MG TAB PO SCH (09:59)
[2018-09-26] MEDS: SOTALOL HCL 80 MG TAB PO SCH ×2 (09:59→20:22)
[2018-09-26] MEDS: VITAMIN D 1,000 INTERNATIONAL UNITS TABLET PO SCH (09:59)
[2018-09-26] MEDS: THIAMINE HCL 200 MG/2 ML VIAL (J3411) IM SCH (09:59)
[2018-09-26] MEDS: SERTRALINE 100 MG TAB PO SCH (10:00)
[2018-09-26] MEDS: TAMSULOSIN 0.4 MG CAP PO SCH (10:00)
[2018-09-26] MEDS ORDERED: ONDANSETRON 4 MG TAB (S0181) As Ordered ONE (13:09)
[2018-09-26] MEDS ORDERED: ONDANSETRON 4 MG TAB (S0181) PO PRN (13:45)
--- NOTE | 2018-09-26 13:57 | IPNPDOC ---
Date Seen The patient was seen on 09/26/18. Progress Note HPI: 73-year-old male with a past medical history of hypertension, diabetes, hyperlipidemia, history of coronary artery disease, CABG in 1994, history of stent placement in 2016, transferred from [facility], after sustaining a left occipital lobe hemorrhagic stroke on 09/09/[address] [facility], Dr Thornton, after sustaining a left [place] hemorrhagic stroke. He was switched from atenolol to Sotalol related to episode of Afib. No neurosurgical intervention was necessary and the patient was transported back to [facility] to the care of Dr Thornton. The pt has no complaints at this time today. Denies chest pain, shortness of breath, abdominal pain, nausea, vomiting, or vertigo. PAST MEDICAL HISTORY: 1. Coronary artery disease, status post CABG in 1994. 2. History of stent placement in 2016. 3. History of atrial fibrillation. 4. Diabetes. 5. Hypertension. 6. Hyperlipidemia. 7. Non oxygen dependent chronic obstructive pulmonary disease (COPD). PE: GEN: 73yoM, appears stated age. No acute distress. HEENT: Normocephalic, atraumatic. Sclera are nonicteric. Conjunctiva without injection. Moist mucous membranes. CHEST: Regular rate and rhythm, +S1, +S2 LUNGS: Clear to auscultation bilaterally. No wheezes, rales, or rhonchi. Breathing appears symmetric and easy. ABD: Round, soft, non-tender, non-distended. +Bowel sounds throughout. No rebound or guarding. No costovertebral angle tenderness. EXT: No lower extremity edema appreciated. SKIN: [place], dry, warm. No rashes. NEURO: Alert and oriented x 3. Rt visual field deficits, no change. ASSESSMENT AND PLAN: This is a 73-year-old male patient with underlying medical history of hypertension, diabetes, dyslipidemia, history of coronary artery disease with coronary artery bypass graft (CABG) in 1994, history of stent placement in 2016, transferred to [facility] after sustaining left-sided occipital lobe hemorrhagic stroke 09/09/2018. Patient was brought to acute rehabilitation for further care. 1. Left-sided posterior cerebral artery hemorrhage stroke. Management is as per acute rehabilitation provider. Physical therapy (PT)/occupational therapy (OT), speech and swallow. Patient was managed by vascular surgery at [facility]. Patient is on 81 of aspirin daily until 09/23/2018, then will switch to Coumadin for atrial fibrillation, as per vascular surgery at [facility]. Plavix currently on hold. Dr Thornton managing coumadin dosing. 2. History of coronary artery disease. 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 Followup with stroke clinic at [facility] 10/12/2018 for genetic testing and family history of factor V Leiden deficiency. 3. Seizure disorder. Continue Topamax and gabapentin. 4. Coronary artery disease, status post CABG and stents. ASA switched to full-dose Coumadin as per [facility] vascular surgery and cardiology recommendations. 5. Paroxysmal atrial fibrillation with rapid ventricular response. Holding Plavix. On 81 of aspirin until 09/23/2018and then will be switching to anticoagulation with Coumadin on 09/23/2018. Followup INR. Continue sotalol. Further recommendations as per Dr. Thornton and also vascular surgery at [facility]. Dr Thornton managing coumadin dosing. 6. Hypertension. Continue sotalol and indapamide. Continue statin. Lisinopril on hold given elevated creatinine. Norvasc added. Monitor blood pressure. 7. Coronary artery disease, currently on aspirin 81 and statin. Continue beta sendy. Angiotensin-converting enzyme (SHRUTI) on hold. Continue Norvasc. Continue indapamide. Monitor blood pressure. Aspirin will be discontinued, and patient will be started on Coumadin as per vascular surgery and cardiology at [facility]. 8. Posttraumatic stress disorder and depression. Continue current medication. 9. Chronic obstructive pulmonary disease (COPD). Spiriva, Symbicort, nebulizer treatment, incentive spirometry. 10. Peripheral arterial disease. Continue current medication. 11. BPH. Continue current medication. 12. Deep vein thrombosis (DVT) prophylaxis. TEDs and sequentials until 09/23/2018, when patient started on Coumadin. Will monitor patient closely. VS, I&O, 24H, Fishbone Vital Signs/I&O Vital Signs Date Time Temp Pulse Resp B/P (MAP) Pulse Ox O2 Delivery O2 Flow Rate FiO2 09/26/18 09:59 81 144/80 09/26/18 06:10 97.1 18 97 Room Air I&O- Last 24 Hours up to 6 AM 09/26/18 06:00 Intake Total 830 ml Output Total 0 ml Balance 830 ml Laboratory Data 24H LABS Laboratory Tests 2 09/26/18 06:45: Prothrombin Time 16.2H, Prothromb Time International Ratio 1.28 Shivani Carney Sep 26, 2018 13:57
[2018-09-26 14:00] VITALS: BP 138/73
--- NOTE | 2018-09-26 15:11 | IPNPDOC ---
PM&R Progress Note DATE OF SERVICE: Sep 26, 2018 Research Associate Professor Progress Note Subjective: Patient seen in his room reporting he is feeling nauseous, but denies vomiting, reports he has been moving his bowels. He has agreed to stay until Monday/Monday until his INR is therapeutic. REVIEW OF SYSTEMS: The following is a completed review of systems and has been reviewed. Review of systems otherwise unremarkable. PAIN: Patient self reports no pain EYES: right visual field cut EARS, NOSE, & THROAT:denies dysarthria or rhinorrhea or dysphagia CARDIOVASCULAR: denies chest pain or palpitations PULMONARY: Negative. Denies shortness of breath GASTROINTESTINAL: Negative for diarrhea/constipation, +nausea GENITOURINARY: Negative for dysuria NEUROLOGICAL: +left HOG RINGER stroke, + dementia PSYCHIATRIC: confused All other review of systems found to be negative. PHYSICAL EXAMINATION: VITAL SIGNS: Please see below. GENERAL: Pleasant and cooperative. No acute distress. HEENT: PERRL. Extraocular movements intact. Clear conjunctiva. +right side visual field cut CARDIOVASCULAR: Regular rate and rhythm. No murmurs, rubs, or gallops. LUNGS: Mostly clear to auscultation, no wheeze. No rhonchi. ABDOMEN: Soft, nontender, nondistended. Positive bowel sounds. Normal active bowel sounds NEUROLOGICAL: Alert and oriented to self, not time or place. + ANomia, Cranial nerves II through XII grossly intact. Sensation grossly intact EXTREMITIES: 5\5 strength bilateral upper extremities. 5\5 strength right lower extremity. 5/5 strength in left lower extremity. SKIN: intact ASSESSMENT:73-year-old M with past medical history of HTN, CAD, Seizures who presents status post hemorrhagic Left HOG RINGER stroke. PLAN: 1. 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 Neuro: recent left HOG RINGER hemorrhagic stroke in setting of PAVR with RVR- continue ASA 81mg daily until 09-23-18 then will need to switch to full AC for his Afib- decision to be made by Vascular Surgery at [facility], Plavix currently on hold, however has pmh of coronary and leg stents, per [facility] cardiology will started Coumadin on 1-6-18 goal 2-3, stopped antiplatelets -monitor and manage BPs, continue secondary statin therapy -has stroke clinic f/u 10-12-18 for genetic testing, family Hx of Factor V Leiden -pmh Seizure disorder, continue Topomax, Gabapentin -already on Sertraline, will d/c additional SSRI, TSH within normal limits -increase donepezil for dementia 3. Cardio: CAD s/p CABG and stents, newly diagnosed Paroxysmal Afib with RVR- Plavix on hold, continue ASA 81 until 09-23-18, will need AC per Vascular surgery recs- started COumadin on 09-23-17 and d/c all ASA, continue Sotalol -pmh HTN continue home meds, will monitor off Doxazosin and Isosorbide mononitrate as polypharmacy can be contributing to dementia, continue Indapamide and lisinopril- will monitor and adjust prn, medicine consulted -pmh PAD continue Cilostazol 4.Resp: pmh COPD, monitor for signs of pneumonia, Duonebs, Spiriva, and Symbicort, Incentive Spirometry 5. Psych: pmh PTSD/Depression: continue Remeron, tapered off Seroquel, continue Zoloft -will start IM thiamine for hx of ETOH abuse 6. : pmh BPH continue Flomax , admission UA and Ucx negative, monitor PVRs 7. GI ppx: start Protonix, will give zofran for nausea and recheck urine 8. DVT ppx: TEDs and Dopplers to r/o DVT 9. Pain: Tylenol prn 10. Dispo: 10/01 to home with granddaughter Carla, abdias Maureen his other children will be able to check on him daily, progressing towards goals Allergies Coded Allergies: Chlordiazepoxide (Unverified Allergy, Unknown, 08/10/18) SEIZURES Vital Signs Vital Signs Date Time Temp Pulse Resp B/P (MAP) Pulse Ox O2 Delivery O2 Flow Rate FiO2 09/26/18 09:59 81 144/80 09/26/18 06:10 97.1 18 97 Room Air Laboratory Data Labs 24H Laboratory Tests 2 09/26/18 06:45: Prothrombin Time 16.2H, Prothromb Time International Ratio 1.28 Current Medications Current Medications Current Medications Acetaminophen (Tylenol Tab) 650 mg Q4HP PRN PO MILD PAIN (PS 1-4) Last administered on 09/23/18at 20:41; Start 09/14/18 at 15:30 Acetaminophen (Tylenol Tab) 650 mg Q6H PRN PO PAIN; Start 09/14/18 at 18:00; Status UNV Albuterol Sulfate (Proventil Neb) 2.5 mg Q4H PRN INH SHORTNESS OF BREATH; Start 09/14/18 at 18:00; Status UNV Albuterol Sulfate (Proventil, Ventolin Hfa) 2 puff Q4H PRN INH SHORTNESS OF BREATH; Start 09/14/18 at 18:00; Status UNV Albuterol Sulfate (Proventil, Ventolin Hfa) 2 puff Q4HP PRN INH SHORTNESS OF BREATH; Start 09/14/18 at 15:30 Amlodipine Besylate (Norvasc) 5 mg DAILY PO Last administered on 09/21/18 08:45; Start 09/21/18 at 09:00; Stop 09/21/18 at 18:34; Status DC Amlodipine Besylate (Norvasc) 10 mg DAILY PO Last administered on 09/26/18at 09:58; Start 09/22/18 at 09:00 Artificial Tears (Akwa Tears) 1 drop Q1H PRN OU DRY EYES; Start 09/14/18 at 18:00; Status UNV Artificial Tears (Akwa Tears) 2 drop QIDP PRN OU DRY EYES; Start 09/14/18 at 15:30 Aspirin (Ecotrin) 81 mg DAILY PO Last administered on 09/22/18at 09:34; Start 09/15/18 at 09:00; Stop 09/23/18 at 08:59; Status DC Aspirin (Ecotrin) 81 mg DAILY PO ; Start 09/15/18 at 09:00; Status UNV Atorvastatin Calcium (Lipitor) 40 mg QHS PO Last administered on 09/25/18 22:07; Start 09/14/18 at 21:00 Atorvastatin Calcium (Lipitor) 40 mg QPM PO ; Start 09/14/18 at 21:00; Status UNV Baclofen (Lioresal) 5 mg TID PRN PO spasm; Start 09/14/18 at 15:30; Stop 09/19/18 at 17:18; Status DC Baclofen (Lioresal) 10 mg QID PRN PO MUSCLE SPASMS; Start 09/14/18 at 18:00; Status UNV Budesonide/ Formoterol Fumarate (Symbicort 160/ 4.5mcg) 2 puff BID INH Last administered on 09/26/18 07:26; Start 09/14/18 at 21:00 Budesonide/ Formoterol Fumarate (Symbicort 160/ 4.5mcg) 2 puff BID INH ; Start 09/14/18 at 21:00; Status UNV Cetirizine HCl (ZyrTEC) 10 mg DAILY PO Last administered on 09/19/18 08:58; Start 09/15/18 at 09:00; Stop 09/19/18 at 17:18; Status DC Cetirizine HCl (ZyrTEC) 10 mg DAILY PO ; Start 09/15/18 at 09:00; Status UNV Cilostazol (Pletal) 50 mg BID@0730,1730 PO Last administered on 09/26/18 09:58; Start 09/14/18 at 17:30 Cilostazol (Pletal) 50 mg BID@0730,1730 PO ; Start 09/15/18 at 07:30; Status UNV Docusate Sodium (Colace) 100 mg BID PO Last administered on 09/26/18 09:57; Start 09/14/18 at 21:00 Docusate Sodium (Colace) 100 mg BID PO ; Start 09/14/18 at 21:00; Status UNV Donepezil HCl (AriCEPT) 5 mg DAILY PO Last administered on 09/24/18 09:00; Start 09/19/18 at 09:00; Stop 09/24/18 at 17:00; Status DC Donepezil HCl (AriCEPT) 10 mg DAILY PO Last administered on 09/26/18 09:59; Start 09/25/18 at 09:00 Doxazosin Mesylate (Cardura) 4 mg DAILY PO Last administered on 09/19/18 08:57; Start 09/15/18 at 09:00; Stop 09/19/18 at 17:18; Status DC Doxazosin Mesylate (Cardura) 4 mg DAILY PO ; Start 09/15/18 at 09:00; Status UNV Fish Oil ([place]-3 (1000mg)) 1 cap DAILY PO Last administered on 09/26/18 09:59; Start 09/15/18 at 09:00 Fish Oil ([place]-3 (1000mg)) 1 cap DAILY PO ; Start 09/15/18 at 09:00; Status UNV Fluoxetine HCl (PROzac) 20 mg DAILY PO Last administered on 09/20/18 08:53; Start 09/19/18 at 09:00; Stop 09/20/18 at 10:28; Status DC Gabapentin (Neurontin) 200 mg BID PO Last administered on 09/24/18 09:03; Start 09/19/18 at 21:00; Stop 09/24/18 at 17:00; Status DC Gabapentin (Neurontin) 400 mg BID PO Last administered on 09/19/18 08:57; Start 09/14/18 at 21:00; Stop 09/19/18 at 17:18; Status DC Gabapentin (Neurontin) 400 mg BID PO ; Start 09/14/18 at 21:00; Status UNV Guaifenesin (Mucinex Tab Er) 600 mg BID PO Last administered on 09/26/18 09:57; Start 09/14/18 at 21:00 Guaifenesin (Robitussin Tab) 400 mg BID PO ; Start 09/14/18 at 21:00; Status UNV Home Med (Med Rec Complete!) ASDIRECTED XX ; Start 09/14/18 at 18:00; Stop at 18:18; Status DC Indapamide (Lozol) 1.25 mg DAILY PO Last administered on 09/26/18 09:58; Start 09/15/18 at 09:00 Indapamide (Lozol) 1.25 mg DAILY PO ; Start 09/15/18 at 09:00; Status UNV Isosorbide Mononitrate (Imdur) 30 mg DAILY PO ; Start 09/15/18 at 09:00; Status UNV Isosorbide Mononitrate (Imdur) 30 mg DAILY@1000 PO Last administered on 09/19/18 10:46; Start 09/15/18 at 10:00; Stop 09/20/18 at 10:28; Status DC Lisinopril (Prinivil) 40 mg DAILY PO Last administered on 09/20/18 08:50; Start 09/15/18 at 09:00; Stop 09/21/18 at 07:12; Status DC Lisinopril (Prinivil) 40 mg DAILY PO ; Start 09/15/18 at 09:00; Status UNV Mirtazapine (Remeron) 45 mg QHS PO Last administered on 09/25/18 22:06; Start 09/14/18 at 21:00 Mirtazapine (Remeron) 45 mg QHS PO ; Start 09/14/18 at 21:00; Status UNV Miscellaneous (Unresolved Patient Own Med Order) SEE LABEL COMMENTS DAILY XX ; Start 09/14/18 at 09:00; Stop 09/20/18 at 10:31; Status DC Multivitamins (Theragram-M) 1 tab DAILY PO Last administered on 09/26/18 09:57; Start 09/15/18 at 09:00 Nicotine (Nicoderm Cq 7 Mg) 1 patch DAILY TD Last administered on 09/26/18 09:56; Start 09/15/18 at 09:00 Nicotine (Nicoderm Cq 7 Mg) 1 patch DAILY TOP ; Start 09/15/18 at 09:00; Status UNV Nitroglycerin (Nitrostat (1/ 150)) 0.4 mg Q5MP PRN SL CHEST PAIN; Start 09/14/18 at 15:30 Nitroglycerin (Nitrostat (1/ 150)) 0.4 mg Q5MP PRN SL CHEST PAIN; Start 09/14/18 at 18:00; Status UNV Omeprazole (PriLOSEC) 20 mg BID PO Last administered on 09/26/18 09:57; Start 09/14/18 at 21:00 Omeprazole (PriLOSEC) 20 mg BID PO ; Start 09/14/18 at 21:00; Status UNV Ondansetron HCl (Zofran) 4 mg Q6HP PRN PO NAUSEA OR VOMITING Last administered on 09/26/18 14:02; Start 09/26/18 at 13:45 Oxycodone HCl (Roxicodone, Oxyir) 5 mg Q8H PRN PO PAIN 7-10 Last administered on 09/14/18at 17:59; Start 09/14/18 at 15:30; Stop 09/19/18 at 17:18; Status DC Patient Own Medication (Patient'S Own Med) Ketotifen 0.025% (Zadit... DAILY OU ; Start 09/19/18 at 09:00; Stop 09/20/18 at 10:31; Status DC Polyethylene Glycol (Miralax) 1 pkt DAILY PO Last administered on 09/25/18 08:56; Start 09/15/18 at 09:00 Potassium Chloride (Micro-K Extencaps) 10 meq TID PO Last administered on 09/15/18at 07:48; Start 09/14/18 at 21:00; Stop 09/15/18 at 10:09; Status DC Potassium Chloride (Micro-K Extencaps) 10 meq TID PO ; Start 09/14/18 at 21:00; Status UNV Potassium Chloride (Micro-K Extencaps) 20 meq TID PO Last administered on 09/26/18 09:59; Start 09/15/18 at 16:00 Quetiapine Fumarate (SEROquel) 50 mg QHS PO Last administered on 09/23/18at 20:40; Start 09/21/18 at 21:00; Stop 09/24/18 at 17:00; Status DC Quetiapine Fumarate (SEROquel) 100 mg QHS PO Last administered on 09/20/18at 21:35; Start 09/19/18 at 21:00; Stop 09/21/18 at 15:28; Status DC Quetiapine Fumarate (SEROquel) 150 mg QHS PO Last administered on 09/18/18 20:21; Start 09/14/18 at 21:00; Stop 09/19/18 at 17:20; Status DC Quetiapine Fumarate (SEROquel) 150 mg QHS PO ; Start 09/14/18 at 21:00; Status UNV Sertraline HCl (Zoloft) 200 mg DAILY PO Last administered on 09/26/18 10:00; Start 09/15/18 at 09:00 Sertraline HCl (Zoloft) 200 mg DAILY PO ; Start 09/15/18 at 09:00; Status UNV Sotalol HCl (Betapace) 40 mg BID PO Last administered on 09/26/18 09:59; Start 09/14/18 at 21:00 Sotalol HCl (Betapace) 80 mg Q12H PO ; Start 09/14/18 at 18:00; Status UNV Tamsulosin HCl (Flomax) 0.4 mg DAILY PO Last administered on 09/26/18 10:00; Start 09/15/18 at 09:00 Tamsulosin HCl (Flomax) 0.4 mg DAILY PO ; Start 09/15/18 at 09:00; Status UNV Theophylline (Henrik-24) 400 mg BID PO Last administered on 09/26/18 09:57; Start 09/14/18 at 21:00 Thiamine HCl (VITAMIN B1 INJection) 100 mg DAILY IM Last administered on 09/26/18 09:59; Start 09/20/18 at 15:45 Tiotropium [place] (Spiriva Handihaler) 1 inhalation DAILY INH ; Start 09/15/18 at 09:00; Status UNV Tiotropium [place] (Spiriva Handihaler) 1 inhalation DAILY@08 INH Last admi nistered on 09/26/18 07:26; Start 09/15/18 at 08:00 Topiramate (TopAMAX) 50 mg DAILY PO Last administered on 09/26/18 09:59; Start 09/15/18 at 09:00 Topiramate (TopAMAX) 50 mg QAM PO ; Start 09/15/18 at 09:00; Status UNV Topiramate (TopAMAX) 50 mg QHS PO ; Start 09/24/18 at 21:00; Stop 09/24/18 at 21:00; Status DC Topiramate (TopAMAX) 100 mg QHS PO Last administered on 09/25/18 22:07; Start 09/24/18 at 21:00 Topiramate (TopAMAX) 100 mg QHS PO Last administered on 09/23/18 21:28; Start 09/14/18 at 21:00; Stop 09/24/18 at 17:00; Status DC Topiramate (TopAMAX) 100 mg QHS PO ; Start 09/14/18 at 21:00; Status UNV Vitamin D (Vitamin D) 2,000 units DAILY PO Last administered on 09/26/18 09:59; Start 09/15/18 at 09:00 Vitamin D (Vitamin D) 2,000 units DAILY PO ; Start 09/15/18 at 09:00; Status UNV Warfarin Sodium (Coumadin) 2 mg DAILY@17 PO Last administered on 09/24/18at 17:40; Start 09/24/18 at 17:00; Stop 09/25/18 at 10:39; Status DC Warfarin Sodium (Coumadin) 2.5 mg DAILY@17 PO Last administered on 09/23/18at 17:36; Start 09/23/18 at 17:00; Stop 09/24/18 at 17:00; Status DC Warfarin Sodium (Coumadin) 5 mg DAILY@17 PO Last administered on 09/24/18at 17:39; Start 09/24/18 at 17:00; Stop 09/25/18 at 10:39; Status DC DOROTA PACHECO MD Sep 26, 2018 14:53
[2018-09-26] MEDS ORDERED: WARFARIN SOD 5 MG TAB PO ONE (17:00)
[2018-09-26 20:00] VITALS: BP 128/71
[2018-09-26] MEDS: ATORVASTATIN 20 MG TAB PO SCH (20:21)
[2018-09-26] MEDS: TOPIRAMATE (TopAMAX) 100 MG TAB PO SCH (20:21)
[2018-09-26] MEDS: MIRTAZAPINE 15 MG TAB PO SCH (20:21)
[2018-09-27 06:00] VITALS: BP 129/57
[2018-09-27 06:43] LABS: HEMATOCRIT 40.9 % (42.0-52.0); HEMOGLOBIN 14.8 g/dl (13.5-17.5); MEAN CORPUSCULAR HEMOGLOBIN 33.6 pg (27.0-33.0); MEAN CORPUSCULAR HGB CONC 36.2 g/dl (32.0-36.5); PLATELET COUNT, AUTOMATED 290 10^3/uL (150-450); WHITE BLOOD COUNT 9.7 10^3/uL (4.0-10.0)
[2018-09-27 06:58] LABS: INR 2.04; PROTHROMBIN TIME 23.4 SECONDS (12.1-14.4)
[2018-09-27 07:07] LABS: ALBUMIN 3.8 GM/DL (3.2-5.2); BILIRUBIN,TOTAL 0.3 MG/DL (0.2-1.0); CALCIUM LEVEL 8.8 MG/DL (8.8-10.2); CREATININE FOR GFR 1.83 MG/DL (0.70-1.30); GLOMERULAR FILTRATION RATE 38.6 (>42); POTASSIUM SERUM 3.6 MEQ/L (3.5-5.1); TOTAL PROTEIN 6.8 GM/DL (6.4-8.2)
[2018-09-27] MEDS: SYMBICORT 160/4.5MCG INHALER 6GM INH SCH ×2 (07:47→20:40)
[2018-09-27] MEDS: TIOTROPIUM INHALER/CAPSULE (SPIRIVA) INH SCH (07:48)
[2018-09-27] MEDS: THEOPHYLLINE (THEO-24) 100MG SR **CAPSULE PO SCH ×2 (08:48→21:32)
[2018-09-27] MEDS: CILOSTAZOL 100 MG TAB (PLETAL) PO SCH ×2 (08:48→17:10)
[2018-09-27] MEDS: OMEGA-3 1000MG CAPSULE PO SCH (08:49)
[2018-09-27] MEDS: TOPIRAMATE (TopAMAX) 25 MG TAB PO SCH (08:50)
[2018-09-27] MEDS: SOTALOL HCL 80 MG TAB PO SCH ×2 (08:51→21:31)
[2018-09-27] MEDS: THIAMINE HCL 200 MG/2 ML VIAL (J3411) IM SCH (08:52)
[2018-09-27] MEDS: NICOTINE 7 MG/24 HR TRANSDERMAL TD SCH (08:52)
[2018-09-27] MEDS: MIRALAX *UNIT DOSE* 17GM PACKET PO SCH (08:52)
[2018-09-27] MEDS: POTASSIUM CHLORIDE 10 MEQ SR TABLET PO SCH ×3 (08:53→21:31)
[2018-09-27] MEDS: DOCUSATE SODIUM 100 MG CAP PO SCH ×2 (08:53→21:31)
[2018-09-27] MEDS: VITAMIN D 1,000 INTERNATIONAL UNITS TABLET PO SCH (08:53)
[2018-09-27] MEDS: MULTIVITAMINS/MINERALS THERAP 1 TAB PO SCH (08:53)
[2018-09-27] MEDS: DONEPEZIL 5 MG TAB PO SCH (08:53)
[2018-09-27] MEDS: SERTRALINE 100 MG TAB PO SCH (08:53)
[2018-09-27] MEDS: amLODIPine 10 MG TAB PO SCH (08:53)
[2018-09-27] MEDS: TAMSULOSIN 0.4 MG CAP PO SCH (08:53)
[2018-09-27] MEDS: OMEPRAZOLE 20 MG CAP PO SCH ×2 (08:53→21:31)
[2018-09-27] MEDS: INDAPAMIDE 1.25MG TABLET PO SCH (08:54)
[2018-09-27] MEDS: guaiFENesin ER 600 MG TAB PO SCH ×2 (08:54→21:31)
--- NOTE | 2018-09-27 13:05 | IPNPDOC ---
Date Seen The patient was seen on 09/27/18. Progress Note HPI: 73-year-old male with a past medical history of hypertension, diabetes, hyperlipidemia, history of coronary artery disease, CABG in 1994, history of stent placement in 2016, transferred from [facility], after sustaining a left occipital lobe hemorrhagic stroke on 09/09/2018 to [facility], Dr Thornton, after sustaining a left LAP LAYER hemorrhagic stroke. He was switched from atenolol to Sotalol related to episode of Afib. No neurosurgical intervention was necessary and the patient was transported back to [facility] to the care of Dr Thornton. The pt has no complaints today. He is OOB to chair. States he is feeling well. Denies chest pain, shortness of breath, abdominal pain, nausea, vomiting, or vertigo. PAST MEDICAL HISTORY: 1. Coronary artery disease, status post CABG in 1994. 2. History of stent placement in 2016. 3. History of atrial fibrillation. 4. Diabetes. 5. Hypertension. 6. Hyperlipidemia. 7. Non oxygen dependent chronic obstructive pulmonary disease (COPD). PE: GEN: 73yoM, appears stated age. No acute distress. HEENT: Normocephalic, atraumatic. Sclera are nonicteric. Conjunctiva without injection. Moist mucous membranes. CHEST: Regular rate and rhythm, +S1, +S2 LUNGS: Clear to auscultation bilaterally. No wheezes, rales, or rhonchi. Breathing appears symmetric and easy. ABD: Round, soft, non-tender, non-distended. +Bowel sounds throughout. No rebound or guarding. No costovertebral angle tenderness. EXT: No lower extremity edema appreciated. SKIN: [place], dry, warm. No rashes. NEURO: Alert and oriented x 3. Rt visual field deficits, no change. ASSESSMENT AND PLAN: This is a 73-year-old male patient with underlying medical history of hypertension, diabetes, dyslipidemia, history of coronary artery disease with coronary artery bypass graft (CABG) in 1994, history of stent placement in 2016, transferred to [facility] after sustaining left-sided occipital lobe hemorrhagic stroke 09/09/2018. Patient was brought to acute rehabilitation for further care. 1. Left-sided posterior cerebral artery hemorrhage stroke. Management is as per Dr Norberto LEE. PT/OT/ST as per Dr Norberto LEE Patient was managed by vascular surgery at [facility] Patient is on 81 of aspirin daily until 09/23/2018, then switched to Coumadin for atrial fibrillation, as per vascular surgery at [facility]. Plavix currently on hold. Dr Thornton managing coumadin dosing. 2. History of coronary artery disease. Per [facility] digital marketing manager,started Coumadin on 09/23/2018 and discontinue all antiplatelet agents at that time. Followup with stroke clinic at [facility] 10/12/2018 for genetic testing and family history of factor V Leiden deficiency. 3. Seizure disorder. Continue Topamax and gabapentin. 4. Coronary artery disease, status post CABG and stents. ASA switched to full-dose Coumadin as per [facility] vascular surgery and cardiology recommendations. 5. Paroxysmal atrial fibrillation with rapid ventricular response. Holding Plavix. On 81 of aspirin until 09/23/2018and then will be switched to anticoagulation with Coumadin on 09/23/2018. Followup INR. Continue sotalol. Further recommendations as per Dr. Thornton and also vascular surgery at [facility]. Dr Thornton currently managing coumadin dosing. INR 2.04 today. 6. Hypertension. Continue sotalol and indapamide. Continue statin. Norvas added Lisinopril on hold given elevated creatinine. Monitor blood pressure. 7. Coronary artery disease, currently on aspirin 81 and statin. Continue beta sendy. Angiotensin-converting enzyme (SHRUTI) on hold. Continue Norvasc. Continue indapamide. Monitor blood pressure. Aspirin will be discontinued, and patient will be started on Coumadin as per vascular surgery and cardiology at [facility]. 8. Posttraumatic stress disorder and depression. Continue current medication. 9. Chronic obstructive pulmonary disease (COPD). Spiriva, Symbicort, nebulizer treatment, incentive spirometry. 10. Peripheral arterial disease. Continue Pletal. 11. BPH. Continue Flomax. 12. Deep vein thrombosis (DVT) prophylaxis. TEDs and sequentials until 09/23/2018, when patient started on Coumadin. Will monitor patient closely. VS, I&O, 24H, Fishbone Vital Signs/I&O Vital Signs Date Time Temp Pulse Resp B/P (MAP) Pulse Ox O2 Delivery O2 Flow Rate FiO2 09/27/18 08:51 79 129/57 09/27/18 06:00 98.0 20 94 Room Air I&O- Last 24 Hours up to 6 AM 1/10/19 05:59 Intake Total 660 ml Balance 660 ml Laboratory Data 24H LABS Laboratory Tests 2 09/27/18 06:00: Nucleated Red Blood Cells % (auto) 0.0, Prothrombin Time 23.4H, Prothromb Time International Ratio 2.04, Anion Gap 10, Glomerular Filtration Rate 38.6L, Blood Urea Nitrogen 22H, Creatinine 1.83H, Sodium Level 144, Potassium Level 3.6, Chloride Level 111H, Carbon Dioxide Level 23, Calcium Level 8.8, Aspartate Amino Transf (AST/SGOT) 26, Alanine Aminotransferase (ALT/SGPT) 40, Alkaline Phosphatase 77, Total Bilirubin 0.3, Total Protein 6.8, Albumin 3.8, Albumin/ Globulin Ratio 1.27 09/27/18 06:45: Urine Color YELLOW, Urine Appearance CLEAR, Urine pH 6.0, Urine Specific [place] 1.014, Urine Protein NEGATIVE, Urine Glucose (UA) NEGATIVE, Urine Ketones NEGATIVE, Urine Blood 1+H, Urine Nitrite NEGATIVE, Urine Bilirubin NEGATIVE, Urine Urobilinogen 0.2, Urine Leukocyte Esterase NEGATIVE, Urine WBC (Auto) 2, Urine RBC (Auto) 6H, Urine Hyaline Casts (Auto) 1, Urine Bacteria (Auto) NEGATIVE, Urine Squamous Epithelial Cells 0, Urine Mucus (Auto) SMALL, Urine Sperm (Auto) CBC/BMP Laboratory Tests 09/27/18 06:00 Red Blood Count 4.40, Mean Corpuscular Volume 93.0, Mean Corpuscular Hemoglobin 33.6 H, Mean Corpuscular Hemoglobin Concent 36.2, Red Cell Distribution Width 13.2, Calcium Level 8.8, Aspartate Amino Transf (AST/SGOT) 26, Alanine Aminotransferase (ALT/SGPT) 40, Alkaline Phosphatase 77, Total Bilirubin 0.3, Total Protein 6.8, Albumin 3.8 Shivani Carney Sep 27, 2018 13:05
[2018-09-27 14:00] VITALS: BP 136/74
[2018-09-27] MEDS ORDERED: WARFARIN SOD 5 MG TAB PO ONE (17:00)
[2018-09-27 20:00] VITALS: BP 155/80
[2018-09-27] MEDS: TOPIRAMATE (TopAMAX) 100 MG TAB PO SCH (21:31)
[2018-09-27] MEDS: ATORVASTATIN 20 MG TAB PO SCH (21:31)
[2018-09-27] MEDS: MIRTAZAPINE 15 MG TAB PO SCH (21:31)
[2018-09-28 06:00] VITALS: BP 142/70
[2018-09-28 07:22] LABS: INR 2.98; PROTHROMBIN TIME 31.6 SECONDS (12.1-14.4)
[2018-09-28] MEDS: TIOTROPIUM INHALER/CAPSULE (SPIRIVA) INH SCH (07:28)
[2018-09-28] MEDS: SYMBICORT 160/4.5MCG INHALER 6GM INH SCH ×2 (07:28→19:50)
[2018-09-28] MEDS: SOTALOL HCL 80 MG TAB PO SCH ×2 (09:00→21:10)
[2018-09-28] MEDS: MIRALAX *UNIT DOSE* 17GM PACKET PO SCH (09:00)
[2018-09-28] MEDS: THEOPHYLLINE (THEO-24) 100MG SR **CAPSULE PO SCH ×2 (09:01→21:09)
[2018-09-28] MEDS: THIAMINE HCL 200 MG/2 ML VIAL (J3411) IM SCH (09:02)
[2018-09-28] MEDS: VITAMIN D 1,000 INTERNATIONAL UNITS TABLET PO SCH (09:03)
[2018-09-28] MEDS: MULTIVITAMINS/MINERALS THERAP 1 TAB PO SCH (09:03)
[2018-09-28] MEDS: OMEGA-3 1000MG CAPSULE PO SCH (09:03)
[2018-09-28] MEDS: TAMSULOSIN 0.4 MG CAP PO SCH (09:03)
[2018-09-28] MEDS: amLODIPine 10 MG TAB PO SCH (09:03)
[2018-09-28] MEDS: OMEPRAZOLE 20 MG CAP PO SCH ×2 (09:03→21:10)
[2018-09-28] MEDS: TOPIRAMATE (TopAMAX) 25 MG TAB PO SCH (09:03)
[2018-09-28] MEDS: DOCUSATE SODIUM 100 MG CAP PO SCH ×2 (09:04→21:00)
[2018-09-28] MEDS: CILOSTAZOL 100 MG TAB (PLETAL) PO SCH ×2 (09:04→17:22)
[2018-09-28] MEDS: INDAPAMIDE 1.25MG TABLET PO SCH (09:04)
[2018-09-28] MEDS: DONEPEZIL 5 MG TAB PO SCH (09:05)
[2018-09-28] MEDS: POTASSIUM CHLORIDE 10 MEQ SR TABLET PO SCH ×3 (09:05→21:10)
[2018-09-28] MEDS: NICOTINE 7 MG/24 HR TRANSDERMAL TD SCH (09:05)
[2018-09-28] MEDS: SERTRALINE 100 MG TAB PO SCH (09:05)
[2018-09-28] MEDS: guaiFENesin ER 600 MG TAB PO SCH ×2 (09:06→21:11)
--- NOTE | 2018-09-28 12:08 | IPNPDOC ---
Date Seen The patient was seen on 09/28/18. 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 He was switched from atenolol to Sotalol related to episode of Afib. No neurosurgical intervention was necessary and the patient was transported back to [facility] to the care of Dr Thornton. The pt has no complaints today. He is OOB to chair. Family at bedside. States he is feeling well. Denies chest pain, shortness of breath, abdominal pain, nausea, vomiting, or vertigo. PAST MEDICAL HISTORY: 1. Coronary artery disease, status post CABG in 1994. 2. History of stent placement in 2016. 3. History of atrial fibrillation. 4. Diabetes. 5. Hypertension. 6. Hyperlipidemia. 7. Non oxygen dependent chronic obstructive pulmonary disease (COPD). PE: GEN: 73yoM, appears stated age. No acute distress. HEENT: Normocephalic, atraumatic. Sclera are nonicteric. Conjunctiva without injection. Moist mucous membranes. CHEST: Regular rate and rhythm, +S1, +S2 LUNGS: Clear to auscultation bilaterally. No wheezes, rales, or rhonchi. Breathing appears symmetric and easy. ABD: Round, soft, non-tender, non-distended. +Bowel sounds throughout. No rebound or guarding. No costovertebral angle tenderness. EXT: No lower extremity edema appreciated. SKIN: [place], dry, warm. No rashes. NEURO: Alert and oriented x 3. Rt visual field deficits, no change. ASSESSMENT AND PLAN: This is a 73-year-old male patient with underlying medical history of hypertension, diabetes, dyslipidemia, history of coronary artery disease with coronary artery bypass graft (CABG) in 1994, history of stent placement in 2016, transferred to [facility] after sustaining left-sided occipital lobe hemorrhagic stroke 09/09/2018. Patient was brought to acute rehabilitation for further care. 1. Left-sided posterior cerebral artery hemorrhage stroke. Management is as per Dr Norberto LEE. PT/OT/ST as per Dr Norberto LEE Patient was managed by vascular surgery at [facility] Patient is on 81 of aspirin daily until 09/23/2018, then switched to Coumadin for atrial fibrillation, as per vascular surgery at [facility]. Plavix currently on hold. Dr Thornton managing coumadin dosing. 2. History of coronary artery disease. Per [facility] guest relations agent,started Coumadin on 09/23/2018 and discontinue all antiplatelet agents at that time. Followup with stroke clinic at [facility] 10/12/2018 for genetic testing and family history of factor V Leiden deficiency. 3. Seizure disorder. Continue Topamax and gabapentin. 4. Coronary artery disease, status post CABG and stents. ASA switched to full-dose Coumadin as per [facility] vascular surgery and cardiology recommendations. 5. Paroxysmal atrial fibrillation with rapid ventricular response. Holding Plavix. On 81 of aspirin until 09/23/2018and then switched to anticoagulation with Coumadin on 09/23/2018. Followup INR. Continue sotalol. Further recommendations as per Dr. Thornton and also vascular surgery at [facility]. Dr Thornton currently managing coumadin dosing. INR 2.98 today. 6. Hypertension. Continue sotalol and indapamide. Continue statin. Norvas added Lisinopril on hold given elevated creatinine. Monitor blood pressure. 7. Coronary artery disease, currently on aspirin 81 and statin. Continue beta sendy. Angiotensin-converting enzyme (SHRUTI) on hold. Continue Norvasc. Continue indapamide. Monitor blood pressure. Aspirin will be discontinued, and patient will be started on Coumadin as per vascular surgery and cardiology at [facility]. 8. Posttraumatic stress disorder and depression. Continue current medication. 9. Chronic obstructive pulmonary disease (COPD). Spiriva, Symbicort, nebulizer treatment, incentive spirometry. 10. Peripheral arterial disease. Continue Pletal. 11. BPH. Continue Flomax. 12. Deep vein thrombosis (DVT) prophylaxis. TEDs and sequentials until 09/23/2018, when patient started on Coumadin. Will monitor patient closely. VS, I&O, 24H, Fishbone Vital Signs/I&O Vital Signs Date Time Temp Pulse Resp B/P (MAP) Pulse Ox O2 Delivery O2 Flow Rate FiO2 09/28/18 09:03 68 142/70 09/28/18 06:00 97.8 18 96 Room Air I&O- Last 24 Hours up to 6 AM 09/28/18 06:00 Intake Total 960 ml Output Total 0 ml Balance 960 ml Laboratory Data 24H LABS Laboratory Tests 2 09/28/18 06:39: Prothrombin Time 31.6H, Prothromb Time International Ratio 2.98 Shivani Carney Sep 28, 2018 12:07
[2018-09-28 14:00] VITALS: BP 162/83
--- NOTE | 2018-09-28 15:12 | IPNPDOC ---
PM&R Progress Note DATE OF SERVICE: Sep 27, 2018 Chief Pilot Progress Note Subjective: Patient states he no longer feels nauseous and feels much better. REVIEW OF SYSTEMS: The following is a completed review of systems and has been reviewed. Review of systems otherwise unremarkable. PAIN: Patient self reports no pain EYES: right visual field cut EARS, NOSE, & THROAT:denies dysarthria or rhinorrhea or dysphagia CARDIOVASCULAR: denies chest pain or palpitations PULMONARY: Negative. Denies shortness of breath GASTROINTESTINAL: Negative for diarrhea/constipation, +nausea GENITOURINARY: Negative for dysuria NEUROLOGICAL: +left DIRECTOR OF LABOR RELATIONS stroke, + dementia PSYCHIATRIC: confused All other review of systems found to be negative. PHYSICAL EXAMINATION: VITAL SIGNS: Please see below. GENERAL: Pleasant and cooperative. No acute distress. HEENT: PERRL. Extraocular movements intact. Clear conjunctiva. +right side visual field cut CARDIOVASCULAR: Regular rate and rhythm. No murmurs, rubs, or gallops. LUNGS: Mostly clear to auscultation, no wheeze. No rhonchi. ABDOMEN: Soft, nontender, nondistended. Positive bowel sounds. Normal active bowel sounds NEUROLOGICAL: Alert and oriented to self, not time or place. + ANomia, Cranial nerves II through XII grossly intact. Sensation grossly intact EXTREMITIES: 5\5 strength bilateral upper extremities. 5\5 strength right lower extremity. 5/5 strength in left lower extremity. SKIN: intact ASSESSMENT:73-year-old M with past medical history of HTN, CAD, Seizures who presents status post hemorrhagic Left DIRECTOR OF LABOR RELATIONS stroke. PLAN: 1. 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- continue ASA 81mg daily until 09-23-18 then will need to switch to full AC for his Afib- decision to be made by Vascular Surgery at [facility], Plavix currently on hold, however has pmh of coronary and leg stents, per [facility] cardiology will started Coumadin on 09-23-17 goal 2-3, stopped antiplatelets -monitor and manage BPs, continue secondary statin therapy -has stroke clinic f/u 10-12-18 for genetic testing, family Hx of Factor V Leiden -pmh Seizure disorder, continue Topomax, Gabapentin -already on Sertraline, will d/c additional SSRI, TSH within normal limits -increase donepezil for dementia 3. Cardio: CAD s/p CABG and stents, newly diagnosed Paroxysmal Afib with RVR- Plavix on hold, continue ASA 81 until 09-23-18, will need AC per Vascular surgery recs- started COumadin on 09-23-17 and d/c all ASA, continue Sotalol -pmh HTN continue home meds, will monitor off Doxazosin and Isosorbide mononitrate as polypharmacy can be contributing to dementia, continue Indapamide and lisinopril- will monitor and adjust prn, medicine consulted -pmh PAD continue Cilostazol 4.Resp: pmh COPD, monitor for signs of pneumonia, Duonebs, Spiriva, and Symbicort, Incentive Spirometry 5. Psych: pmh PTSD/Depression: continue Remeron, tapered off Seroquel, continue Zoloft -will start IM thiamine for hx of ETOH abuse 6. : pmh BPH continue Flomax , admission UA and Ucx negative, monitor PVRs 7. GI ppx: start Protonix, will give zofran for nausea and recheck urine 8. DVT ppx: TEDs and Dopplers to r/o DVT 9. Pain: Tylenol prn 10. Dispo: 10/02 to home with granddaughter abdias Aguirre his other children will be able to check on him daily, progressing towards goals Allergies Coded Allergies: Chlordiazepoxide (Unverified Allergy, Unknown, 08/10/18) SEIZURES Vital Signs Vital Signs Date Time Temp Pulse Resp B/P (MAP) Pulse Ox O2 Delivery O2 Flow Rate FiO2 09/28/18 14:00 97.8 90 18 162/83 (109) 95 Room Air Laboratory Data Labs 24H Laboratory Tests 2 09/28/18 06:39: Prothrombin Time 31.6H, Prothromb Time International Ratio 2.98 Current Medications Current Medications Current Medications Acetaminophen (Tylenol Tab) 650 mg Q4HP PRN PO MILD PAIN (PS 1-4) Last administered on 09/23/18at 20:41; Start 09/14/18 at 15:30 Acetaminophen (Tylenol Tab) 650 mg Q6H PRN PO PAIN; Start 09/14/18 at 18:00; Status UNV Albuterol Sulfate (Proventil Neb) 2.5 mg Q4H PRN INH SHORTNESS OF BREATH; Start 09/14/18 at 18:00; Status UNV Albuterol Sulfate (Proventil, Ventolin Hfa) 2 puff Q4H PRN INH SHORTNESS OF BREATH; Start 09/14/18 at 18:00; Status UNV Albuterol Sulfate (Proventil, Ventolin Hfa) 2 puff Q4HP PRN INH SHORTNESS OF BREATH; Start 09/14/18 at 15:30 Amlodipine Besylate (Norvasc) 5 mg DAILY PO Last administered on 09/21/18at 08:45; Start 09/21/18 at 09:00; Stop 09/21/18 at 18:34; Status DC Amlodipine Besylate (Norvasc) 10 mg DAILY PO Last administered on 09/28/18at 09:03; Start 09/22/18 at 09:00 Artificial Tears (Akwa Tears) 1 drop Q1H PRN OU DRY EYES; Start 09/14/18 at 18:00; Status UNV Artificial Tears (Akwa Tears) 2 drop QIDP PRN OU DRY EYES; Start 09/14/18 at 15:30 Aspirin (Ecotrin) 81 mg DAILY PO Last administered on 09/22/18at 09:34; Start 09/15/18 at 09:00; Stop 09/23/18 at 08:59; Status DC Aspirin (Ecotrin) 81 mg DAILY PO ; Start 09/15/18 at 09:00; Status UNV Atorvastatin Calcium (Lipitor) 40 mg QHS PO Last administered on 09/27/18at 21:31; Start 09/14/18 at 21:00 Atorvastatin Calcium (Lipitor) 40 mg QPM PO ; Start 09/14/18 at 21:00; Status UNV Baclofen (Lioresal) 5 mg TID PRN PO spasm; Start 09/14/18 at 15:30; Stop 09/19/18 at 17:18; Status DC Baclofen (Lioresal) 10 mg QID PRN PO MUSCLE SPASMS; Start 09/14/18 at 18:00; Status UNV Budesonide/ Formoterol Fumarate (Symbicort 160/ 4.5mcg) 2 puff BID INH Last administered on 09/28/18 07:28; Start 09/14/18 at 21:00 Budesonide/ Formoterol Fumarate (Symbicort 160/ 4.5mcg) 2 puff BID INH ; Start 09/14/18 at 21:00; Status UNV Cetirizine HCl (ZyrTEC) 10 mg DAILY PO Last administered on 09/19/18 08:58; Start 09/15/18 at 09:00; Stop 09/19/18 at 17:18; Status DC Cetirizine HCl (ZyrTEC) 10 mg DAILY PO ; Start 09/15/18 at 09:00; Status UNV Cilostazol (Pletal) 50 mg BID@0730,1730 PO Last administered on 09/28/18 09:04; Start 09/14/18 at 17:30 Cilostazol (Pletal) 50 mg BID@0730,1730 PO ; Start 09/15/18 at 07:30; Status UNV Docusate Sodium (Colace) 100 mg BID PO Last administered on 09/28/18 09:04; Start 09/14/18 at 21:00 Docusate Sodium (Colace) 100 mg BID PO ; Start 09/14/18 at 21:00; Status UNV Donepezil HCl (AriCEPT) 5 mg DAILY PO Last administered on 09/24/18 09:00; Start 09/19/18 at 09:00; Stop 09/24/18 at 17:00; Status DC Donepezil HCl (AriCEPT) 10 mg DAILY PO Last administered on 09/28/18 09:05; Start 09/25/18 at 09:00 Doxazosin Mesylate (Cardura) 4 mg DAILY PO Last administered on 09/19/18 08:57; Start 09/15/18 at 09:00; Stop 09/19/18 at 17:18; Status DC Doxazosin Mesylate (Cardura) 4 mg DAILY PO ; Start 09/15/18 at 09:00; Status UNV Fish Oil ([place]-3 (1000mg)) 1 cap DAILY PO Last administered on 09/28/18 09:03; Start 09/15/18 at 09:00 Fish Oil ([place]-3 (1000mg)) 1 cap DAILY PO ; Start 09/15/18 at 09:00; Status UNV Fluoxetine HCl (PROzac) 20 mg DAILY PO Last administered on 09/20/18at 08:53; Start 09/19/18 at 09:00; Stop 09/20/18 at 10:28; Status DC Gabapentin (Neurontin) 200 mg BID PO Last administered on 09/24/18at 09:03; Start 09/19/18 at 21:00; Stop 09/24/18 at 17:00; Status DC Gabapentin (Neurontin) 400 mg BID PO Last administered on 09/19/18at 08:57; Start 09/14/18 at 21:00; Stop 09/19/18 at 17:18; Status DC Gabapentin (Neurontin) 400 mg BID PO ; Start 09/14/18 at 21:00; Status UNV Guaifenesin (Mucinex Tab Er) 600 mg BID PO Last administered on 09/28/18at 09:06; Start 09/14/18 at 21:00 Guaifenesin (Robitussin Tab) 400 mg BID PO ; Start 09/14/18 at 21:00; Status UNV Home Med (Med Rec Complete!) ASDIRECTED XX ; Start 09/14/18 at 18:00; Stop at 18:18; Status DC Indapamide (Lozol) 1.25 mg DAILY PO Last administered on 09/28/18at 09:04; Start 09/15/18 at 09:00 Indapamide (Lozol) 1.25 mg DAILY PO ; Start 09/15/18 at 09:00; Status UNV Isosorbide Mononitrate (Imdur) 30 mg DAILY PO ; Start 09/15/18 at 09:00; Status UNV Isosorbide Mononitrate (Imdur) 30 mg DAILY@1000 PO Last administered on 09/19/18at 10:46; Start 09/15/18 at 10:00; Stop 09/20/18 at 10:28; Status DC Lisinopril (Prinivil) 40 mg DAILY PO Last administered on 09/20/18at 08:50; Start 09/15/18 at 09:00; Stop 09/21/18 at 07:12; Status DC Lisinopril (Prinivil) 40 mg DAILY PO ; Start 09/15/18 at 09:00; Status UNV Mirtazapine (Remeron) 45 mg QHS PO Last administered on 09/27/18at 21:31; Start 09/14/18 at 21:00 Mirtazapine (Remeron) 45 mg QHS PO ; Start 09/14/18 at 21:00; Status UNV Miscellaneous (Unresolved Patient Own Med Order) SEE LABEL COMMENTS DAILY XX ; Start 09/14/18 at 09:00; Stop 09/20/18 at 10:31; Status DC Multivitamins (Theragram-M) 1 tab DAILY PO Last administered on 09/28/18 09:03; Start 09/15/18 at 09:00 Nicotine (Nicoderm Cq 7 Mg) 1 patch DAILY TD Last administered on 09/28/18at 09:05; Start 09/15/18 at 09:00 Nicotine (Nicoderm Cq 7 Mg) 1 patch DAILY TOP ; Start 09/15/18 at 09:00; Status UNV Nitroglycerin (Nitrostat (1/ 150)) 0.4 mg Q5MP PRN SL CHEST PAIN; Start 09/14/18 at 15:30 Nitroglycerin (Nitrostat (1/ 150)) 0.4 mg Q5MP PRN SL CHEST PAIN; Start 09/14/18 at 18:00; Status UNV Omeprazole (PriLOSEC) 20 mg BID PO Last administered on 09/28/18at 09:03; Start 09/14/18 at 21:00 Omeprazole (PriLOSEC) 20 mg BID PO ; Start 09/14/18 at 21:00; Status UNV Ondansetron HCl (Zofran) 4 mg Q6HP PRN PO NAUSEA OR VOMITING Last administered on 09/26/18at 14:02; Start 09/26/18 at 13:45 Oxycodone HCl (Roxicodone, Oxyir) 5 mg Q8H PRN PO PAIN 7-10 Last administered on 09/14/18at 17:59; Start 09/14/18 at 15:30; Stop 09/19/18 at 17:18; Status DC Patient Own Medication (Patient'S Own Med) Ketotifen 0.025% (Zadit... DAILY OU ; Start 09/19/18 at 09:00; Stop 09/20/18 at 10:31; Status DC Polyethylene Glycol (Miralax) 1 pkt DAILY PO Last administered on 09/27/18at 08:52; Start 09/15/18 at 09:00 Potassium Chloride (Micro-K Extencaps) 10 meq TID PO Last administered on 09/15/18at 07:48; Start 09/14/18 at 21:00; Stop 09/15/18 at 10:09; Status DC Potassium Chloride (Micro-K Extencaps) 10 meq TID PO ; Start 09/14/18 at 21:00; Status UNV Potassium Chloride (Micro-K Extencaps) 20 meq TID PO Last administered on 09/28/18 09:05; Start 09/15/18 at 16:00 Quetiapine Fumarate (SEROquel) 50 mg QHS PO Last administered on 09/23/18at 20:40; Start 09/21/18 at 21:00; Stop 09/24/18 at 17:00; Status DC Quetiapine Fumarate (SEROquel) 100 mg QHS PO Last administered on 09/20/18at 21:35; Start 09/19/18 at 21:00; Stop 09/21/18 at 15:28; Status DC Quetiapine Fumarate (SEROquel) 150 mg QHS PO Last administered on 09/18/18at 20:21; Start 09/14/18 at 21:00; Stop 09/19/18 at 17:20; Status DC Quetiapine Fumarate (SEROquel) 150 mg QHS PO ; Start 09/14/18 at 21:00; Status UNV Sertraline HCl (Zoloft) 200 mg DAILY PO Last administered on 09/28/18 09:05; Start 09/15/18 at 09:00 Sertraline HCl (Zoloft) 200 mg DAILY PO ; Start 09/15/18 at 09:00; Status UNV Sotalol HCl (Betapace) 40 mg BID PO Last administered on 09/27/18at 21:31; Start 09/14/18 at 21:00 Sotalol HCl (Betapace) 80 mg Q12H PO ; Start 09/14/18 at 18:00; Status UNV Tamsulosin HCl (Flomax) 0.4 mg DAILY PO Last administered on 09/28/18 09:03; Start 09/15/18 at 09:00 Tamsulosin HCl (Flomax) 0.4 mg DAILY PO ; Start 09/15/18 at 09:00; Status UNV Theophylline (Henrik-24) 400 mg BID PO Last administered on 09/28/18 09:01; Start 09/14/18 at 21:00 Thiamine HCl (VITAMIN B1 INJection) 100 mg DAILY IM Last administered on 09/28/18 09:02; Start 09/20/18 at 15:45 Tiotropium [place] (Spiriva Handihaler) 1 inhalation DAILY INH ; Start 09/15/18 at 09:00; Status UNV Tiotropium [place] (Spiriva Handihaler) 1 inhalation DAILY@08 INH Last administered on 09/28/18 07:28; Start 09/15/18 at 08:00 Topiramate (TopAMAX) 50 mg DAILY PO Last administered on 09/28/18 09:03; Start 09/15/18 at 09:00 Topiramate (TopAMAX) 50 mg QAM PO ; Start 09/15/18 at 09:00; Status UNV Topiramate (TopAMAX) 50 mg QHS PO ; Start 09/24/18 at 21:00; Stop 09/24/18 at 21:00; Status DC Topiramate (TopAMAX) 100 mg QHS PO Last administered on 09/27/18 21:31; Start 09/24/18 at 21:00 Topiramate (TopAMAX) 100 mg QHS PO Last administered on 09/23/18 21:28; Start 09/14/18 at 21:00; Stop 09/24/18 at 17:00; Status DC Topiramate (TopAMAX) 100 mg QHS PO ; Start 09/14/18 at 21:00; Status UNV Vitamin D (Vitamin D) 2,000 units DAILY PO Last administered on 09/28/18 09:03; Start 09/15/18 at 09:00 Vitamin D (Vitamin D) 2,000 units DAILY PO ; Start 09/15/18 at 09:00; Status UNV Warfarin Sodium (Coumadin) 2 mg DAILY@17 PO Last administered on 09/24/18 17:40; Start 09/24/18 at 17:00; Stop 09/25/18 at 10:39; Status DC Warfarin Sodium (Coumadin) 2.5 mg DAILY@17 PO Last administered on 09/23/18at 17:36; Start 09/23/18 at 17:00; Stop 09/24/18 at 17:00; Status DC Warfarin Sodium (Coumadin) 5 mg DAILY@17 PO Last administered on 09/24/18at 17:39; Start 09/24/18 at 17:00; Stop 09/25/18 at 10:39; Status DC DOROTA PCAHECO MD Sep 28, 2018 15:12
--- NOTE | 2018-09-28 15:14 | IPNPDOC ---
PM&R Progress Note DATE OF SERVICE: Sep 28, 2018 [facility] [facility] Progress Note Subjective: Patient seen walking in the parks in PT, confused about how to return to his room. REVIEW OF SYSTEMS: The following is a completed review of systems and has been reviewed. Review of systems otherwise unremarkable. PAIN: Patient self reports no pain EYES: right visual field cut EARS, NOSE, & THROAT:denies dysarthria or rhinorrhea or dysphagia CARDIOVASCULAR: denies chest pain or palpitations PULMONARY: Negative. Denies shortness of breath GASTROINTESTINAL: Negative for diarrhea/constipation, +nausea GENITOURINARY: Negative for dysuria NEUROLOGICAL: +left BRAN MIXER stroke, + dementia PSYCHIATRIC: confused All other review of systems found to be negative. PHYSICAL EXAMINATION: VITAL SIGNS: Please see below. GENERAL: Pleasant and cooperative. No acute distress. HEENT: PERRL. Extraocular movements intact. Clear conjunctiva. +right side visual field cut CARDIOVASCULAR: Regular rate and rhythm. No murmurs, rubs, or gallops. LUNGS: Mostly clear to auscultation, no wheeze. No rhonchi. ABDOMEN: Soft, nontender, nondistended. Positive bowel sounds. Normal active bowel sounds NEUROLOGICAL: Alert and oriented to self, not time or place. + ANomia, Cranial nerves II through XII grossly intact. Sensation grossly intact EXTREMITIES: 5\5 strength bilateral upper extremities. 5\5 strength right lower extremity. 5/5 strength in left lower extremity. SKIN: intact ASSESSMENT:73-year-old M with past medical history of HTN, CAD, Seizures who presents status post hemorrhagic Left BRAN MIXER stroke. PLAN: 1. 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- continue ASA 81mg daily until 09-23-18 then will need to switch to full AC for his Afib- decision to be made by Vascular Surgery at [facility], Plavix currently on hold, however has pmh of coronary and leg stents, per [facility] cardiology will started Coumadin on 09-23-17 goal 2-3, stopped antiplatelets -monitor and manage BPs, continue secondary statin therapy -has stroke clinic f/u 10-12-18 for genetic testing, family Hx of Factor V Leiden -pmh Seizure disorder, continue Topomax, Gabapentin -already on Sertraline, will d/c additional SSRI, TSH within normal limits -increase donepezil for dementia 3. Cardio: CAD s/p CABG and stents, newly diagnosed Paroxysmal Afib with RVR- Plavix on hold, continue ASA 81 until 09-23-18, will need AC per Vascular surgery recs- started COumadin on 09-23-17 and d/c all ASA, continue Sotalol -pmh HTN continue home meds, will monitor off Doxazosin and Isosorbide mononitrate as polypharmacy can be contributing to dementia, continue Indapamide and lisinopril- will monitor and adjust prn, medicine consulted -pmh PAD continue Cilostazol 4.Resp: pmh COPD, monitor for signs of pneumonia, Duonebs, Spiriva, and Symbicort, Incentive Spirometry 5. Psych: pmh PTSD/Depression: continue Remeron, tapered off Seroquel, continue Zoloft -will start IM thiamine for hx of ETOH abuse 6. : pmh BPH continue Flomax , admission UA and Ucx negative, monitor PVRs 7. GI ppx: start Protonix, will give zofran for nausea and recheck urine 8. DVT ppx: TEDs and Dopplers to r/o DVT 9. Pain: Tylenol prn 10. Dispo: 10/02 to home with granddaughter Carla, abdias Dwyeria his other children will be able to check on him daily, progressing towards goals Allergies Coded Allergies: Chlordiazepoxide (Unverified Allergy, Unknown, 08/10/18) SEIZURES Vital Signs Vital Signs Date Time Temp Pulse Resp B/P (MAP) Pulse Ox O2 Delivery O2 Flow Rate FiO2 09/28/18 14:00 97.8 90 18 162/83 (109) 95 Room Air Laboratory Data Labs 24H Laboratory Tests 2 09/28/18 06:39: Prothrombin Time 31.6H, Prothromb Time International Ratio 2.98 Current Medications Current Medications Current Medications Acetaminophen (Tylenol Tab) 650 mg Q4HP PRN PO MILD PAIN (PS 1-4) Last administered on 09/23/18at 20:41; Start 09/14/18 at 15:30 Acetaminophen (Tylenol Tab) 650 mg Q6H PRN PO PAIN; Start 09/14/18 at 18:00; Status UNV Albuterol Sulfate (Proventil Neb) 2.5 mg Q4H PRN INH SHORTNESS OF BREATH; Start 09/14/18 at 18:00; Status UNV Albuterol Sulfate (Proventil, Ventolin Hfa) 2 puff Q4H PRN INH SHORTNESS OF BREATH; Start 09/14/18 at 18:00; Status UNV Albuterol Sulfate (Proventil, Ventolin Hfa) 2 puff Q4HP PRN INH SHORTNESS OF BREATH; Start 09/14/18 at 15:30 Amlodipine Besylate (Norvasc) 5 mg DAILY PO Last administered on 09/21/18at 08:45; Start 09/21/18 at 09:00; Stop 09/21/18 at 18:34; Status DC Amlodipine Besylate (Norvasc) 10 mg DAILY PO Last administered on 09/28/18at 09:03; Start 09/22/18 at 09:00 Artificial Tears (Akwa Tears) 1 drop Q1H PRN OU DRY EYES; Start 09/14/18 at 18:00; Status UNV Artificial Tears (Akwa Tears) 2 drop QIDP PRN OU DRY EYES; Start 09/14/18 at 15:30 Aspirin (Ecotrin) 81 mg DAILY PO Last administered on 09/22/18at 09:34; Start 09/15/18 at 09:00; Stop 09/23/18 at 08:59; Status DC Aspirin (Ecotrin) 81 mg DAILY PO ; Start 09/15/18 at 09:00; Status UNV Atorvastatin Calcium (Lipitor) 40 mg QHS PO Last administered on 09/27/18at 21:31; Start 09/14/18 at 21:00 Atorvastatin Calcium (Lipitor) 40 mg QPM PO ; Start 09/14/18 at 21:00; Status UNV Baclofen (Lioresal) 5 mg TID PRN PO spasm; Start 09/14/18 at 15:30; Stop 09/19/18 at 17:18; Status DC Baclofen (Lioresal) 10 mg QID PRN PO MUSCLE SPASMS; Start 09/14/18 at 18:00; Status UNV Budesonide/ Formoterol Fumarate (Symbicort 160/ 4.5mcg) 2 puff BID INH Last administered on 09/28/18 07:28; Start 09/14/18 at 21:00 Budesonide/ Formoterol Fumarate (Symbicort 160/ 4.5mcg) 2 puff BID INH ; Start 09/14/18 at 21:00; Status UNV Cetirizine HCl (ZyrTEC) 10 mg DAILY PO Last administered on 09/19/18 08:58; Start 09/15/18 at 09:00; Stop 09/19/18 at 17:18; Status DC Cetirizine HCl (ZyrTEC) 10 mg DAILY PO ; Start 09/15/18 at 09:00; Status UNV Cilostazol (Pletal) 50 mg BID@0730,1730 PO Last administered on 09/28/18 09:04; Start 09/14/18 at 17:30 Cilostazol (Pletal) 50 mg BID@0730,1730 PO ; Start 09/15/18 at 07:30; Status UNV Docusate Sodium (Colace) 100 mg BID PO Last administered on 09/28/18 09:04; Start 09/14/18 at 21:00 Docusate Sodium (Colace) 100 mg BID PO ; Start 09/14/18 at 21:00; Status UNV Donepezil HCl (AriCEPT) 5 mg DAILY PO Last administered on 09/24/18 09:00; Start 09/19/18 at 09:00; Stop 09/24/18 at 17:00; Status DC Donepezil HCl (AriCEPT) 10 mg DAILY PO Last administered on 09/28/18 09:05; Start 09/25/18 at 09:00 Doxazosin Mesylate (Cardura) 4 mg DAILY PO Last administered on 09/19/18 08:57; Start 09/15/18 at 09:00; Stop 09/19/18 at 17:18; Status DC Doxazosin Mesylate (Cardura) 4 mg DAILY PO ; Start 09/15/18 at 09:00; Status UNV Fish Oil (Sunol-3 (1000mg)) 1 cap DAILY PO Last administered on 09/28/18 09:03; Start 09/15/18 at 09:00 Fish Oil (Sunol-3 (1000mg)) 1 cap DAILY PO ; Start 09/15/18 at 09:00; Status UNV Fluoxetine HCl (PROzac) 20 mg DAILY PO Last administered on 09/20/18at 08:53; Start 09/19/18 at 09:00; Stop 09/20/18 at 10:28; Status DC Gabapentin (Neurontin) 200 mg BID PO Last administered on 09/24/18at 09:03; Start 09/19/18 at 21:00; Stop 09/24/18 at 17:00; Status DC Gabapentin (Neurontin) 400 mg BID PO Last administered on 09/19/18at 08:57; Start 09/14/18 at 21:00; Stop 09/19/18 at 17:18; Status DC Gabapentin (Neurontin) 400 mg BID PO ; Start 09/14/18 at 21:00; Status UNV Guaifenesin (Mucinex Tab Er) 600 mg BID PO Last administered on 09/28/18at 09:06; Start 09/14/18 at 21:00 Guaifenesin (Robitussin Tab) 400 mg BID PO ; Start 09/14/18 at 21:00; Status UNV Home Med (Med Rec Complete!) ASDIRECTED XX ; Start 09/14/18 at 18:00; Stop 09/14/18 at 18:18; Status DC Indapamide (Lozol) 1.25 mg DAILY PO Last administered on 09/28/18at 09:04; Start 09/15/18 at 09:00 Indapamide (Lozol) 1.25 mg DAILY PO ; Start 09/15/18 at 09:00; Status UNV Isosorbide Mononitrate (Imdur) 30 mg DAILY PO ; Start 09/15/18 at 09:00; Status UNV Isosorbide Mononitrate (Imdur) 30 mg DAILY@1000 PO Last administered on 9at 10:46; Start 09/15/18 at 10:00; Stop 09/20/18 at 10:28; Status DC Lisinopril (Prinivil) 40 mg DAILY PO Last administered on 09/20/18at 08:50; Start 09/15/18 at 09:00; Stop 09/21/18 at 07:12; Status DC Lisinopril (Prinivil) 40 mg DAILY PO ; Start 09/15/18 at 09:00; Status UNV Mirtazapine (Remeron) 45 mg QHS PO Last administered on 09/27/18at 21:31; Start 09/14/18 at 21:00 Mirtazapine (Remeron) 45 mg QHS PO ; Start 09/14/18 at 21:00; Status UNV Miscellaneous (Unresolved Patient Own Med Order) SEE LABEL COMMENTS DAILY XX ; Start 09/14/18 at 09:00; Stop 09/20/18 at 10:31; Status DC Multivitamins (Theragram-M) 1 tab DAILY PO Last administered on 09/28/18at 09:03; Start 09/15/18 at 09:00 Nicotine (Nicoderm Cq 7 Mg) 1 patch DAILY TD Last administered on 09/28/18at 09:05; Start 09/15/18 at 09:00 Nicotine (Nicoderm Cq 7 Mg) 1 patch DAILY TOP ; Start 09/15/18 at 09:00; Status UNV Nitroglycerin (Nitrostat (1/ 150)) 0.4 mg Q5MP PRN SL CHEST PAIN; Start 09/14/18 at 15:30 Nitroglycerin (Nitrostat (1/ 150)) 0.4 mg Q5MP PRN SL CHEST PAIN; Start 09/14/18 at 18:00; Status UNV Omeprazole (PriLOSEC) 20 mg BID PO Last administered on 09/28/18at 09:03; Start 09/14/18 at 21:00 Omeprazole (PriLOSEC) 20 mg BID PO ; Start 09/14/18 at 21:00; Status UNV Ondansetron HCl (Zofran) 4 mg Q6HP PRN PO NAUSEA OR VOMITING Last administered on 09/26/18at 14:02; Start 09/26/18 at 13:45 Oxycodone HCl (Roxicodone, Oxyir) 5 mg Q8H PRN PO PAIN 7-10 Last administered on 09/14/18at 17:59; Start 09/14/18 at 15:30; Stop 09/19/18 at 17:18; Status DC Patient Own Medication (Patient'S Own Med) Ketotifen 0.025% (Zadit... DAILY OU ; Start 09/19/18 at 09:00; Stop 09/20/18 at 10:31; Status DC Polyethylene Glycol (Miralax) 1 pkt DAILY PO Last administered on 09/27/18at 08:52; Start 09/15/18 at 09:00 Potassium Chloride (Micro-K Extencaps) 10 meq TID PO Last administered on 09/15/18at 07:48; Start 09/14/18 at 21:00; Stop 09/15/18 at 10:09; Status DC Potassium Chloride (Micro-K Extencaps) 10 meq TID PO ; Start 09/14/18 at 21:00; Status UNV Potassium Chloride (Micro-K Extencaps) 20 meq TID PO Last administered on 09/28/18at 09:05; Start 09/15/18 at 16:00 Quetiapine Fumarate (SEROquel) 50 mg QHS PO Last administered on 09/23/18at 20:40; Start 09/21/18 at 21:00; Stop 09/24/18 at 17:00; Status DC Quetiapine Fumarate (SEROquel) 100 mg QHS PO Last administered on 09/20/18 21:35; Start 09/19/18 at 21:00; Stop 09/21/18 at 15:28; Status DC Quetiapine Fumarate (SEROquel) 150 mg QHS PO Last administered on 09/18/18at 20:21; Start 09/14/18 at 21:00; Stop 09/19/18 at 17:20; Status DC Quetiapine Fumarate (SEROquel) 150 mg QHS PO ; Start 09/14/18 at 21:00; Status UNV Sertraline HCl (Zoloft) 200 mg DAILY PO Last administered on 09/28/18 09:05; Start 09/15/18 at 09:00 Sertraline HCl (Zoloft) 200 mg DAILY PO ; Start 09/15/18 at 09:00; Status UNV Sotalol HCl (Betapace) 40 mg BID PO Last administered on 09/27/18 21:31; Start 09/14/18 at 21:00 Sotalol HCl (Betapace) 80 mg Q12H PO ; Start 09/14/18 at 18:00; Status UNV Tamsulosin HCl (Flomax) 0.4 mg DAILY PO Last administered on 09/28/18 09:03; Start 09/15/18 at 09:00 Tamsulosin HCl (Flomax) 0.4 mg DAILY PO ; Start 09/15/18 at 09:00; Status UNV Theophylline (Ehnrik-24) 400 mg BID PO Last administered on 09/28/18 09:01; Start 09/14/18 at 21:00 Thiamine HCl (VITAMIN B1 INJection) 100 mg DAILY IM Last administered on 09/28/18 09:02; Start 09/20/18 at 15:45 Tiotropium [place] (Spiriva Handihaler) 1 inhalation DAILY INH ; Start 09/15/18 at 09:00; Status UNV Tiotropium [place] (Spiriva Handihaler) 1 inhalation DAILY@08 INH Last administered on 09/28/18 07:28; Start 09/15/18 at 08:00 Topiramate (TopAMAX) 50 mg DAILY PO Last administered on 09/28/18 09:03; Start 09/15/18 at 09:00 Topiramate (TopAMAX) 50 mg QAM PO ; Start 09/15/18 at 09:00; Status UNV Topiramate (TopAMAX) 50 mg QHS PO ; Start 09/24/18 at 21:00; Stop 09/24/18 at 21:00; Status DC Topiramate (TopAMAX) 100 mg QHS PO Last administered on 09/27/18 21:31; Start 09/24/18 at 21:00 Topiramate (TopAMAX) 100 mg QHS PO Last administered on 09/23/18 21:28; Start 09/14/18 at 21:00; Stop 09/24/18 at 17:00; Status DC Topiramate (TopAMAX) 100 mg QHS PO ; Start 09/14/18 at 21:00; Status UNV Vitamin D (Vitamin D) 2,000 units DAILY PO Last administered on 09/28/18 09:03; Start 09/15/18 at 09:00 Vitamin D (Vitamin D) 2,000 units DAILY PO ; Start 09/15/18 at 09:00; Status UNV Warfarin Sodium (Coumadin) 2 mg DAILY@17 PO Last administered on 1/7/19at 17:40; Start 09/24/18 at 17:00; Stop 09/25/18 at 10:39; Status DC Warfarin Sodium (Coumadin) 2.5 mg DAILY@17 PO Last administered on 09/23/18at 17:36; Start 09/23/18 at 17:00; Stop 09/24/18 at 17:00; Status DC Warfarin Sodium (Coumadin) 5 mg DAILY@17 PO Last administered on 09/24/18at 17:39; Start 09/24/18 at 17:00; Stop 09/25/18 at 10:39; Status DC DOROTA PACHECO MD Sep 28, 2018 15:13
[2018-09-28] MEDS: WARFARIN SOD 5 MG TAB PO SCH (17:22)
[2018-09-28 20:00] VITALS: BP 157/75
[2018-09-28] MEDS: MIRTAZAPINE 15 MG TAB PO SCH (21:10)
[2018-09-28] MEDS: ATORVASTATIN 20 MG TAB PO SCH (21:11)
[2018-09-28] MEDS: TOPIRAMATE (TopAMAX) 100 MG TAB PO SCH (21:11)
[2018-09-29 06:00] VITALS: BP 134/83
[2018-09-29 06:52] LABS: INR 2.49; PROTHROMBIN TIME 27.4 SECONDS (12.1-14.4)
[2018-09-29] MEDS: TIOTROPIUM INHALER/CAPSULE (SPIRIVA) INH SCH (07:33)
[2018-09-29] MEDS: SYMBICORT 160/4.5MCG INHALER 6GM INH SCH ×2 (07:33→22:42)
[2018-09-29] MEDS: CILOSTAZOL 100 MG TAB (PLETAL) PO SCH ×2 (07:47→16:46)
[2018-09-29] MEDS: INDAPAMIDE 1.25MG TABLET PO SCH (08:10)
[2018-09-29] MEDS: NICOTINE 7 MG/24 HR TRANSDERMAL TD SCH (08:10)
[2018-09-29] MEDS: TAMSULOSIN 0.4 MG CAP PO SCH (08:10)
[2018-09-29] MEDS: THIAMINE HCL 200 MG/2 ML VIAL (J3411) IM SCH (08:10)
[2018-09-29] MEDS: THEOPHYLLINE (THEO-24) 100MG SR **CAPSULE PO SCH ×2 (08:10→21:00)
[2018-09-29] MEDS: POTASSIUM CHLORIDE 10 MEQ SR TABLET PO SCH ×3 (08:11→20:58)
[2018-09-29] MEDS: amLODIPine 10 MG TAB PO SCH (08:11)
[2018-09-29] MEDS: MULTIVITAMINS/MINERALS THERAP 1 TAB PO SCH (08:12)
[2018-09-29] MEDS: guaiFENesin ER 600 MG TAB PO SCH ×2 (08:12→21:00)
[2018-09-29] MEDS: DOCUSATE SODIUM 100 MG CAP PO SCH ×2 (08:12→21:00)
[2018-09-29] MEDS: SOTALOL HCL 80 MG TAB PO SCH ×2 (08:12→20:59)
[2018-09-29] MEDS: OMEGA-3 1000MG CAPSULE PO SCH (08:12)
[2018-09-29] MEDS: VITAMIN D 1,000 INTERNATIONAL UNITS TABLET PO SCH (08:13)
[2018-09-29] MEDS: SERTRALINE 100 MG TAB PO SCH (08:13)
[2018-09-29] MEDS: OMEPRAZOLE 20 MG CAP PO SCH ×2 (08:13→20:58)
[2018-09-29] MEDS: MIRALAX *UNIT DOSE* 17GM PACKET PO SCH (08:13)
[2018-09-29] MEDS: DONEPEZIL 5 MG TAB PO SCH (08:13)
[2018-09-29] MEDS: TOPIRAMATE (TopAMAX) 25 MG TAB PO SCH (08:17)
[2018-09-29 14:00] VITALS: BP 152/86
[2018-09-29] MEDS: WARFARIN SOD 5 MG TAB PO SCH (16:46)
[2018-09-29] MEDS: ACETAMINOPHEN TAB 650MG DOSE (2X325MG) PO PRN (19:37)
[2018-09-29 20:00] VITALS: BP 157/80
[2018-09-29] MEDS: MIRTAZAPINE 15 MG TAB PO SCH (21:00)
[2018-09-29] MEDS: ATORVASTATIN 20 MG TAB PO SCH (21:00)
[2018-09-29] MEDS: TOPIRAMATE (TopAMAX) 100 MG TAB PO SCH (21:00)
[2018-09-30 06:00] VITALS: BP 159/86
[2018-09-30 06:14] LABS: INR 2.65; PROTHROMBIN TIME 28.8 SECONDS (12.1-14.4)
[2018-09-30] MEDS: TIOTROPIUM INHALER/CAPSULE (SPIRIVA) INH SCH (07:32)
[2018-09-30] MEDS: SYMBICORT 160/4.5MCG INHALER 6GM INH SCH ×2 (07:32→20:42)
[2018-09-30] MEDS: CILOSTAZOL 100 MG TAB (PLETAL) PO SCH ×2 (07:42→17:23)
[2018-09-30] MEDS: MIRALAX *UNIT DOSE* 17GM PACKET PO SCH (08:47)
[2018-09-30] MEDS: POTASSIUM CHLORIDE 10 MEQ SR TABLET PO SCH ×3 (08:48→21:20)
[2018-09-30] MEDS: TAMSULOSIN 0.4 MG CAP PO SCH (08:48)
[2018-09-30] MEDS: VITAMIN D 1,000 INTERNATIONAL UNITS TABLET PO SCH (08:48)
[2018-09-30] MEDS: THEOPHYLLINE (THEO-24) 100MG SR **CAPSULE PO SCH ×2 (08:48→21:20)
[2018-09-30] MEDS: guaiFENesin ER 600 MG TAB PO SCH ×2 (08:48→21:21)
[2018-09-30] MEDS: SOTALOL HCL 80 MG TAB PO SCH ×2 (08:49→21:19)
[2018-09-30] MEDS: OMEGA-3 1000MG CAPSULE PO SCH (08:50)
[2018-09-30] MEDS: OMEPRAZOLE 20 MG CAP PO SCH ×2 (08:50→21:21)
[2018-09-30] MEDS: SERTRALINE 100 MG TAB PO SCH (08:50)
[2018-09-30] MEDS: DOCUSATE SODIUM 100 MG CAP PO SCH ×2 (08:50→21:21)
[2018-09-30] MEDS: DONEPEZIL 5 MG TAB PO SCH (08:50)
[2018-09-30] MEDS: MULTIVITAMINS/MINERALS THERAP 1 TAB PO SCH (08:50)
[2018-09-30] MEDS: amLODIPine 10 MG TAB PO SCH (08:50)
[2018-09-30] MEDS: TOPIRAMATE (TopAMAX) 25 MG TAB PO SCH (08:50)
[2018-09-30] MEDS: INDAPAMIDE 1.25MG TABLET PO SCH (08:50)
[2018-09-30] MEDS: NICOTINE 7 MG/24 HR TRANSDERMAL TD SCH (08:51)
[2018-09-30] MEDS: THIAMINE HCL 200 MG/2 ML VIAL (J3411) IM SCH (08:51)
[2018-09-30 14:00] VITALS: BP 164/82
[2018-09-30] MEDS: WARFARIN SOD 5 MG TAB PO SCH (17:24)
[2018-09-30 21:00] VITALS: BP 128/77
[2018-09-30] MEDS: ATORVASTATIN 20 MG TAB PO SCH (21:19)
[2018-09-30] MEDS: TOPIRAMATE (TopAMAX) 100 MG TAB PO SCH (21:19)
[2018-09-30] MEDS: MIRTAZAPINE 15 MG TAB PO SCH (21:21)
[2018-10-01 06:00] VITALS: BP 148/85
[2018-10-01 06:35] LABS: INR 2.51; PROTHROMBIN TIME 27.6 SECONDS (12.1-14.4)
[2018-10-01] MEDS: SYMBICORT 160/4.5MCG INHALER 6GM INH SCH ×2 (08:13→20:48)
[2018-10-01] MEDS: TIOTROPIUM INHALER/CAPSULE (SPIRIVA) INH SCH (08:14)
[2018-10-01] MEDS: OMEGA-3 1000MG CAPSULE PO SCH (09:00)
[2018-10-01] MEDS: MIRALAX *UNIT DOSE* 17GM PACKET PO SCH (09:00)
[2018-10-01] MEDS: NICOTINE 7 MG/24 HR TRANSDERMAL TD SCH (09:06)
[2018-10-01] MEDS: THIAMINE HCL 200 MG/2 ML VIAL (J3411) IM SCH (09:06)
[2018-10-01] MEDS: INDAPAMIDE 1.25MG TABLET PO SCH (09:07)
[2018-10-01] MEDS: CILOSTAZOL 100 MG TAB (PLETAL) PO SCH ×2 (09:07→17:13)
[2018-10-01] MEDS: MULTIVITAMINS/MINERALS THERAP 1 TAB PO SCH (09:07)
[2018-10-01] MEDS: TAMSULOSIN 0.4 MG CAP PO SCH (09:07)
[2018-10-01] MEDS: OMEPRAZOLE 20 MG CAP PO SCH ×2 (09:07→21:35)
[2018-10-01] MEDS: guaiFENesin ER 600 MG TAB PO SCH ×2 (09:08→21:35)
[2018-10-01] MEDS: DOCUSATE SODIUM 100 MG CAP PO SCH ×2 (09:08→21:35)
[2018-10-01] MEDS: SOTALOL HCL 80 MG TAB PO SCH ×2 (09:08→21:35)
[2018-10-01] MEDS: amLODIPine 10 MG TAB PO SCH (09:08)
[2018-10-01] MEDS: THEOPHYLLINE (THEO-24) 100MG SR **CAPSULE PO SCH ×2 (09:08→21:34)
[2018-10-01] MEDS: SERTRALINE 100 MG TAB PO SCH (09:08)
[2018-10-01] MEDS: DONEPEZIL 5 MG TAB PO SCH (09:09)
[2018-10-01] MEDS: TOPIRAMATE (TopAMAX) 25 MG TAB PO SCH (09:09)
[2018-10-01] MEDS: POTASSIUM CHLORIDE 10 MEQ SR TABLET PO SCH ×3 (09:09→21:35)
[2018-10-01] MEDS: VITAMIN D 1,000 INTERNATIONAL UNITS TABLET PO SCH (09:09)
--- NOTE | 2018-10-01 12:40 | IPNPDOC ---
Date Seen The patient was seen on 10/01/18. 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 He was switched from atenolol to Sotalol related to episode of Afib. No neurosurgical intervention was necessary and the patient was transported back to [facility] to the care of Dr Thornton. The pt has no complaints today. He is OOB to chair. Family at bedside. States he is feeling well. Pt denies any concerns. Denies chest pain, shortness of breath, abdominal pain, nausea, vomiting, or vertigo. PAST MEDICAL HISTORY: 1. Coronary artery disease, status post CABG in 1994. 2. History of stent placement in 2016. 3. History of atrial fibrillation. 4. Diabetes. 5. Hypertension. 6. Hyperlipidemia. 7. Non oxygen dependent chronic obstructive pulmonary disease (COPD). PE: GEN: 73yoM, appears stated age. No acute distress. HEENT: Normocephalic, atraumatic. Sclera are nonicteric. Conjunctiva without injection. Moist mucous membranes. CHEST: Regular rate and rhythm, +S1, +S2 LUNGS: Clear to auscultation bilaterally. No wheezes, rales, or rhonchi. Breathing appears symmetric and easy. ABD: Round, soft, non-tender, non-distended. +Bowel sounds throughout. No rebound or guarding. No costovertebral angle tenderness. EXT: No lower extremity edema appreciated. SKIN: [place], dry, warm. No rashes. NEURO: Alert and oriented x 3. Rt visual field deficits, no change. ASSESSMENT AND PLAN: This is a 73-year-old male patient with underlying medical history of hypertension, diabetes, dyslipidemia, history of coronary artery disease with coronary artery bypass graft (CABG) in 1994, history of stent placement in 2016, transferred to [facility] after sustaining left-sided occipital lobe hemorrhagic stroke 09/09/2018. Pat ient was brought to acute rehabilitation for further care. 1. Left-sided posterior cerebral artery hemorrhage stroke. Management is as per Dr Norberto LEE. PT/OT/ST as per Dr Norberto LEE Patient was managed by vascular surgery at [facility] Patient is on 81 of aspirin daily until 09/23/2018, then switched to Coumadin for atrial fibrillation, as per vascular surgery at [facility]. Plavix currently on hold. Dr Thornton managing coumadin dosing. 2. History of coronary artery disease. Per [facility] substance abuse technician,started Coumadin on 09/23/2018 and discontinue all antiplatelet agents at that time. Followup with stroke clinic at [facility] 10/12/2018 for genetic testing and family history of factor V Leiden deficiency. 3. Seizure disorder. Continue Topamax and gabapentin. 4. Coronary artery disease, status post CABG and stents. ASA switched to full-dose Coumadin as per [facility] vascular surgery and cardiology recommendations. 5. Paroxysmal atrial fibrillation with rapid ventricular response. Holding Plavix. On 81 of aspirin until 09/23/2018and then switched to anticoagulation with Coumadin on 09/23/2018. Followup INR. Continue sotalol. Further recommendations as per Dr. Thornton and also vascular surgery at [facility]. Dr Thornton currently managing coumadin dosing. INR 2.51 today. 6. Hypertension. Continue sotalol and indapamide. Continue statin. Norvas added Lisinopril on hold given elevated creatinine. Monitor blood pressure. 7. Coronary artery disease, currently on aspirin 81 and statin. Continue beta sendy. Angiotensin-converting enzyme (SHRUTI) on hold. Continue Norvasc. Continue indapamide. Monitor blood pressure. Aspirin will be discontinued, and patient will be started on Coumadin as per vascular surgery and cardiology at [facility]. 8. Posttraumatic stress disorder and depression. Continue current medication. 9. Chronic obstructive pulmonary disease (COPD). Spiriva, Symbicort, nebulizer treatment, incentive spirometry. 10. Peripheral arterial disease. Continue Pletal. 11. BPH. Continue Flomax. 12. Deep vein thrombosis (DVT) prophylaxis. TEDs and sequentials until 09/23/2018, when patient started on Coumadin. Will monitor patient closely. VS, I&O, 24H, Fishbone Vital Signs/I&O Vital Signs Date Time Temp Pulse Resp B/P (MAP) Pulse Ox O2 Delivery O2 Flow Rate FiO2 10/01/18 09:08 74 148/85 10/01/18 06:00 98.7 18 95 Room Air I&O- Last 24 Hours up to 6 AM 10/01/18 06:00 Intake Total 1320 ml Balance 1320 ml Laboratory Data 24H LABS Laboratory Tests 2 10/01/18 06:03: Prothrombin Time 27.6H, Prothromb Time International Ratio 2.51 Shivani Carney Oct 01, 2018 12:40
[2018-10-01 14:00] VITALS: BP 133/59
[2018-10-01] MEDS: WARFARIN SOD 5 MG TAB PO SCH (17:13)
[2018-10-01 21:00] VITALS: BP 159/88
[2018-10-01] MEDS: ATORVASTATIN 20 MG TAB PO SCH (21:34)
[2018-10-01] MEDS: MIRTAZAPINE 15 MG TAB PO SCH (21:34)
[2018-10-01 21:35] VITALS: BP 159/88
[2018-10-01] MEDS: TOPIRAMATE (TopAMAX) 100 MG TAB PO SCH (21:35)
[2018-10-02 06:00] VITALS: BP 138/74
[2018-10-02 06:59] LABS: INR 2.77; PROTHROMBIN TIME 29.9 SECONDS (12.1-14.4)
[2018-10-02] MEDS: TIOTROPIUM INHALER/CAPSULE (SPIRIVA) INH SCH (07:51)
[2018-10-02] MEDS: SYMBICORT 160/4.5MCG INHALER 6GM INH SCH (07:51)
[2018-10-02] MEDS: THEOPHYLLINE (THEO-24) 100MG SR **CAPSULE PO SCH (08:41)
[2018-10-02] MEDS: TAMSULOSIN 0.4 MG CAP PO SCH (08:41)
[2018-10-02] MEDS: OMEPRAZOLE 20 MG CAP PO SCH (08:42)
[2018-10-02] MEDS: POTASSIUM CHLORIDE 10 MEQ SR TABLET PO SCH (08:42)
[2018-10-02] MEDS: INDAPAMIDE 1.25MG TABLET PO SCH (08:42)
[2018-10-02] MEDS: SERTRALINE 100 MG TAB PO SCH (08:43)
[2018-10-02] MEDS: TOPIRAMATE (TopAMAX) 25 MG TAB PO SCH (08:43)
[2018-10-02] MEDS: DONEPEZIL 5 MG TAB PO SCH (08:43)
[2018-10-02] MEDS: OMEGA-3 1000MG CAPSULE PO SCH (08:44)
[2018-10-02] MEDS: CILOSTAZOL 100 MG TAB (PLETAL) PO SCH (08:44)
[2018-10-02] MEDS: MULTIVITAMINS/MINERALS THERAP 1 TAB PO SCH (08:44)
[2018-10-02] MEDS: guaiFENesin ER 600 MG TAB PO SCH (08:44)
[2018-10-02] MEDS: SOTALOL HCL 80 MG TAB PO SCH (08:44)
[2018-10-02] MEDS: NICOTINE 7 MG/24 HR TRANSDERMAL TD SCH (08:45)
[2018-10-02] MEDS: VITAMIN D 1,000 INTERNATIONAL UNITS TABLET PO SCH (08:45)
[2018-10-02] MEDS: DOCUSATE SODIUM 100 MG CAP PO SCH (08:45)
[2018-10-02] MEDS: MIRALAX *UNIT DOSE* 17GM PACKET PO SCH (08:45)
[2018-10-02] MEDS: amLODIPine 10 MG TAB PO SCH (08:45)
[2018-10-02] MEDS: THIAMINE HCL 200 MG/2 ML VIAL (J3411) IM SCH (08:45)
[2018-10-02] MEDS ORDERED: AMLO10TA5 PO ×2 (10:33→12:53)
[2018-10-02] MEDS ORDERED: SOTA80TA PO ×2 (10:33→12:53)
[2018-10-02] MEDS ORDERED: NICO7PA TD (10:33)
[2018-10-02] MEDS ORDERED: FLOM0.4C39 PO (10:33)
[2018-10-02] MEDS ORDERED: COUM1TAB17 PO (10:33)
[2018-10-02] MEDS ORDERED: ARIC1TAB PO (10:33)
[2018-10-02] MEDS ORDERED: TOPA100T12 PO (10:33)
[2018-10-02] MEDS ORDERED: OMEP20CA3 PO (10:33)
[2018-10-02] MEDS ORDERED: ATOR1TAB21 PO (10:33)
[2018-10-02] MEDS ORDERED: TOPA1TAB PO (10:33)
[2018-10-02] MEDS ORDERED: MIRT15TA3 PO (10:33)
[2018-10-02] MEDS ORDERED: INDA125TA PO (10:33)
[2018-10-02] MEDS ORDERED: CILO100T PO (10:33)
[2018-10-02] MEDS ORDERED: KLOR10TA76 PO (10:33)
[2018-10-02] MEDS ORDERED: SERT-138 PO (10:33)
[2018-10-02 14:00] VITALS: BP 171/80
--- NOTE | 2018-10-04 09:38 | PMRDS ---
DATE OF ADMISSION: 09/14/2018 DATE OF DISCHARGE: 10/02/2018 CHIEF COMPLAINT/DISCHARGE DIAGNOSIS: 1. Stroke. HISTORY OF PRESENT ILLNESS: 73-year-old man with past medical history of dementia, coronary artery disease status post coronary artery bypass grafting (CABG) on dual antiplatelet therapy, hypertension, seizures, chronic obstructive pulmonary disease (COPD), diabetes, who presented to OSH on 09/09/2018 with headache and visual changes. CT at the time revealed a 15 mm hemorrhagic lesion in the left occipital lobe. Both his aspirin and Plavix were held and he was transferred to [facility] for neuro ICU monitoring. He was found to be emergently hypertensive with systolic blood pressures over 200 and was started on IV antihypertensives. EKG showed first degree AV block and sinus bradycardia with a right bundle branch block. MR brain on 09/10/2018 showed "acute left LABORER LANDSCAPE distribution infarct with hemorrhagic transformation" and CT of head and neck showed that left LABORER LANDSCAPE territory stroke without significant stenosis in the major cervical or intracranial arteries. No aneurysms or AVM. Echo on 09/12/2018 showed an LVEF of 55-60% with no intraatrial shunt visualized by color Doppler and bubble CTH on 09/11/2018 showed "no significant interval change in the previously noted left occipital hemorrhagic infarct with surrounding vasogenic edema and mass effect on the adjacent structures.... no new intracranial hemorrhage." On 09/12/2018 he was restarted on aspirin. He was found to have right hemianopsia and significant dysphagia. He was started on sotalol by [facility] for atrial fibrillation with RVR captured on telemetry during his hospital course. He was deemed to be medically appropriate for discharge to ARU on 09/14/2018. PAST MEDICAL HISTORY: Dementia. CAD status post CABG on dual antiplatelet therapy. Hypertension. EtOH abuse. Seizures. COPD. Diabetes. HOSPITAL COURSE: The patient was admitted and enrolled in a comprehensive physical therapy (PT), occupational therapy (OT), speech and language pathology program. He received 24 hour nursing supervision and weekly team meetings were held to discuss his overall progress. During his hospital course his diet was advanced to a regular diet with thin liquids. He had a visual field cut which gradually improved with scanning training. His anticoagulation treatment was discussed with vascular surgery and neurology at [facility] who recommended starting Coumadin on 09/23/2018 with a goal of 2-3 and stopping aspirin on that date. During his hospital course, given his history of PTSD and depression, he was continued on Remeron, tapered of Seroquel and continued on Zoloft. He was also provided with IM thiamine for his history of EtOH abuse and started on donepezil for his dementia. TSH was ordered which was within normal limits and his blood pressures were well controlled. Admission urine and urine culture were negative. He was voiding well. He had a one time episode of nausea for which he was given Zofran, lab work remained unrevealing and he was deemed functionally and medically stable to return to home with services to be provided by the SD on 10/02/2018. DISCHARGE MEDICATIONS: - amlodipine - atorvastatin - cilostazol - donepezil - indapamide - mirtazapine - nicotine patch - omeprazole - potassium - sertraline - sotalol - tamsulosin - Topamax - warfarin FUNCTIONAL HISTORY: Upon discharge, the patient was modified independent with all functional transfers. Able to ambulate 1000 feet and do car transfers. He was modified independent with all of his activities of daily living (ADL) requiring cueing for directions for complicated asks. Thank you for this referral.
== END 2018-10-02 14:35 | disposition home health service (06) | DRG 57 ==
LOC: M PM&R 14:45
PROVIDERS: ADMIT Physical Medicine & Rehabilitation; ATTEND Physical Medicine & Rehabilitation
DX: I69.128 Other speech and language deficits following nontraumatic intracerebral hemorrhage (principal); I25.10 Atherosclerotic heart disease of native coronary artery without angina pectoris; Z95.1 Presence of aortocoronary bypass graft; I10 Essential (primary) hypertension; J44.9 Chronic obstructive pulmonary disease, unspecified; E11.40 Type 2 diabetes mellitus with diabetic neuropathy, unspecified; I44.0 Atrioventricular block, first degree; F10.10 Alcohol abuse, uncomplicated; Z79.899 Other long term (current) drug therapy; Z79.82 Long term (current) use of aspirin; Z88.8 Allergy status to other drugs, medicaments and biological substances; E78.5 Hyperlipidemia, unspecified; I48.0 Paroxysmal atrial fibrillation; Z87.891 Personal history of nicotine dependence; G40.909 Epilepsy, unspecified, not intractable, without status epilepticus; N40.0 Benign prostatic hyperplasia without lower urinary tract symptoms; F43.10 Post-traumatic stress disorder, unspecified; I69.118 Other symptoms and signs involving cognitive functions following nontraumatic intracerebral hemorrhage; F03.90 Unspecified dementia, unspecified severity, without behavioral disturbance, psychotic disturbance, mood disturbance, and anxiety; I69.198 Other sequelae of nontraumatic intracerebral hemorrhage; H54.7 Unspecified visual loss; I69.191 Dysphagia following nontraumatic intracerebral hemorrhage; H53.47 Heteronymous bilateral field defects

== ENCOUNTER 2019-08-30 10:42 | Emergency (ER) | payer OTHER, MEDICARE ==
[~2019-08-30] VITALS: Ht 188 cm; Wt 88.4 kg
[~2019-08-30 10:42] MED LIST changes: -/IPRAINH IN; -/MOXI40TA OR; -/MOXI40TA PO; -/QUET25TA PO; -/TIOT18INH INH; -/WARF25TA PO; +AMLO10TA5 PO; +ARIC1TAB PO; -ARTI99.0 OU; +ARTIDRO2 OU; -ASPI1TAB PO; +ASPI81TA26 PO; +ATOR1TAB21 PO; +ATOR40TA75 PO; +ATRO0.063 IN; +AVEL1TAB2 OR; +AVEL1TAB2 PO; +CILO100T PO; +COLA100C5 PO; +COUM1TAB17 PO; +COUM1TAB18 PO; +DOXA1TAB67 PO; +FLOM0.4C39 PO; +HEPA10004 SC; +INDA125TA PO; +KETO0.02 OU; +MIRA3350 PO; +MIRT15TA3 PO; +NICO21DI3 TOP; -NICO21PAT TOP; +NICO7PA TD; +NICO7PA TOP; +OMEP-172 PO; -OMEP20CA3 PO; +OXYC1TAB23 PO; -PERCOCET PO; +POTA10TA67 PO; +PRED-351 PO; -PRED10TA PO; +SERO1TAB3 PO; +SIMV20TA22 PO; +SOTA80TA2 PO; +SOTA80TA32 PO; +TOPA100T12 PO; +TOPA1TAB PO; +TOPA50TA8 PO
[2019-08-30] MEDS ORDERED: PROBCAP14 PO (11:14)
[2019-08-30] MEDS ORDERED: OXYC-517 PO (11:14)
[2019-08-30] MEDS ORDERED: ELIQ5TAB PO (11:14)
[2019-08-30 12:09] LABS: BASO % 0.5 % (0.0-1.0); EOS # 0.4 10^3/uL (0.0-0.5); EOS % 5.4 % (0.0-3.0); HEMATOCRIT 42.1 % (42.0-52.0); HEMOGLOBIN 14.4 g/dl (13.5-17.5); LYMPH # 1.7 10^3/uL (1.5-5.0); MEAN CORPUSCULAR HEMOGLOBIN 33.3 pg (27.0-33.0); MEAN CORPUSCULAR HGB CONC 34.2 g/dl (32.0-36.5); MEAN CORPUSCULAR VOLUME 97.5 fl (80.0-96.0); MONO # 0.7 10^3/uL (0.0-0.8); MONO % 9.1 % (0.0-5.0); NEUTROPHILS # 5.1 10^3/uL (1.5-8.5); NEUTROPHILS % 63.5 % (36.0-66.0); PLATELET COUNT, AUTOMATED 161 10^3/uL (150-450); RED BLOOD COUNT 4.32 10^6/uL (4.30-6.10); WHITE BLOOD COUNT 8.1 10^3/uL (4.0-10.0)
[2019-08-30 12:20] LABS: INR 1.36; PROTHROMBIN TIME 16.5 SECONDS (11.8-14.0)
[2019-08-30 12:32] LABS: CALCIUM LEVEL 8.9 MG/DL (8.8-10.2); CREATININE FOR GFR 1.54 MG/DL (0.70-1.30); POTASSIUM SERUM 4.5 MEQ/L (3.5-5.1)
--- NOTE | 2019-08-30 13:56 | REP ---
Limited pelvic bladder sonography: History: Hematuria. Findings: Pre-void bladder volume is calculated at 486 ml. Postvoid residual is calculated at 6.1%, 29.7 ml. Bladder granados are smooth. No extra vesicle lesion is seen. Emptying ureteral jets are confirmed on color Doppler interrogation of the bladder lumen bilaterally. Impression: No abnormality noted. Electronically Signed by Evangelista Camarena MD 08/30/2019 01:46 P
[2019-08-30] MEDS ORDERED: KEFL500C17 PO (15:12)
[2019-08-30 15:30] VITALS: BP 150/80
--- NOTE | 2019-08-30 18:16 | REP ---
CT abdomen and pelvis without IV or oral contrast: History: Hematuria. Comparison CT study is from August 10, 2018. CT findings: Preliminary digital director of scout work radiograph is unremarkable. The patient status post prior median sternotomy. The lung bases are essentially clear. The liver and spleen are normal in size homogeneous in texture. There is a stable 18 mm benign adrenal adenoma on the right unchanged. This has mean Hounsfield unit density measurement of -12 Hounsfield units indicative of a benign adenoma. No abnormalities noted in the pancreas. The gallbladder is unremarkable. A normal appendix is seen in the right lower quadrant. Seminal vesicles and prostate are intact. There are some dystrophic calcifications in the prostate. Urinary bladder is mildly distended without evidence of mass or cyst. There is a left common iliac artery stent noted in place. There is a 4 mm intrarenal calculus in the upper pole right kidney. This is a little larger but not new when compared with the prior study. There are multiple intrarenal calculi in the left kidney including a large staghorn calculus measuring up to 18 mm and occupying the portion the upper pole collecting system. There are several other tiny calculi in the lower pole collecting system and in the renal pelvis, there is an irregular calculus measuring 11 mm in greatest diameter. There is no evidence of hydronephrosis however. No ureteral calculus is observed on either side. The renal pelvic calculus was previously in the lower pole collecting system on the left and is currently in the renal pelvis. Impression: Bilateral intrarenal nephrolithiasis with two large calculi and several small calculi in the left kidney including a 11 mm calculus in the renal pelvis and a 18 mm staghorn calculus in the upper pole collecting system. No hydronephrosis is seen on either side. There is a 4 mm intrarenal calculus in the right kidney. There is a stable benign 18 mm right adrenal adenoma. Electronically Signed by Evangelista Camarena MD 08/30/2019 07:59 P
== END 2019-08-30 15:33 | disposition home or self-care (01) ==
LOC: M ED 10:42
DX: N30.01 Acute cystitis with hematuria (principal); N20.0 Calculus of kidney; D35.00 Benign neoplasm of unspecified adrenal gland; I48.91 Unspecified atrial fibrillation; I21.9 Acute myocardial infarction, unspecified; I10 Essential (primary) hypertension; N18.9 Chronic kidney disease, unspecified; N40.0 Benign prostatic hyperplasia without lower urinary tract symptoms; Z86.39 Personal history of other endocrine, nutritional and metabolic disease; Z95.5 Presence of coronary angioplasty implant and graft; F17.210 Nicotine dependence, cigarettes, uncomplicated; Z88.8 Allergy status to other drugs, medicaments and biological substances; Z79.01 Long term (current) use of anticoagulants; Z79.51 Long term (current) use of inhaled steroids; Z79.83 Long term (current) use of bisphosphonates; Z79.891 Long term (current) use of opiate analgesic; Z79.899 Other long term (current) drug therapy

== ENCOUNTER → 2019-10-10 | Outpatient (CLI) | payer OTHER, MEDICARE ==
[~2019-10-10] MED LIST changes: +ACETAMINOPHEN 500 MG TAB PO PRN; +DOCU100C16 PO; +ELIQ5TAB PO; +ISOVUE-300 61% 50ML VIAL (Q9967) As Ordered ONE; +KEFL500C17 PO; +LIDOCAINE 1% MDV 20ML VIAL As Ordered ONE; +MIDAZOLAM INJ 2 MG/2 ML VIAL (J2250) As Ordered ONE; +MIRT1TAB17 PO; +NS 1,000 ML IV SCH; -OMEP-172 PO; +OMEP1CAP73 PO; +ONDANSETRON 4MG/2ML VIAL (J2405) IV PRN; +PERCOCET 5MG/325MG TAB As Ordered ONE; +PERCOCET 5MG/325MG TAB PO PRN; +PROBCAP14 PO; -TRAZ-163 PO; +TRAZ-257 PO; +ceFAZolin 1GM INJ (J0690 PER 500MG) As Ordered ONE; +cefTRIAXone SOD 1 GM VIAL (J0696) As Ordered ONE; +diphenhydrAMINE INJ 50MG/ML VIAL (J1200) As Ordered ONE; +fentaNYL 100 MCG/2 ML INJECTION (J3010) As Ordered ONE
[2019-10-10 07:29] LABS: HEMATOCRIT 41.9 % (42.0-52.0); HEMOGLOBIN 14.4 g/dl (13.5-17.5); MEAN CORPUSCULAR HEMOGLOBIN 33.6 pg (27.0-33.0); MEAN CORPUSCULAR HGB CONC 34.4 g/dl (32.0-36.5); MEAN CORPUSCULAR VOLUME 97.7 fl (80.0-96.0); PLATELET COUNT, AUTOMATED 162 10^3/uL (150-450); RED BLOOD COUNT 4.29 10^6/uL (4.30-6.10); WHITE BLOOD COUNT 8.6 10^3/uL (4.0-10.0)
--- NOTE | 2019-10-10 07:32 | IRHP ---
[facility] IR Pre-Procedure H & P General Date of Service: Oct 10, 2019 Procedure: Same Day Surgery Interval History and Physical I have seen the patient and reviewed last H & P performed within 30 days. There is no significant interval change. History of Present Illness Chief Complaint The patient is a 74-year-old male admitted with a reason for visit of Stones. PRE-PROCEDURE DIAGNOSIS: kidney stones HEART: normal rate. LUNGS: normal breathing at rest. ASA Classification ASA Classification: III-Severe systemic dis. Mallampati Score: II NPO: Yes Problems with prior sedation: No Obstructive Sleep Apnea: No Plan moderate sedation Allergies Coded Allergies: chlordiazepoxide (Verified Allergy, Unknown, 10/03/19) Home Medications Scheduled Amlodipine Besylate (Amlodipine Besylate), 10 MG PO DAILY Apixaban (Eliquis), 5 MG PO BID, (Reported) Atorvastatin Calcium (Atorvastatin Calcium), 40 MG PO QPM, (Reported) Budesonide/Formoterol (Symbicort 160-4.5 Mcg Inhaler), 2 PUFF INH BID, (Reported) Cetirizine HCl (Cetirizine HCl), 10 MG PO DAILY, (Reported) Cholecalciferol (Vitamin D3) (Vitamin D3), 2,000 UNIT PO DAILY, (Reported) Indapamide (Indapamide), 1.25 MG PO DAILY Ketotifen Fumarate (Ketotifen Fumarate), 1 DROP OU QAM, (Reported) Lactobacillus Acidophilus (Probiotic), 1 CAP PO DAILY, (Reported) Mirtazapine (Mirtazapine), 45 MG PO QPM, (Reported) Multivitamins (Thera M Plus Tablet), 1 TAB PO DAILY, (Reported) Omeprazole (Omeprazole), 20 MG PO BID, (Reported) Potassium Chloride (Klor-Con M10), 20 MEQ PO TID Sertraline HCl (Sertraline HCl), 200 MG PO DAILY, (Reported) Sotalol HCl (Sotalol), 40 MG PO DAILY, (Reported) Tamsulosin Hcl (Tamsulosin HCl), 0.4 MG PO DAILY, (Reported) Tiotropium [place] Monohydrate (Spiriva), 1 INHALATION INH DAILY, (Reported) Topiramate (Topiramate), 100 MG PO QHS, (Reported) Topiramate (Topamax), 50 MG PO QAM, (Reported) Scheduled PRN Acetaminophen (Acetaminophen), 650 MG PO Q6H PRN for PAIN, (Reported) Albuterol Sulfate (Ventolin Hfa), 2 PUFFS INH Q4H PRN for SHORTNESS OF BREATH, (Reported) Albuterol Sulfate (Albuterol Sulfate), 2.5 MG INH Q4H PRN for SHORTNESS OF BREATH, (Reported) Nitroglycerin (Nitrostat), 0.4 MG SL Q5MP PRN for CHEST PAIN, (Reported) Oxycodone HCl (Oxycodone HCl), 5 MG PO TIDP PRN for pain, (Reported) Polyvinyl Alcohol (Artificial Tears), 1 DROP OU Q1H PRN for DRY EYES, (Reported) Discontinued Medications Cephalexin (Keflex), 1 CAP PO BID Discontinued Reason: Pt states not taking Mirtazapine (Mirtazapine), 45 MG PO QHS, (Reported) Discontinued Reason: Re-entering as new VS, I&O, 24H, Inder Vital Signs/I&O Vital Signs Date Time Temp Pulse Resp B/P (MAP) Pulse Ox O2 Delivery O2 Flow Rate FiO2 10/10/19 06:50 98.6 61 16 97 Room Air Laboratory Data 24H LABS Laboratory Tests 2 10/10/19 06:50: Nucleated Red Blood Cells % (auto) 0.0 CBC/BMP Laboratory Tests 10/10/19 06:50 MIKAL RAMIREZ MD Oct 10, 2019 07:32
[2019-10-10 07:55] LABS: ALBUMIN 3.9 GM/DL (3.2-5.2); BILIRUBIN,TOTAL 0.4 MG/DL (0.2-1.0); CALCIUM LEVEL 8.5 MG/DL (8.8-10.2); CREATININE FOR GFR 1.41 MG/DL (0.70-1.30); POTASSIUM SERUM 3.8 MEQ/L (3.5-5.1); TOTAL PROTEIN 6.8 GM/DL (6.4-8.2)
--- NOTE | 2019-10-10 10:13 | POST-OPPD ---
Postoperative Procedure Note Date Of Procedure: Oct 10, 2019 Time Of Procedure: 09:52 PREOPERATIVE DIAGNOSIS: left kidney stone POSTOPERATIVE DIAGNOSIS: same FINDINGS: same PROCEDURE: left PCNL access- nephroureteral catheter placed for stone removal access SURGEON: real ANESTHESIA: mod sed ESTIMATED BLOOD LOSS: < 5 m COMPLICATIONS: none POSTOPERATIVE CONDITION: stable MIKAL RAMIREZ MD Oct 10, 2019 10:13
[2019-10-10 10:30] VITALS: BP 184/78
--- NOTE | 2019-10-11 14:56 | REP ---
IR Percutaneous nephro ureteral stent catheter placement using fluoroscopy and ultrasound guidance. IR nephrostogram and ureterogram. IR moderate sedation. Clinical information: Left kidney stone. PCNL access required. Physician: Dr Mejia. Procedure: The patient was advised of the benefits, risks and alternatives of the procedure and informed consent was obtained. The time-out was performed with verification of the patient's name, MRN, site of procedure and type of procedure to be performed. The patient was positioned in the prone position on the angiographic table. The site was prepped and draped in the usual sterile fashion. Moderate sedation was performed by the physician including the presence of an independent trained observer who assisted in monitoring the patient's level of consciousness and physiologic status. Following the administration of fentanyl and Versed, the physician spent 60 minutes of face to face time with the patient. A hot roll laminator radiograph reveals radiopaque densities in the region of the left kidney. Other radiopaque densities in the left lower quadrant of uncertain significance. The anticipated puncture site on the flank was anesthetized with lidocaine. Using ultrasound guidance, an upper pole calyx was accessed with a 21 gauge Chiba needle. A nephrostogram and ureterogram was performed demonstrating obstructing stone in the upper pole and in the renal pelvis. No hydronephrosis or hydroureter. A second 21 gauge Chiba needle was used under fluoroscopy guidance to access the lower pole martin. An 018 wire was then advanced into the collecting system and down the ureter under fluoroscopy guidance. The needle was then exchanged for a non vascular introducer set. An Amplatz wire was advanced under fluoroscopy guidance, along side the microwire, down the ureter to the bladder. Contrast injection confirms location in the collecting system and bladder. An 8.5 Luxembourger nephro ureteral stent catheter was then advanced over the wire into the bladder. The distal pigtail was formed and locked in position. A final nephrostogram ureterogram was performed confirming position of the pigtail and catheter in the collecting system and ureter. The catheter was sutured in position with 2-0 Prolene and a sterile dressing was applied. The patient tolerated the procedure well and was returned to the PRU in stable condition. EBL: < 5 ml. Complications: None. Conclusion: 1. Nephrostogram and ureterogram demonstrate stones in the left kidney. No hydronephrosis or hydroureter. 2. Successful left sided nephro ureteral stent catheter placement. Patient to follow up in urology on Monday for stone removal. Thank you for this referral. Electronically Signed by Alysha Mejia MD 10/11/2019 02:54 P
== END ==
LOC: M IRPRO 06:24
PROVIDERS: ATTEND Urology
DX: N20.0 Calculus of kidney (principal)

== ENCOUNTER 2019-10-11 06:18 | Inpatient (IN) | payer OTHER, MEDICARE ==
[2019-10-11] VITALS (8 sets, daily range): BP systolic 143–165; BP diastolic 68–84
[~2019-10-11] VITALS: Ht 188 cm; Wt 85.8 kg
[~2019-10-11 06:18] MED LIST changes: -ACETAMINOPHEN 500 MG TAB PO PRN; -DOCU100C16 PO; -ISOVUE-300 61% 50ML VIAL (Q9967) As Ordered ONE; -LIDOCAINE 1% MDV 20ML VIAL As Ordered ONE; +LIDOCAINE 1% MDV 20ML VIAL SQ PRN; -MIDAZOLAM INJ 2 MG/2 ML VIAL (J2250) As Ordered ONE; -NS 1,000 ML IV SCH; -ONDANSETRON 4MG/2ML VIAL (J2405) IV PRN; -PERCOCET 5MG/325MG TAB As Ordered ONE; -PERCOCET 5MG/325MG TAB PO PRN; -ceFAZolin 1GM INJ (J0690 PER 500MG) As Ordered ONE; -cefTRIAXone SOD 1 GM VIAL (J0696) As Ordered ONE; -diphenhydrAMINE INJ 50MG/ML VIAL (J1200) As Ordered ONE; -fentaNYL 100 MCG/2 ML INJECTION (J3010) As Ordered ONE
[2019-10-11] MEDS ORDERED: LR 1,000 ML IV ONE (07:00)
[2019-10-11] MEDS ORDERED: ceFAZolin SOD 2 GM in IV 1 EA IV ONE (07:00)
[2019-10-11] MEDS ORDERED: ACETAMINOPHEN 1000MG 100ML IV BTL (OFIRMEV) (J0131 PER 10MG) As Ordered ONE (07:08)
[2019-10-11] MEDS ORDERED: LIDOCAINE 2% INJ 100 MG/5 ML SDV (FOR ANES.) As Ordered ONE (07:08)
[2019-10-11] MEDS ORDERED: dexameTHASONE 4 MG/ML 1ML VIAL (J1100) As Ordered ONE (07:08)
[2019-10-11] MEDS ORDERED: SUGAMMADEX SODIUM 500 MG/5 ML VIAL (BRIDION) As Ordered ONE (07:08)
[2019-10-11] MEDS ORDERED: propofoL 200 MG/20 ML VIAL As Ordered ONE (07:08)
[2019-10-11] MEDS ORDERED: ROCURONIUM BROMIDE 50 MG/5 ML VIAL As Ordered ONE (07:08)
[2019-10-11] MEDS ORDERED: ONDANSETRON 4MG/2ML VIAL (J2405) As Ordered ONE (07:08)
[2019-10-11] MEDS ORDERED: fentaNYL 100 MCG/2 ML INJECTION (J3010) As Ordered ONE (07:09)
[2019-10-11] MEDS ORDERED: MIDAZOLAM INJ 2 MG/2 ML VIAL (J2250) As Ordered ONE (07:09)
[2019-10-11] MEDS ORDERED: CONRAY-60 60% 50ML VIAL (Q9961) As Ordered ONE (07:17)
[2019-10-11] MEDS ORDERED: ACETAMINOPHEN TAB 650MG DOSE (2X325MG) PO PRN (07:45)
[2019-10-11] MEDS ORDERED: ONDANSETRON 4MG/2ML VIAL (J2405) IV PRN ×2 (07:45→10:15)
[2019-10-11] MEDS ORDERED: ALBUTEROL 90 MCG/ACT 8GM HFA INHALER INH PRN (07:45)
[2019-10-11] MEDS ORDERED: ePHEDrine SULFATE 25 MG/5 ML(5MG/ML) SYRINGE As Ordered ONE (08:13)
[2019-10-11] MEDS ORDERED: PHENYLephrine HCL 500 MCG/5 ML (100MCG/ML) SYRINGE (J2370) As Ordered ONE (08:51)
[2019-10-11] MEDS: SERTRALINE 100 MG TAB PO SCH (09:00)
[2019-10-11] MEDS: OMEPRAZOLE 20 MG CAP PO SCH ×2 (09:00→22:00)
[2019-10-11] MEDS ORDERED: SYMBICORT 160/4.5MCG INHALER 6GM INH SCH (09:00)
[2019-10-11] MEDS: CETIRIZINE (ZyrTEC) 10 MG TAB PO SCH (09:00)
[2019-10-11] MEDS: TAMSULOSIN 0.4 MG CAP PO SCH (09:00)
[2019-10-11] MEDS ORDERED: LR 1,000 ML IV SCH (10:15)
[2019-10-11] MEDS ORDERED: oxyCODONE 5MG TAB PO PRN (10:15)
--- NOTE | 2019-10-11 10:17 | REP ---
Pyelogram films: Four views. History: Intraprocedural imaging. Nephrolithiasis. 51 seconds of fluoroscopy time is reported. Findings: A sequence of four last image hold fluoroscopically obtained spot radiographs demonstrate right to renal pelvis stone manipulation and contrast injection and stent placement. Electronically Signed by Evangelista Camarena MD 10/11/2019 06:34 P
--- NOTE | 2019-10-11 10:20 | ROOPDOC ---
[facility] Report Of Operation Report of Operation DATE OF PROCEDURE: 10/11/19 PREPROCEDURE DIAGNOSIS: Left kidney stones. POSTPROCEDURE DIAGNOSIS: Left kidney stones. PROCEDURE: Left percutaneous nephrolithotomy, left flexible nephroscopy with laser lithotripsy and basket extraction of stones, left antegrade nephrostogram with intraoperative interpretation of images, left ureteral stent placement. SURGEON: Dr. Ros Ramirez BOAT CLEANING SUPERVISOR: None ANESTHESIA: General. OPERATIVE INDICATIONS: This is a 74-year-old male who was recently found to left sided kidney stones measuring up to 2cm in size. It was recommended he be brought to the operating room for the above-listed procedure. DESCRIPTION OF PROCEDURE: The patient brought to the operating room, and general anesthesia was induced. Prophylactic antibiotics were infused. A Craft catheter was then placed under sterile conditions. The patient was then repositioned in the prone position in preparation for a left-sided percutaneous nephrolithotomy. The patient was then prepped and draped in the usual sterile fashion. At this point, the previously-placed left nephroureteral catheter was utilized to advance a Sensor guidewire down the left collecting system and into the bladder. The nephroureteral catheter was then removed, leaving the wire in place. Next, a 2-3 cm transverse incision was made adjacent to the wire. A dual-lumen ureteral catheter was then advanced down into the left renal pelvis. An Amplatz Super Stiff wire was then advanced down the left collecting system and into the bladder. The dual-lumen ureteral catheter was then removed, leaving both wires in place. The Super Stiff wire was then secured to the drape to serve as a safety wire. Next, over the Sensor wire, a balloon dilator was advanced into the left renal pelvis. The balloon was then inflated and left in place for a few seconds. Next, an access sheath was advanced over the balloon into the left renal pelvis. The balloon was then let down and removed, leaving the access sheath and the wire in place. At this point, a nephroscope was introduced into the left renal pelvis. We were able to identify the large left renal pelvis stone. The stone was then fragmented into several pieces and suctioned out using a CyberWand. In an upper pole calyx there were several additional stones, including the 2cm stone. Given our access was through a lower pole calyx I was not able to reach the upper pole calyx stones with the nephroscope. I therefore exchanged it out for a flexible cystoscope. I was then able to access the upper pole and the remaining stones were seen. The larger of these stones were fragmented into smaller pieces using an Excalibur laser fiber. All of the fragments were then removed using a basket. Once satisfied that all of the stone fragments were removed, the cystoscope was taken out, and a #7-Malaysian x 22-32 cm double J ureteral stent was advanced down into the left collecting system over the wire. The Sensor wire was then removed, and there were adequate curls of the stent in the left renal pelvis and in the bladder. At this point, the access sheath was removed, and the Super Stiff wire was utilized to advance a #18-Malaysian Levelock tip catheter down into the left collecting system. After the tip was within the renal pelvis, the balloon was inflated with about 3 mL of contrast. The Levelock tip catheter was also utilized to shoot an antegrade nephrostogram, and this was negative for extravasation. We then secured the Levelock tip catheter to the skin with a #2-0 silk suture. This was then connected to gravity drainage and marked the conclusion of the procedure. The patient was placed back in supine position, awakened from anesthesia, and transported to the recovery room in stable condition. ESTIMATED BLOOD LOSS: approximately 50 mL COMPLICATIONS: None. SPECIMENS: Left kidney stone fragments. PLAN: The patient will be admitted to the hospital postoperatively. I will likely remove his left nephrostomy catheter tomorrow, and if his labs are stable and urine output is clear, I will also remove the Craft catheter. He will be discharged home with the stent in place with the plan to remove that in a few weeks in the office. ROS RAMIREZ MD Oct 11, 2019 10:20
[2019-10-11] MEDS: fentaNYL 100 MCG/2 ML INJECTION (J3010) IV PRN ×4 (10:32→10:57)
[2019-10-11 10:34] LABS: HEMATOCRIT 40.8 % (42.0-52.0); HEMOGLOBIN 13.6 g/dl (13.5-17.5); MEAN CORPUSCULAR HEMOGLOBIN 33.5 pg (27.0-33.0); MEAN CORPUSCULAR HGB CONC 33.3 g/dl (32.0-36.5); MEAN CORPUSCULAR VOLUME 100.5 fl (80.0-96.0); PLATELET COUNT, AUTOMATED 141 10^3/uL (150-450); RED BLOOD COUNT 4.06 10^6/uL (4.30-6.10); WHITE BLOOD COUNT 11.8 10^3/uL (4.0-10.0)
[2019-10-11 10:54] LABS: CALCIUM LEVEL 8.6 MG/DL (8.8-10.2); CREATININE FOR GFR 1.47 MG/DL (0.70-1.30); GLOMERULAR FILTRATION RATE 49.6 (>42); POTASSIUM SERUM 3.7 MEQ/L (3.5-5.1)
[2019-10-11] MEDS ORDERED: ALBUTEROL SULFATE 2.5 MG/0.5 ML INH NEB SOLN As Ordered ONE (11:52)
[2019-10-11] MEDS ORDERED: ALBUTEROL SULFATE 2.5 MG/0.5 ML INH NEB SOLN INH ONE (12:00)
[2019-10-11] MEDS: PERCOCET 5MG/325MG TAB PO PRN ×3 (13:28→22:06)
[2019-10-11] MEDS: DOCUSATE SODIUM 100 MG CAP PO SCH ×2 (15:13→22:00)
[2019-10-11] MEDS: ceFAZolin SOD 1 GM in D5W MINI-BAG PLUS 50 ML IV SCH (15:13)
[2019-10-11] MEDS: NS 1,000 ML IV SCH (15:23)
[2019-10-11] MEDS ORDERED: IBUPROFEN 600 MG TAB PO PRN (19:15)
[2019-10-11] MEDS: SYMBICORT 160/4.5MCG INHALER 6GM INH SCH (20:39)
[2019-10-11] MEDS: IPRATROPIUM 0.5MG/ALBUTEROL 2.5MG INH SOL UD 3ML (DUONEB)(J7620) NEB PRN ×2 (20:39→23:54)
[2019-10-11] MEDS ORDERED: TOPIRAMATE (TopAMAX) 100 MG TAB PO SCH (21:00)
[2019-10-11] MEDS ORDERED: MIRTAZAPINE 15 MG TAB PO SCH (21:00)
[2019-10-11] MEDS ORDERED: ATORVASTATIN 20 MG TAB PO SCH (21:00)
[2019-10-12] MEDS: ceFAZolin SOD 1 GM in D5W MINI-BAG PLUS 50 ML IV SCH (00:42)
[2019-10-12] MEDS ORDERED: traZODone 50 MG TAB PO ONE (01:15)
[2019-10-12 02:00] VITALS: BP 152/66
[2019-10-12] MEDS: PERCOCET 5MG/325MG TAB PO PRN ×3 (02:02→10:43)
[2019-10-12] MEDS: NS 1,000 ML IV SCH (02:02)
[2019-10-12] MEDS: IPRATROPIUM 0.5MG/ALBUTEROL 2.5MG INH SOL UD 3ML (DUONEB)(J7620) NEB PRN (03:08)
[2019-10-12 06:00] VITALS: BP 147/67
[2019-10-12 06:49] LABS: HEMATOCRIT 35.1 % (42.0-52.0); HEMOGLOBIN 11.8 g/dl (13.5-17.5); MEAN CORPUSCULAR HEMOGLOBIN 33.2 pg (27.0-33.0); MEAN CORPUSCULAR HGB CONC 33.6 g/dl (32.0-36.5); MEAN CORPUSCULAR VOLUME 98.9 fl (80.0-96.0); PLATELET COUNT, AUTOMATED 124 10^3/uL (150-450); RED BLOOD COUNT 3.55 10^6/uL (4.30-6.10); WHITE BLOOD COUNT 11.2 10^3/uL (4.0-10.0)
[2019-10-12 07:07] LABS: INR 1.16; PROTHROMBIN TIME 14.5 SECONDS (11.8-14.0)
[2019-10-12 07:08] LABS: PARTIAL THROMBOPLASTIN TIME 41.7 SECONDS (25.0-38.4)
[2019-10-12 07:11] LABS: CALCIUM LEVEL 7.9 MG/DL (8.8-10.2); CREATININE FOR GFR 1.35 MG/DL (0.70-1.30); GLOMERULAR FILTRATION RATE 54.7 (>42); POTASSIUM SERUM 3.3 MEQ/L (3.5-5.1)
[2019-10-12] MEDS: SYMBICORT 160/4.5MCG INHALER 6GM INH SCH (07:31)
[2019-10-12] MEDS ORDERED: TIOTROPIUM INHALER/CAPSULE (SPIRIVA) INH SCH (08:00)
[2019-10-12] MEDS: DOCUSATE SODIUM 100 MG CAP PO SCH (09:00)
[2019-10-12] MEDS: CETIRIZINE (ZyrTEC) 10 MG TAB PO SCH (09:00)
[2019-10-12] MEDS ORDERED: SOTALOL 40MG PER 1/2 TABLET PO SCH (09:00)
[2019-10-12] MEDS: OMEPRAZOLE 20 MG CAP PO SCH (09:00)
[2019-10-12] MEDS ORDERED: amLODIPine 10 MG TAB PO SCH (09:00)
[2019-10-12] MEDS: TAMSULOSIN 0.4 MG CAP PO SCH (09:00)
[2019-10-12] MEDS ORDERED: TOPIRAMATE (TopAMAX) 25 MG TAB PO SCH (09:00)
[2019-10-12] MEDS: SERTRALINE 100 MG TAB PO SCH (09:00)
[2019-10-12 10:00] VITALS: BP 144/64
[2019-10-12 10:43] VITALS: BP 152/67
--- NOTE | 2019-10-12 10:59 | IPNPDOC ---
Subjective Review oF Systems Chief Complaint The patient is a 74-year-old male admitted with a reason for visit of Nephrolithiasis. Events since Last Encounter No acute events o/n. Good pain control. No SOB or chest pain. Has not ambulated yet. No n/v. Tolerating diet. No f/c/ns. Objective Physical Examination General Exam: Alert, Cooperative, No Acute Distress ABDOMEN EXAM: Soft; No: Tenderness Psych Exam: Mental status NL, Mood NL Other physical findings left nephrostomy catheter draining dark pink urine; Craft catheter draining light red urine w/ no clots Vital Signs/I&O Vital Signs Date Time Temp Pulse Resp B/P (MAP) Pulse Ox O2 Delivery O2 Flow Rate FiO2 10/12/19 10:43 74 152/67 10/12/19 10:43 20 10/12/19 10:00 97.7 92 Room Air 10/11/19 11:07 2 I&O- Last 24 Hours up to 6 AM 10/12/19 06:00 Intake Total 3885 ml Output Total 1925 ml Balance 1960 ml Laboratory Data Labs 24H Laboratory Tests 2 10/12/19 06:27: Nucleated Red Blood Cells % (auto) 0.0, Prothrombin Time 14.5H, Prothromb Time International Ratio 1.16, Activated Partial Thromboplast Time 41.7H, Anion Gap 3L, Glomerular Filtration Rate 54.7, Calcium Level 7.9L CBC/BMP Laboratory Tests 10/12/19 06:27 Assessment/Plan Date Seen The patient was seen on 10/12/19. Patient Summary This is a 74 y/o M POD1 s/p left PCNL. He is doing well. Vitals stable. Good UOP from nephrostomy catheter and Craft catheter. Plan/VTE VTE Prophylaxis Ordered?: Yes VTE Exclusion Mechanical Proph: N/A:VTE Prophy Ordered Plan - left nephrostomy catheter removed - will d/c Craft catheter if no increase in hematuria after removing the nephrostomy catheter - cont home meds - percocet prn pain - d/c IVF - need to get him ambulating - strict I/Os - plan discharge home today if no difficulty ambulating ROS RAMIREZ MD Oct 12, 2019 10:59
[2019-10-12] MEDS ORDERED: DOCU100C16 PO (11:10)
[2019-10-12] MEDS ORDERED: IPRATROPIUM 0.5MG/ALBUTEROL 2.5MG INH SOL UD 3ML (DUONEB)(J7620) NEB SCH (12:00)
== END 2019-10-12 14:25 | disposition home or self-care (01) | DRG 661 ==
LOC: M OR 06:18 → M MSPAV 13:36 → EDSTATUS 15:00
PROVIDERS: ADMIT Urology; ATTEND Urology
PROC: 0T773DZ Dilation of Left Ureter with Intraluminal Device, Percutaneous Approach (ICD-10-PCS; 2019-10-11)
PROC: 0TC13ZZ Extirpation of Matter from Left Kidney, Percutaneous Approach (ICD-10-PCS; principal; 2019-10-11 07:30)
DX: N20.0 Calculus of kidney (principal); Z79.899 Other long term (current) drug therapy; Z95.0 Presence of cardiac pacemaker; J44.9 Chronic obstructive pulmonary disease, unspecified; E11.51 Type 2 diabetes mellitus with diabetic peripheral angiopathy without gangrene; I12.9 Hypertensive chronic kidney disease with stage 1 through stage 4 chronic kidney disease, or unspecified chronic kidney disease; I48.0 Paroxysmal atrial fibrillation; E78.5 Hyperlipidemia, unspecified; I25.10 Atherosclerotic heart disease of native coronary artery without angina pectoris; G47.00 Insomnia, unspecified; Z86.73 Personal history of transient ischemic attack (TIA), and cerebral infarction without residual deficits; Z79.01 Long term (current) use of anticoagulants; N18.3 Chronic kidney disease, stage 3 (moderate)

== ENCOUNTER → 2019-11-06 | Outpatient (CLI) | payer OTHER ==
[~2019-11-06] MED LIST changes: -ARTIDRO2 OU; +DOCU100C16 PO; -LIDOCAINE 1% MDV 20ML VIAL SQ PRN; +POLYOPD OU
--- NOTE | 2019-11-06 15:54 | REPPI ---
Clinical: Kidney stones. Technique: Two supine views of the abdomen and pelvis. Findings: Left ureteral stent in satisfactory position. 3 x 4 mm upper pole left renal calculus is suggested along with small right intrarenal calculi to 3 mm. No obvious ureteral calculi appreciated. The bowel gas pattern is nonspecific. Evidence for atherosclerotic disease including left iliac stent. Skeletal structures demonstrate age-related degenerative changes. Impression: 1. Suspected small bilateral nonobstructing nephroliths. Electronically Signed by Alvarado Lucero MD 11/06/2019 02:45 P
== END ==
LOC: M PLAIMG 14:19
PROVIDERS: ATTEND Urology
DX: N20.0 Calculus of kidney (principal)

== ENCOUNTER → 2020-04-30 | Outpatient (CLI) | payer OTHER ==
[~2020-04-30] MED LIST changes: -AMLO10TA5 PO; +AMLO1TAB25 PO
[2020-06-04 07:36] LABS: HEMATOCRIT 43.8 % (42.0-52.0); HEMOGLOBIN 15.1 g/dl (13.5-17.5); MEAN CORPUSCULAR HEMOGLOBIN 33.4 pg (27.0-33.0); MEAN CORPUSCULAR HGB CONC 34.5 g/dl (32.0-36.5); MEAN CORPUSCULAR VOLUME 96.9 fl (80.0-96.0); PLATELET COUNT, AUTOMATED 157 10^3/uL (150-450); RED BLOOD COUNT 4.52 10^6/uL (4.30-6.10); WHITE BLOOD COUNT 8.1 10^3/uL (4.0-10.0)
[2020-06-17 07:27] LABS: CREATININE FOR GFR 1.45 MG/DL (0.70-1.30); GLOMERULAR FILTRATION RATE 50.4 (>42)
--- NOTE | 2020-06-29 08:19 | REP ---
KUB OF THE ABDOMEN AND PELVIS HISTORY: Kidney stones. TECHNIQUE: Two KUB films of the abdomen and pelvis were performed and compared to prior study of 11/06/2019. FINDINGS: Bowel gas pattern is normal. Previously noted left ureteral stent has been removed. There is a rounded density which is not related to the kidney. In the first image, it projects over the upper pole and on the second image it projects much more inferiorly. This may be related to something in the bowel. There is a small calcific density overlying the lateral upper left renal shadow which is stable, measuring approximately 5 mm in diameter. More inferiorly, overlying the lateral aspect of the mid to lower left kidney, there is a 10 mm calcification. This is not seen on the prior study. There are two adjacent punctate calcifications just inferior to this. More medially and inferiorly, there is an oval 7 mm calcification which does not definitely project over the renal shadow and could potentially lie within the proximal left ureter. There is a smaller calcific density just above this. No definite abnormal calcifications are seen on the right. There are diffuse degenerative changes of the spine. There is a left iliac stent. IMPRESSION: Suspect new left renal and possibly ureteral calcifications. MTDD
== END ==
LOC: M WUC 13:40
PROVIDERS: ATTEND Nurse Practitioner Family
DX: N20.0 Calculus of kidney (principal)

== ENCOUNTER 2023-12-23 03:50 | Inpatient (IN) | payer MEDICARE, OTHER ==
[~2023-12-23] VITALS: Ht 188 cm; Wt 84.8 kg
[~2023-12-23 03:50] MED LIST changes: +ARTIDRO4 OU; -CILO100T PO; +CILO100T3 PO; +CILO50TA2 PO; +FISH10005 PO; -FISH7.5C PO; +GABA-284 PO; -GABA-845 PO; +INDA1.253 PO; -INDA125TA PO; +ISOS1TAB35 PO; -ISOS20TA PO; +ISOS20TA53 PO; -ISOS30TA4 PO; -KETO0.02 OU; +KETO5DRO33 OU; -KLOR10TA76 PO; -LISI-538 PO; +LISI20TA33 PO; -LISI40TA PO; +LISI40TA4 PO; -POLYOPD OU; +POTA-136 PO; +POTA-149 PO; -POTA10TA16 PO; -QUET1TAB10 PO; +QUET300T2 PO; +TOPI-21 PO; -TOPI50TA9 PO
[2023-12-23 05:03] LABS: VENOUS BASE EXCESS 2.6 (-2.0-2.0); VENOUS HCO3 31.6 MMOL/L (23.0-27.0); VENOUS O2 SATURATION 63.5 % (60.0-80.0); VENOUS PARTIAL PRESSURE CO2 70.4 mmHg (38.0-50.0); VENOUS PARTIAL PRESSURE O2 33.5 mmHg (30.0-50.0); VENOUS TOTAL CO2 33.8 MMOL/L (24.0-28.0)
[2023-12-23 05:11] LABS: BASO % 0.5 % (0.0-1.0); EOS # 0.4 10^3/uL (0.0-0.5); EOS % 6.3 % (0.0-3.0); HEMATOCRIT 37.1 % (42.0-52.0); HEMOGLOBIN 12.6 g/dl (13.5-17.5); LYMPH # 1.3 10^3/uL (1.5-5.0); MEAN CORPUSCULAR HEMOGLOBIN 32.7 pg (27.0-33.0); MEAN CORPUSCULAR VOLUME 96.4 fl (80.0-96.0); MONO # 0.6 10^3/uL (0.0-0.8); MONO % 9.5 % (2.0-8.0); NEUTROPHILS # 4.2 10^3/uL (1.5-8.5); NEUTROPHILS % 63.4 % (36.0-66.0); PLATELET COUNT, AUTOMATED 111 10^3/uL (150-450); RED BLOOD COUNT 3.85 10^6/uL (4.30-6.10); WHITE BLOOD COUNT 6.7 10^3/uL (4.0-10.0)
[2023-12-23] MEDS: IPRATROPIUM 0.5MG/ALBUTEROL 2.5MG INH SOL UD 3ML (DUONEB) NEB ONE (05:21)
[2023-12-23] MEDS: IPRATROPIUM 0.5MG/ALBUTEROL 2.5MG INH SOL UD 3ML (DUONEB) NEB PRN (05:31)
[2023-12-23 05:33] LABS: CK-MB VALUE MASS < 1.0 NG/ML (<3.6)
[2023-12-23 05:35] LABS: ALBUMIN 2.8 G/DL (3.2-5.2); ALKALINE PHOSPHATASE 72 U/L (46-116); ALT/SGPT 16 U/L (7.0-40); AST/SGOT 20 U/L (<34); BILIRUBIN,DIRECT 0.1 MG/DL (<0.4); BILIRUBIN,TOTAL 0.3 MG/DL (0.3-1.2); BLOOD UREA NITROGEN 14 MG/DL (9-23); CALCIUM LEVEL 8.5 MG/DL (8.3-10.6); CARBON DIOXIDE LEVEL 37 MMOL/L (20-31); CHLORIDE LEVEL 105 MMOL/L (98-107); CPK CREATINE PHOSPHOKINASE 29 U/L (46-171); GLOMERULAR FILTRATION RATE 47.9 (>35); GLUCOSE, FASTING 92 MG/DL (74-106); MB/CK RELATIVE INDEX 3.44 (< OR =4); POTASSIUM SERUM 3.5 MMOL/L (3.5-5.1); SODIUM LEVEL 144 MMOL/L (136-145); TOTAL PROTEIN 6.2 G/DL (5.7-8.2)
[2023-12-23 05:37] LABS: THYROID STIMULATING HORMONE 4.554 uIU/ML (0.55-4.78); THYROXINE (T4) 4.4 UG/DL (4.5-10.9)
[2023-12-23] MEDS: methylPREDNISolone 125MG 2ML VIAL IV ONE (06:35)
[2023-12-23] MEDS: AZITHROMYCIN 250MG TABLET PO SCH (11:55)
[2023-12-23] MEDS: NS 1,000 ML IV SCH (11:55)
[2023-12-23] MEDS ORDERED: TOPI-21 PO (12:04)
[2023-12-23] MEDS ORDERED: FLON1SPR NARES (12:04)
[2023-12-23] MEDS ORDERED: FURO20TA2 PO (12:05)
[2023-12-23] MEDS ORDERED: RISP0.5T82 PO (12:06)
[2023-12-23 12:08] LABS: INR 1.22; PARTIAL THROMBOPLASTIN TIME 43.3 SECONDS (24.8-34.2)
[2023-12-23] MEDS: IPRATROPIUM 0.5MG/ALBUTEROL 2.5MG INH SOL UD 3ML (DUONEB) NEB SCH (12:20)
[2023-12-23] MEDS ORDERED: MELA5CAP2 PO (14:44)
[2023-12-23] MEDS ORDERED: POTA-150 PO (14:44)
[2023-12-23] MEDS ORDERED: ZOLO100T PO (14:44)
[2023-12-23] MEDS ORDERED: AMLO1TAB25 PO (14:44)
[2023-12-23] MEDS ORDERED: VITA200016 PO (14:44)
[2023-12-23] MEDS ORDERED: MULT-40 PO (14:44)
[2023-12-23] MEDS ORDERED: MIRT-88 PO (14:44)
[2023-12-23] MEDS ORDERED: FLUT15.820 (14:44)
[2023-12-23] MEDS ORDERED: DOCU100C16 PO (14:44)
[2023-12-23] MEDS ORDERED: POTA10CA60 PO (14:44)
[2023-12-23] MEDS ORDERED: HOME MED LIST COMPLETE! XX SCH (14:45)
[2023-12-23 16:50] VITALS: BP 131/60; TEMP 97.7; O2SAT 93
[2023-12-23] MEDS: methylPREDNISolone 125MG 2ML VIAL IV SCH (18:33)
[2023-12-23] MEDS: CETIRIZINE (ZyrTEC) 10 MG TAB PO SCH (18:34)
[2023-12-23] MEDS: TAMSULOSIN 0.4 MG CAP PO SCH (18:35)
[2023-12-23] MEDS: ACETAMINOPHEN TAB 650MG DOSE (2X325MG) PO PRN (18:35)
[2023-12-23] MEDS: SERTRALINE 100 MG TAB PO SCH (18:35)
[2023-12-23] MEDS: FUROSEMIDE 20 MG TAB PO SCH (18:35)
[2023-12-23] MEDS: guaiFENesin ER TABLET 600 MG TAB PO SCH (20:59)
[2023-12-23] MEDS: ATORVASTATIN 20 MG TAB PO SCH (20:59)
[2023-12-23] MEDS: TOPIRAMATE (TopAMAX) 25 MG TAB PO SCH (20:59)
[2023-12-23] MEDS: MIRTAZAPINE 15 MG TAB PO SCH (20:59)
[2023-12-23] MEDS: APIXABAN 5 MG TAB (ELIQUIS) PO SCH (20:59)
[2023-12-23] MEDS: POTASSIUM CHLORIDE 10MEQ SR TABLET PO SCH (20:59)
[2023-12-23 21:00] VITALS: BP 132/62; TEMP 97.7; O2SAT 90
[2023-12-23] MEDS: OMEPRAZOLE 20MG CAP PO SCH (21:00)
[2023-12-23] MEDS: traZODone 100 MG TAB PO SCH (21:00)
[2023-12-23] MEDS: SOTALOL HCL 80 MG TAB PO SCH (21:00)
[2023-12-23] MEDS: oxyCODONE 5MG TAB PO SCH (21:00)
[2023-12-23] MEDS: NICOTINE 14 MG/24 HR TRANSDERMAL TD SCH (21:07)
[2023-12-24] MEDS: ALBUTEROL SULFATE 2.5MG/0.5ML INH NEB SOLN NEB PRN (00:17)
[2023-12-24 05:00] VITALS: BP 128/64; TEMP 97.5; O2SAT 93
[2023-12-24 06:06] LABS: HEMATOCRIT 31.7 % (42.0-52.0); HEMOGLOBIN 10.8 g/dl (13.5-17.5); MEAN CORPUSCULAR HEMOGLOBIN 32.1 pg (27.0-33.0); MEAN CORPUSCULAR HGB CONC 34.1 g/dl (32.0-36.5); MEAN CORPUSCULAR VOLUME 94.3 fl (80.0-96.0); PLATELET COUNT, AUTOMATED 112 10^3/uL (150-450); RED BLOOD COUNT 3.36 10^6/uL (4.30-6.10); WHITE BLOOD COUNT 8.3 10^3/uL (4.0-10.0)
[2023-12-24 06:29] LABS: ALBUMIN 2.2 G/DL (3.2-5.2); BILIRUBIN,TOTAL 0.2 MG/DL (0.3-1.2); CALCIUM LEVEL 8.3 MG/DL (8.3-10.6); CREATININE FOR GFR 1.52 MG/DL (0.70-1.30); GLOMERULAR FILTRATION RATE 47.2 (>35); POTASSIUM SERUM 3.1 MMOL/L (3.5-5.1); TOTAL PROTEIN 5.4 G/DL (5.7-8.2)
[2023-12-24] MEDS: FLUTICASONE PROP 0.05% NASAL SPRAY 16 GM (FLONASE) NARES SCH (09:16)
[2023-12-24] MEDS: POTASSIUM CHLORIDE 10% LIQ 20MEQ/15ML UDC PO ONE (09:16)
[2023-12-24] MEDS: INDAPAMIDE 1.25MG TABLET PO SCH (09:17)
[2023-12-24] MEDS: SOTALOL 40MG PER 1/2 TABLET PO SCH (09:21)
[2023-12-24] MEDS: POTASSIUM CHLORIDE 10MEQ SR TABLET PO SCH (09:24)
[2023-12-24] MEDS: PANTOPRAZOLE 40MG TAB (PROTONIX) PO SCH (09:25)
[2023-12-24] MEDS: risperiDONE 1 MG TAB PO SCH ×2 (09:25→21:00)
[2023-12-24] MEDS: SYMBICORT 160/4.5MCG INHALER 6GM INH SCH (10:02)
[2023-12-24] MEDS: TIOTROPIUM INHALER/CAPSULE (SPIRIVA) INH SCH (10:02)
[2023-12-24 14:00] VITALS: BP 135/62; TEMP 97; O2SAT 96
[2023-12-24 20:15] VITALS: BP 134/63; TEMP 97; O2SAT 95
[2023-12-25 00:53] VITALS: O2SAT 96
[2023-12-25 05:14] VITALS: BP 135/61; TEMP 97; O2SAT 90
[2023-12-25 07:03] LABS: HEMOGLOBIN 10.9 g/dl (13.5-17.5); MEAN CORPUSCULAR HEMOGLOBIN 31.6 pg (27.0-33.0); MEAN CORPUSCULAR VOLUME 95.7 fl (80.0-96.0); PLATELET COUNT, AUTOMATED 134 10^3/uL (150-450); RED BLOOD COUNT 3.45 10^6/uL (4.30-6.10); WHITE BLOOD COUNT 11.3 10^3/uL (4.0-10.0)
[2023-12-25 07:27] LABS: ALBUMIN 2.3 G/DL (3.2-5.2); ALKALINE PHOSPHATASE 58 U/L (46-116); ALT/SGPT 24 U/L (7.0-40); AST/SGOT 22 U/L (<34); BILIRUBIN,TOTAL < 0.2 MG/DL (0.3-1.2); BLOOD UREA NITROGEN 28 MG/DL (9-23); CALCIUM LEVEL 8.6 MG/DL (8.3-10.6); CARBON DIOXIDE LEVEL 35 MMOL/L (20-31); CHLORIDE LEVEL 103 MMOL/L (98-107); CREATININE FOR GFR 1.39 MG/DL (0.70-1.30); GLOMERULAR FILTRATION RATE 52.3 (>35); GLUCOSE, FASTING 113 MG/DL (74-106); POTASSIUM SERUM 3.6 MMOL/L (3.5-5.1); SODIUM LEVEL 143 MMOL/L (136-145); TOTAL PROTEIN 5.5 G/DL (5.7-8.2)
[2023-12-25 14:43] VITALS: BP 127/64; TEMP 97.2; O2SAT 92
[2023-12-25] MEDS: methylPREDNISolone 125MG 2ML VIAL IV SCH (14:54)
[2023-12-25 22:00] VITALS: BP 132/66; TEMP 97.3; O2SAT 93
[2023-12-26] MEDS ORDERED: GLUCAGON INJ 1MG VIAL SC PRN (01:25)
[2023-12-26] MEDS ORDERED: DEXTROSE 50% 50ML SYRINGE IV PRN (01:25)
[2023-12-26] MEDS ORDERED: GLUCOSE 4GM CHEW TABLET PO PRN (01:25)
[2023-12-26 05:07] VITALS: BP 132/67; TEMP 98.1; O2SAT 90
[2023-12-26 06:29] LABS: HEMATOCRIT 31.9 % (42.0-52.0); MEAN CORPUSCULAR HEMOGLOBIN 32.5 pg (27.0-33.0); MEAN CORPUSCULAR HGB CONC 34.5 g/dl (32.0-36.5); MEAN CORPUSCULAR VOLUME 94.4 fl (80.0-96.0); PLATELET COUNT, AUTOMATED 138 10^3/uL (150-450); RED BLOOD COUNT 3.38 10^6/uL (4.30-6.10); WHITE BLOOD COUNT 12.1 10^3/uL (4.0-10.0)
[2023-12-26 07:04] LABS: ALBUMIN 2.4 G/DL (3.2-5.2); BILIRUBIN,TOTAL 0.2 MG/DL (0.3-1.2); CALCIUM LEVEL 8.8 MG/DL (8.3-10.6); CREATININE FOR GFR 1.52 MG/DL (0.70-1.30); GLOMERULAR FILTRATION RATE 47.2 (>35); POTASSIUM SERUM 3.3 MMOL/L (3.5-5.1); TOTAL PROTEIN 5.5 G/DL (5.7-8.2)
[2023-12-26] MEDS: BUDESONIDE 0.5 MG/2 ML INHALATION SUSPENSION NEB SCH (08:00)
[2023-12-26 08:39] VITALS: BP 127/62; TEMP 98.1; O2SAT 90
[2023-12-26] MEDS: INSULIN LISPRO (NovoLOG) PER UNIT SC SCH ×2 (08:52→20:52)
[2023-12-26] MEDS: POTASSIUM CHLORIDE 10MEQ SR TABLET PO ONE (09:43)
[2023-12-26 14:25] VITALS: BP 133/64; TEMP 98; O2SAT 92
[2023-12-26 20:17] VITALS: O2SAT 93
[2023-12-26 20:36] VITALS: BP 123/63; TEMP 98.2; O2SAT 98
[2023-12-26 21:45] VITALS: O2SAT 92
[2023-12-27 01:29] VITALS: O2SAT 95
[2023-12-27 07:51] LABS: BASO % 0.1 % (0.0-1.0); HEMATOCRIT 32.3 % (42.0-52.0); HEMOGLOBIN 11.1 g/dl (13.5-17.5); LYMPH # 0.8 10^3/uL (1.5-5.0); LYMPH % 6.9 % (24.0-44.0); MEAN CORPUSCULAR HEMOGLOBIN 32.1 pg (27.0-33.0); MEAN CORPUSCULAR HGB CONC 34.4 g/dl (32.0-36.5); MEAN CORPUSCULAR VOLUME 93.4 fl (80.0-96.0); MONO # 0.4 10^3/uL (0.0-0.8); MONO % 3.2 % (2.0-8.0); NEUTROPHILS # 10.5 10^3/uL (1.5-8.5); NEUTROPHILS % 88.8 % (36.0-66.0); PLATELET COUNT, AUTOMATED 148 10^3/uL (150-450); RED BLOOD COUNT 3.46 10^6/uL (4.30-6.10); WHITE BLOOD COUNT 11.9 10^3/uL (4.0-10.0)
[2023-12-27] MEDS: predniSONE 10MG TAB PO SCH (08:13)
[2023-12-27] MEDS: DOCUSATE SODIUM 100MG CAPSULE PO PRN (08:30)
[2023-12-27 08:31] LABS: CALCIUM LEVEL 8.1 MG/DL (8.3-10.6); CREATININE FOR GFR 1.51 MG/DL (0.70-1.30); GLOMERULAR FILTRATION RATE 47.6 (>35); MAGNESIUM LEVEL 1.7 MG/DL (1.8-2.4); POTASSIUM SERUM 3.6 MMOL/L (3.5-5.1)
[2023-12-28 09:57] VITALS: BP 122/63
[2023-12-28] MEDS ORDERED: HYOSCYAMINE SULFATE 0.125 MG SUBL TABLET PO PRN (18:25)
[2023-12-28] MEDS ORDERED: BISACODYL 10MG SUPP PR PRN (18:25)
[2023-12-28] MEDS ORDERED: ACETAMINOPHEN TAB 650MG DOSE (2X325MG) PO PRN (18:25)
[2023-12-28] MEDS: MORPHINE 2 MG/ML 1ML VIAL IV PRN (18:42)
[2023-12-28] MEDS: LORazepam 1 MG TAB PO PRN (18:42)
[2023-12-28] MEDS: ONDANSETRON 4MG ORAL DISINTEGRATING TAB SL PRN (23:09)
[2023-12-29] MEDS: MORPHINE 10MG/0.5ML ORAL CONCENTRATE SOLUTION U/D SL PRN (21:27)
[2023-12-29] MEDS: SCOPOLAMINE 1MG TRANSDERMAL PATCH TOP PRN (21:28)
[2023-12-30] MEDS: ATROPINE SULFATE 1% OPHTH SOLN 2ML BTL SL PRN (09:17)
[2023-12-30] MEDS: MORPHINE 10MG/0.5ML ORAL CONCENTRATE SOLUTION U/D SL PRN (10:43)
[2023-12-30] MEDS: LORazepam 1 MG TAB PO ONE (12:05)
[2023-12-30] MEDS: MORPHINE SULF IN 0.9% NACL 100 MG in IV 1 EA IV SCH (13:18)
== END 2023-12-30 17:35 | disposition expired | DRG 190 ==
LOC: EDBD 03:50 → M ED 03:50 → M ED INP 10:36 → M MS5PR 16:50
PROVIDERS: ADMIT Internal Medicine; ATTEND Student in an Organized Health Care Education/Training Program
DX: J44.1 Chronic obstructive pulmonary disease with (acute) exacerbation (principal); J96.21 Acute and chronic respiratory failure with hypoxia; I13.0 Hypertensive heart and chronic kidney disease with heart failure and stage 1 through stage 4 chronic kidney disease, or unspecified chronic kidney disease; N17.9 Acute kidney failure, unspecified; G31.83 Neurocognitive disorder with Lewy bodies; F02.80 Dementia in other diseases classified elsewhere, unspecified severity, without behavioral disturbance, psychotic disturbance, mood disturbance, and anxiety; E87.6 Hypokalemia; I25.10 Atherosclerotic heart disease of native coronary artery without angina pectoris; K72.90 Hepatic failure, unspecified without coma; K21.9 Gastro-esophageal reflux disease without esophagitis; R57.1 Hypovolemic shock; F17.210 Nicotine dependence, cigarettes, uncomplicated; G40.909 Epilepsy, unspecified, not intractable, without status epilepticus; E11.22 Type 2 diabetes mellitus with diabetic chronic kidney disease; I50.9 Heart failure, unspecified; N18.30 Chronic kidney disease, stage 3 unspecified; Z66 Do not resuscitate; Z71.6 Tobacco abuse counseling; Z86.73 Personal history of transient ischemic attack (TIA), and cerebral infarction without residual deficits; Z95.5 Presence of coronary angioplasty implant and graft; Z79.01 Long term (current) use of anticoagulants; Z79.899 Other long term (current) drug therapy; Z88.8 Allergy status to other drugs, medicaments and biological substances; Z11.52 Encounter for screening for COVID-19; Z99.81 Dependence on supplemental oxygen